=== PATIENT | male | born 1935 | race Caucasian/White ===

== ENCOUNTER → 2017-07-29 10:27 | Outpatient (CLI) | payer MEDICARE, SELFPAY ==
[2017-07-29 12:11] LABS: Anion Gap 8 (5-15); BUN 17 mg/dL (7-18); BUN/Creat Ratio 15.2 RATIO (10-20); Calcium,Total 9.6 mg/dL (8.5-10.1); Chloride 103 mmol/L (98-107); Creatinine, Serum 1.12 mg/dL (0.70-1.30); EST Glomerular Filtration Rate 67 mL/min (>60); Est Glom Filt Rate - Afr Amer 81 mL/min (>60); Glucose 111 mg/dL (70-110); Potassium 4.3 mmol/L (3.5-5.1); Sodium Level 139 mmol/L (136-145)
== END ==
PROVIDERS: Family Provider Family Medicine; PCP Family Medicine
DX: R26.9 Unspecified abnormalities of gait and mobility (principal)
CPT/HCPCS: 36415; 80048

== ENCOUNTER → 2017-08-31 13:57 | Outpatient (CLI) | payer MEDICARE, SELFPAY ==
[2017-08-31 15:06] LABS: Hematocrit 37.4 % (40-54); Hemoglobin 12.1 g/dl (13.0-16.5); Mean Corp Hgb Conc 32.4 g/gl (32-36); Mean Corpuscular Volume 89.7 fL (80-94); Mean Platelet Vol. 10.6 fl (6.2-12.0); Platelet Count 212 K/mm3 (150-450); RBC Distribution Width CV 12.6 % (11.6-14.6); RBC Distribution Width SD 40.9 fl (35.1-43.9); Red Blood Count 4.17 M/mm3 (4.6-6.2); White Blood Count 6.8 K/mm3 (4.4-11.0)
[2017-08-31 15:10] LABS: Scan Indicated on CBC? Y/N NO
[2017-08-31 15:49] LABS: Rubella IgG > 500.0 IU/mL; Vitamin B12 460 pg/mL (211-911)
[2017-08-31 16:22] LABS: ALB/GLOB Ratio 0.8 RATIO (0.9-2.4); AST(SGOT) 28 U/L (15-37); Alanine Aminotransfer ALT/SGPT 31 U/L (16-61); Albumin, Serum 3.4 g/dL (3.2-5.0); Alkaline Phosphatase 71 U/L (45-117); Anion Gap 9 (5-15); BUN 23 mg/dL (7-18); BUN/Creat Ratio 18.1 RATIO (10-20); Calcium,Total 9.4 mg/dL (8.5-10.1); Chloride 106 mmol/L (98-107); Creatinine, Serum 1.27 mg/dL (0.70-1.30); EST Glomerular Filtration Rate 58 mL/min (>60); Est Glom Filt Rate - Afr Amer 70 mL/min (>60); Free T3 2.1 pg/mL (2.18-3.98); Glucose 153 mg/dL (74-106); Magnesium 2.3 mg/dL (1.6-2.6); Potassium 4.1 mmol/L (3.5-5.1); Protein, Total 7.4 g/dL (6.4-8.2); Rheumatoid Factor < 10.0 IU/mL (<15); Sodium Level 142 mmol/L (136-145); Thyroid Stim Hormone (TSH) 1.61 uIU/mL (0.358-3.74)
[2017-09-04 01:08] LABS: Rapid Plasmin Reagin (RPR) NONREACTIVE (NONREACTIVE)
== END ==
PROVIDERS: Family Provider Family Medicine; PCP Family Medicine; Visit Provider Nurse Practitioner Acute Care
DX: E88.81 Metabolic syndrome and other insulin resistance (principal); R42 Dizziness and giddiness
CPT/HCPCS: 36415; 80053; 82607; 82746; 83735; 84100; 84403; 84439; 84443; 84481; 85027; 86431; 86592; 86762

== ENCOUNTER 2017-10-22 12:00 | Outpatient (RCR) | payer MEDICARE, SELFPAY ==
--- NOTE | 2017-08-25 10:40 | HP.PTEVAL_ITS ---
Patient's Visit Information PEDRITO REYES is a 82 year old M referred to Physical Therapy by Out of Town Doctor with a diagnosis of gait instability. Date of Evaluation: 08/25/17 Physical Therapist: Glenn Saravia PT, - Visit Plan Frequency: 2-3x /Week Duration: 4 Weeks Plan: B LE strengthening, balance and proprio, gait training, core strengthening , nustep, and HEP - Subjective Subjective: Pt reports he had spinal fusion in May in his LB. 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 No recent falls, or any in the past. Pt reports he has a tendency since his strokes to lean toward his L while ambulating. Pt reports this has caused him to almost lose his balance, but he hasn't yet. Pt reports he has been ambulating with a cane for the past 2 years. Pt reports he has good sensation in his feet. Pt reports occasional LBP, but no pain this date. No diff with sleep at this time. Pt has 2 steps into his house that he has to negotiate one at a time. No residual weakness from his strokes. - Objective Neuro: B LE sensation is WNL to light touch. B pat tendon reflex= 1/3. MMT: R LE is grossly 4-/5 throughout while L LE is 4/5 throughout. Gait: Pt ambulates with a very slow cadance and use of standard cane. Balance: Roberts Balance scale 50/56, indicating low fall risk - Goals Goal 1:: Increase B LE strength x 1 grade to aid with stair negotiation Goal Time Frame: 4-6 Weeks Goal 2:: Increase Roberts balance score x 2-5 pnts to aid with increasing SDB Goal Time Frame: 4-6 Weeks Goal 3:: I with HEP Goal Time Frame: 4-6 Weeks - Rehabilitation Potential Physical Therapy Diagnosis: LE weakness and gait instability secondary to debilitation Rehabilitation Potential: Good - Anticipated Interventions Patient/Client Instruction: Educate patient on: Condition, Plan of Care For the Purpose of:: To improve self management Therapeutic Exercise to Include: Strength training, Endurance training, Balance training, Gait and locomotor training, Dynamic Lumbar Stabilization For the Purpose of:: To increase ROM, To improve muscle performance and motor function Thank you for the opportunity to evaluate your patient. For Medicare and Medicare HMO plans, please review the plan of care and approve it. It will need to be FAXED BACK to us at [phone] for Medicare purposes. Please let me know if there are questions or concerns regarding this plan of care. Physician Signature: Date:
--- NOTE | 2017-09-22 11:05 | HP.PTREVAL_ITS ---
Out of Town Doctor, It has been my pleasure to treat PEDRITO REYES over the last 9 visits for gait instability. Please see the progress note below for an update on the physical therapy plan of care! Subjective: Pt feels like he is improving. He hasnt fallen for weeks now. Objective/Function: MMT: L LE grossly 4+/5 throughout; R LE 4-/5 throughout. Roberts balance scale: 47. getting ready to begin safe HEP. Pt is progressing with strength, would definitely benefit from further balance activity to prevent future falls Plan Plan: cont 2 times per week for 4 weeks Goals Goal 1:: Increase B LE strength x 1 grade to aid with stair negotiation Goal Time Frame: 4-6 Weeks Goal Progress: Progressing Goal 2:: Increase Roberts balance score x 2-5 pnts to aid with increasing SDB Goal Time Frame: 4-6 Weeks Goal 3:: I with HEP Goal Time Frame: 4-6 Weeks Goal Progress: Progressing Anticipated Interventions Patient/Client Instruction: Educate patient on: Condition, Plan of Care For the Purpose of:: To improve self management Therapeutic Exercise to Include: Strength training, Endurance training, Balance training, Gait and locomotor training, Dynamic Lumbar Stabilization For the Purpose of:: To increase ROM, To improve muscle performance and motor function Please do not hesitate to contact me at [phone] by phone or Fax: if you have questions or concerns regarding this new plan of care! Sincerely, Glenn Saravia, PT,
--- NOTE | 2017-10-22 13:07 | HP.PTDCSUM ---
HP - PT D/C Summary It has been my pleasure to treat PEDRITO REYES under orders from Out of Town Doctor, for the diagnosis of gait instability for a total of 17 visit(s). Discharge Date: Please see the following information for a summary of their discharge status. - Subjective Subjective: Pt reports he feels more stable after having PT - Objective Objective/Function: B LE MMT: 5/5 throughout. Roberts balance scale: 49/56. Pt is I with HEP. All Rx goals achieved except increased Roberts scale - Goals Goal 1:: Increase B LE strength x 1 grade to aid with stair negotiation Goal Progress: Goal Met Goal 2:: Increase Roberts balance score x 2-5 pnts to aid with increasing SDB Goal Progress: Goal Met Goal 3:: I with HEP Goal Progress: Goal Met - Plan Plan: Discharge - D/C Information If there are questions or concerns regarding this patient's physical therapy, please feel free to call me at [phone]. Thank you for the referral of this patient. Sincerely, Glenn Saravia, PT,
--- NOTE | 2017-10-22 13:11 | HP.PTDCSUM_ITS ---
HP - PT D/C Summary It has been my pleasure to treat PEDRITO REYES under orders from Out of Town Doctor, for the diagnosis of gait instability for a total of 17 visit(s). Discharge Date: Please see the following information for a summary of their discharge status. - Subjective Subjective: Pt reports he feels more stable after having PT - Objective Objective/Function: B LE MMT: 5/5 throughout. Roberts balance scale: 49/56. Pt is I with HEP. All Rx goals achieved except increased Roberts scale - Goals Goal 1:: Increase B LE strength x 1 grade to aid with stair negotiation Goal Progress: Goal Met Goal 2:: Increase Roberts balance score x 2-5 pnts to aid with increasing SDB Goal Progress: Goal Met Goal 3:: I with HEP Goal Progress: Goal Met - Plan Plan: Discharge - D/C Information If there are questions or concerns regarding this patient's physical therapy, please feel free to call me at [phone]. Thank you for the referral of this patient. Sincerely, Glenn Saravia, PT,
== END 2017-10-22 16:18 | disposition home or self-care (01) ==
LOC: PT 12:00
PROVIDERS: Family Provider Family Medicine; PCP Family Medicine
DX: M62.81 Muscle weakness (generalized) (principal); Z86.73 Personal history of transient ischemic attack (TIA), and cerebral infarction without residual deficits
CPT/HCPCS: 97110; 97162; 97164; 97530

== ENCOUNTER → 2017-11-12 08:53 | Outpatient (CLI) | payer MEDICARE, SELFPAY ==
--- NOTE | 2017-11-12 08:56 | ADU_ITS ---
Reason For Study: ATHEROSCLEROSIS Right Velocities Left Velocities Ext. Iliac Artery, dist = 130 cm./sec. Ext Iliac Artery, dist = 123 cm./sec. Common Femoral Artery, mid = 90 cm./sec. Common Femoral Artery, mid = 134 cm./sec. Supf Femoral Artery, prox = 89 cm./sec. Supf. Femoral Artery, prox = 288 cm./sec. RT SFA stent Proximal velocity =138 cm/sec. Supf. Femoral Artery, mid = 148 cm./sec. Mid stent = 135 cm/sec. Supf. Femoral Artery, dist = 48 cm./sec. Distal stent= 146 cm/sec. Profunda Femoral Artery = 123 cm./sec. Supf Femoral Artery, dist. = 179 cm./sec. Popliteal Artery, proximal, = 53 cm./sec. Profunda Femoral Artery = 138 cm./sec. Popliteal Artery, mid = 58 cm./sec. Popliteal Artery, prox. = 92 cm./sec. Popliteal Artery, distal = 137 cm./sec. Rt Popliteal stent prox= 103 cm/sec Ant.Tibial Artery, prox = 27 cm./sec. Mid stent = 70 cm/sec. Ant Tibial Artery, mid = 33 cm./sec. Distal stent =71 cm/sec. Ant. Tibial Artery, distal = 32 cm./sec. Popliteal Artery, dist = 109 cm./sec. Post. Tibial Artery, prox = 51 cm./sec. Ant. Tibial Artery, prox = 17 cm./sec. Post Tibial Artery, mid = 50 cm./sec. Ant. Tibial Artery, mid = 16 cm./sec. Post Tibial Artery, dist. = 42 cm./sec. Ant. Tibial Artery, dist = 40 cm./sec. Peroneal Artery, prox = 43 cm./sec. Post. Tibial Artery, prox = 57 cm./sec. Peroneal Artery, mid = 43 cm./sec. Post. Tibial Artery, mid = 46 cm./sec. Peroneal Artery,dist. = 32 cm./sec. Post. Tibial Artery, dist = 356 cm./sec. Peroneal Artery, prox = 50 cm./sec. Peroneal Artery, mid = 66 cm./sec. Peroneal Artery,dist = 52 cm./sec. Procedure Exam performed in department. Interpretation Summary 1. Right leg no stenosis and widely patent SFA stent. 2. Distal posterior tibial on right severe stenosis otherwise triphasic flow into ankle. 3. Moderate left SFA stenosis but triphasic flow into ankle through tibials. Ordering Physician: Kyle Fields Referring Physician: AMY SINGLETON MD Performed By: Alisa Palumbo, ERIN, RVT
--- NOTE | 2017-11-12 08:56 | CDU_ITS ---
Reason For Study: BRUIT Rt. Velocities/BP Lt. Velocities/BP Prox CCA 73/15 cm/sec. Prox CCA 68/20 cm/sec. Mid CCA 78/16 cm/sec. Mid CCA 60/19 cm/sec. Dist CCA 69/12 cm/sec. Dist CCA 53/20 cm/sec. Prox ICA 79/15 cm/sec. Prox ICA 107/30 cm/sec. Mid ICA 72/24 cm/sec. Mid ICA 91/22 cm/sec. Dist ICA 107/33 cm/sec. Dist ICA 86/20 cm/sec. Rt. ICA/CCA = 1.4. Lt. ICA/CCA = 1.8. Prox ECA 211/13 cm/sec. Prox ECA 460/49 cm/sec. Rt. Vert. 49/8 cm/sec. Lt. Vert. 70/17 cm/sec. Right Extracranial There is heterogeneous, irregular atherosclerotic plaque noted in the right common carotid artery. There is heterogeneous, irregular atherosclerotic plaque noted in the right internal carotid artery. There is heterogeneous, irregular atherosclerotic plaque noted in the right external carotid artery. Antegrade flow is noted in the right vertebral artery. There is heterogeneous, irregular atherosclerotic plaque noted in the right bulb. Left Extracranial There is heterogeneous, irregular atherosclerotic plaque noted in the left common carotid artery. There is heterogeneous, irregular atherosclerotic plaque noted in the left internal carotid artery. There is heterogeneous, irregular atherosclerotic plaque noted in the left external carotid artery. Antegrade flow is noted in the left vertebral artery. There is heterogeneous, irregular atherosclerotic plaque noted in the left bulb. Procedure Carotid Duplex 23220. Exam performed in department. Interpretation Summary Mild (<50%) stenosis right extracranial internal carotid. Mild (<50%) stenosis left extracranial internal carotid. Flow within the vertebral arteries is antegrade bilaterally. Ordering Physician: Kyle Fields Referring Physician: AMY SINGLETON MD Performed By: Alisa Palumbo, RDCS, RVT
--- NOTE | 2017-11-18 08:25 | LEAS ---
Arterial Study - Arterial Study Arterial Study: Date of scan 11/12/[address] Fields next Indication patient with claudication and history of hypertension hyperlipidemia and previous stenting Interpretation: Right lower extremity normal pulsatile flow from the thigh down to the calf ankle digits YAAKOV 0.9 through the posterior tibial 0.9 to the dorsalis pedis. Next Left lower extremity with fairly normal pulsatile flow from the thigh down to the calf ankle digits slightly peaked waveforms noted in the calf YAAKOV 0.9 in the posterior tibial 0.9 for the dorsalis pedis. Impression: 1. Bilateral lower extremities with no evidence of sniffing arterial occlusive disease with an YAAKOV 0.93 on the right 0.94 on the left
--- NOTE | 2017-11-18 08:28 | LEAS_ITS ---
Arterial Study - Arterial Study Arterial Study: Date of scan 11/12/[address] Fields next Indication patient with claudication and history of hypertension hyperlipidemia and previous stenting Interpretation: Right lower extremity normal pulsatile flow from the thigh down to the calf ankle digits YAAKOV 0.9 through the posterior tibial 0.9 to the dorsalis pedis. Next Left lower extremity with fairly normal pulsatile flow from the thigh down to the calf ankle digits slightly peaked waveforms noted in the calf YAAKOV 0.9 in the posterior tibial 0.9 for the dorsalis pedis. Impression: 1. Bilateral lower extremities with no evidence of sniffing arterial occlusive disease with an YAAKOV 0.93 on the right 0.94 on the left
== END ==
PROVIDERS: Family Provider Family Medicine; PCP Family Medicine; Visit Provider Surgery Vascular Surgery
DX: R09.89 Other specified symptoms and signs involving the circulatory and respiratory systems (principal); I70.213 Atherosclerosis of native arteries of extremities with intermittent claudication, bilateral legs; C61 Malignant neoplasm of prostate; I10 Essential (primary) hypertension; E78.00 Pure hypercholesterolemia, unspecified; F17.200 Nicotine dependence, unspecified, uncomplicated
CPT/HCPCS: 93880; 93922; 93925

== ENCOUNTER 2018-01-29 07:56 | Observation (INO) | payer MEDICARE, SELFPAY ==
[2018-01-29 08:00] VITALS: BP 178/89; PULSE 81; RESP 16; TEMP 36.8; O2SAT 95; BMI 24.5
--- NOTE | 2018-01-29 08:09 | NURSING ---
NO LW OR POA
--- NOTE | 2018-01-29 08:13 | CT_ITS ---
STUDY: CT BRAIN WITHOUT CONTRAST REASON FOR EXAM: Male, 82 years old. Weakness. RADIATION DOSAGE (If Supplied By Facility): CTDIvol = ( 44.99 ) mGy, DLP = ( 846.73 ) mGycm TECHNIQUE: Transaxial CT imaging of the brain was performed without administration of intravenous contrast material. Individualized dose optimization techniques were used for this CT. COMPARISON: Comparison is made with prior study dated June 26, 2015. FINDINGS: Normal soft tissue structures. Normal calvarium. There is mild cerebral atrophy with widening of the extra-axial spaces and ventricular dilatation. There are areas of decreased attenuation within the white matter tracts of the supratentorial brain, consistent with microvascular disease changes. Tiny lacunar infarct in the left basal ganglion. This is new as compared to prior study. Normal brainstem. Normal cerebellum. There is no intracranial hemorrhage. There are no findings of an acute ischemic infarction. Normal visualized paranasal sinuses. CT/Brain/Head without Contrast IMPRESSION: Chronic involutional changes of the brain. Tiny lacunar infarct in the left basal ganglion. This is new as compared to prior study. Electronically Signed: Rk Salmeron MD at 9:56 EDT Tel [phone], Service support ,
[2018-01-29 08:35] LABS: Absolute Neutrophil Count 5.8 X10^3/uL (2.0-7.7); Basophil# 0.01 X10^3/uL; Basophil% 0.1 % (0-1); Eosinophils% 2.3 % (0-5); Hematocrit 35.8 % (40-54); Hemoglobin 11.6 g/dl (13.0-16.5); Lymphocyte % 13.5 % (19-41); Mean Corp Hgb Conc 32.4 g/gl (32-36); Mean Corpuscular Hgb 28.2 pg (27.0-32.0); Mean Corpuscular Volume 86.9 fL (80-94); Mean Platelet Vol. 9.8 fl (6.2-12.0); Monocyte# 1.65 X10^3/uL; Monocyte% 18.6 % (0-10); Neutrophil # 5.81 X10^3/uL (2.7-7.7); Neutrophil % 65.4 % (47-70); Platelet Count 169 K/mm3 (150-450); RBC Distribution Width CV 13.6 % (11.6-14.6); RBC Distribution Width SD 43.5 fl (35.1-43.9); Red Blood Count 4.12 M/mm3 (4.6-6.2); White Blood Count 8.9 K/mm3 (4.4-11.0)
[2018-01-29 08:37] LABS: Differential Indicated SCAN CRITERIA MET; POSITIVE COUNT NO; POSITIVE DIFFERENTIAL YES; POSITIVE MORPHOLOGY NO
--- NOTE | 2018-01-29 08:41 | RAD_ITS ---
STUDY: X-RAY CHEST REASON FOR EXAM: Male, 82 years old. Weakness. TECHNIQUE: Single AP portable view of the chest. COMPARISON: None. FINDINGS: Mild elevation of the left hemidiaphragm. Mild degree of increased linear markings at the lung bases slightly more prominent on the left side suggestive of bibasilar atelectasis. There is no demonstrated pleural abnormality. Normal size heart. A left-sided dual-chamber pacemaker is seen. Normal mediastinum and yobani. Normal visualized pulmonary arteries. There is atherosclerotic calcification of the aortic arch with tortuosity. There are degenerative changes of the visualized thoracic spine. Normal visualized ribs, clavicles, and shoulders. There is no demonstrated abnormality of the visualized soft tissue structures of the upper abdomen. RAD/Chest 1 View (Portable) IMPRESSION: Mild increased markings at the lung bases slightly more prominent on the left side suggestive of mild bibasilar linear atelectasis. Electronically Signed: Rk Salmeron MD at 8:58 EDT Tel [phone], Service support ,
--- NOTE | 2018-01-29 08:44 | ED.VISSUMM ---
- ER Visit Summary Date of Service: 01/29/18 Chief Complaint: Weakness History of Present Illness: The patient is a 82 M brought by for weakness. This started mostly today but was slightly weak last night before going to bed. The chief complaints as bilateral lower extremity weakness, however after discussing with the patient and he is diffusely weak. He has no back pain. He does have dementia and his dementia has worsened over the past 2 weeks. No fever or chills but did notice a temperature of 99.2 earlier today. Patient denies chest pain abdominal pain back pain shortness of breath or cough. He denies any kind of pain. He does have dementia but he is oriented ?2. I am confident he can give me a decent review of systems and tell me his symptoms adequately. Physical Examination: Not appear in acute distress. He is laying comfortably in bed. Moist mucous membranes, no obvious facial deformity No C-spine tenderness supple neck. Regular rate and rhythm without any obvious murmurs Clear lungs bilaterally speaking in full sentences without any obvious respiratory distress Abdomen soft and nontender no guarding or rebound Moves all extremities without any difficulty or pain. Skin does not show any obvious rashes or lesions, no trauma. Alert oriented to person and place with no gross focal deficit. His NIH stroke scale is 0. As he is laying in bed I cannot appreciate any weakness. He has no cerebellar dysfunction. Emergency Department Course and Treatment: She has an unremarkable emergency department workup, however he does have a CAT scan that shows a new lacunar infarct I doubt this is causing his symptoms. I try to get him out of bed and he cannot ambulate. I palpated his back, he has no back pain. He has some upper neck pain but full range of motion and no meningismus. I am unsure about the etiology of his symptoms, however yesterday he was walking and went out to eat and today it is difficult to get out of bed and he is diffusely weak. I will admit him for further workup. Impression: Generalized weakness of unknown etiology This note was generated with [employer] dictation software. It may contain incorrect words, spelling, and punctuation that were not noted in review of the chart prior to signing ED Disposition - Plan for ED Patient: Chief Complaint: Weakness Referrals: Trev Shoemaker MD [Primary Care Provider] -
[2018-01-29 08:59] LABS: ALB/GLOB Ratio 0.9 RATIO (0.9-2.4); AST(SGOT) 26 U/L (15-37); Alanine Aminotransfer ALT/SGPT 40 U/L (16-61); Albumin, Serum 3.4 g/dL (3.2-5.0); Alkaline Phosphatase 73 U/L (45-117); Anion Gap 6 (5-15); BUN 23 mg/dL (7-18); BUN/Creat Ratio 19.3 RATIO (10-20); Calcium,Total 8.7 mg/dL (8.5-10.1); Chloride 107 mmol/L (98-107); Creatinine, Serum 1.19 mg/dL (0.70-1.30); EST Glomerular Filtration Rate 62 mL/min (>60); Est Glom Filt Rate - Afr Amer 75 mL/min (>60); Estimated Creatinine Clearance 53.44 ml/min; Globulin 3.8 g/dL (2.2-4.2); Glucose 145 mg/dL (74-106); Potassium 3.6 mmol/L (3.5-5.1); Protein, Total 7.2 g/dL (6.4-8.2); Sodium Level 139 mmol/L (136-145)
[2018-01-29 09:01] LABS: Bacteria 0 SEEN /hpf (None Seen); Mucous, Urine 0 SEEN /hpf (<or=2+); Red Blood Cells-Urine 0 SEEN /hpf (0-5); Squamous Epithelial Cells - UA 0 SEEN /hpf (0-5); White Blood Cells 0 SEEN /hpf (0-5)
[2018-01-29 09:07] LABS: Color, Urine Yellow (Yellow); Glucose, Dipstick Normal (Normal); Ketone-Dipstick Negative (Negative); Leukocyte Esterase-Dipstick Negative /ul (Negative); Nitrite-Dipstick Negative (Negative); Occult Blood-Urine Negative /ul (Negative); Protein-Dipstick 30 mg/dl (Negative); Urine Bilirubin Dipstick Negative (Negative); Urine Clarity Clear (Clear); Urine Urobilinogen Normal (Normal)
[2018-01-29 10:00] VITALS: BP 174/85; O2SAT 95
--- NOTE | 2018-01-29 10:27 | NURSING ---
MED SURG OBS GENERALIZED WEAKNESS LOUIE
[2018-01-29 11:22] VITALS: BMI 24.1
--- NOTE | 2018-01-29 13:58 | PCM.CONS.GEN ---
Problem List (1) Difficulty in walking Status: Acute Reason for Consult Date of Consultation: 01/29/18 Reason for Consultation: difficulty in ambulation History of Present Illness: The patient is a 82 year old CM with PMH HTN, HLD, Alzheimer's dementia, CAD, PVD s/p stents, H/O prostate cancer, H/O Lumbar surgery in March 2017, post operative course complicated by stroke, CAD, and ? seizure, s/p pacer admitted with difficulty in walking. History is obtained from , daughter and medical records. Patient does have dementia, follows up with Dr. Haas and COPPING MACHINE OPERATOR Zakiya Thornton. Per he ambulates with cane, falls about once a week due to balance issues, does not drive and does need assistance for his ADLs, is AoAx2 at baseline and is not oriented to time, per he had difficulty in ambulating since last night (01/28/18), they went out for dinner and he was fine but after coming home he would freeze and had difficulty moving/walking. He does complaint of neck stiffness and neck pain since last night and also has frontal COLEY, found to have low grade temperature on admission, denies any sick contact, diarrhea, denies any focal motor weakness, sensory loss, speech disturbances or visual disturbances. Denies any new onset urinary incontinence, has dementia, denies any vision loss, jaw claudication or temporal tenderness. CT head done on admission shows old left BG lacunar stroke. Labs: WBCs-8.9, UA-neg [] Past Medical History Allergies Influenza Virus Vaccines Allergy (Verified 01/29/18 11:40) Hives Home Medications: Ambulatory Orders Medication Instructions Recorded Amlodipine 5 mg PO DAILY 01/29/18 Aspirin 81 mg PO 01/29/18 Atorvastatin Calcium 80 mg PO DAILY 01/29/18 Carvedilol 25 mg PO BID 01/29/18 Clopidogrel Bisulfate [Clopidogrel] 75 mg PO DAILY 01/29/18 Finasteride [Proscar] 5 mg PO DAILY 01/29/18 Hydrochlorothiazide 12.5 mg PO DAILY 01/29/18 Isosorbide Dinitrate 10 mg PO TID 01/29/18 Tamsulosin HCl [Flomax] 0.4 mg PO DAILY 01/29/18 Lives: Spouse/ Significant Other Smoking Status: Former smoker Tobacco Use: Cigarettes - Ex smoker, Cigars Alcohol: None Drugs: None Review of Systems Constitutional: Reports: - - complete ROS negative excetp as documented in HPI Patient Problems: Active and Suspected Problems Difficulty in walking (Acute) - Physical Exam General: Alert HEENT: Normocephalic Neck: Supple Lungs: Normal air movement Cardiovascular: Normal S1, Normal S2 Abdomen: Bowel Sounds Present Extremities: No cyanosis Skin: No rashes Neurological: - - consious, alert, AoAx 2, CN 2-12 grossly intact, no sensory loss, power 5/5 both UE, B/L LE -5/5, plantars B/L flexor, no cerebellar signs, no tremors, tone normal both UE and LE, gait deferred, Reflexes Brisk B/L B/S/T/K/A, No NR. Psych/Mental Status: Normal Affect Vital Signs Temp Pulse Resp BP Pulse Ox 98.2 F 81 16 174/85 H 95 01/29/18 08:00 01/29/18 08:00 01/29/18 08:00 01/29/18 10:00 01/29/18 10:00 Weight: 78.471 kg Body Mass Index (BMI) 24.1 Assessment/Plan All Active Problems Difficulty in walking (Acute) The patient is a 82 year old CM with PMH HTN, HLD, Alzheimer's dementia, CAD, PVD s/p stents, H/O prostate cancer, H/O Lumbar surgery in March 2017, post operative course complicated by stroke, CAD, and ? seizure, s/p pacer admitted with difficulty in walking. History is obtained from , daughter and medical records. Patient does have dementia, follows up with Dr. Haas and COPPING MACHINE OPERATOR Zakiya Thornton. Per he ambulates with cane, falls about once a week due to balance issues, does not drive and does need assistance for his ADLs, is AoAx2 at baseline and is not oriented to time, per he had difficulty in ambulating since last night (01/28/18), they went out for dinner and he was fine but after coming home he would freeze and had difficulty moving/walking. He does complaint of neck stiffness and neck pain since last night and also has frontal COLEY, found to have low grade temperature on admission, denies any sick contact, diarrhea, denies any focal motor weakness, sensory loss, speech disturbances or visual disturbances. Denies any new onset urinary incontinence, has dementia, denies any vision loss, jaw claudication or temporal tenderness. CT head done on admission shows old left BG lacunar stroke. Labs: WBCs-8.9, UA-neg [] Impression Gait difficulty. RO Compressive Cervical Myelopathy vs Lumbar stenosis RO Stroke Plan -Per and daughter his pacer is MRI compatible. If pacer is MRI compatible will get MRI brain w/o contrast, MRI C spine and MRI L spine w/contrast -On ASA/Plavix at baseline and on statins -Check ESR -Labs reviewed -May need vessel imaging and stroke work up in case is found to have acute stroke -PT/OT -Fall precautions -GI/DVT prophylaxis -Please call with questions if any -Thank you for allowing us to participate in patients care and management I spent 60 minutest taking history, doing physical examination, reviewing medical records, coordinating care and counseling the patient. Code Visit Inpatient E&M: 87538 Init Hosp L3
[2018-01-29] MEDS: Acetaminophen 325 MG Tablet 650 MG PO (14:11)
[2018-01-29] MEDS: Carvedilol 25 MG Tablet PO ×2 (14:14→21:00)
[2018-01-29 14:16] VITALS: PULSE 80
[2018-01-29 14:42] LABS: Erythrocyte Sedimentation Rate 19 mm/hr (0-20)
--- NOTE | 2018-01-29 15:36 | NURSING ---
Dr Regan notified that radiology cannot do MRI until Thursday and possibly . since a rep., a needs to be at the procedure, a doctor needs to sign off, and nurse needs to be present. Dr. Fay spoke to this nurse and said, maybe Dr. Regan want so transfer him to [place]. Dr. Regan said he would transfer him.
[2018-01-29] MEDS: Isosorbide DN 10 MG Tablet PO ×2 (15:50→21:00)
--- NOTE | 2018-01-29 16:49 | CT_ITS ---
STUDY: CT CERVICAL SPINE WITHOUT CONTRAST REASON FOR EXAM: Male, 82 years old. Degenerative disc disease, difficulty moving legs RADIATION DOSAGE (If Supplied By Facility): CTDIvol = ( 23.93 ) mGy, DLP = ( 554.42 ) mGycm TECHNIQUE: High resolution transaxial imaging was performed without contrast material. Sagittal and coronal images were reconstructed. Individualized dose optimization techniques were used for this CT. COMPARISON: None FINDINGS: Normal craniovertebral junction. There are degenerative changes of the anterior atlantoaxial articulation. Normal odontoid process. There is straightening of the normal cervical lordosis. There are anterior osteophytes from C2 through C7. There is flattening and remodeling of the C3 and C4 vertebral bodies. C2-3: There is severe disc space narrowing. There are bilateral hypertrophic degenerative facet changes. There is moderately severe foraminal narrowing on the left and mild foraminal narrowing on the right. There is no central canal stenosis. C3-4: There is severe disc space narrowing. There is severe bilateral foraminal narrowing and mild central canal stenosis. Flattening and remodeling of the C3 and C4 vertebral bodies is noted. C4-5: There is severe disc space narrowing with sclerosis of the adjacent endplates. There is severe foraminal narrowing on the left and moderately severe foraminal narrowing on the right. There is moderately severe central canal stenosis. There are bilateral hypertrophic degenerative facet changes. C5-6: There is moderately severe disc space narrowing. There is moderately severe bilateral foraminal narrowing. There is no central canal stenosis. C6-7: There is severe disc space narrowing with sclerosis of the adjacent endplates. There is severe foraminal narrowing on the left and moderately severe foraminal narrowing on the right. There is no central canal stenosis. C7-T1: Normal endplates. Normal disc height and morphology. Normal central canal and intervertebral neuroforamina. There is a pleural-based medial right apical mass measuring 2.[address]/Spine Cervical without Contras IMPRESSION: Severe degenerative changes as detailed above. Pleural-based medial right apical mass measuring 2.7 x 1.6 cm. Electronically Signed: Dontrell Clark MD at 18:43 EDT , Service support ,
--- NOTE | 2018-01-29 16:49 | CT_ITS ---
STUDY: CT LUMBAR SPINE WITHOUT CONTRAST REASON FOR EXAM: Male, 82 years old. Degenerative disc disease, difficulty moving legs RADIATION DOSAGE (If Supplied By Facility): CTDIvol = ( 27.55 ) mGy, DLP = ( 871.31 ) mGycm TECHNIQUE: The patient was scanned in a multi detector CT scanner. High resolution transaxial imaging was performed. Images were obtained from T11 to upper sacrum. Sagittal and coronal images were reconstructed. Individualized dose optimization techniques were used for this CT. COMPARISON: None FINDINGS: Normal lumbar lordosis. There is no substantial scoliosis. There is a grade 3 anterolisthesis of L5 relative to S1 with bilateral L5 spondylolysis. There are posterior spinal fusion changes with interpeduncular screws noted at the L4 and S1 levels. There is compression deformity and sclerosis of the inferior L5 body. L1-2: There is severe disc space narrowing at the L1-2 level with vacuum phenomenon. There is mild bilateral foraminal narrowing and mild central canal stenosis caused by bulging annulus and ligamentum flavum hypertrophy. L2-3: Disc spacing is preserved. There is mild central canal stenosis caused by ligamentum flavum hypertrophy and circumferentially bulging annulus. The facets are within normal limits. L3-4: Disc spacing is normal. L4 intrapeduncular screws are seen. There is mild central canal stenosis and mild foraminal narrowing caused by ligamentum flavum hypertrophy and mild hypertrophic facet changes. L4-5: There are mild bilateral degenerative facet changes. There are status post L4 laminectomy changes. There is no central canal stenosis. There is mild bilateral foraminal narrowing. Disc spacing is within normal limits. L5-S1: There is again noted a grade 3 anterolisthesis of L5 relative to S1. There is sclerosis and deformity of the inferior aspect of L5 and sclerosis of the superior endplate of S1. There is complete loss of L5-S1 disc space. Interpeduncular screws are seen in the S1 segment. There is no central canal or foraminal narrowing. There are calcified plaques of the abdominal aorta. CT/Spine Lumbar without Contrast IMPRESSION: Degenerative/postoperative changes as detailed above. Grade 3 anterolisthesis of L5 relative to S1. Electronically Signed: Dontrell Clark MD at 18:50 EDT , Service support ,
[2018-01-29 17:38] VITALS: BP 139/60; PULSE 84; RESP 17
--- NOTE | 2018-01-29 19:58 | PCM.HP.STD ---
Problem List (1) Generalized weakness Status: Acute History of Present Illness Date of Admission: 01/29/18 Chief Complaint: Generalized weakness, leg weakness The patient is a 82 year old M was brought to the emergency room at [facility] for evaluation by his for generalized weakness and weakness specifically in his legs. Patient has dementia but is able to answer some questions appropriately, patient's states that the patient awoke at night and could not move his legs or his arms very well. Patient denies any pain in his legs, numbness in his legs, denies the patient having any fevers or chills. Patient denies any back pain. Patient did say that he had some lower neck pain. Workup in the emergency room included a CAT scan of the brain which showed a lacunar infarct that was not recent but was not on a previous CT of the brain, the ER physician try to ambulate the patient and he was unable to in the emergency room. Lab obtained in the emergency room was remarkable for BUN of 23, glucose was 145, patient's urinalysis was unremarkable. Patient was in observation status on [facility] 3 for generalized weakness and inability to walk, he will be seen by neurology, patient has a pacemaker and it is unknown whether his pacemaker is MRI compliant. Past Medical History Allergies Influenza Virus Vaccines Allergy (Verified 01/29/18 11:40) Hives Home Medications: Ambulatory Orders Medication Instructions Recorded Amlodipine 5 mg PO DAILY 01/29/18 Aspirin 81 mg PO 01/29/18 Atorvastatin Calcium 80 mg PO DAILY 01/29/18 Carvedilol 25 mg PO BID 01/29/18 Clopidogrel Bisulfate [Clopidogrel] 75 mg PO DAILY 01/29/18 Finasteride [Proscar] 5 mg PO DAILY 01/29/18 Hydrochlorothiazide 12.5 mg PO DAILY 01/29/18 Isosorbide Dinitrate 10 mg PO TID 01/29/18 Tamsulosin HCl [Flomax] 0.4 mg PO DAILY 01/29/18 Surgical History: herniorrhaphy, pacemaker implantation, - - Lumbar spine fusion, stent placement in the legs Psychiatric History: - - Dementia Lives: Spouse/ Significant Other Smoking Status: Former smoker Tobacco Use: Cigarettes - Ex smoker, Cigars Alcohol: None Drugs: None - *Family History Maternal History Items: Dementia, Hypertension Paternal History Items: Heart Disease Review of Systems Comment: Review of systems was unable be obtained due to patient's dementia VTE Information - Inpt Only VTE Present on Admission: No VTE Mechan Device Prophylaxis: None VTE Pharm Prophylaxis ordered?: Yes Patient Problems: Active and Suspected Problems Difficulty in walking (Acute) Generalized weakness (Acute) - Physical Exam General: Alert, Cooperative, No apparent distress, Well developed, Well nourished, Confused HEENT: Atraumatic, PERRLA, EOMI, Normocephalic Oral: Moist Mucosa Neck: Supple, No JVD, Negative Carotid Bruits, No Nuchal Rigidity, Trachea Midline, Thyroid Normal Size and Texture Lungs: Clear to auscultation, Normal air movement, No rhonchi, No wheeze, No rales Cardiovascular: Regular rate, Regular Rhythm, Normal S1, Normal S2, No murmurs, No Ectopic Activity, PMI Normal, No rub noted, No Gallop Abdomen: Bowel Sounds Present, Soft, Non Tender, Non-Distended, No hernias noted Extremities: No clubbing, No cyanosis, No edema, Capillary Refill Less than 3 Seconds Skin: No rashes, No breakdown Musculoskeletal: No Tenderness to Palpation of Joints or Extremities Neurological: Cranial nerves II-XII grossly intact, Neuro grossly intact, Motor Exam 5/5 strength throughout, Sensory exam intact to light touch and pain, Coordination normal Psych/Mental Status: Flat Affect, - - Patient is alert, he has moderate confusion Vital Signs Temp Pulse Resp BP Pulse Ox 98.2 F 84 17 139/60 H 95 01/29/18 08:00 01/29/18 17:38 01/29/18 17:38 01/29/18 17:38 01/29/18 10:00 Weight: 78.471 kg Body Mass Index (BMI) 24.1 Assessment/Plan All Active Problems Difficulty in walking (Acute) Generalized weakness (Acute) #1 leg weakness-etiology is unknown at this time, patient was able to move his legs during the time of my examination, I had nursing get the patient up and he was able to walk around his room and to his doorway. PT and OT will see the patient, neurology saw the patient today, initially it was felt that the patient should be sent out to another facility for an MRI as we did not have the capability of obtaining an MRI due to the patient's pacemaker, I had talked with neurology, since the patient was able to walk in his room after neurology initially evaluated the patient, neurology recommended a CT of his neck and lumbar spine, these were obtained, it did not show any severe stenosis of the cervical spine but did show a right apical lung lesion-etiology was unknown. There is generalized degenerative disc disease of the lumbar without significant spinal stenosis and disc disease of the cervical spine, and daughter do not want the patient to see a spinal surgeon (this was recommended by neurology after I talked with neurology on the phone). It is unknown why the patient was weak in his legs last night and unable to walk. 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
--- NOTE | 2018-01-29 20:01 | CT_ITS ---
STUDY: CT CHEST WITH T WITHOUT CONTRAST REASON FOR EXAM: Male, 82 years old. Right apical mass RADIATION DOSAGE (If Supplied By Facility): CTDIvol = ( 16.65 ) mGy, DLP = ( 639.44 ) mGycm TECHNIQUE: Transaxial imaging was performed pre-and post contrast administration of 75ml ml of Isovue 370 contrast material. Individualized dose optimization techniques were used for this CT. COMPARISON: None. FINDINGS: There is a pleural-based mass of the medial right lung apex measuring 2.8 x 1.7 x 2.5 cm. There is a pleural-based 9 mm nodule of the posterior right upper lobe. There are mild diffuse emphysematous changes of the lungs. There are mild gravity dependent atelectatic changes of the posterior right lung andrews. There is no pleural effusion. Cardiomegaly is present. There is a left-sided pacemaker. Intracardiac wires are present. There is no pericardial effusion. Normal mediastinum. Normal hilar regions. Normal enhanced and unenhanced pulmonary arteries. There are calcified plaques of the thoracic aorta. 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 There are degenerative changes of the visualized lower cervical spine. There is no demonstrated abnormality of the visualized upper abdomen. CT/Chest W/WO Contrast IMPRESSION: 1. Pleural-based mass in the medial right lung apex measuring 2.8 x 1.7 x 2.5 cm. 2. There is an additional pleural-based 9 mm nodule of the posterior right upper lobe. 3. There are mild diffuse emphysematous changes of the lungs. 4. Cardiomegaly. A left-sided pacemaker is present. Intracardiac wires are seen. 5. Calcified plaques of the thoracic aorta. 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 Electronically Signed: Dontrell Clark MD at 21:00 EDT , Service support ,
--- NOTE | 2018-01-29 20:03 | HP.PCM_ITS ---
Problem List (1) Generalized weakness Status: Acute History of Present Illness Date of Admission: 01/29/18 Chief Complaint: Generalized weakness, leg weakness The patient is a 82 year old M was brought to the emergency room at [facility] for evaluation by his for generalized weakness and weakness specifically in his legs. Patient has dementia but is able to answer some questions appropriately, patient's states that the patient awoke at night and could not move his legs or his arms very well. Patient denies any pain in his legs, numbness in his legs, denies the patient having any fevers or chills. Patient denies any back pain. Patient did say that he had some lower neck pain. Workup in the emergency room included a CAT scan of the brain which showed a lacunar infarct that was not recent but was not on a previous CT of the brain, the ER physician try to ambulate the patient and he was unable to in the emergency room. Lab obtained in the emergency room was remarkable for BUN of 23 , glucose was 145, patient's urinalysis was unremarkable. Patient was in observation status on [facility] 3 for generalized weakness and inability to walk, he will be seen by neurology, patient has a pacemaker and it is unknown whether his pacemaker is MRI compliant. Past Medical History Allergies Influenza Virus Vaccines Allergy (Verified 01/29/18 11:40) Hives Home Medications: Ambulatory Orders Medication Instructions Recorded Amlodipine 5 mg PO DAILY 01/29/18 Aspirin 81 mg PO 01/29/18 Atorvastatin Calcium 80 mg PO DAILY 01/29/18 Carvedilol 25 mg PO BID 01/29/18 Clopidogrel Bisulfate [Clopidogrel] 75 mg PO DAILY 01/29/18 Finasteride [Proscar] 5 mg PO DAILY 01/29/18 Hydrochlorothiazide 12.5 mg PO DAILY 01/29/18 Isosorbide Dinitrate 10 mg PO TID 01/29/18 Tamsulosin HCl [Flomax] 0.4 mg PO DAILY 01/29/18 Surgical History: herniorrhaphy, pacemaker implantation, - - Lumbar spine fusion , stent placement in the legs Psychiatric History: - - Dementia Lives: Spouse/ Significant Other Smoking Status: Former smoker Tobacco Use: Cigarettes - Ex smoker, Cigars Alcohol: None Drugs: None - *Family History Maternal History Items: Dementia, Hypertension Paternal History Items: Heart Disease Review of Systems Comment: Review of systems was unable be obtained due to patient's dementia VTE Information - Inpt Only VTE Present on Admission: No VTE Mechan Device Prophylaxis: None VTE Pharm Prophylaxis ordered?: Yes Patient Problems: Active and Suspected Problems Difficulty in walking (Acute) Generalized weakness (Acute) - Physical Exam General: Alert, Cooperative, No apparent distress, Well developed, Well nourished, Confused HEENT: Atraumatic, PERRLA, EOMI, Normocephalic Oral: Moist Mucosa Neck: Supple, No JVD, Negative Carotid Bruits, No Nuchal Rigidity, Trachea Midline, Thyroid Normal Size and Texture Lungs: Clear to auscultation, Normal air movement, No rhonchi, No wheeze, No rales Cardiovascular: Regular rate, Regular Rhythm, Normal S1, Normal S2, No murmurs, No Ectopic Activity, PMI Normal, No rub noted, No Gallop Abdomen: Bowel Sounds Present, Soft, Non Tender, Non-Distended, No hernias noted Extremities: No clubbing, No cyanosis, No edema, Capillary Refill Less than 3 Seconds Skin: No rashes, No breakdown Musculoskeletal: No Tenderness to Palpation of Joints or Extremities Neurological: Cranial nerves II-XII grossly intact, Neuro grossly intact, Motor Exam 5/5 strength throughout, Sensory exam intact to light touch and pain, Coordination normal Psych/Mental Status: Flat Affect, - - Patient is alert, he has moderate confusion Vital Signs Temp Pulse Resp BP Pulse Ox 98.2 F 84 17 139/60 H 95 01/29/18 08:00 01/29/18 17:38 01/29/18 17:38 01/29/18 17:38 01/29/18 10:00 Weight: 78.471 kg Body Mass Index (BMI) 24.1 Assessment/Plan All Active Problems Difficulty in walking (Acute) Generalized weakness (Acute) #1 leg weakness-etiology is unknown at this time, patient was able to move his legs during the time of my examination, I had nursing get the patient up and he was able to walk around his room and to his doorway. PT and OT will see the patient, neurology saw the patient today, initially it was felt that the patient should be sent out to another facility for an MRI as we did not have the capability of obtaining an MRI due to the patient's pacemaker, I had talked with neurology, since the patient was able to walk in his room after neurology initially evaluated the patient, neurology recommended a CT of his neck and lumbar spine, these were obtained, it did not show any severe stenosis of the cervical spine but did show a right apical lung lesion-etiology was unknown. There is generalized degenerative disc disease of the lumbar without significant spinal stenosis and disc disease of the cervical spine, and daughter do not want the patient to see a spinal surgeon (this was recommended by neurology after I talked with neurology on the phone). It is unknown why the patient was weak in his legs last night and unable to walk. 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
[2018-01-29 20:49] VITALS: BP 172/64; PULSE 62; RESP 18; TEMP 36.8; O2SAT 96
[2018-01-30 00:09] VITALS: BP 173/68; PULSE 85; RESP 16; TEMP 36.8; O2SAT 95
[2018-01-30 02:39] VITALS: BP 165/59; PULSE 64; RESP 20; TEMP 36.4; O2SAT 97
[2018-01-30] MEDS: hydrALAZINE 25 MG Tablet PO (02:39)
[2018-01-30] MEDS: Isosorbide DN 10 MG Tablet PO (06:06)
[2018-01-30 06:09] VITALS: BP 160/62
--- NOTE | 2018-01-30 06:58 | PCM.CONS.GEN ---
Reason for Consult Date of Consultation: 01/30/18 Reason for Consultation: Lung mass History of Present Illness: The patient is an 82-year-old male, with a history as outlined below, who presented to the emergency department on January 29 with complaints of diffuse musculoskeletal weakness of 1-2 days duration. The patient has baseline dementia along with a history of CVA, coronary artery disease and peripheral vascular disease. The patient is currently prescribed both aspirin and Plavix as an outpatient. The patient does have a smoking history of 1 pack per day for an unknown number of years (patient does not remember), but states that he quit smoking completely 20 years ago. His weight has been relatively stable recently. His appetite is good. Upon presentation to the emergency department, the patient was noted be afebrile and hypertensive with an initial blood pressure documented to be 178/89 mmHg. Laboratory evaluation revealed no evidence of a leukocytosis. Chemistry profile was largely unremarkable. LFTs were unremarkable. Urinalysis was negative. Head CT revealed an old left basilar ganglier stroke. The patient was subsequently admitted to the medical surgical floor for ongoing management. As part of his workup, a CT C spine and lumbar spine were obtained. While no significant cervical or lumbar spine pathology was identified, there was incidental note made of a right apical lung mass. Therefore, a dedicated chest CT was obtained which did reveal a right apical pleural-based lung mass measuring 2.8 x 2.5 cm. There was also an additional subcentimeter pulmonary nodule noted in the right upper lobe. Past Medical History Allergies Influenza Virus Vaccines Allergy (Verified 01/29/18 11:40) Hives Home Medications: Ambulatory Orders Medication Instructions Recorded Amlodipine 5 mg PO DAILY 01/29/18 Aspirin 81 mg PO 01/29/18 Atorvastatin Calcium 80 mg PO DAILY 01/29/18 Carvedilol 25 mg PO BID 01/29/18 Clopidogrel Bisulfate [Clopidogrel] 75 mg PO DAILY 01/29/18 Finasteride [Proscar] 5 mg PO DAILY 01/29/18 Hydrochlorothiazide 12.5 mg PO DAILY 01/29/18 Isosorbide Dinitrate 10 mg PO TID 01/29/18 Tamsulosin HCl [Flomax] 0.4 mg PO DAILY 01/29/18 Surgical History: herniorrhaphy, pacemaker implantation, - - Lumbar spine fusion, stent placement in the legs Psychiatric History: - - Dementia Lives: Spouse/ Significant Other Smoking Status: Former smoker Tobacco Use: Cigarettes - Ex smoker, Cigars Alcohol: None Drugs: None - *Family History Maternal History Items: Dementia, Hypertension Paternal History Items: Heart Disease Review of Systems Constitutional: Reports: Weakness. Denies: Chills, Fever Eyes: Denies: Blurred vision, Double vision HEENT: Denies: Head Aches, Sinus Congestion, Sinus Drainage Cardiovascular: Denies: Chest Pain, Palpitations Respiratory: Denies: Cough, Shortness of breath at rest, Sputum production Gastrointestinal: Denies: Abdominal Pain, Nausea, Vomiting Genitourinary: Denies: Dysuria Musculoskeletal: Denies: Joint Pain, Joint Tenderness Skin: Denies: Rash, Wounds Neurological: Reports: - - + Musculoskeletal weakness Psychiatric: Denies: Anxiety, Depression, Homicidal Ideations, Suicidal Ideations Hematologic/ Lymphatic: Reports: Anemia Patient Problems: Active and Suspected Problems Difficulty in walking (Acute) Generalized weakness (Acute) Objective: The patient's most recent lab work, culture data and imaging studies have all been personally reviewed. - Physical Exam General: Alert, Cooperative, No apparent distress HEENT: Atraumatic, PERRLA, Normocephalic Oral: No Gingival or Mucosal Lesions/ Ulcerations Neck: Supple, No Nodes, Trachea Midline Lungs: No rhonchi, No wheeze, No rales, Diminished Cardiovascular: Regular rate, Regular Rhythm, Normal S1, Normal S2, No murmurs Abdomen: Bowel Sounds Present, Soft, Non Tender, Non-Distended Extremities: No clubbing, No cyanosis, No edema Skin: No breakdown Musculoskeletal: No Tenderness to Palpation of Joints or Extremities Lymphatic: No Cervical, Supraclavicular, or Inguinal Adenopathy Neurological: Neuro grossly intact, Sensory exam intact to light touch and pain Psych/Mental Status: Flat Affect Vital Signs Temp Pulse Resp BP Pulse Ox 97.6 F L 64 20 H 160/62 H 97 01/30/18 02:39 01/30/18 02:39 01/30/18 02:39 01/30/18 06:09 01/30/18 02:39 Oxygen Delivery Method Room Air Weight: 173 lb Body Mass Index (BMI) 24.1 Intake and Output for Last 24 Hours 01/28/18 01/29/18 01/30/18 23:59 23:59 23:59 Intake Total 100 / 100 200 / 200 Output Total 300 / 300 825 / 825 Balance -200 / -200 -625 / -625 Labs (Last 48 Hours) 01/29/18 01/29/18 01/29/18 08:20 08:20 08:20 WBC 8.9 RBC 4.12 L Hgb 11.6 L Hct 35.8 L MCV 86.9 MCH 28.2 MCHC 32.4 RDW 13.6 RDW Differential 43.5 Plt Count 169 MPV 9.8 Immature Gran % (Auto) 0.100 Neut % (Auto) 65.4 Lymph % (Auto) 13.5 L [place] % (Auto) 18.6 H Eos % (Auto) 2.3 Baso % (Auto) 0.1 Absolute Neuts (auto) 5.8 Absolute Lymphs (auto) 1.20 Total Counted Not Reportable ESR 19 Sodium 139 Potassium 3.6 Chloride 107 Carbon Dioxide 26.0 Anion Gap 6 BUN 23 H Creatinine 1.19 Estim Creat Clear Calc 53.44 Est GFR (MDRD) Af Amer 75 Est GFR (MDRD) Non-Af 62 BUN/Creatinine Ratio 19.3 Glucose 145 H Calcium 8.7 Total Bilirubin 0.50 AST 26 ALT 40 Alkaline Phosphatase 73 Troponin I < 0.015 Total Protein 7.2 Albumin 3.4 Globulin 3.8 Albumin/Globulin Ratio 0.9 Urine Color Urine Clarity Urine pH Ur Specific [place] Urine Protein Urine Glucose (UA) Urine Ketones Urine Occult Blood Urine Nitrite Urine Bilirubin Urine Urobilinogen Ur Leukocyte Esterase Urine RBC Urine WBC Ur Squamous Epith Cells Urine Bacteria Urine Mucus 01/29/18 08:51 WBC RBC Hgb Hct MCV MCH MCHC RDW RDW Differential Plt Count MPV Immature Gran % (Auto) Neut % (Auto) Lymph % (Auto) [place] % (Auto) Eos % (Auto) Baso % (Auto) Absolute Neuts (auto) Absolute Lymphs (auto) Total Counted ESR Sodium Potassium Chloride Carbon Dioxide Anion Gap BUN Creatinine Estim Creat Clear Calc Est GFR (MDRD) Af Amer Est GFR (MDRD) Non-Af BUN/Creatinine Ratio Glucose Calcium Total Bilirubin AST ALT Alkaline Phosphatase Troponin I Total Protein Albumin Globulin Albumin/Globulin Ratio Urine Color Yellow Urine Clarity Clear Urine pH 7.0 Ur Specific [place] 1.010 Urine Protein 30 H Urine Glucose (UA) Normal Urine Ketones Negative Urine Occult Blood Negative Urine Nitrite Negative Urine Bilirubin Negative Urine Urobilinogen Normal Ur Leukocyte Esterase Negative Urine RBC 0 SEEN Urine WBC 0 SEEN Ur Squamous Epith Cells 0 SEEN Urine Bacteria 0 SEEN Urine Mucus 0 SEEN Clinical Impression(s) from Imaging Studies Brain CT 01/29/18 08:13 IMPRESSION: Chronic involutional changes of the brain. Tiny lacunar infarct in the left basal ganglion. This is new as compared to prior study. Electronically Signed: Rk Salmeron MD at 9:56 EDT Tel [phone], Service support , Chest X-Ray 01/29/18 08:41 IMPRESSION: Mild increased markings at the lung bases slightly more prominent on the left side suggestive of mild bibasilar linear atelectasis. Electronically Signed: Rk Salmeron MD at 8:58 EDT Tel [phone], Service support , Cervical Spine CT 01/29/18 16:49 IMPRESSION: Severe degenerative changes as detailed above. Pleural-based medial right apical mass measuring 2.7 x 1.6 cm. Electronically Signed: Dontrell Clark MD at 18:43 EDT , Service support , Lumbar Spine CT 01/29/18 16:49 IMPRESSION: Degenerative/postoperative changes as detailed above. Grade 3 anterolisthesis of L5 relative to S1. Electronically Signed: Dontrell Clark MD at 18:50 EDT , Service support , Chest CT 01/29/18 20:01 IMPRESSION: 1. Pleural-based mass in the medial right lung apex measuring 2.8 x 1.7 x 2.5 cm. 2. There is an additional pleural-based 9 mm nodule of the posterior right upper lobe. 3. There are mild diffuse emphysematous changes of the lungs. 4. Cardiomegaly. A left-sided pacemaker is present. Intracardiac wires are seen. 5. Calcified plaques of the thoracic aorta. 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 Electronically Signed: Dontrell Clark MD at 21:00 EDT , Service support , Assessment/Plan All Active Problems Difficulty in walking (Acute) Generalized weakness (Acute) RECOMMENDATIONS: 1. If the patient and his family are willing to accept the risks of aspirin/Plavix interruption ?7 days, percutaneous CT-guided lung biopsy can be set up for the patient on an outpatient basis. Recommend contacting radiology on Thursday to establish a time/date for potential procedure, after which time, the patient's medications can be placed on hold for the appropriate time duration. 2. Check CK and aldolase levels. 3. Physical therapy to evaluate patient today. IMPRESSIONS: 1. Right apical lung mass During workup for the patient's generalized weakness, there was incidental note made of a 2.8 x 2.5 cm pleural-based right apical lung lesion. Although the patient does have a remote smoking history, given the size of this lesion and its irregular borders, there is concern for potential underlying malignancy. However, the patient is currently on both aspirin and Plavix, which per radiology recommendations, would need to be held for 7 days prior to consideration for percutaneous CT-guided lung biopsy. I do not suspect that the patient will still be admitted to the hospital in 7 days. Therefore, I have recommended that a call be placed to radiology on Thursday to establish a time/date for a potential lung biopsy procedure, after which time, the patient's aspirin and Plavix can be placed on hold for the appropriate time duration. 2. Generalized musculoskeletal weakness Currently under investigation by neurology. Per their documentation, MRI is being considered. The patient does not have any focal deficits. We will also check CK and aldolase level. Given the apical lung lesion noted above, symptoms may also represent a paraneoplastic syndrome. PT/OT to evaluate the patient. 3. Mild baseline dementia/coronary artery disease/peripheral vascular disease/history of CVA Complicates care, management, recovery and prognosis. The patient does report having stents in his lower extremities due to peripheral vascular disease. Disruption of his aspirin and Plavix will put him at increased risk for potential thrombus formation. However, these medications will need to be interrupted in order to facilitate CT-guided lung biopsy. Risks and benefits of medication interruption will need to be discussed with the patient and his family further. If they are in agreement to proceed, a percutaneous lung biopsy can be scheduled on an outpatient basis. This note was generated with [email or web address] dictation software. It may contain incorrect words, spelling, and punctuation that were not noted in checking the note before signing. Code Visit Inpatient E&M: 31336 Init Hosp L3
--- NOTE | 2018-01-30 07:05 | CON.PCM_ITS ---
Reason for Consult Date of Consultation: 01/30/18 Reason for Consultation: Lung mass History of Present Illness: The patient is an 82-year-old male, with a history as outlined below, who presented to the emergency department on January 29 with complaints of diffuse musculoskeletal weakness of 1-2 days duration. The patient has baseline dementia along with a history of CVA, coronary artery disease and peripheral vascular disease. The patient is currently prescribed both aspirin and Plavix as an outpatient. The patient does have a smoking history of 1 pack per day for an unknown number of years (patient does not remember), but states that he quit smoking completely 20 years ago. His weight has been relatively stable recently. His appetite is good. Upon presentation to the emergency department, the patient was noted be afebrile and hypertensive with an initial blood pressure documented to be 178/ 89 mmHg. Laboratory evaluation revealed no evidence of a leukocytosis. Chemistry profile was largely unremarkable. LFTs were unremarkable. Urinalysis was negative. Head CT revealed an old left basilar ganglier stroke. The patient was subsequently admitted to the medical surgical floor for ongoing management. As part of his workup, a CT C spine and lumbar spine were obtained. While no significant cervical or lumbar spine pathology was identified, there was incidental note made of a right apical lung mass. Therefore, a dedicated chest CT was obtained which did reveal a right apical pleural-based lung mass measuring 2.8 x 2.5 cm. There was also an additional subcentimeter pulmonary nodule noted in the right upper lobe. Past Medical History Allergies Influenza Virus Vaccines Allergy (Verified 01/29/18 11:40) Hives Home Medications: Ambulatory Orders Medication Instructions Recorded Amlodipine 5 mg PO DAILY 01/29/18 Aspirin 81 mg PO 01/29/18 Atorvastatin Calcium 80 mg PO DAILY 01/29/18 Carvedilol 25 mg PO BID 01/29/18 Clopidogrel Bisulfate [Clopidogrel] 75 mg PO DAILY 01/29/18 Finasteride [Proscar] 5 mg PO DAILY 01/29/18 Hydrochlorothiazide 12.5 mg PO DAILY 01/29/18 Isosorbide Dinitrate 10 mg PO TID 01/29/18 Tamsulosin HCl [Flomax] 0.4 mg PO DAILY 01/29/18 Surgical History: herniorrhaphy, pacemaker implantation, - - Lumbar spine fusion , stent placement in the legs Psychiatric History: - - Dementia Lives: Spouse/ Significant Other Smoking Status: Former smoker Tobacco Use: Cigarettes - Ex smoker, Cigars Alcohol: None Drugs: None - *Family History Maternal History Items: Dementia, Hypertension Paternal History Items: Heart Disease Review of Systems Constitutional: Reports: Weakness. Denies: Chills, Fever Eyes: Denies: Blurred vision, Double vision HEENT: Denies: Head Aches, Sinus Congestion, Sinus Drainage Cardiovascular: Denies: Chest Pain, Palpitations Respiratory: Denies: Cough, Shortness of breath at rest, Sputum production Gastrointestinal: Denies: Abdominal Pain, Nausea, Vomiting Genitourinary: Denies: Dysuria Musculoskeletal: Denies: Joint Pain, Joint Tenderness Skin: Denies: Rash, Wounds Neurological: Reports: - - + Musculoskeletal weakness Psychiatric: Denies: Anxiety, Depression, Homicidal Ideations, Suicidal Ideations Hematologic/ Lymphatic: Reports: Anemia Patient Problems: Active and Suspected Problems Difficulty in walking (Acute) Generalized weakness (Acute) Objective: The patient's most recent lab work, culture data and imaging studies have all been personally reviewed. - Physical Exam General: Alert, Cooperative, No apparent distress HEENT: Atraumatic, PERRLA, Normocephalic Oral: No Gingival or Mucosal Lesions/ Ulcerations Neck: Supple, No Nodes, Trachea Midline Lungs: No rhonchi, No wheeze, No rales, Diminished Cardiovascular: Regular rate, Regular Rhythm, Normal S1, Normal S2, No murmurs Abdomen: Bowel Sounds Present, Soft, Non Tender, Non-Distended Extremities: No clubbing, No cyanosis, No edema Skin: No breakdown Musculoskeletal: No Tenderness to Palpation of Joints or Extremities Lymphatic: No Cervical, Supraclavicular, or Inguinal Adenopathy Neurological: Neuro grossly intact, Sensory exam intact to light touch and pain Psych/Mental Status: Flat Affect Vital Signs Temp Pulse Resp BP Pulse Ox 97.6 F L 64 20 H 160/62 H 97 01/30/18 02:39 01/30/18 02:39 01/30/18 02:39 01/30/18 06:09 01/30/18 02:39 Oxygen Delivery Method Room Air Weight: 173 lb Body Mass Index (BMI) 24.1 Intake and Output for Last 24 Hours 01/28/18 01/29/18 01/30/18 23:59 23:59 23:59 Intake Total 100 / 100 200 / 200 Output Total 300 / 300 825 / 825 Balance -200 / -200 -625 / -625 Labs (Last 48 Hours) 01/29/18 01/29/18 01/29/18 08:20 08:20 08:20 WBC 8.9 RBC 4.12 L Hgb 11.6 L Hct 35.8 L MCV 86.9 MCH 28.2 MCHC 32.4 RDW 13.6 RDW Differential 43.5 Plt Count 169 MPV 9.8 Immature Gran % (Auto) 0.100 Neut % (Auto) 65.4 Lymph % (Auto) 13.5 L [place] % (Auto) 18.6 H Eos % (Auto) 2.3 Baso % (Auto) 0.1 Absolute Neuts (auto) 5.8 Absolute Lymphs (auto) 1.20 Total Counted Not Reportable ESR 19 Sodium 139 Potassium 3.6 Chloride 107 Carbon Dioxide 26.0 Anion Gap 6 BUN 23 H Creatinine 1.19 Estim Creat Clear Calc 53.44 Est GFR (MDRD) Af Amer 75 Est GFR (MDRD) Non-Af 62 BUN/Creatinine Ratio 19.3 Glucose 145 H Calcium 8.7 Total Bilirubin 0.50 AST 26 ALT 40 Alkaline Phosphatase 73 Troponin I < 0.015 Total Protein 7.2 Albumin 3.4 Globulin 3.8 Albumin/Globulin Ratio 0.9 Urine Color Urine Clarity Urine pH Ur Specific [place] Urine Protein Urine Glucose (UA) Urine Ketones Urine Occult Blood Urine Nitrite Urine Bilirubin Urine Urobilinogen Ur Leukocyte Esterase Urine RBC Urine WBC Ur Squamous Epith Cells Urine Bacteria Urine Mucus 01/29/18 08:51 WBC RBC Hgb Hct MCV MCH MCHC RDW RDW Differential Plt Count MPV Immature Gran % (Auto) Neut % (Auto) Lymph % (Auto) [place] % (Auto) Eos % (Auto) Baso % (Auto) Absolute Neuts (auto) Absolute Lymphs (auto) Total Counted ESR Sodium Potassium Chloride Carbon Dioxide Anion Gap BUN Creatinine Estim Creat Clear Calc Est GFR (MDRD) Af Amer Est GFR (MDRD) Non-Af BUN/Creatinine Ratio Glucose Calcium Total Bilirubin AST ALT Alkaline Phosphatase Troponin I Total Protein Albumin Globulin Albumin/Globulin Ratio Urine Color Yellow Urine Clarity Clear Urine pH 7.0 Ur Specific [place] 1.010 Urine Protein 30 H Urine Glucose (UA) Normal Urine Ketones Negative Urine Occult Blood Negative Urine Nitrite Negative Urine Bilirubin Negative Urine Urobilinogen Normal Ur Leukocyte Esterase Negative Urine RBC 0 SEEN Urine WBC 0 SEEN Ur Squamous Epith Cells 0 SEEN Urine Bacteria 0 SEEN Urine Mucus 0 SEEN Clinical Impression(s) from Imaging Studies Brain CT 01/29/18 08:13 IMPRESSION: Chronic involutional changes of the brain. Tiny lacunar infarct in the left basal ganglion. This is new as compared to prior study. Electronically Signed: Rk Salmeron MD at 9:56 EDT Tel [phone], Service support , Chest X-Ray 01/29/18 08:41 IMPRESSION: Mild increased markings at the lung bases slightly more prominent on the left side suggestive of mild bibasilar linear atelectasis. Electronically Signed: Rk Salmeron MD at 8:58 EDT Tel [phone], Service support , Cervical Spine CT 01/29/18 16:49 IMPRESSION: Severe degenerative changes as detailed above. Pleural-based medial right apical mass measuring 2.7 x 1.6 cm. Electronically Signed: Dontrell Clark MD at 18:43 EDT , Service support , Lumbar Spine CT 01/29/18 16:49 IMPRESSION: Degenerative/postoperative changes as detailed above. Grade 3 anterolisthesis of L5 relative to S1. Electronically Signed: Dontrell Clark MD at 18:50 EDT , Service support , Chest CT 01/29/18 20:01 IMPRESSION: 1. Pleural-based mass in the medial right lung apex measuring 2.8 x 1.7 x 2.5 cm. 2. There is an additional pleural-based 9 mm nodule of the posterior right upper lobe. 3. There are mild diffuse emphysematous changes of the lungs. 4. Cardiomegaly. A left-sided pacemaker is present. Intracardiac wires are seen. 5. Calcified plaques of the thoracic aorta. 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 Electronically Signed: Dontrell Clark MD at 21:00 EDT , Service support , Assessment/Plan All Active Problems Difficulty in walking (Acute) Generalized weakness (Acute) RECOMMENDATIONS: 1. If the patient and his family are willing to accept the risks of aspirin/ Plavix interruption ?7 days, percutaneous CT-guided lung biopsy can be set up for the patient on an outpatient basis. Recommend contacting radiology on Thursday to establish a time/date for potential procedure, after which time, the patient's medications can be placed on hold for the appropriate time duration. 2. Check CK and aldolase levels. 3. Physical therapy to evaluate patient today. IMPRESSIONS: 1. Right apical lung mass During workup for the patient's generalized weakness, there was incidental note made of a 2.8 x 2.5 cm pleural-based right apical lung lesion. Although the patient does have a remote smoking history, given the size of this lesion and its irregular borders, there is concern for potential underlying malignancy. However, the patient is currently on both aspirin and Plavix, which per radiology recommendations, would need to be held for 7 days prior to consideration for percutaneous CT-guided lung biopsy. I do not suspect that the patient will still be admitted to the hospital in 7 days. Therefore, I have recommended that a call be placed to radiology on Thursday to establish a time/date for a potential lung biopsy procedure, after which time, the patient' s aspirin and Plavix can be placed on hold for the appropriate time duration. 2. Generalized musculoskeletal weakness Currently under investigation by neurology. Per their documentation, MRI is being considered. The patient does not have any focal deficits. We will also check CK and aldolase level. Given the apical lung lesion noted above, symptoms may also represent a paraneoplastic syndrome. PT/OT to evaluate the patient. 3. Mild baseline dementia/coronary artery disease/peripheral vascular disease/ history of CVA Complicates care, management, recovery and prognosis. The patient does report having stents in his lower extremities due to peripheral vascular disease. Disruption of his aspirin and Plavix will put him at increased risk for potential thrombus formation. However, these medications will need to be interrupted in order to facilitate CT-guided lung biopsy. Risks and benefits of medication interruption will need to be discussed with the patient and his family further. If they are in agreement to proceed, a percutaneous lung biopsy can be scheduled on an outpatient basis. This note was generated with [employer] dictation software. It may contain incorrect words, spelling, and punctuation that were not noted in checking the note before signing. Code Visit Inpatient E&M: 89700 Init Hosp L3
[2018-01-30 08:14] VITALS: BP 185/76; PULSE 67; RESP 18; TEMP 36.9; O2SAT 96
[2018-01-30] MEDS: Aspirin 81 MG TAB.CHEW PO (08:19)
[2018-01-30] MEDS: Clopidogrel Bisulfate 75 MG Tablet PO (08:20)
[2018-01-30] MEDS: HYDROCHLOROTHIAZIDE 12.5 MG CAPSULE PO (08:20)
[2018-01-30] MEDS: Tamsulosin HCl 0.4 MG Capsule PO (08:20)
[2018-01-30] MEDS: Atorvastatin Calcium 80 MG Tablet PO (08:20)
[2018-01-30] MEDS: Carvedilol 25 MG Tablet PO (08:20)
[2018-01-30] MEDS: Finasteride 5 MG Tablet PO (08:21)
[2018-01-30 08:33] LABS: CPK Total, Creatine Kinase 65 U/L (39-308)
--- NOTE | 2018-01-30 09:06 | CASEMGMT ---
Social Work Referral for placement. Reviewed patient clinical chart. Patient noted to have a diagnoses of Dementia. Met with patient in room. This social media marketing manager introduced self as well as role. Patient reporting to live at home with spouse in a 1-story home with 10 stairs to enter. Patient reports to no longer drive and to be able to do all ADL's and mobility independently prior to hospitalization. Patient did report to using a cane when ambulating within the home. Patient denies any history of depression or anxiety. This social media marketing manager inquiring on how patient spouse, Jodi is doing. Patient stating haven't seen her for a few days. Patient did not appear to be distressed or concerned about spouse or hospital stay. Patient appearing to pleasant and comfortable during interaction and assessment. Patient thanked this social media marketing manager and agreeable to this social media marketing manager contacting patient spouse in regards to establishing a discharge plan. Patient reporting to not be concerned about being able to return home. Nursing staff reporting that patient is currently x1 assist with a walker to ambulate within the room. Physical and Occupational therapy have pending evaluations and have not seen patient at this time. Telephone call to patient spouse, Jodi. This social media marketing manager going over above information to confirm as patient does have a diagnosis of Dementia. Jodi reporting that Jodi was in fact in to see patient last night and that Jodi does assist patient with bathing and dressing. Jodi stating that patient does ambulate with a cane within the home and that patient also has a walker and grab bars within the home. Jodi clarifying that patient does live in a 1-story home but there are only x2 steps to enter the home. Jodi reporting that patient has been doing well at home. Patient and Jodi to have x2 adult children a daughter that lives in [place], [place] and son that lives in [place], [place]. Jodi reporting that daughter is currently with Jodi and able to assist with patient on patient's return home. This social media marketing manager broaching topic of possible placement, pending therapy evaluations. Jodi stating to think that patient will not need placement and would like to see patient return home with Jodi with outpatient physical therapy through [facility]. This social media marketing manager voicing understanding but also stating that we should wait until therapy has evaluated patient to confirm any discharge planning. Jodi voicing understanding and at this time is not open to discussing placement options until after therapy evaluation. Jodi thanked this social media marketing manager. Support given. Note: Patient insurance is [employer] - if placement is needed a pre-cert will need to be obtained before patient is able to transition. Social work to continue to follow as needed. Rosenda LOERA, CLINICAL PROVIDER TRAINER
--- NOTE | 2018-01-30 10:04 | PCM.PN.HOSP ---
Patient Problems: Active and Suspected Problems Difficulty in walking (Acute) Generalized weakness (Acute) Subjective: No new complaints. No coronary stents, but had stents placed in his legs 3-4 years ago. Vitals/I&O's: Vital Signs Temp Pulse Resp BP Pulse Ox 36.9 C 67 18 185/76 H 96 01/30/18 08:14 01/30/18 08:14 01/30/18 08:14 01/30/18 08:14 01/30/18 08:14 Oxygen Delivery Method Room Air Weight: 78.471 kg Body Mass Index (BMI) 24.1 Intake and Output for Last 24 Hours 01/28/18 01/29/18 01/30/18 23:59 23:59 23:59 Intake Total 100 / 100 200 / 200 Output Total 300 / 300 825 / 825 Balance -200 / -200 -625 / -625 General: Alert, Cooperative, No apparent distress, - - did become tearful at one point. HEENT: Atraumatic, Normocephalic Oral: Moist Mucosa, No Gingival or Mucosal Lesions/ Ulcerations Neck: No Nodes, Thyroid Normal Size and Texture Lungs: Clear to auscultation, Normal air movement, No rhonchi, No wheeze Cardiovascular: Regular rate, Regular Rhythm, Normal S1, Normal S2, No murmurs Abdomen: Bowel Sounds Present, Soft, Non Tender, Non-Distended, No Hepato-splenomegaly Extremities: No edema, No Calf Tenderness Musculoskeletal: No Tenderness to Palpation of Joints or Extremities, No Muscle Wasting Psych/Mental Status: Appropriate, Depressed Laboratory Results 01/30/18 07:52: Total Creatine Kinase 65 01/30/18 07:52: Aldolase Pending Current Medications Acetaminophen (Tylenol) 650 mg PO Q6H PRN PRN PRN Reason: Mild Pain (1-3)/Temp > 100.7 F Last Admin: 01/29/18 14:11 Dose: 650 mg Aspirin (Aspirin, Baby) 81 mg PO DAILY@0800 [facility] Last Admin: 01/30/18 08:19 Dose: 81 mg Atorvastatin Calcium (Lipitor) 80 mg PO DAILY [facility] Last Admin: 01/30/18 08:20 Dose: 80 mg Carvedilol (Coreg) 25 mg PO BID [facility] Last Admin: 01/30/18 08:20 Dose: 25 mg Clopidogrel Bisulfate (Plavix) 75 mg PO DAILY [facility] Last Admin: 01/30/18 08:20 Dose: 75 mg Finasteride (Proscar) 5 mg PO DAILY [facility] Last Admin: 01/30/18 08:21 Dose: 5 mg Heparin Sodium (Porcine) (Heparin Na) 5,000 unit SC Q8 [facility] Last Admin: 01/30/18 06:00 Dose: Not Given Hydralazine HCl (Apresoline) 25 mg PO Q6H PRN PRN PRN Reason: SBP > 160 Last Admin: 01/30/18 02:39 Dose: 25 mg Hydrochlorothiazide (Hydrochlorothiazide) 12.5 mg PO DAILY [facility] Last Admin: 01/30/18 08:20 Dose: 12.5 mg Isosorbide Dinitrate (Isordil) 10 mg PO TID [facility] Last Admin: 01/30/18 06:06 Dose: 10 mg Magnesium Hydroxide (Milk Of Magnesia) 30 ml PO DAILY PRN PRN PRN Reason: Constipation Sodium Chloride () 5 - 30 ml IV UD PRN PRN Reason: SALINE FLUSH Tamsulosin HCl (Flomax) 0.4 mg PO DAILY [facility] Last Admin: 01/30/18 08:20 Dose: 0.4 mg Medical Necessity - Tobacco Use Smoking Status: Former smoker Tobacco Use: Cigarettes - Ex smoker, Cigars Assessment/Plan All Active Problems Difficulty in walking (Acute) Generalized weakness (Acute) 1. Generalized weakness No definitive etiology has been identified. Patient has undergone extensive scans, including head CT cervical and lumbar CTs which were unremarkable for any acute process. Plan is for the patient to go to half-way facility pending insurance approval 2. Lung mass Incidental finding on CT Chest CT confirms a right upper lobe lung mass measuring 2.8 x 1.7 x 2.[address] Bui, who is previously discussed with Dr. Salmeron. Interventional radiology once patient being off of aspirin and Plavix for a total of 7 days prior to undergoing percutaneous biopsy. The biopsy can be performed as outpatient. We will need to coordinate went to discontinuing his medications as to when the actual procedure could be done. After the biopsy is done patient will follow up with Dr. Bui to go over the results as outpatient. Explained the patient concern is for cancer but certainly could be another process as well. 3. Peripheral arterial disease Last had stents through 4 years ago Patient can safely take a 7 day holiday from the aspirin and Plavix to undergo the percutaneous biopsy 4. DVT prophylaxis with subcutaneous heparin Code Visit Inpatient E&M: 13292 Subs Hosp L2
--- NOTE | 2018-01-30 10:09 | PN_ITS ---
Patient Problems: Active and Suspected Problems Difficulty in walking (Acute) Generalized weakness (Acute) Subjective: No new complaints. No coronary stents, but had stents placed in his legs 3-4 years ago. Vitals/I&O's: Vital Signs Temp Pulse Resp BP Pulse Ox 36.9 C 67 18 185/76 H 96 01/30/18 08:14 01/30/18 08:14 01/30/18 08:14 01/30/18 08:14 01/30/18 08:14 Oxygen Delivery Method Room Air Weight: 78.471 kg Body Mass Index (BMI) 24.1 Intake and Output for Last 24 Hours 01/28/18 01/29/18 01/30/18 23:59 23:59 23:59 Intake Total 100 / 100 200 / 200 Output Total 300 / 300 825 / 825 Balance -200 / -200 -625 / -625 General: Alert, Cooperative, No apparent distress, - - did become tearful at one point. HEENT: Atraumatic, Normocephalic Oral: Moist Mucosa, No Gingival or Mucosal Lesions/ Ulcerations Neck: No Nodes, Thyroid Normal Size and Texture Lungs: Clear to auscultation, Normal air movement, No rhonchi, No wheeze Cardiovascular: Regular rate, Regular Rhythm, Normal S1, Normal S2, No murmurs Abdomen: Bowel Sounds Present, Soft, Non Tender, Non-Distended, No Hepato- splenomegaly Extremities: No edema, No Calf Tenderness Musculoskeletal: No Tenderness to Palpation of Joints or Extremities, No Muscle Wasting Psych/Mental Status: Appropriate, Depressed Laboratory Results 01/30/18 07:52: Total Creatine Kinase 65 01/30/18 07:52: Aldolase Pending Current Medications Acetaminophen (Tylenol) 650 mg PO Q6H PRN PRN PRN Reason: Mild Pain (1-3)/Temp > 100.7 F Last Admin: 01/29/18 14:11 Dose: 650 mg Aspirin (Aspirin, Baby) 81 mg PO DAILY@0800 [facility] Last Admin: 01/30/18 08:19 Dose: 81 mg Atorvastatin Calcium (Lipitor) 80 mg PO DAILY [facility] Last Admin: 01/30/18 08:20 Dose: 80 mg Carvedilol (Coreg) 25 mg PO BID [facility] Last Admin: 01/30/18 08:20 Dose: 25 mg Clopidogrel Bisulfate (Plavix) 75 mg PO DAILY [facility] Last Admin: 01/30/18 08:20 Dose: 75 mg Finasteride (Proscar) 5 mg PO DAILY [facility] Last Admin: 01/30/18 08:21 Dose: 5 mg Heparin Sodium (Porcine) (Heparin Na) 5,000 unit SC Q8 [facility] Last Admin: 01/30/18 06:00 Dose: Not Given Hydralazine HCl (Apresoline) 25 mg PO Q6H PRN PRN PRN Reason: SBP > 160 Last Admin: 01/30/18 02:39 Dose: 25 mg Hydrochlorothiazide (Hydrochlorothiazide) 12.5 mg PO DAILY [facility] Last Admin: 01/30/18 08:20 Dose: 12.5 mg Isosorbide Dinitrate (Isordil) 10 mg PO TID [facility] Last Admin: 01/30/18 06:06 Dose: 10 mg Magnesium Hydroxide (Milk Of Magnesia) 30 ml PO DAILY PRN PRN PRN Reason: Constipation Sodium Chloride () 5 - 30 ml IV UD PRN PRN Reason: SALINE FLUSH Tamsulosin HCl (Flomax) 0.4 mg PO DAILY [facility] Last Admin: 01/30/18 08:20 Dose: 0.4 mg Medical Necessity - Tobacco Use Smoking Status: Former smoker Tobacco Use: Cigarettes - Ex smoker, Cigars Assessment/Plan All Active Problems Difficulty in walking (Acute) Generalized weakness (Acute) 1. Generalized weakness * No definitive etiology has been identified. * Patient has undergone extensive scans, including head CT cervical and lumbar CTs which were unremarkable for any acute process. * Plan is for the patient to go to care home facility pending insurance approval 2. Lung mass * Incidental finding on CT * Chest CT confirms a right upper lobe lung mass measuring 2.8 x 1.7 x 2.5 cm * Discussed with Dr. Bui, who is previously discussed with Dr. Salmeron. Interventional radiology once patient being off of aspirin and Plavix for a total of 7 days prior to undergoing percutaneous biopsy. The biopsy can be performed as outpatient. We will need to coordinate went to discontinuing his medications as to when the actual procedure could be done. * After the biopsy is done patient will follow up with Dr. Bui to go over the results as outpatient. * Explained the patient concern is for cancer but certainly could be another process as well. 3. Peripheral arterial disease * Last had stents through 4 years ago * Patient can safely take a 7 day holiday from the aspirin and Plavix to undergo the percutaneous biopsy 4. DVT prophylaxis with subcutaneous heparin Code Visit Inpatient E&M: 19120 Subs Hosp L2
--- NOTE | 2018-01-30 10:35 | CASEMGMT ---
Social Work Spoke with Dr. Momin. Plan is for patient to discharge home today with outpatient physical therapy. Patient noted to have ambulated 200 with a walker at a CGA level. Order for outpatient physical therapy placed with patient chart. Social work to follow if any further needs arise. Rosenda LOERA, SENIOR APPLICATIONS ARCHITECT
--- NOTE | 2018-01-30 11:25 | DCINST_ITS ---
- Discharge Diagnoses Current Active Problems: Current Active and Chronic Problems Difficulty in walking (Acute) Generalized weakness (Acute) You will use the following diet at home:: Cardiac Your food should be the consistency of: Regular Call your doctor if you observe: Fever of 101 or Higher, Shortness of breath Additional Instructions: Stop aspirin and Plavix 1 week prior to biopsy. Call the radiology department to set up appointment for the biopsy. Allergies/Adverse Reactions: Allergies Influenza Virus Vaccines Allergy (Verified 01/29/18 11:40) Hives Medications to take at Discharge Amlodipine 5 mg PO DAILY 01/29/18 Aspirin 81 mg PO 01/29/18 Atorvastatin Calcium 80 mg PO DAILY 01/29/18 Carvedilol 25 mg PO BID 01/29/18 Clopidogrel Bisulfate [Clopidogrel] 75 mg PO DAILY 01/29/18 Finasteride [Proscar] 5 mg PO DAILY 01/29/18 Hydrochlorothiazide 12.5 mg PO DAILY 01/29/18 Isosorbide Dinitrate 10 mg PO TID 01/29/18 Tamsulosin HCl [Flomax] 0.4 mg PO DAILY 01/29/18 Acetaminophen [Pain Relief] 500 mg PO Q4H PRN #1 tablet 01/30/18 The following prescriptions were given: Acetaminophen [Pain Relief] 500 mg PO Q4H PRN #1 tablet PRN Reason: Pain Orders to be completed after discharge: Biopsy/Inj or Needle Placement [CT] Time Frame: 1 Week, Location: None Selected Primary Care Physician: Trev Shoemaker MD [Primary Care Provider] - Test Results: Test results from this visit will be discussed in further detail at your follow- up appointment, if applicable. Please Follow Up With: Keon Bui DO When: 2-4 weeks Proposed Discharge Date: 01/30/18
--- NOTE | 2018-01-30 11:25 | PCM.DC.SUM ---
Discharge Date and Diagnosis - Problem List Patient Problems: Active and Suspected Problems Mass of upper lobe of lung (Acute) Difficulty in walking (Acute) Generalized weakness (Acute) Date of Admission: 01/29/18 Date of Discharge: 01/30/18 - Primary Discharge Diagnosis Active and Suspected Problems Mass of upper lobe of lung (Acute) Difficulty in walking (Acute) Generalized weakness (Acute) Hospital Course and Treatment Imaging Results: Clinical Impression(s) from Imaging Studies Brain CT 01/29/18 08:13 IMPRESSION: Chronic involutional changes of the brain. Tiny lacunar infarct in the left basal ganglion. This is new as compared to prior study. Electronically Signed: kR Salmeron MD at 9:56 EDT Tel [phone], Service support , Chest X-Ray 01/29/18 08:41 IMPRESSION: Mild increased markings at the lung bases slightly more prominent on the left side suggestive of mild bibasilar linear atelectasis. Electronically Signed: Rk Salmeron MD at 8:58 EDT Tel [phone], Service support , Cervical Spine CT 01/29/18 16:49 IMPRESSION: Severe degenerative changes as detailed above. Pleural-based medial right apical mass measuring 2.7 x 1.6 cm. Electronically Signed: Dontrell Clark MD at 18:43 EDT , Service support , Lumbar Spine CT 01/29/18 16:49 IMPRESSION: Degenerative/postoperative changes as detailed above. Grade 3 anterolisthesis of L5 relative to S1. Electronically Signed: Dontrell Clark MD at 18:50 EDT , Service support , Chest CT 01/29/18 20:01 IMPRESSION: 1. Pleural-based mass in the medial right lung apex measuring 2.8 x 1.7 x 2.5 cm. 2. There is an additional pleural-based 9 mm nodule of the posterior right upper lobe. 3. There are mild diffuse emphysematous changes of the lungs. 4. Cardiomegaly. A left-sided pacemaker is present. Intracardiac wires are seen. 5. Calcified plaques of the thoracic aorta. 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 Electronically Signed: Dontrell Clark MD at 21:00 EDT , Service support , Dr. Keon Bui, Pulmonology. Operations: None Procedures: None Summary of Care Provided: The patient is a 82 year old M presents with generalized weakness. Patient was seen by neurology and found no focal deficits. Patient underwent a cervical and lumbar spine CT which were unremarkable for any radiculopathy. Cervical spine CT did note right upper lobe mass which patient underwent a chest CT. The chest CT showed a 2.8 x 1.7 x 2.[address] Bui was consulted for further recommendations. He felt that his be best approached with percutaneous biopsy. He spoke with Dr. Samleron, who advised the patient stay off of aspirin and Plavix 7 days prior to undergoing the biopsy. This may be facilitated on outpatient basis. Patient will be given a prescription for the biopsy to be performed. Patient will need to contact the radiology department to set this up and to have at least a week before he had the procedure to stop the aspirin and Plavix. If the prescription is not good enough for the procedure to be done and patient will need follow-up with primary care doctor to get this established. The results of the biopsy will go to his primary care doctor as well as Dr. Bui. Based on those results patient may need follow-up with oncology if cancer is identified. Patient was seen by physical therapy and patient walked over 200 feet. Patient plan is to go home with outpatient physical therapy. [] Discharge Diet: Low fat/ Low Cholesterol Discharge Activity: Return to Normal Activity Call your doctor if you observe: Fever of 101 or Higher, Shortness of breath Home Medications: Medications to take at Discharge Amlodipine 5 mg PO DAILY 01/29/18 Aspirin 81 mg PO 01/29/18 Atorvastatin Calcium 80 mg PO DAILY 01/29/18 Carvedilol 25 mg PO BID 01/29/18 Clopidogrel Bisulfate [Clopidogrel] 75 mg PO DAILY 01/29/18 Finasteride [Proscar] 5 mg PO DAILY 01/29/18 Hydrochlorothiazide 12.5 mg PO DAILY 01/29/18 Isosorbide Dinitrate 10 mg PO TID 01/29/18 Tamsulosin HCl [Flomax] 0.4 mg PO DAILY 01/29/18 Acetaminophen [Pain Relief] 500 mg PO Q4H PRN #1 tablet 01/30/18 Following Prescrptions Were Given to Patient: Acetaminophen [Pain Relief] 500 mg PO Q4H PRN #1 tablet PRN Reason: Pain Other Amb Orders: Biopsy/Inj or Needle Placement [CT] Time Frame: 1 Week, Location: None Selected Primary Care Physician: Trev Shoemaker MD [Primary Care Provider] - Please Follow Up With: Keon Bui DO When: 2-4 weeks Disposition: Home Minutes spent on discharge:: 32 Patient Condition:: Good Medical Necessity - Tobacco Use Smoking Status: Former smoker Tobacco Use: Cigarettes - Ex smoker, Cigars Meaningful Use Info Meaningful Use Diagnoses (Choose all that apply): None applicable Code Visit OBSV E&M: 65991 Observation care discharge
--- NOTE | 2018-01-30 11:29 | DS.PCM_ITS ---
Discharge Date and Diagnosis - Problem List Patient Problems: Active and Suspected Problems Mass of upper lobe of lung (Acute) Difficulty in walking (Acute) Generalized weakness (Acute) Date of Admission: 01/29/18 Date of Discharge: 01/30/18 - Primary Discharge Diagnosis Active and Suspected Problems Mass of upper lobe of lung (Acute) Difficulty in walking (Acute) Generalized weakness (Acute) Hospital Course and Treatment Imaging Results: Clinical Impression(s) from Imaging Studies Brain CT 01/29/18 08:13 IMPRESSION: Chronic involutional changes of the brain. Tiny lacunar infarct in the left basal ganglion. This is new as compared to prior study. Electronically Signed: Rk Salmeron MD at 9:56 EDT Tel [phone], Service support , Chest X-Ray 01/29/18 08:41 IMPRESSION: Mild increased markings at the lung bases slightly more prominent on the left side suggestive of mild bibasilar linear atelectasis. Electronically Signed: Rk Salmeron MD at 8:58 EDT Tel [phone], Service support , Cervical Spine CT 01/29/18 16:49 IMPRESSION: Severe degenerative changes as detailed above. Pleural-based medial right apical mass measuring 2.7 x 1.6 cm. Electronically Signed: Dontrell Clark MD at 18:43 EDT , Service support , Lumbar Spine CT 01/29/18 16:49 IMPRESSION: Degenerative/postoperative changes as detailed above. Grade 3 anterolisthesis of L5 relative to S1. Electronically Signed: Dontrell Clark MD at 18:50 EDT , Service support , Chest CT 01/29/18 20:01 IMPRESSION: 1. Pleural-based mass in the medial right lung apex measuring 2.8 x 1.7 x 2.5 cm. 2. There is an additional pleural-based 9 mm nodule of the posterior right upper lobe. 3. There are mild diffuse emphysematous changes of the lungs. 4. Cardiomegaly. A left-sided pacemaker is present. Intracardiac wires are seen. 5. Calcified plaques of the thoracic aorta. 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 Electronically Signed: Dontrell Clark MD at 21:00 EDT , Service support , Dr. Keon Bui, Pulmonology. Operations: None Procedures: None Summary of Care Provided: The patient is a 82 year old M presents with generalized weakness. Patient was seen by neurology and found no focal deficits. Patient underwent a cervical and lumbar spine CT which were unremarkable for any radiculopathy. Cervical spine CT did note right upper lobe mass which patient underwent a chest CT. The chest CT showed a 2.8 x 1.7 x 2.[address] Bui was consulted for further recommendations. He felt that his be best approached with percutaneous biopsy. He spoke with Dr. Salmeron, who advised the patient stay off of aspirin and Plavix 7 days prior to undergoing the biopsy. This may be facilitated on outpatient basis. Patient will be given a prescription for the biopsy to be performed. Patient will need to contact the radiology department to set this up and to have at least a week before he had the procedure to stop the aspirin and Plavix. If the prescription is not good enough for the procedure to be done and patient will need follow-up with primary care doctor to get this established. The results of the biopsy will go to his primary care doctor as well as Dr. Bui. Based on those results patient may need follow-up with oncology if cancer is identified. Patient was seen by physical therapy and patient walked over 200 feet. Patient plan is to go home with outpatient physical therapy. [] Discharge Diet: Low fat/ Low Cholesterol Discharge Activity: Return to Normal Activity Call your doctor if you observe: Fever of 101 or Higher, Shortness of breath Home Medications: Medications to take at Discharge Amlodipine 5 mg PO DAILY 01/29/18 Aspirin 81 mg PO 01/29/18 Atorvastatin Calcium 80 mg PO DAILY 01/29/18 Carvedilol 25 mg PO BID 01/29/18 Clopidogrel Bisulfate [Clopidogrel] 75 mg PO DAILY 01/29/18 Finasteride [Proscar] 5 mg PO DAILY 01/29/18 Hydrochlorothiazide 12.5 mg PO DAILY 01/29/18 Isosorbide Dinitrate 10 mg PO TID 01/29/18 Tamsulosin HCl [Flomax] 0.4 mg PO DAILY 01/29/18 Acetaminophen [Pain Relief] 500 mg PO Q4H PRN #1 tablet 01/30/18 Following Prescrptions Were Given to Patient: Acetaminophen [Pain Relief] 500 mg PO Q4H PRN #1 tablet PRN Reason: Pain Other Amb Orders: Biopsy/Inj or Needle Placement [CT] Time Frame: 1 Week, Location: None Selected Primary Care Physician: Trev Shoemaker MD [Primary Care Provider] - Please Follow Up With: Keon Bui DO When: 2-4 weeks Disposition: Home Minutes spent on discharge:: 32 Patient Condition:: Good Medical Necessity - Tobacco Use Smoking Status: Former smoker Tobacco Use: Cigarettes - Ex smoker, Cigars Meaningful Use Info Meaningful Use Diagnoses (Choose all that apply): None applicable Code Visit OBSV E&M: 54501 Observation care discharge
[2018-01-30 12:39] VITALS: BP 134/72; PULSE 64; RESP 18; TEMP 36.7; O2SAT 99
[2018-01-30 13:10] VITALS: BP 134/72; PULSE 64; RESP 18; TEMP 36.7; O2SAT 99
[2018-02-02 15:27] LABS: Aldolase 3.8 U/L (3.3-10.3)
== END 2018-01-30 13:05 | disposition home or self-care (01) ==
LOC: ED 08:32 → MS3 10:54
PROVIDERS: Internal Medicine Critical Care Medicine; Psychiatry & Neurology Neurology; Admitting Provider Internal Medicine; Emergency Provider Emergency Medicine; Family Provider Family Medicine; PCP Family Medicine
DX: R91.8 Other nonspecific abnormal finding of lung field (principal); R26.2 Difficulty in walking, not elsewhere classified; R53.1 Weakness; Z87.891 Personal history of nicotine dependence; F03.90 Unspecified dementia, unspecified severity, without behavioral disturbance, psychotic disturbance, mood disturbance, and anxiety; Z95.0 Presence of cardiac pacemaker; Z79.899 Other long term (current) drug therapy; Z79.82 Long term (current) use of aspirin; Z79.02 Long term (current) use of antithrombotics/antiplatelets; M51.36 Other intervertebral disc degeneration, lumbar region; M47.892 Other spondylosis, cervical region; I25.10 Atherosclerotic heart disease of native coronary artery without angina pectoris; Z86.73 Personal history of transient ischemic attack (TIA), and cerebral infarction without residual deficits; I73.9 Peripheral vascular disease, unspecified; R91.1 Solitary pulmonary nodule
CPT/HCPCS: 36415; 70450; 71045; 71270; 72125; 72131; 80053; 81001; 82085; 82550; 84484; 85025; 85652; 93005; 96360; 97162; 97166; 99218; 99284; J7030; J7040; Q9967; G0378

== ENCOUNTER → 2018-02-19 08:44 | Outpatient (CLI) | payer MEDICARE, SELFPAY ==
[2018-02-19] VITALS (10 sets, daily range): BP systolic 164–192; BP diastolic 64–96; PULSE 61–84; RESP 13–20; TEMP 36.6; O2SAT 95–99; BMI 23.7
--- NOTE | 2018-02-19 | IMM_PTH ---
PATIENT: PEDRITO REYES LOC: CT U#:[id number] AGE/SX: 89/M ROOM: RE02/19/[address]: Dr. Abel Momin DO : 1935 BED: DIS: SPEC #: [id number] RECD: 02/22/18 11:54 STATUS: ELADIO REQ #: [id number] TRUE: 02/19/18 00:[address]: Abel Momin DEPT: IMMUNOHISTOCHEMISTRY RECD BY: Nusrat Skaggs ENTERED: 02/22/18 11:57 SP TYPE: IMMUNO OTHR DR: Dr. Trev Shoemaker MD Tissues: Lung, NOS Procedures: NAPSIN A (add) CK14 (add) CK20 (add) CK5-6 (add) CK7 (add) CK8 (add) KI-67 (add) P53 (add) P40 (add) TTF1 (initial) PHYSICIAN & INSTITUTION [place] [id number] SPECIMEN INFORMATION: Tissue Source: Right upper lung Clinical Info: Right upper lung lesion Specimen Number: [id number] CPT code: 81195, 94856 x9 METHODOLOGY: Deparaffinized sections of prefer/formalin-fixed tissue or PAP/DQ stained slides are incubated with monoclonal/polyclonal antibodies/oligonucleotide probes. Localization is made via biotin free immunoperoxidase method. Appropriate controls are performed and reacted as expected. Results on target cell population are indicated in the following table: RESULTS: ANTIBODY / CLONE RESULT TTF-1 (8G7G3/1) negative CK7 (OV-TL12/30) negative CK20 (KS20.8) negative P53 (DO-7) positive, >75% Ki-67 (30-9) positive, moderate CK5-6 (D5 & 1684) positive CK14 (LL002) positive P40 (BC28) positive Napsin A (Rabbit Polyclonal) negative CK8 (04zfmxF94) positive, focal These tests were developed and their performance characteristics determined by [facility]. They may not have been cleared or approved by the [place]. Food and Drug Administration. The FDA has determined that such clearance or approval is not necessary. INTERPRETATION: Right upper lung mass, CT-guided core biopsy: Squamous cell carcinoma. AM:jac 02/23/18
--- NOTE | 2018-02-19 | ASPIGT_PTH ---
PATIENT: PEDRITO REYES LOC: [place] U#:[id number] AGE/SX: 89/M ROOM: RE02/19/[address]: Dr. Abel Momin DO : 1935 BED: DIS: SPEC #: [id number] RECD: 02/19/18 11:43 STATUS: ELADIO GREG #: [id number] TRUE: 02/19/18 00:[address]: Abel Momin DEPT: SURGICAL PATHOLOGY RECD BY: Bernabe Dyson ENTERED: 02/19/18 11:43 SP TYPE: ASP RAD OTHR DR: Dr. Trev Shoemaker MD Tissues: Lung, NOS Procedures: FNA Specimen Adequacy Special Stain Group II Surgery Specimen Level IV Imprint (control) HEADER OPERATION: CT-guided right lung biopsy PRE-OP DIAGNOSIS: RUL lung lesion TISSUE SUBMITTED: 20g core x4 right upper lung MICROSCOPIC DIAGNOSIS Right upper lobe of lung mass, CT-guided needle core biopsy: Non small cell carcinoma, squamous cell carcinoma. AM:baylee 02/22/18 COMMENT The specimen is evaluated at the time of crush prep by Dr. Crump. Immediate Evaluation = Positive for malignant cells, non-small cell carcinoma. Immunohistochemistry ([id number]) supports the above diagnosis. MICROSCOPIC DESCRIPTION Slides are reviewed. GROSS DESCRIPTION Received is one container labeled with the patient's name and not further designated. The specimen consists of 3 cores of light us soft tissue. Each core has an average length of 1 cm and a maximal diameter of less than 0.1 cm. The specimen is totally submitted in one cassette. AM:baylee 02/19/18 TC:0 CPT: 07981, 30460
[2018-02-19 09:49] LABS: Hematocrit 37.3 % (40-54); Hemoglobin 12.2 g/dl (13.0-16.5); Mean Corp Hgb Conc 32.7 g/gl (32-36); Mean Corpuscular Hgb 28.6 pg (27.0-32.0); Mean Corpuscular Volume 87.4 fL (80-94); Mean Platelet Vol. 10.1 fl (6.2-12.0); Platelet Count 212 K/mm3 (150-450); RBC Distribution Width CV 13.2 % (11.6-14.6); RBC Distribution Width SD 41.2 fl (35.1-43.9); Red Blood Count 4.27 M/mm3 (4.6-6.2); White Blood Count 6.7 K/mm3 (4.4-11.0)
[2018-02-19 09:51] LABS: Scan Indicated on CBC? Y/N NO
[2018-02-19 09:52] LABS: International Normalized Ratio 1.1
[2018-02-19 09:53] LABS: Partial Thromboplast Time 29.2 Seconds (24.1-36.2)
== END ==
PROVIDERS: Nurse Practitioner Acute Care; Family Provider Family Medicine; PCP Family Medicine
DX: R91.8 Other nonspecific abnormal finding of lung field (principal); R53.1 Weakness
CPT/HCPCS: 32405; 36415; 71046; 77012; 85027; 85610; 85730; 88172; 88305; 88313; 88341; 88342; 99155; 99157; J7040; A4216

== ENCOUNTER → 2018-03-08 07:28 | Outpatient (CLI) | payer MEDICARE, SELFPAY ==
--- NOTE | 2018-03-08 08:00 | PET_ITS ---
EXAMINATION: FDG PET CT INDICATIONS: An 82-year-old male with history of pulmonary nodularity. COMPARISON EXAMINATION: CT of the chest report dated 01/29/18. INDEX LESION SIZE SUV INTERPRETATION Right upper posterior hemithorax pulmonary parenchyma, right upper lobe 18.1 mm x 29.7 mm (frame 253) 7.7 Fulfills quantitative criteria for viable neoplasm Right upper medial hemithorax, right upper lobe 7.1 mm (frame 243) 1.7 Quantitative criteria for viable neoplasm are not fulfilled NON-INDEX LESION SIZE SUV INTERPRETATION Left upper abdomen-left adrenal gland 1.8 Quantitative criteria for viable neoplasm are not fulfilled Anterior midline nares 3.3 Most consistent with activated leukocytes associated with an inflammatory process, rhinitis TECHNIQUE: Following the intravenous administration of 15.62 mCi of F-18 deoxyglucose via the left antecubital fossa, multiplanar image acquisitions of the neck, chest, abdomen and pelvis to level of mid thigh, obtained at one hour post radiopharmaceutical administration contemporaneously interpreted with the current CT of the neck, chest, abdomen and pelvis to level of mid thigh, dated 03/08/[address] of the chest report dated 01/29/18 reveal: SERUM GLUCOSE LEVEL: 150 mg/dl. HEIGHT: 72 inches. WEIGHT: 175 lbs. FINDINGS: 1. Focal increased glucose metabolism is defined in the right upper posteromedial hemithorax, right upper lobe extending to the posteromedial pleural interface generating a calculated maximum standard uptake value of 7.7. The maximal axial diameter of the corresponding parenchymal density on review of CT of the thorax dated 03/08/18 is 18.1 mm (transverse) x 29.7 mm (AP). 2. Subtle increased glucose concentration is demonstrated in the right upper medial hemithorax pulmonary parenchyma, right upper lobe generating a calculated maximum standard uptake value of 1.7. The maximal axial diameter of the corresponding parenchymal density on review of CT of the thorax dated 03/08/18 is 7.1 mm (transverse). 3. Normal physiologic distribution of the radiopharmaceutical is apparent in the hepatic (2.9) and splenic parenchyma, both renal units, bladder and visualized intestinal tract. There is uniform distribution of the radiopharmaceutical concentration defined in the visualized cerebellar hemispheres and cerebral cortical structures.? Diffuse intestinal tract activity is noted throughout all four quadrants of the abdominal-pelvic retroperitoneum, mesentery consistent with normal physiologic distribution of the radiopharmaceutical. Prominent FDG uptake is defined in the anterior nares generating a calculated maximum standard uptake value of 3.3. Subtle increased glucose metabolism is demonstrated in the left upper abdomen contiguous to the left adrenal gland generating a calculated maximum standard uptake value of 1.8. Pertinent CT findings are as follows. CHEST: There are no additional parenchymal densities-nodules demonstrated in the right-left hemithorax demonstrating discernible, quantitatively significant increased glucose metabolism. Ventricular pacemaker placement is demonstrated. Atherosclerotic calcification is defined in the thoracic aorta without evidence of dilatation, aneurysm formation. Coronary arterial calcification is observed. ABDOMEN AND PELVIS: Atherosclerotic calcification is defined in the abdominal aorta without evidence of dilatation, aneurysm formation. Abdominal-pelvic arterial calcification is observed. The left kidney is hypotrophic relative to the right renal unit. Calcification appears evident in the bilateral renal units. Colonic diverticulosis is defined. Postsurgical changes are noted in the right anterior pelvic wall. A small fat-containing left inguinal hernia is noted. Right-left subcentimeter inguinal soft tissue densities are non-glucose avid. Calcifications are defined in the bilateral lower hemipelvis. SKELETAL: Degenerative changes defined in the cervical, thoracic and lumbar spine demonstrate no evidence for glucose hypermetabolism. Orthopedic hardware placement is defined in the lower lumbar spine commensurate with spinal fusion operative intervention. PET/PET/CT Tumor Base -Thigh Init IMPRESSION: 1. Increased glucose metabolism manifest in the right upper hemithorax, right upper lobe fulfills quantitative criteria for viable neoplasm. Histopathologic analysis is recommended. (Nicholas et al, Annals of Internal Medicine, 138:724, 2003). 2. The second focus of facilitated FDG uptake noted in the right upper medial lung field, right upper lobe does not fulfill quantitative criteria for viable neoplasm. 3. Enhanced radiotracer concentration noted in the anterior aspect of the nares likely represents activated leukocytes associated with an inflammatory process-rhinitis. 4. Mild increased glucose concentration observed in the left adrenal gland does not fulfill quantitative criteria for viable adrenal gland neoplasm. (Vignesh and Rosey, Journal of Nuclear Medicine 42:151 P 2002. Rickey, Journal of Nuclear Medicine 45:1340, 2004). Electronic Signature Bandar Adamson D.O. Electronically Signed: Bandar Adamson DO at 23:26 EDT Tel , Service support ,
== END ==
PROVIDERS: Family Provider Family Medicine; PCP Family Medicine; Visit Provider Nurse Practitioner Acute Care
DX: C34.11 Malignant neoplasm of upper lobe, right bronchus or lung (principal)
CPT/HCPCS: 78815; A9552; A4216

== ENCOUNTER → 2018-05-31 10:02 | Outpatient (CLI) | payer MEDICARE, SELFPAY ==
[2018-03-16 10:03] VITALS: BMI 25.2
[2018-05-13 11:14] VITALS: BMI 24.5
--- NOTE | 2018-05-31 10:17 | RAD_ITS ---
STUDY: X-RAY CHEST REASON FOR EXAM: Male, 83 years old. Follow-up radiation TECHNIQUE: PA and lateral views of the chest. COMPARISON: February 19, 2018 chest x-ray FINDINGS: There is a pacemaker overlying the left chest with leads overlying the heart. The lungs are clear and expanded. There is no demonstrated pleural abnormality. There is borderline cardiomegaly. Normal mediastinum and yobani. Normal visualized pulmonary arteries. There is atherosclerotic tortuosity of the aortic arch and descending thoracic aorta. Normal visualized thoracic spine. Normal visualized ribs, clavicles, and shoulders. There is no demonstrated abnormality of the visualized soft tissue structures of the upper abdomen. RAD/Chest PA and Lateral IMPRESSION: Left-sided pacemaker. Trace right midlung zone atelectasis. No visualized focal infiltrate or mass. Recommend follow-up CT scan of the chest if clinically appropriate. Electronically Signed: Bharati Floyd MD at 19:09 EST Tel , Service support ,
--- OUTSIDE RECORDS SUMMARY | 2018-07-24 14:53 | XMS RPT_ITS ---
:1935 Author Organization OHIP Support Name Relationship Address Phone MAHNAZZACK BHARATI Unavailable Unavailable + R Unavailable Unavailable Unavailable ERICJODI RODRÍGUEZ Unavailable [address] + [place] [address] HEZACK BHARATI Unavailable Unavailable + R Unavailable Unavailable Unavailable JODI PAL Unavailable [address] + [place] [address] HEASKISHAN BHARATI Unavailable Unavailable + [place] [address] R Unavailable Unavailable Unavailable JODI PAL Unavailable [address] + [place] [address] HEASKISHAN BHARATI Unavailable . + ., [place] . R Unavailable Unavailable Unavailable ERIC, JODI Unavailable [address] + [place] [address] HEASLEY, ASHLEIGH Unavailable Unavailable Unavailable ERIC, BEN Unavailable Unavailable Unavailable HEASLEY, ASHLEIGH Unavailable Unavailable Unavailable ERIC, BEN Unavailable Unavailable Unavailable HEASLEY, ASHLEIGH Unavailable Unavailable Unavailable ERIC, BEN Unavailable Unavailable Unavailable HEASLEY, ASHLEIGH Unavailable Unavailable Unavailable ERIC, BEN Unavailable Unavailable Unavailable HEASLEY, ASHLEIGH Unavailable Unavailable Unavailable ERIC, BEN Unavailable Unavailable Unavailable HEASLEY, ASHLEIGH Unavailable Unavailable Unavailable ERIC, BEN Unavailable Unavailable Unavailable HEASLEY, ASHLEIGH Unavailable Unavailable Unavailable ERIC, BEN Unavailable Unavailable Unavailable HEASLEY, ASHLEIGH Unavailable Unavailable Unavailable ERIC, BEN Unavailable Unavailable Unavailable HEASLEY, ASHLEIGH Unavailable Unavailable Unavailable ERIC, BEN Unavailable Unavailable Unavailable HEASLEY, ASHLEIGH Unavailable Unavailable Unavailable ERIC, BEN Unavailable Unavailable Unavailable ERIC, BEN Unavailable Unavailable Unavailable R Unavailable Unavailable Unavailable ERIC, JODI Unavailable [address] + [place] [address] R Unavailable Unavailable Unavailable ERIC, JODI Unavailable [address] + [place] [address] ERIC BEN Unavailable Unavailable Unavailable R Unavailable Unavailable Unavailable ERIC, JODI Unavailable [address] + [place] [address] R Unavailable Unavailable Unavailable ERIC, JODI Unavailable [address] + [place] [address] R Unavailable Unavailable Unavailable ERIC, JODI Unavailable [address] + [place] [address] ERIC BEN Unavailable Unavailable Unavailable R Unavailable Unavailable Unavailable ERIC, JODI Unavailable [address] + [place] [address] R Unavailable Unavailable Unavailable ERIC, JODI Unavailable [address] + [place] [address] R Unavailable Unavailable Unavailable ERIC, JODI Unavailable [address] + [place] [address] R Unavailable Unavailable Unavailable ERIC, JODI Unavailable [address] + [place] [address] R Unavailable Unavailable Unavailable ERIC, JODI Unavailable [address] + [place] [address] R Unavailable Unavailable Unavailable ERIC, JODI Unavailable [address] + [place] [address] R Unavailable Unavailable Unavailable ERIC, JODI Unavailable [address] + [place] [address] R Unavailable Unavailable Unavailable ERIC, JODI Unavailable [address] + [place] [address] Care Team Providers Name Role Phone GRISELDA VELASCO Attending Unavailable GRISELDA VELASCO Referring Unavailable GRISELDA VELASCO Attending Unavailable GRISELDA VELASCO Referring Unavailable VICKY MONTALVO Referring Unavailable AMY SHOEMAKER Primary Care Unavailable GRISELDA VELASCO Attending Unavailable VICKY MONTALVO Referring Unavailable AMY SHOEMAKER Primary Care Unavailable GRISELDA VELASCO Attending Unavailable GRISELDA VELASCO Referring Unavailable AMY SHOEMAKER Primary Care Unavailable GRISELDA VELASCO Attending Unavailable AMY SHOEMAKER Referring Unavailable AMY SHOEMAKER Primary Care Unavailable JULIO C FRAIRE Attending Unavailable SHOEMAKER, AMY K Referring Unavailable SHOEMAKER, AMY K Primary Care Unavailable ROD, GRISELDA E Attending Unavailable ROD, GRISELDA E Referring Unavailable SHOEMAKER, AMY K Primary Care Unavailable ROD, GRISELDA E Attending Unavailable ROD, GRISELDA E Referring Unavailable SHOEMAKER, AMY K Primary Care Unavailable ROD, GRISELDA E Attending Unavailable ROD, GRISELDA E Referring Unavailable SHOEMAKER, AMY K Primary Care Unavailable ROD, GRISELDA E Attending Unavailable ROD, GRISELDA E Referring Unavailable SHOEMAKER, AMY K Primary Care Unavailable ROD, GRISELDA E Attending Unavailable ROD, GRISELDA E Referring Unavailable SHOEMAKER, AMY K Primary Care Unavailable DIPAK REMY Attending Unavailable SHOEMAKER, AMY K Referring Unavailable SHOEMAKER, AMY K Primary Care Unavailable VETOVITZ, LAURA (PA) Referring Unavailable VETOVITZ, LAURA (PA) Attending Unavailable VETOVITZ, LAURA (PA) Attending Unavailable VETOVITZ, LAURA (PA) Referring Unavailable SUZANNE KAYE Referring Unavailable Shoemaker, Amy Primary Care Unavailable SUZANNE KAYE Attending Unavailable Shoemaker, Amy Primary Care Unavailable SUZANNE KAYE Referring Unavailable SUZANNE KAYE Attending Unavailable Norberto, Brundidge TURN LASTER-C Attending Unavailable Norberto, Brundidge TURN LASTER-C Referring Unavailable Shoemaker, Amy Primary Care Unavailable Kyle Fields Attending Unavailable Shoemaker, Amy Primary Care Unavailable Shoemaker, Amy Primary Care Unavailable Tereletsky, Aamir Admitting Unavailable Tereletsky, Aamir Referring Unavailable Garett, Pearl S. Consulting Unavailable Abel Momin Attending Unavailable Keon Bui D.O. Consulting Unavailable Tereletsky, Aamir Admitting Unavailable Tereletsky, Aamir Attending Unavailable Tereletsky, Aamir Referring Unavailable Shoemaker, Amy Primary Care Unavailable Garett, Pearl S. Consulting Unavailable Tereletsky, Aamir Consulting Unavailable Tereletsky, Aamir Admitting Unavailable Keon Bui D.O. Attending Unavailable Tereletsky, Aamir Referring Unavailable Shoemaker, Amy Primary Care Unavailable Garett, Pearl S. Consulting Unavailable Keon Bui D.O. Consulting Unavailable Abel Momin Consulting Unavailable Mariangeleletsky, Aamir Admitting Unavailable Lanceeri, Abel Attending Unavailable Tereletsky, Aamir Referring Unavailable Shoemaker, Amy Primary Care Unavailable Garett, Pearl S. Consulting Unavailable Keon Brown, D.O. Consulting Unavailable Jopperi, Abel Consulting Unavailable Jopperi, Abel Attending Unavailable Jopperi, Abel Referring Unavailable Shoemaker, Amy Primary Care Unavailable Mon, Estrella Attending Unavailable Shoemaker, Amy Referring Unavailable Shoemaker, Amy Primary Care Unavailable Mon, Estrella Attending Unavailable Shoemaker, Amy Primary Care Unavailable Isckarus, Mansour Attending Unavailable Holger Zamora.Nisha Referring Unavailable Shoemaker, Amy Primary Care Unavailable Isckarus, Mansour Attending Unavailable Holger Zamora.Nisha Referring Unavailable Shoemaker, Amy Primary Care Unavailable Isckarus, Mansour Consulting Unavailable Megha, Vicky Attending Unavailable Holger Zamora.O. Referring Unavailable Shoemaker, Amy Primary Care Unavailable Isckarus, Mansour Consulting Unavailable Megha, Vicky Attending Unavailable Megha, Vicky Referring Unavailable Shoemaker, Amy Primary Care Unavailable Holger Zamora.Sole. Attending Unavailable Shoemaker, Amy Referring Unavailable Megha, Vicky Attending Unavailable Holger Zamora.Sole. Referring Unavailable Shoemaker, Amy Primary Care Unavailable Isckarus, Mansour Consulting Unavailable PROBLEMS PROBLEMS DATE TYPE CONDITION / CODE ATTENDING STATUS SOURCE 06/02/2018 Unknown C34.90 - Malignant Isckarus, Active [place] neoplasm of [facility] unspecified part of Hospital unspecified Repository bronchus or lung / C34.90(ICD-10) 02/19/2018 Unknown R91.8 - Other Jopperi, Abel Active [place] nonspecific [facility] abnormal finding of Hospital lung field / Repository R91.8(ICD-10) 01/25/2018 Active Pain in right knee NA Active [facility] / M25.561(ICD-10) Main [place] Repository 02/25/2018 Unknown M62.81 - Muscle SUZANNE KAYE Active [place] weakness Community (generalized) / Hospital M62.81(ICD-10) Repository 02/24/2018 Unknown R26.9 - Unspecified SUZANNE KAYE Active [place] abnormalities of Community gait and mobility / Hospital R26.9(ICD-10) Repository PROCEDURES PROCEDURES No Procedure Records FoundRESULTS RESULTS ONCOLOGY FOLLOW-UP Observed: 06/03/2018 Status: F Source: [place] VISIT 12:42 PM [facility] HOSPITAL REPOSITORY [facility] Medical Records Department [address] [place] [address] Oncology Follow-Up Visit 06/03/18 1226 MR#: [id number] Acct: [id number] Name: BEN PAL #: [id number] : 1935 83 From: Vicky Montalvo DO PCP: Amy Shoemaker MD Status: REG RCR Y Location: 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 From 04/22/18 - 05/04/18 he received SBRT consisting of 5000 cGy in 5 fractions to the RUL tumor. History of Present Illness: 01/29/2018: CT head was completed due to weakness which demonstrated chronic involutional changes of the brain and a tiny lacunar infarct in the left basal ganglia which was new compared to the prior study. 01/29/2018: CT cervical spine was performed which demonstrated evidence for a pleural-based medial right apical mass measuring 2.7 x 1.6 cm. Also noted is severe degenerative changes but no other pathology within the spine. 01/29/2018: CT of the lumbar spine was completed and demonstrated degenerative/postoperative changes and also grade 3 anterolisthesis of L5 relative to S1. 01/29/2018: CT chest was performed which demonstrated a pleural- based mass in the medial right lung apex measuring 2.8 x 1.7 x 2.5 cm. There is an additional pleural-based 9 mm nodule within the posterior right upper lobe. There are mild diffuse emphysematous changes of the lungs and mild gravity dependent atelectatic changes of the posterior right lung andrews. There is no pleural effusion. Cardiomegaly is present and there is a left-sided pacemaker noted. There are calcified plaques of the aorta and also an aneurysmal aorta measuring up to 4.3 cm. 02/19/2018: CT-guided biopsy of the right upper lobe lung mass was performed which demonstrated evidence for non-small cell carcinoma consistent with squamous cell carcinoma. 03/08/2018: PET scan was performed which demonstrated a focal increased glucose metabolism defined in the right upper posterior medial hemithorax right upper lobe extending into the posterior medial pleural interface generating a calculated SUV of 7.7 and measuring 2.9 x 1.8 cm. Also noted is subtle increased glucose concentration demonstrated in the right upper medial hemithorax pulmonary parenchyma right upper lobe generating a calculated maximum SUV of 1.7 with the corresponding lesion measuring 7 mm, this does not for fill quantitative criteria for viable neoplasm. From 04/22/18 - 05/04/18: received SBRT consisting of 5000 cGy in 5 fractions to the RUL tumor. 05/13/2018: Follow up with pulmonary medicine. Will continue to follow and recommended continued CT based imaging to follow disease. 05/31/2018: chest x-ray showed trace right mid lung zone atelectasis, no visible infiltrate or mass. Radiation Treatment History: 1) 2002: Patient received radiation therapy for prostate cancer. 2) From 04/22/18 - 05/04/18: received SBRT consisting of 5000 cGy in 5 fractions to the RUL tumor. Interval History: Patient returns for follow-up about 1 month after completing lung SBRT. He reports doing very well overall. He denies having cough or hemoptysis. He has mild shortness of breath on exertion which is stable. He denies having chest wall pain, odynophagia, or dysphagia. He denies having any numbness/tingling or weakness in his extremities. He continues to have imbalance which has been going on for a couple of years. He has right knee pain which is been present for many years and he uses a cane to ambulate. He reports having some mild continued fatigue. He reports a normal appetite and denies having weight loss. He reports having occasional frontal headaches which have been intermittently occurring for years, he denies any changes in these headaches. He denies vision changes, nausea/vomiting, weakness/numbness. His family believes that he has some decrease in short-term memory which is not new but progressively worsening. He reports being able to take care of most of his activities of daily living but does require some assistance from his . He denies having any other problems or concerns at this time. I have reviewed the medical, surgical, and other pertinent history in details and have updated medication and allergy information in the electronic medical record. Review of Systems: A 12-point review of systems was completed and was negative except for what is noted in the HPI/Interval History and by the nurse. Height/Weight/BMI: Height: 5 ft 11 in Weight: 178.4 lbs Vital Signs Temperature 97.5 F L 06/03/18 11:11 Temperature Source Oral 06/03/18 11:11 Pulse Rate 74 06/03/18 11:11 Physical Exam: ECO KARNOFSKY SCORE: 60% CONSTITUTIONAL: Well-developed, well-nourished, and in no apparent distress. HEENT: Mucous membranes moist. No evidence of thrush or lesions within the visualized oropharynx or oral cavity. No trismus. Pupils are equal, round, and reactive to light and accommodation. Extraocular movements are intact. Sclerae are anicteric. NECK: Supple,with no thyromegaly, and non-tender. Trachea midline. No cervical or supraclavicular adenopathy noted. CARDIAC: Regular rate and rhythm. Normal S1, S2. No murmurs, rubs, or gallops. PULMONARY/CHEST: Lungs are clear to auscultation and percussion bilaterally. No wheezes, rhonchi, or crackles noted. No increased work of breathing. ABDOMINAL: Abdomen soft, non-tender, non-distended. No hepatomegaly. Normoactive bowel sounds in all four quadrants. No guarding, rebound. BACK: Straight and aligned. No CVA tenderness. Axial skeleton non-tender to percussion. EXTREMITIES: Full range of motion in all four extremities, with normal strength equally and symmetrically. No evidence of edema. No clubbing. SKIN: Skin is warm and dry. No rashes or lesions evident. NEUROLOGICAL EXAM: Alert and oriented x 3. Cranial nerves II through XII are grossly intact. No focal neurological deficit. Speech is fluent. There is no upper or lower extremity sensory deficit or motor deficit. Muscle strength is 5/5 in all muscle groups. Gait and posture are steady. No dysmetria. Romberg negative PSYCHIATRIC: Appropriate mood and affect for the clinical situation. 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 From 04/22/18 - 05/04/18 he received SBRT consisting of 5000 cGy in 5 fractions to the RUL tumor. Patient appears to have tolerated SBRT to the lung tumor well without toxicities. Chest x-ray demonstrates no clear evidence of disease. I reviewed the need to complete CT of the chest in 2 months to assess tumor response and ensure no other new disease has developed. I recommended that he continue to follow with his other physicians for his medical problems and continue to see pulmonary medicine in the future. I will have the patient return to clinic in [address] of the chest and he was instructed to call with any further questions or concerns in the interim. Vicky Montalvo DO, [employer]et [employer], Department of Radiation Oncology [facility] 06/03/18 1242 <Electronically signed by Vicky Montalvo DO> Date Vicky Montalvo DO CC: Cece Beaulieu MD Signed CHEST PA AND LATERAL Observed: 05/31/2018 Status: F Source: OTIS 10:11 AM [facility] REPOSITORY [facility] Imaging Services [address] [place] [id number] Chest PA and Lateral MR#: [id number] Acct: [id number] Name: BEN PAL Rep #: [id number] : 1935 M 83 From: Bharati Floyd MD PCP: Amy Shoemaker MD Status: REG CLI Study: Chest PA and Lateral Date of Exam: 05/31/18 Exam# [id number] Ordering Dr: Vicky Montalvo DO STUDY: X-RAY CHEST REASON FOR EXAM: Male, 83 years old. Follow-up radiation TECHNIQUE: PA and lateral views of the chest. COMPARISON: February 19, 2018 chest x-ray FINDINGS: There is a pacemaker overlying the left chest with leads overlying the heart. The lungs are clear and expanded. There is no demonstrated pleural abnormality. There is borderline cardiomegaly. Normal mediastinum and yobani. Normal visualized pulmonary arteries. There is atherosclerotic tortuosity of the aortic arch and descending thoracic aorta. Normal visualized thoracic spine. Normal visualized ribs, clavicles, and shoulders. There is no demonstrated abnormality of the visualized soft tissue structures of the upper abdomen. RAD/Chest PA and Lateral IMPRESSION: Left-sided pacemaker. Trace right midlung zone atelectasis. No visualized focal infiltrate or mass. Recommend follow-up CT scan of the chest if clinically appropriate. Electronically Signed: Bharati Floyd MD at 19:09 EST Tel , Service support , CC: Amy Shoemaker MD; Vicky Montalvo DO Dice Table Person: Signed PULMONARY VISIT REPORT Observed: 05/13/2018 Status: F Source: OTIS 11:41 AM [facility] REPOSITORY Pulmonary Medicine of [address] [place] [address] OFFICE VISIT Date of Service: 05/13/18 MR#: [id number] Acct: [id number] Name: BEN PAL Rep #: [id number] : 1935 Provider: Keon Bui D.O. Age/Sex: 83/M Location: [facility] Status: Signed Assessment AND Plan 1. Non-small cell lung cancer C34.90 Plan The patient has an established diagnosis of non-small cell lung cancer, for which he is now status post SBRT at [facility]. Patient has a scheduled follow-up appointment with radiation oncology at the beginning of May, during which time repeat imaging is supposed to be obtained. The patient will require additional CT imaging studies in the future given the non-PET avid pulmonary nodule identified previously. We will continue to follow along with the patient. Plan Detail Follow Up 6 Months (DMB) HPI HPI Comments Details: The patient is an 83-year-old male who presents to the clinic today for a routine scheduled follow-up office visit. If you recall, I initially saw the patient in consultation when he was admitted to the hospital in January 2018 due to the presence of a lung mass. The patient does have a smoking history of 1 pack/day for an unknown number of years and quit smoking completely 1.5 years ago. During the patient's hospitalization a CT chest was obtained which did reveal a right apical pleural-based lung mass measuring 2.8 x 2.5 cm. The patient was then referred to undergo an outpatient percutaneous CT-guided lung biopsy, which was completed at the end of January 2018. Pathology results were consistent with the presence of a squamous cell carcinoma. The patient was then referred to oncology, Dr. Beaulieu. The patient was not considered to be a candidate for aggressive cancer treatment due to his performance status. He was subsequently referred to radiation oncology for consideration of SBRT. Today, the patient reports that he recently completed SBRT at [facility] last week. He reports feeling well today. He denies any significant shortness of breath. He has an upcoming appointment with Dr. Montalvo scheduled at the beginning of May. He does report a mild degree of fatigue and reports an approximate 6 pound unintentional weight loss over the last 3 weeks. However, his appetite remains good. He denies any chest tightness or wheezing. Intake Vital Signs05/13/18 Height 5 ft 11 in 05/13/18 Weight: 176 lb Intake Visit Reasons: 2 M FU Eligibility Supervisor Required: No Accompanied by: Family / Other Is patient in pain?: No Allergies Influenza Virus Vaccines Allergy (Verified 05/13/18 11:14) Hives Medications Amlodipine 5 mg PO DAILY 01/29/18 [History Confirmed 05/13/18] Aspirin 81 mg PO DAILY 01/29/18 [History Confirmed 05/13/18] Atorvastatin Calcium 80 mg PO DAILY 01/29/18 [History Confirmed 05/13/18] Carvedilol 25 mg PO BID 01/29/18 [History Confirmed 05/13/18] Clopidogrel Bisulfate [Clopidogrel] 75 mg PO DAILY 01/29/18 [History Confirmed 05/13/18] Finasteride [Proscar] 5 mg PO DAILY 01/29/18 [History Confirmed 05/13/18] Hydrochlorothiazide 12.5 mg PO DAILY 01/29/18 [History Confirmed 05/13/18] Isosorbide Dinitrate 10 mg PO TID 01/29/18 [History Confirmed 05/13/18] Tamsulosin HCl [Flomax] 0.4 mg PO DAILY 01/29/18 [History Confirmed 05/13/18] Acetaminophen [Pain Relief] 500 mg PO Q4H PRN #1 tab 01/30/18 [Rx Confirmed 05/13/18] Escitalopram Oxalate [Lexapro] 5 mg PO DAILY 03/11/18 [History Confirmed 05/13/18] PFSH Medical History Difficulty in walking (Acute) Generalized weakness (Acute) Alzheimer disease (Acute) Prostate cancer (Acute) Seizure (Acute) HTN (hypertension) (Chronic) Hyperlipidemia (Chronic) Brain bleed (Resolved) Heart attack (Resolved) Stroke (Resolved) Surgical History H/O hernia repair (Resolved) History of back surgery (Resolved) S/P coronary artery stent placement (Resolved) Status post placement of cardiac pacemaker (Resolved) Family History Father Heart disease Sister Heart disease Social History Smoking Status: Former smoker quit date: 01/27/17 how long ago did patient quit smokin yr, cigars alcohol intake: never substance use type: does not use Review of Systems Const CONSTITUTIONAL: Positive fatigue; negative anorexia, body ache, chills, daytime sleepiness, fever(s), night sweats, oral thrush, stops breathing during sleep, weight loss, sleeping in chair, weight loss, weight gain, frequent colds, seasonal allergies, other, headache(s) or orthopnea EETM Ear Nose Throat Mouth: Positive hearing normal; negative hard of hearing, hoarseness, dry mouth in morning, change in vision, itchy eyes, eye pain, swallowing Difficulty, ear pain, nose bleed, headache(s), mouth pain, nasal congestion, nasal discharge, post nasal drip, sinus pain, sinus pressure, sore throat or other Cardio Cardiovascular: Positive edema Location: lower extremity; negative chest pain, chest pain at rest, chest pain with activity, irregular heart rhythm, shortness of breath when lying down, palpitations, murmur or other Resp Respiratory: Positive as per HPI; negative shortness of breath, pain with cough, wheezing, chest congestion, cough, chest tightness, pain on inspiration, inhalers, increase use of rescue inhalers, snoring, apnea or other Gastro Gastrointestional: Negative bloody stools, change in appetite, difficulty swallowing, reflux, hematemesis, melena stool, loose stool, constipation or other Genitourinary: Negative blood in urine, nocturia, pain with urination or other Musc Musculoskeletal: Negative body pain, back pain, neck pain or other Skin/Breast Skin/Breast: Negative dry skin, itching, rash, unusual bruising, breast lump or other Neuro Neurological: Positive weakness; negative restless legs, confusion or other Psych Psychocological: Negative abnormal sleep pattern, anxiety, thoughts of hurting self/others, hopelessness or other Lymph Lymphatic: Negative easy bleeding, easy bruising, swollen lymph nodes or other Exam Const Constitutional: Positive conversant, cooperative, in no acute respiratory distress, well developed, well nourished and good hygiene Head Head: Positive normocephalic and atraumatic; negative cyanosis of lips/distal nose Eyes Eye: Positive clear conjunctiva; negative nystagmus or scleral abnormality Ears Ear: Positive hearing normal and external ears normal; negative hard of hearing Nose Nose: Positive external nose normal; negative epistaxis Mouth Mouth: Positive oral mucosae normal and posterior oropharynx is adequate; negative no lesions or post nasal drip Mallampati Score: II: Mallampati Score Neck Neck: Positive normal visual inspection and trachea midline; negative lymphadenopathy Chest Wall Chest: Positive symmetric chest movement Normal AP diameter. Resp lung sounds: Positive clear to auscultation and good air exchange; negative wheezes, rhonchi or rales Cardio Cardiac: Positive regular rate, regular rhythm, S1 normal and S2 normal; negative rub, gallop or murmur GI GI: Positive normal bowel sounds Soft without distention Genitourinary: Positive deferred Musc Musculoskeletal: Positive using an assistive device for ambulation Skin Pulmonary Skin Exam: Positive intact; negative lesion, ulcers, dermal atrophy or rash Pulses Pulse: Yes Pedal pulses present: Extremities Extremities: No clubbing, No cyanosis, Yes edema Location: lower extremity Neuro Neurologic: Yes conversant, Yes no focal neuro deficits, Yes cooperative Lymph Lymphatic: No lymphadenopathy Psych Appearance: Positive grossly normal Mental Status: Positive mental status grossly normal Mood: Positive congruent mood Affect: Positive normal affect Coding Level of Care Code Off vis,est,level 3 Diagnoses Non-small cell lung cancer C34.90 05/13/18 1141 <Electronically signed by Keon Bui DO> Date Keon Bui DO Cosigner Signature: Date (if applicable) CC: Amy Shoemaker MD PROGRESS Observed: 05/03/2018 Status: COMPLETED Source: [place] 10:22 AM [facility] REPOSITORY HNO ID: [id number] Author: Laura Brito (Pa) Service: (none) Author Type: Physician Co Founder And Chairman Type: Progress Notes Filed: 05/03/2018 10:26 AM Note Text: HPI: Patient presents for repeat right knee corticosteroid injection. Previous injection lasted about 6 weeks. The patient tried topical diclofenac which was not beneficial. He is provided with a handout on Euflexxa injections. Procedure note: The risk, benefits and alternatives of injection and no injection therapy were discussed. The patient consented for an injection. Time out was conducted. The injection site was prepped with a Chlorhexadine swab. The right Superolateral joint was injected with a 25 gauge needle with 2 cc (12 mg) Celestone, 5 cc Marcaine 0.5% . The injection site was then dressed with a bandaid. The patient tolerated the injection well. The patient was instructed to call the office if any adverse local effects occurred or any if any questions or concerns arise. Laura Brito PA-C PROGRESS Observed: 05/03/2018 Status: COMPLETED Source: [place] 10:00 AM [facility] REPOSITORY HNO ID: [id number] Author: Cindy Sam RN Service: (none) Author Type: (none) Type: Progress Notes Filed: 05/03/2018 10:26 AM Note Text: AMB ROOMING INTAKE FLOWSHEET DATA Risk Screening Do you have concerns about personal safety or safety in the home?: No Pain Pain Score: 6/10 Pain Location: Knee-Right Description: Aching Duration Amount of Time: 1.5 Duration Units: Months Frequency: Continuous Intervention: Medication, Support surface (cane) Patient presents with: Recheck: 3 months post visit right knee injection for OA Pt. presents with . He is currently in the process of radiation for lung cancer, and is not a candidate for surgery. The Voltaren gel was ineffective for knee pain and he would like another injection. The last injection lasted 6 weeks. He uses a cane to walk. CNOV Observed: 05/03/2018 Status: COMPLETED Source: [place] 9:45 AM [facility] REPOSITORY Office Visit ([facility]) BEN PAL ([id number]) 1935 M Date Time Provider Department 05/03/18 9:45 AM LAURA BRITO (PA) During your visit today, we recorded the following information about you: Cindy Sam RN 05/03/2018 10:26 AM Signed AMB ROOMING INTAKE FLOWSHEET DATA Risk Screening Do you have concerns about personal safety or safety in the home?: No Pain Pain Score: 6/10 Pain Location: Knee-Right Description: Aching Duration Amount of Time: 1.5 Duration Units: Months Frequency: Continuous Intervention: Medication, Support surface (cane) Patient presents with: Recheck: 3 months post visit right knee injection for OA Pt. presents with . He is currently in the process of radiation for lung cancer, and is not a candidate for surgery. The Voltaren gel was ineffective for knee pain and he would like another injection. The last injection lasted 6 weeks. He uses a cane to walk. Laura Brito PA-C 05/03/2018 10:26 AM Signed HPI: Patient presents for repeat right knee corticosteroid injection. Previous injection lasted about 6 weeks. The patient tried topical diclofenac which was not beneficial. He is provided with a handout on Euflexxa injections. Procedure note: The risk, benefits and alternatives of injection and no injection therapy were discussed. The patient consented for an injection. Time out was conducted. The injection site was prepped with a Chlorhexadine swab. The right Superolateral joint was injected with a 25 gauge needle with 2 cc (12 mg) Celestone, 5 cc Marcaine 0.5% . The injection site was then dressed with a bandaid. The patient tolerated the injection well. The patient was instructed to call the office if any adverse local effects occurred or any if any questions or concerns arise. Laura Brito PA-C Referring Provider: LAURA BRITO) [[id number]] Allergies As of Date: 05/03/2018 (No Known Allergies) Date Reviewed: 05/03/2018 Reviewed by: Laura Mejia) Daryl - Fully Assessed Reason for Visit: Recheck [92] Cmt: 3 months post visit right knee injection for OA Primary Visit Diagnosis:Primary osteoarthritis of right knee [M17.11] Other Visit Diagnosis:Acute pain of right knee [M25.561] Order(s):betamethasone acetate-betamethasone sodium phosphate 12 mg, bupivacaine (PF) 25 mgDisp: Rfl: Prescriptions as of 05/03/2018 Sig: ESCITALOPRAM 5 MG TABLET Take 5 mg by mouth once daily. ATORVASTATIN 80 MG TABLET Take 80 mg by mouth once alexei* CLOPIDOGREL 75 MG TABLET Take 75 mg by mouth once alexei* FINASTERIDE 5 MG TABLET Take 5 mg by mouth once daily. ISOSORBIDE DINITRATE 10 MG TA* Take 10 mg by mouth three homa* CARVEDILOL 25 MG TABLET Take 25 mg by mouth twice george* AMLODIPINE ORAL Take 5 mg by mouth once daily* ASPIRIN 81 MG TABLET,DELAYED * Take 81 mg by mouth once alexei* HYDROCHLOROTHIAZIDE 12.5 MG T* Take 12.5 mg by mouth once da* TAMSULOSIN 0.4 MG CAPSULE Take 0.4 mg by mouth once george* SALICYLIC ACID 6 % SHAMPOO Use to wash hair daily * MULTIVITAMIN TABLET Take one(1) tablet daily. DICLOFENAC 1 % TOPICAL GEL Apply 4 g to affected area fo* Patient not taking: Reported on 05/03/2018 DONEPEZIL 10 MG TABLET Take 10 mg by mouth daily at * LISINOPRIL 10 MG TABLET Take 10 mg by mouth once alexei* SIMVASTATIN 40 MG TABLET Take 40 mg by mouth daily at * MEMANTINE 28 MG CAPSULE SPRIN* Take by mouth once daily. OMEGA-3 FATTY ACIDS-FISH OIL * Take 1 capsule by mouth once * IBUPROFEN 200 MG TABLET Take 200 mg by mouth once george* NAPROXEN SODIUM 220 MG CAPSULE Take by mouth daily at bedti* Medication notes this encounter SALICYLIC ACID 6 % SHAMPOO >> Cindy Sam RN 05/03/2018 9:59 AM >> CINDY SAM RN Mon May 03, 2018 9:59 AM as needed Problem List As Of Date 05/03/2018 Noted Resolved RECTAL AND ANAL HEMORRHAGE [K62.5] INVALID FOR* BENIGN NEOPLASM LG BOWEL [D12.6] INVALID FOR* Prescriptions ordered this encounter Disp Refills Start End CAM ALEJANDRO INJECTION BUILDER 05/03/2018 05/03/2018 Class: Suppress Questions Route: [facility] Encounter Status:Closed by LAURA BRITO PA-C on 05/03/18 CONSULTATION Observed: 03/16/2018 Status: F Source: [place] 1:18 PM [facility] REPOSITORY [facility] Medical Records Department [address] [place] [address] Consultation 03/16/18 1123 MR#: [id number] Acct: [id number] Name: BEN PAL Rep #: [id number] : 1935 82 From: Vicky Montalvo DO PCP: Amy Shoemaker MD Status: REG RCR Y Location: [facility] Date of Service: 03/16/18 Referring Provider: Dr. 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 History of Present Illness: 01/29/2018: CT head was completed due to weakness which demonstrated chronic involutional changes of the brain and a tiny lacunar infarct in the left basal ganglia which was new compared to the prior study. 01/29/2018: CT cervical spine was performed which demonstrated evidence for a pleural-based medial right apical mass measuring 2.7 x 1.6 cm. Also noted is severe degenerative changes but no other pathology within the spine. 01/29/2018: CT of the lumbar spine was completed and demonstrated degenerative/postoperative changes and also grade 3 anterolisthesis of L5 relative to S1. 01/29/2018: CT chest was performed which demonstrated a pleural- based mass in the medial right lung apex measuring 2.8 x 1.7 x 2.5 cm. There is an additional pleural-based 9 mm nodule within the posterior right upper lobe. There are mild diffuse emphysematous changes of the lungs and mild gravity dependent atelectatic changes of the posterior right lung andrews. There is no pleural effusion. Cardiomegaly is present and there is a left-sided pacemaker noted. There are calcified plaques of the aorta and also an aneurysmal aorta measuring up to 4.3 cm. 02/19/2018: CT-guided biopsy of the right upper lobe lung mass was performed which demonstrated evidence for non-small cell carcinoma consistent with squamous cell carcinoma. 03/08/2018: PET scan was performed which demonstrated a focal increased glucose metabolism defined in the right upper posterior medial hemithorax right upper lobe extending into the posterior medial pleural interface generating a calculated SUV of 7.7 and measuring 2.9 x 1.8 cm. Also noted is subtle increased glucose concentration demonstrated in the right upper medial hemithorax pulmonary parenchyma right upper lobe generating a calculated maximum SUV of 1.7 with the corresponding lesion measuring 7 mm, this does not for fill quantitative criteria for viable neoplasm. Radiation Treatment History: 2003: Patient received radiation therapy for prostate cancer. Interval History: Patient presents for initial consultation. Patient reports doing well overall. He denies having any shortness of breath on exertion when walking up to about 50 yards but does with steps. He denies a cough or hemoptysis. He is no longer smoking. In March 2017 he underwent surgery and had many complications including sustaining a stroke, he has completed rehabilitation over the last year but still has a lot of difficulty with gait as he veers to the left and is not as steady on his feet. He reports that he falls about once per week and uses a cane for ambulation. He denies having any recent injuries. He denies having headaches, vision changes, nausea/vomiting, focal weakness or numbness. He does have progressive forgetfulness and has been diagnosed with dementia but this appears to be relatively mild. He reports a fairly normal appetite and denies having any recent weight loss. He does have increasing fatigue over the last couple of months and will sleep about 9-10 hours at night and then take approximately a 2 hour nap every afternoon. He denies having any dysphasia or odynophagia. He reports previous radiation therapy to the prostate in 2002 and continues to have his PSA monitored which is still less than 1, he does report persistent urinary urge incontinence/leakage he believes this is related to his previous treatment. Family History (Last Reviewed 03/16/18 @ 10:02 by Lauren Crocker) Father Heart disease Sister Heart disease Medical History (Last Reviewed 03/16/18 @ 10:02 by Lauren Crocker) Difficulty in walking (Acute) Generalized weakness (Acute) Alzheimer disease (Acute) Seizure (Acute) Prostate cancer (Acute) 2002 HTN (hypertension) (Chronic) Hyperlipidemia (Chronic) Brain bleed (Resolved) 03/2017 Heart attack (Resolved) 03/2017 Stroke (Resolved) Surgical History (Last Reviewed 03/16/18 @ 10:02 by Lauren Crocker) H/O hernia repair (Resolved) History of back surgery (Resolved) S/P coronary artery stent placement (Resolved) x2 Status post placement of cardiac pacemaker (Resolved) Social History - Tobacco Smoking Status Former smoker Smokeless tobacco usage: Never Social History - Substance Drug use: No Alcohol use: No Social History - Living Arrangements Patients Living Arrangements With Significant Other Home Medications Medication Instructions Recorded Amlodipine 5 mg PO DAILY 01/29/18 Aspirin 81 mg PO DAILY 01/29/18 Atorvastatin Calcium 80 mg PO DAILY 01/29/18 Carvedilol 25 mg PO BID 01/29/18 Allergy/AdvReac Type Severity Reaction Status Date / Time Influenza Virus Vaccines Allergy Hives Verified 03/16/18 10:02 Health Maintenance Do you regularly see your Yes primary care physician? Have you ever had a Yes colonoscopy? Date of last colonoscopy: 06/29/06 Last Result - PSA Screening 0.91 I have reviewed the medical, surgical, and other pertinent history in details and have updated medication and allergy information in the electronic medical record. Review of Systems: A 12-point review of systems was completed and was negative except for what is noted in the HPI/Interval History and by the nurse. Height/Weight/BMI: Height: 5 ft 11 in Weight: 82.01 kg BMI: 25.2 Vital Signs Temperature 98.0 F 03/16/18 10:03 Temperature Source Oral 03/16/18 10:03 Physical Exam: ECO KARNOFSKY SCORE: 60% CONSTITUTIONAL: Well-developed, well-nourished, and in no apparent distress. HEENT: Mucous membranes moist. No evidence of thrush or lesions within the visualized oropharynx or oral cavity. No trismus. Pupils are equal, round, and reactive to light and accommodation. Extraocular movements are intact. Sclerae are anicteric. NECK: Supple,with no thyromegaly, and non-tender. Trachea midline. No cervical or supraclavicular adenopathy noted. CARDIAC: Regular rate and rhythm. Normal S1, S2. No murmurs, rubs, or gallops. PULMONARY/CHEST: Lungs are clear to auscultation and percussion bilaterally. No wheezes, rhonchi, or crackles noted. No increased work of breathing. ABDOMINAL: Abdomen soft, non-tender, non-distended. No hepatomegaly. Normoactive bowel sounds in all four quadrants. No guarding, rebound. BACK: Straight and aligned. No CVA tenderness. Axial skeleton non-tender to percussion. EXTREMITIES: Full range of motion in all four extremities, with normal strength equally and symmetrically. No evidence of edema. No clubbing. SKIN: Skin is warm and dry. No rashes or lesions evident. NEUROLOGICAL EXAM: Alert and oriented x 3. Cranial nerves II through XII are grossly intact. Speech is fluent. There is no upper or lower extremity sensory deficit or motor deficit. Muscle strength is 5/5 in all muscle groups. Gait mildly unsteady with some left-sided drift while walking. Mild dysmetria with left hand. PSYCHIATRIC: Appropriate mood and affect for the clinical situation. 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 Plan: Clinically he is asymptomatic from the lung tumor. I reviewed with him the imaging findings of the recent PET scan which demonstrated evidence of a 2.9 cm PET avid lesion in the superior right upper lobe adjacent to the chest wall with no other evidence for metastatic disease. I did review that there is a very small area adjacent to this primary disease with an SUV of 1.7 and that this does not fulfill criteria for neoplasm, this was discussed with radiologist and there is very little concern at this time that this is disease. I discussed that clinically his stage would be stage I and reviewed the various treatment recommendations for stage I non-small cell lung cancer. I explained that the standard of care would be to complete lobectomy resection but that given his age and comorbidities that he would be unlikely to be a good surgical candidate and he does not want to further pursue this option. I then discussed the alternative option of SBRT and that this would use precisely directed high-dose radiation therapy to ablate the lesion. I explained that there have been several studies evaluating SBRT for early stage lung cancer in medically inoperable patients that showed very high rates of local control and regional control. More recently there have been attempts to randomize patients to SBRT versus surgery which have not accrued well but there is a combined analysis of the STARS and GAIL trials that showed that SBRT achieved 95% 3 year overall survival, 86% recurrence free survival, and 10% grade 3 toxicity which all compared favorably to the surgery patients. However, until randomized data can establish equivalents between lobectomy and SBRT the standard of care remains surgical resection with SBRT being another good option. I discussed with the patient that I will have his imaging reviewed to determine if he is likely to be a good candidate for lung SBRT. If he is deemed to not be a good candidate for whatever reason I reviewed the option of completing hypofractionated radiation therapy to the lung in an effort to provide local disease control. I discussed that I do not recommend observation of this tumor. I discussed the logistics of stereotactic radiation therapy to early stage lung cancer including CT simulation with stereotactic body frame immobilization and 4D CT scan, treatment planning, followed by likely 5 fractions of radiation therapy. All risks, benefits, and alternatives were discussed and all questions and concerns were addressed. I discussed the potential short-term and late radiation toxicities associated with lung SBRT which would include but are not limited to fatigue, worsening dyspnea/lung function, cough, chest wall pain or fracture, esophagitis or esophageal stricture, spinal cord myelopathy, or airway necrosis. Following our discussion the patient was agreeable to pursuing thoracic surgery consultation as well as radiation oncology consultation at the [facility] as we do not perform SBRT at this time, and we will attempt to have him set up for consultation in the near future assuming that he is deemed to be a good candidate. Following our discussion I answered all questions and concerns and the patient was instructed to call if any new questions or concerns arise. Thank you for allowing me to participate in the management and care of your patient. If I may answer any questions in the interim, please do not hesitate to contact me at any time. Vicky Montalvo DO, MS Corset Maker, Department of Radiation Oncology [facility] 03/16/18 1313 <Electronically signed by Vicky Montalvo DO> Date Vicky Montalvo DO Cosigner Signature (if applicable): Date CC: Keon Bui D.O.; Amy Shoemaker MD; Cece Beaulieu MD Signed ONCOLOGY HISTORY AND Observed: 03/11/2018 Status: F Source: [place] PHYSICAL 2:46 PM [facility] REPOSITORY [facility] Medical Records Department [address] [place] [address] History and Physical 03/11/18 1434 MR#: [id number] Acct: [id number] Name: BEN PAL Rep #: [id number] : 1935 82 From: Cece Beaulieu MD PCP: Amy Shoemaker MD Status: REG RCR Y Location: [facility] - Problem List (1) Lung cancer Status: Acute Qualifiers: Subjective Date of Service:: 03/11/18 Chief Complaint: Lung cancer History of Present Illness: Patient is an 82-year-old male ex-smoker quit more than 15 years ago with a significant cardiovascular disease, has a pacemaker, dementia, history of cerebrovascular stroke and seizure (2017 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 He was hospitalized in January 2018 with failing mobility and frequent falls and a chest x-ray prompted a CT scan of the chest revealed a right upper lobe lung mass. CT chest January 29, 2018 : 1. Pleural-based mass in the medial right lung apex measuring 2.8 x 1.7 x 2.5 cm. 2. There is an additional pleural-based 9 mm nodule of the posterior right upper lobe. 3. There are mild diffuse emphysematous changes of the lungs. CT guided biopsy February 19, 2018: Right upper lobe of lung mass, CT-guided needle core biopsy: Non small cell carcinoma, squamous cell carcinoma. PET/CT March 08, 2018: 1. Increased glucose metabolism manifest in the right upper hemithorax, right upper lobe fulfills quantitative criteria for viable neoplasm. Histopathologic analysis is recommended. (Cristopher et al, Annals of Internal Medicine, 138:724, 2003). 2. The second focus of facilitated FDG uptake noted in the right upper medial lung field, right upper lobe does not fulfill quantitative criteria for viable neoplasm. Power of Tobacco Sorter: Yes Living Will: Yes Health History: Past Medical History Cancer: Lung cancer,Prostate cancer Past Medical History (Last Updated 03/11/18 @ 14:08 by Lauren Crocker) Difficulty in walking (Acute) Generalized weakness (Acute) Alzheimer disease (Acute) Seizure (Acute) Prostate cancer (Acute) HTN (hypertension) (Chronic) Hyperlipidemia (Chronic) Brain bleed (Resolved) Heart attack (Resolved) Stroke (Resolved) Past Surgical History (Last Reviewed 03/11/18 @ 14:08 by Lauren Crocker) H/O hernia repair (Resolved) History of back surgery (Resolved) S/P coronary artery stent placement (Resolved) Status post placement of cardiac pacemaker (Resolved) Family History (Last Reviewed 03/11/18 @ 14:08 by Lauren Crocker) Father Heart disease Sister Heart disease Allergies/Adverse Reactions: Allergy/AdvReac Type Severity Reaction Status Date / Time Influenza Virus Vaccines Allergy Hives Verified 03/11/18 14:07 Risk Factors Social History Social History: No changes Smoking Status Former smoker Tobacco Risk Data: Tobacco Risk Smoking Status Former smoker Type of tobacco: Smokeless tobacco usage: Never Items/Day: Year started: Years used: Counseled to quit/cut down: Reason for no counseling performed: Reason for no pharmacotherapy: Tobacco use comments: Passive smoke exposure: Substance Risk Drug use: No Caffeine use [drinks/day]: Alcohol use: No Type of alcohol: Drinks per day: Has patient felt the need to cut down: Has the patient been annoyed by complaints: Has the patient felt guilty about drinking: Has the patient needed an eye laboratory helper in the mornings: Comments: Date of last colonoscopy:: 06/29/05 Review of Systems Constitutional:: Reports: Weakness, Fatigue, Weight loss, Appetite change. Denies: Fever, Sweats, Chills Cardiovascular:: Denies: Chest pain, Palpitations, Dyspnea on exertion, Orthopnea, PND, Shortness of breath Respiratory: Denies: Cough, Hemoptysis, Shortness of Breath, Wheezing Gastrointestinal:: Denies: Abdominal pain, Nausea, Vomiting, Diarrhea, Constipation, Hematochezia Genitourinary: Reports: Incontinence. Denies: Dysuria, Hematuria, Flank pain Musculoskeletal:: Denies: Back pain, Myalgia, Arthralgia Skin: Denies: Rash, Skin Changes, Wounds Neurological:: Reports: Dizziness - Was changes of posture, Memory loss, Frequent falls. Denies: Headache, Visual changes, Tinnitus, Hearing loss Psychiatric: Denies: Anxiety, Depression, Homicidal Ideations, Suicidal Ideations Vital Signs Height 5 ft 11 in Weight: 82.1 kg Weight in Pounds 181.0 lbs Pulse Ox 96 - Physical Exam General: Cooperative, No apparent distress, - - Pleasant, oriented in person and place but not in time, impaired recent memory recall ECOG 2-3 HEENT: Atraumatic, PERRLA, EOMI, Normocephalic Oropharynx:: Dry mucosa Neck:: Supple, Trachea midline. Negative for: JVD, bilateral Cardiac:: Regular rate, Regular rhythm, Normal S1, Normal S2, - - Pacemaker. Negative for: Murmur Lungs: Diminished, Excusion symmetrical. Negative for: Rhonchi, Wheezes Abdomen:: Soft, Non-tender, Non-distended. Negative for: Hepatosplenomegaly Extremities:: Edema - Minimal bilateral ankles edema. Negative for: Cyanosis Neurological: - - Walks with a cane, no lateralization signs Skin:: Negative for: Lesions, Rash, Petechiae, Ecchymosis Psychiatric:: Appropriate affect, Euthymic Lymphatics:: Negative for: Cervical lymphadenopathy, Supraclavicular lymphadenopathy Diagnostic Data: I personally reviewed patient's PET/CT images and summarized in HPI Assessment and Plan 82-year-old male was right upper lobe pathologically confirmed non-small cell lung cancer and an indeterminate sub-centimeters nodule in the same lobe. Patient has significant atherosclerotic arterial disease, impaired performance status and some degree of dementia. He is not a candidate for aggressive anticancer treatment. I advice radiation therapy consultation to consider for SBRT. Patient was seen with his and daughter. All in agreement that due to his frailty and advanced age and aggressive approach is more likely to be detrimental but willing to consider SBRT. Medications: Prescriptions This Visit Medication Instructions Recorded Escitalopram Oxalate [Lexapro] 5 mg PO DAILY 03/11/18 Primary Care Provider: Amy Shoemaker Referring Provider: Keon Bui DO 03/11/18 1446 <Electronically signed by Cece Beaulieu MD> Date Cece Beaulieu MD Cosign Signature: Date (if applicable) CC: Amy Shoemaker MD; Keon Bui D.O.; Amy Shoemaker MD; Cece Beaulieu MD; Vicky Montalvo DO Signed PET/CT TUMOR BASE Observed: 03/08/2018 Status: F Source: HO -THIGH INIT 6:15 AM [facility] REPOSITORY [facility] Imaging Services [address] [place] [address] PET/CT Tumor Base -Thigh Init MR#: [id number] Acct: [id number] Name: BEN PAL Rep #: [id number] : 1935 M 82 From: Bandar Adamson DO PCP: Amy Shoemaker MD Status: REG CLI Study: PET/CT Tumor Base -Thigh Init Date of Exam: 03/08/18 Exam# [id number] Ordering Dr: Estrella Mon TURN LASTER-C EXAMINATION: FDG PET CT INDICATIONS: An 82-year-old male with history of pulmonary nodularity. COMPARISON EXAMINATION: CT of the chest report dated 01/29/18. INDEX LESION SIZE SUV INTERPRETATION Right upper posterior hemithorax pulmonary parenchyma, right upper lobe 18.1 mm x 29.7 mm (frame 253) 7.7 Fulfills quantitative criteria for viable neoplasm Right upper medial hemithorax, right upper lobe 7.1 mm (frame 243) 1.7 Quantitative criteria for viable neoplasm are not fulfilled NON-INDEX LESION SIZE SUV INTERPRETATION Left upper abdomen-left adrenal gland 1.8 Quantitative criteria for viable neoplasm are not fulfilled Anterior midline nares 3.3 Most consistent with activated leukocytes associated with an inflammatory process, rhinitis TECHNIQUE: Following the intravenous administration of 15.62 mCi of F-18 deoxyglucose via the left antecubital fossa, multiplanar image acquisitions of the neck, chest, abdomen and pelvis to level of mid thigh, obtained at one hour post radiopharmaceutical administration contemporaneously interpreted with the current CT of the neck, chest, abdomen and pelvis to level of mid thigh, dated 03/08/[address] of the chest report dated 01/29/18 reveal: SERUM GLUCOSE LEVEL: 150 mg/dl. HEIGHT: 72 inches. WEIGHT: 175 lbs. FINDINGS: 1. Focal increased glucose metabolism is defined in the right upper posteromedial hemithorax, right upper lobe extending to the posteromedial pleural interface generating a calculated maximum standard uptake value of 7.7. The maximal axial diameter of the corresponding parenchymal density on review of CT of the thorax dated 03/08/18 is 18.1 mm (transverse) x 29.7 mm (AP). 2. Subtle increased glucose concentration is demonstrated in the right upper medial hemithorax pulmonary parenchyma, right upper lobe generating a calculated maximum standard uptake value of 1.7. The maximal axial diameter of the corresponding parenchymal density on review of CT of the thorax dated 03/08/18 is 7.1 mm (transverse). 3. Normal physiologic distribution of the radiopharmaceutical is apparent in the hepatic (2.9) and splenic parenchyma, both renal units, bladder and visualized intestinal tract. There is uniform distribution of the radiopharmaceutical concentration defined in the visualized cerebellar hemispheres and cerebral cortical structures.? Diffuse intestinal tract activity is noted throughout all four quadrants of the abdominal-pelvic retroperitoneum, mesentery consistent with normal physiologic distribution of the radiopharmaceutical. Prominent FDG uptake is defined in the anterior nares generating a calculated maximum standard uptake value of 3.3. Subtle increased glucose metabolism is demonstrated in the left upper abdomen contiguous to the left adrenal gland generating a calculated maximum standard uptake value of 1.8. Pertinent CT findings are as follows. CHEST: There are no additional parenchymal densities-nodules demonstrated in the right-left hemithorax demonstrating discernible, quantitatively significant increased glucose metabolism. Ventricular pacemaker placement is demonstrated. Atherosclerotic calcification is defined in the thoracic aorta without evidence of dilatation, aneurysm formation. Coronary arterial calcification is observed. ABDOMEN AND PELVIS: Atherosclerotic calcification is defined in the abdominal aorta without evidence of dilatation, aneurysm formation. Abdominal-pelvic arterial calcification is observed. The left kidney is hypotrophic relative to the right renal unit. Calcification appears evident in the bilateral renal units. Colonic diverticulosis is defined. Postsurgical changes are noted in the right anterior pelvic wall. A small fat-containing left inguinal hernia is noted. Right-left subcentimeter inguinal soft tissue densities are non-glucose avid. Calcifications are defined in the bilateral lower hemipelvis. SKELETAL: Degenerative changes defined in the cervical, thoracic and lumbar spine demonstrate no evidence for glucose hypermetabolism. Orthopedic hardware placement is defined in the lower lumbar spine commensurate with spinal fusion operative intervention. PET/PET/CT Tumor Base -Thigh Init IMPRESSION: 1. Increased glucose metabolism manifest in the right upper hemithorax, right upper lobe fulfills quantitative criteria for viable neoplasm. Histopathologic analysis is recommended. (Nicholas et al, Annals of Internal Medicine, 138:724, 2003). 2. The second focus of facilitated FDG uptake noted in the right upper medial lung field, right upper lobe does not fulfill quantitative criteria for viable neoplasm. 3. Enhanced radiotracer concentration noted in the anterior aspect of the nares likely represents activated leukocytes associated with an inflammatory process-rhinitis. 4. Mild increased glucose concentration observed in the left adrenal gland does not fulfill quantitative criteria for viable adrenal gland neoplasm. (Danilo, Journal of Nuclear Medicine 42:151 P 2002. Rickey, Journal of Nuclear Medicine 45:1340, 2004). Electronic Signature Bandar Black, D.O. Electronically Signed: Bandar Adamson DO at 23:26 EDT Tel , Service support , CC: Estrella Mon; Amy Shoeamker MD Dice Table Person: Signed PULMONARY VISIT REPORT Observed: 03/02/2018 Status: F Source: OTIS 2:09 PM [facility] REPOSITORY [facility] [address] [place] [address] OFFICE VISIT Date of Service: 03/02/18 MR#: [id number] Acct: [id number] Name: BEN PAL Rep #: [id number] : 1935 Provider: Estrella Mon Age/Sex: 82/M Location: [facility] Status: Signed Assessment AND Plan 1. 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 Discussed results of the biopsy with the patient, his and daughter. Referral made to [facility], the patient will to the facility today. Ordered the PET/CT to assist in staging of the cancer. The patient does convey some hesitation and treatment, he has been encouraged to discuss his concerns with the oncologist during the consultation. Unable to obtain MRI of the brain, patient has an implanted AICD. Follow- up with Dr. Bui in 3 months. Call the office with any new or worsening symptoms in the meantime. Influenza vaccine offered, patient declined. 2. 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 3. 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 Follow-up with Dr. Bui in 3 months. Plan Detail Other Orders Orders: Referrals: Follow Up 2 Months (DMB) [facility] hospital f/u: Chief Complaint: Fatigue HPI Comments Details: This is a 82 year old M, currently under the care of Amy Shoemaker, here to follow up after a recent hospitalization at [facility], from January 29 - January 30, 2018 for fatigue, and incidental finding of a mass of the upper lobe of the lung. The hospital stay was complicated by incidental CT findings of a right lung pleural-based mass measuring 2.8 x 1.7 x 2.5 cm, and a pleural-based 9 mm nodule of the posterior right upper lobe. The hospital stay otherwise was non-complicated. 18 pages of hospital documentation was reviewed, and found to be significant for January [address] of the brain showing chronic involutional changes and a lacunar infarct in the left basal ganglion, chest x-ray completed on January 29 showed mild increased markings at the lung places slightly more prominent on the left side suggestive mild bibasilar linear atelectasis, CT of the spine completed on January 29 showed severe degenerative changes and a pleural-based medial right apical mass measuring 2.7 x 1.6 cm, lumbar spine CT also showed degenerative/postoperative changes, CT of the chest completed on January 29 showed pleural-based mass in the right medial lung apex measuring 2.8 x 1.7 x 2.5 cm, pleural-based 9 mm nodule in the posterior right upper lobe, mild diffuse emphysematous changes. Upon discharge, the patient returned home with no new medications. There was discussion that the patient would require a CT-guided lung biopsy and would need to hold his aspirin and Plavix accordingly to obtained test. He then was able to have the CT-guided lung biopsy completed on February 19, 2018, pathology has returned and suggest non-small cell carcinoma, squamous cell carcinoma suspect. Today, the patient presents the office ambulatory, with the use of a cane. He is accompanied today by his and daughter. He is currently on room air. He reports that he has not returned to his baseline health status. He continues to experience pretty significant fatigue. His reports that he is not a very active person anymore, and sleeps a lot. He reports shortness of breath on exertion only. He denies any cough or sputum production. He denies any hemoptysis, hematemesis, hematochezia or melena stools. He denies any chest pain or palpitations. He has not experienced any wheezing or chest tightness. He denies any fevers, chills or body aches. See complete review of systems. Intake Vital Signs03/02/18 Height 6 ft 03/02/18 Weight: 181 lb Intake Visit Reasons: hospital f/u Eligibility Supervisor Required: No Accompanied by: Family / Other Is patient in pain?: No Allergies Influenza Virus Vaccines Allergy (Verified 03/02/18 07:11) Hives Medications Amlodipine 5 mg PO DAILY 01/29/18 [History Confirmed 03/02/18] Aspirin 81 mg PO 01/29/18 [History Confirmed 03/02/18] Atorvastatin Calcium 80 mg PO DAILY 01/29/18 [History Confirmed 03/02/18] Carvedilol 25 mg PO BID 01/29/18 [History Confirmed 03/02/18] Clopidogrel Bisulfate [Clopidogrel] 75 mg PO DAILY 01/29/18 [History Confirmed 03/02/18] Finasteride [Proscar] 5 mg PO DAILY 01/29/18 [History Confirmed 03/02/18] Hydrochlorothiazide 12.5 mg PO DAILY 01/29/18 [History Confirmed 03/02/18] Isosorbide Dinitrate 10 mg PO TID 01/29/18 [History Confirmed 03/02/18] Tamsulosin HCl [Flomax] 0.4 mg PO DAILY 01/29/18 [History Confirmed 03/02/18] Acetaminophen [Pain Relief] 500 mg PO Q4H PRN #1 tab 01/30/18 [Rx Confirmed 03/02/18] PFSH Medical History Mass of upper lobe of lung (Chronic) Difficulty in walking (Acute) Generalized weakness (Acute) Prostate cancer (Acute) HTN (hypertension) (Chronic) Hyperlipidemia (Chronic) Brain bleed (Resolved) Heart attack (Resolved) Stroke (Resolved) Surgical History H/O hernia repair (Resolved) History of back surgery (Resolved) S/P coronary artery stent placement (Resolved) Status post placement of cardiac pacemaker (Resolved) Family History Father Heart disease Sister Heart disease Social History Smoking Status: Former smoker quit date: 01/27/17 how long ago did patient quit smokin yr, cigars alcohol intake: never substance use type: does not use Review of Systems Const CONSTITUTIONAL: Positive fatigue; negative anorexia, body ache, chills, daytime sleepiness, fever(s), night sweats, oral thrush, stops breathing during sleep, weight loss, sleeping in chair, weight loss, weight gain, frequent colds, seasonal allergies, other, headache(s) or orthopnea EETM Ear Nose Throat Mouth: Positive hearing normal; negative hard of hearing, hoarseness, dry mouth in morning, change in vision, itchy eyes, eye pain, swallowing Difficulty, ear pain, nose bleed, headache(s), mouth pain, nasal congestion, nasal discharge, post nasal drip, sinus pain, sinus pressure, sore throat or other Cardio Cardiovascular: Positive edema Location: lower extremity; negative chest pain, chest pain at rest, chest pain with activity, irregular heart rhythm, shortness of breath when lying down, palpitations, murmur or other Resp Respiratory: Positive as per HPI; negative shortness of breath, pain with cough, wheezing, chest congestion, cough, chest tightness, pain on inspiration, inhalers, increase use of rescue inhalers, snoring, apnea or other Gastro Gastrointestional: Negative bloody stools, change in appetite, difficulty swallowing, reflux, hematemesis, melena stool, loose stool, constipation or other Genitourinary: Negative blood in urine, nocturia, pain with urination or other Musc Musculoskeletal: Negative body pain, back pain, neck pain or other Skin/Breast Skin/Breast: Negative dry skin, itching, rash, unusual bruising, breast lump or other Neuro Neurological: Negative restless legs, confusion, weakness or other Psych Psychocological: Negative abnormal sleep pattern, anxiety, thoughts of hurting self/others, hopelessness or other Lymph Lymphatic: Negative easy bleeding, easy bruising, swollen lymph nodes or other Exam Const Constitutional: Positive conversant, cooperative, in no acute respiratory distress, well developed, well nourished, good hygiene and frail appearing Head Head: Positive normocephalic and atraumatic; negative cyanosis of lips/distal nose Eyes Eye: Positive clear conjunctiva; negative nystagmus or scleral abnormality Ears Ear: Positive hearing normal and external ears normal; negative hard of hearing Nose Nose: Positive external nose normal and no nasal discharge; negative epistaxis Mouth Mouth: Positive oral mucosae normal, no lesions and posterior oropharynx is adequate; negative post nasal drip, malodorous breath or oral thrush present Mallampati Score: I: Mallampati Score Neck Neck: Positive normal visual inspection, full ROM and trachea midline; negative lymphadenopathy, JVD or tender Chest Wall Chest: Positive normal inspection of the chest and symmetric chest movement; negative increased A/P diameter Resp lung sounds: Positive clear to auscultation, good air exchange, normal expiratory time and normal respiratory effort; negative diminished, wheezes, rhonchi, rales, dullness to percussion or wheeze present on forced exhalation Cardio Cardiac: Positive regular rate, regular rhythm, S1 normal and S2 normal; negative murmur GI GI: Positive normal to inspection; negative distended Genitourinary: Positive deferred Musc Musculoskeletal: Positive steady gait, ROM normal and using an assistive device for ambulation; negative kyphosis or scoliosis Skin Pulmonary Skin Exam: Positive intact; negative rash, lesion, ulcers or erythema Pulses Pulse: Yes pulses normal x4 extremities Extremities Extremities: Yes capillary refill normal, No clubbing, No cyanosis, Yes edema Location: lower extremity location: Bilateral pitting trace, No stasis dermatitis Neuro Neurologic: Yes conversant, Yes no focal neuro deficits, Yes normal concentration, Yes understands questions, Yes cooperative, Yes normal cognition, Yes normal coordination Lymph Lymphatic: No lymphadenopathy, No tenderness Psych Appearance: Positive grossly normal, eye contact and well kempt Mental Status: Positive mental status grossly normal Mood: Positive congruent mood Affect: Positive normal affect Coding Level of Care Code Off vis,est,level 4 Diagnoses 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.11 Laterality: right Lung location: upper lobe of lung Tobacco abuse, 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 Fatigue type: due to neoplasm 03/02/18 1409 <Electronically signed by Estrella ABAD> Date Estrella ABAD Cosigner Signature: Date (if applicable) CC: Amy Shoemaker MD CHEST INSP/EXP 2 VIEW Observed: 02/19/2018 Status: F Source: HO 10:59 AM [facility] REPOSITORY [facility] Imaging Services [address] [place] [id number] Chest Insp/Exp 2 View MR#: [id number] Acct: [id number] Name: BEN PAL Rep #: [id number] : 1935 M 82 From: Rk Salmeron MD PCP: Amy Shoemaker MD Status: REG CLI Study: Chest Insp/Exp 2 View Date of Exam: 02/19/18 Exam# [id number] Ordering Dr: Rk Salmeron MD STUDY: X-RAY CHEST REASON FOR EXAM: Male, 82 years old. The patient is status post right lung biopsy. TECHNIQUE: PA expiration and inspiration views were obtained. COMPARISON: Comparison is made with prior study dated January 29, 2018. FINDINGS: The patient is status post biopsy of the right apical nodule. There is no evidence of pneumothorax. RAD/Chest Insp/Exp 2 View IMPRESSION: Status post percutaneous biopsy of the right apical nodule. No pneumothorax is seen. Electronically Signed: Rk Salmeron MD at 11:22 EDT Tel [phone], Service support , CC: Rk Salmeron MD; Amy Shoemaker MD Dice Table Person: Signed CHEST INSP/EXP 2 VIEW Observed: 02/19/2018 Status: F Source: OTIS 10:59 AM [facility] REPOSITORY [facility] Imaging Services [address] [place] [id number] Chest Insp/Exp 2 View MR#: [id number] Acct: [id number] Name: BEN PAL Rep #: [id number] : 1935 M 82 From: Rk Salmeron MD PCP: Amy Shoemaker MD Status: REG CLI Study: Chest Insp/Exp 2 View Date of Exam: 02/19/18 Exam# [id number] Ordering Dr: Rk Salmeron MD STUDY: X-RAY CHEST REASON FOR EXAM: Male, 82 years old. Lower delayed postright lung biopsy radiograph. TECHNIQUE: PA inspiration expiration views. COMPARISON: Comparison is made with prior examination done earlier in the day. FINDINGS: The patient is status post right upper lobe lung biopsy. There is no evidence of pneumothorax on the delayed post biopsy radiograph. RAD/Chest Insp/Exp 2 View IMPRESSION: No evidence of pneumothorax. The patient tolerated the procedure well. Electronically Signed: Rk Salmeron MD at 12:56 EDT Tel [phone], Service support , CC: Rk Salmeron MD; Amy Shoemaker MD Dice Table Person: Signed CBC-COMPLETE BLOOD CNT Collected: 02/19/2018 Status: F Source: OTIS NO DIFF 8:52 AM [facility] REPOSITORY TYPE CODE TESTS RESULT OUT OF RANGE REFERENCE UNITS LAB L100.1000 4.4-11.0 K/mm3 Normal WBC 6.7 LAB L100.1200 4.6-6.2 M/mm3 Low RBC 4.27 LAB L100.1300 13.0-16.5 g/dl Low HGB 12.2 LAB L100.1400 40-54 % Low HCT 37.3 LAB L100.1500 80-94 fL Normal MCV 87.4 LAB L100.1600 27.0-32.0 pg Normal MCH 28.6 LAB L100.1700 32-36 g/gl Normal MCHC 32.7 LAB L100.1810 11.6-14.6 % Normal RDW CV 13.2 LAB L100.1820 35.1-43.9 fl Normal RDW SD 41.2 LAB L100.1900 150-450 K/mm3 Normal PLT 212 LAB L100.2000 6.2-12.0 fl Normal MPV 10.1 Performed By: #### L100.0500 #### [facility] [address] [place], [place], [id number] PROTHROMBIN TIME W/INR Collected: 02/19/2018 Status: F Source: HO 8:52 AM [facility] REPOSITORY TYPE CODE TESTS RESULT OUT OF RANGE REFERENCE UNITS LAB L300.4150 11.7-14.9 SECONDS Normal PROTIME 14.0 LAB L300.4200 Normal INR 1.1 Performed By: #### L300.3900, L300.4310 #### [facility] [address] [place], [address] PARTIAL THROMBOPLAST Collected: 02/19/2018 Status: F Source: HO TIME 8:52 AM [facility] REPOSITORY TYPE CODE TESTS RESULT OUT OF RANGE REFERENCE UNITS LAB L300.4310 24.1-36.2 Seconds Normal PTT 29.2 Performed By: #### L300.3900, L300.4310 #### [facility] [address] [place], [address] BIOPSY/INJ OR NEEDLE Observed: 02/19/2018 Status: F Source: HO PLACEMENT 8:46 AM [facility] REPOSITORY [facility] Imaging Services [address] [place] [address] Biopsy/Inj or Needle Placement MR#: [id number] Acct: [id number] Name: BEN PAL Rep #: [id number] : 1935 M 82 From: Rk Salmeron MD PCP: Amy Shoemaker MD Status: REG CLI Study: Biopsy/Inj or Needle Placement Date of Exam: 02/19/18 Exam# [id number] Ordering Dr: Estrella Mon TURN LASTER-C PROCEDURE: CT GUIDED CORE NEEDLE BIOPSY OF A right upper lobe LUNG LESION INDICATION: Male, 82 years old. Right upper lobe nodule. PHYSICIAN: Dr. Salmeron. CONSENT: Written informed consent was obtained having explained the risks, benefits and alternatives in detail with the patient who accepted the risks and agreed to proceed. Laboratory review and clinical assessment was performed. CONSCIOUS SEDATION PROTOCOL: The Drugs used were: 1 mg Versed, IV., and 25 mcg Fentanyl, IV. The sedation time was: 25 minutes. Conscious sedation was started at 10:26 AM and terminated at 10:51 AM. The conscious sedation protocol was independently monitored. RADIATION DOSAGE (If Supplied By Facility): CTDIvol = ( 17 ) mGy, DLP = ( 479.22 ) mGycm Individualized dose optimization techniques were used for this CT. TECHNIQUE: The patient was placed in the prone position. A noncontrast CT was performed to localize the lesion in the right upper lobe . The skin surface was prepped and draped in a sterile fashion. 1% lidocaine was used for local anesthesia. Using CT guidance, a 19-gauge coaxial biopsy device was advanced to the periphery of the lesion. A total of 4 core specimens were obtained. The specimens were placed in a formalin solution. A post procedure CT demonstrated no adverse sequelae or pneumothorax. The patient tolerated the procedure well without adverse event. A negative biopsy does not exclude malignancy. Further imaging or clinical followup based on patient condition and degree of clinical suspicion for malignancy. Suggest rebiopsy, if biopsy results do not match with clinical scenario. CT/Biopsy/Inj or Needle Placement IMPRESSION: 1. CT directed core needle biopsy of the right upper lobe pulmonary nodule using CT image guidance with image documentation as described. Pathology results are pending. 2. Conscious Sedation protocol utilized with independent monitoring. Electronically Signed: Rk Salmeron MD at 12:55 EDT Tel [phone], Service support , CC: Estrella Mon; Amy Shoemaker MD Dice Table Person: Signed ASP RADIOLOGY (TISSUE) Observed: 02/19/2018 Status: F Source: HO 12:00 AM [facility] REPOSITORY Patient: BEN PAL : 1935 (82/M) Acct Num: [id number] Phys: Abel Momin DO Unit Num: [id number] Loc: CT Specimen: [id number] Received: 02/19/18 - 1143 Spec Type: ASP RAD TISSUES TISSUES: Lung, NOS COMMENT The specimen is evaluated at the time of crush prep by Dr. Crump. Immediate Evaluation = Positive for malignant cells, non- small cell carcinoma. Immunohistochemistry ([id number]) supports the above diagnosis. GROSS DESCRIPTION Received is one container labeled with the patient's name and not further designated. The specimen consists of 3 cores of light us soft tissue. Each core has an average length of 1 cm and a maximal diameter of less than 0.1 cm. The specimen is totally submitted in one cassette. AM:baylee 02/19/18 TC:0 CPT: 69512, [id number] HEADER OPERATION: CT-guided right lung biopsy PRE-OP DIAGNOSIS: RUL lung lesion TISSUE SUBMITTED: 20g core x4 right upper lung MICROSCOPIC DESCRIPTION Slides are reviewed. MICROSCOPIC DIAGNOSIS Right upper lobe of lung mass, CT-guided needle core biopsy: Non small cell carcinoma, squamous cell carcinoma. AM:baylee 02/22/18 Signed Josemanuel Alisia 02/23/18 <signature on file> Performed By: #### PASPIGT #### [facility] [address] [place], [address] 12 LEAD ELECTROCARDIOGRAM Observed: 02/08/2018 Status: F Source: OTIS 3:22 PM [facility] REPOSITORY [facility] Cardiovascular Services [address] [place] [address] 12 Lead EKG 01/29/18 0824 MR#: [id number] Acct: [id number] Name: BEN PAL Rep #: [id number] : 1935 82 From: Dru Baugh MD Attending Dr: Abel Momin DO Status: DIS CHYNA Ordering Dr: Tushar Lock MD Date: 01/29/18 Location: MS3 Sex: M C Admitted: 01/29/18 Test Reason : WEAKNESS Blood Pressure : / mmHG Vent. Rate : 063 BPM Atrial Rate : 063 BPM P-R Int : 180 ms QRS Dur : 144 ms QT Int : 452 ms P-R-T Axes : 048 -01 014 degrees QTc Int : 462 ms Suspect unspecified pacemaker failure Sinus rhythm with occasional Premature ventricular complexes Right bundle branch block Abnormal ECG Confirmed by DRU BAUGH MD ([id number]), editor index SOLOMON SHOEMAKER ([id number]) on 02/08/2018 3:21:26 PM Referred By: Aamir Regan Confirmed By:DRU BAUGH MD 02/08/18 1521 Date Dru Baugh MD CC: Abel Momin DO; Amy Shoemaker MD; Aamir Regan DO; Tushar Lock MD Signed CONSULTATION Observed: 02/08/2018 Status: F Source: OTIS 10:28 AM [facility] REPOSITORY [facility] Medical Records Department [address] [facility] [place] [address] Consultation 01/29/18 1358 MR#: [id number] Acct: [id number] Name: BEN PAL Rep #: [id number] : 1935 82 From: Pearl Bajwa MD PCP: Amy Shoemaker MD Status: DIS CHYNA Y Location: VT3 [id number] Problem List (1) Difficulty in walking Status: Acute Reason for Consult Date of Consultation: 01/29/18 Reason for Consultation: difficulty in ambulation History of Present Illness: The patient is a 82 year old CM with PMH HTN, HLD, Alzheimer's dementia, CAD, PVD s/p stents, H/O prostate cancer, H/O Lumbar surgery in March 2017, post operative course complicated by stroke, CAD, and ? seizure, s/p pacer admitted with difficulty in walking. History is obtained from , daughter and medical records. Patient does have dementia, follows up with Dr. Haas and [facility] LASTER Zakiya Thornton. Per he ambulates with cane, falls about once a week due to balance issues, does not drive and does need assistance for his ADLs, is AoAx2 at baseline and is not oriented to time, per he had difficulty in ambulating since last night (01/28/18), they went out for dinner and he was fine but after coming home he would freeze and had difficulty moving/walking. He does complaint of neck stiffness and neck pain since last night and also has frontal COLEY, found to have low grade temperature on admission, denies any sick contact, diarrhea, denies any focal motor weakness, sensory loss, speech disturbances or visual disturbances. Denies any new onset urinary incontinence, has dementia, denies any vision loss, jaw claudication or temporal tenderness. CT head done on admission shows old left BG lacunar stroke. Labs: WBCs-8.9, UA-neg [] Past Medical History Allergies Influenza Virus Vaccines Allergy (Verified 01/29/18 11:40) Hives Home Medications: Ambulatory Orders Medication Instructions Recorded Lives: Spouse/ Significant Other Smoking Status: Former smoker Tobacco Use: Cigarettes - Ex smoker, Cigars Alcohol: None Drugs: None Review of Systems Constitutional: Reports: - - complete ROS negative excetp as documented in HPI Patient Problems: Active and Suspected Problems Difficulty in walking (Acute) - Physical Exam General: Alert HEENT: Normocephalic Neck: Supple Lungs: Normal air movement Cardiovascular: Normal S1, Normal S2 Abdomen: Bowel Sounds Present Extremities: No cyanosis Skin: No rashes Neurological: - - consious, alert, AoAx 2, CN 2-12 grossly intact, no sensory loss, power 5/5 both UE, B/L LE -5/5, plantars B/L flexor, no cerebellar signs, no tremors, tone normal both UE and LE, gait deferred, Reflexes Brisk B/L B/S/T/K/A, No NR. Psych/Mental Status: Normal Affect Vital Signs Temp Pulse Resp BP Pulse Ox 98.2 F 81 16 174/85 H 95 01/29/18 08:00 01/29/18 08:00 01/29/18 08:00 01/29/18 10:00 01/29/18 10:00 Weight: 78.471 kg Body Mass Index (BMI) 24.1 Assessment/Plan All Active Problems Difficulty in walking (Acute) The patient is a 82 year old CM with PMH HTN, HLD, Alzheimer's dementia, CAD, PVD s/p stents, H/O prostate cancer, H/O Lumbar surgery in March 2017, post operative course complicated by stroke, CAD, and ? seizure, s/p pacer admitted with difficulty in walking. History is obtained from , daughter and medical records. Patient does have dementia, follows up with Dr. Haas and [facility] Zakiya Thornton. Per he ambulates with cane, falls about once a week due to balance issues, does not drive and does need assistance for his ADLs, is AoAx2 at baseline and is not oriented to time, per he had difficulty in ambulating since last night (01/28/18), they went out for dinner and he was fine but after coming home he would freeze and had difficulty moving/walking. He does complaint of neck stiffness and neck pain since last night and also has frontal COLEY, found to have low grade temperature on admission, denies any sick contact, diarrhea, denies any focal motor weakness, sensory loss, speech disturbances or visual disturbances. Denies any new onset urinary incontinence, has dementia, denies any vision loss, jaw claudication or temporal tenderness. CT head done on admission shows old left BG lacunar stroke. Labs: WBCs-8.9, UA-neg [] Impression Gait difficulty. RO Compressive Cervical Myelopathy vs Lumbar stenosis RO Stroke Plan -Per and daughter his pacer is MRI compatible. If pacer is MRI compatible will get MRI brain w/o contrast, MRI C spine and MRI L spine w/contrast -On ASA/Plavix at baseline and on statins -Check ESR -Labs reviewed -May need vessel imaging and stroke work up in case is found to have acute stroke -PT/OT -Fall precautions -GI/DVT prophylaxis -Please call with questions if any -Thank you for allowing us to participate in patients care and management I spent 60 minutest taking history, doing physical examination, reviewing medical records, coordinating care and counseling the patient. Code Visit Inpatient E AND M: [id number] Init Hosp L3 02/08/18 1028 <Electronically signed by Pearl Bajwa MD> Date Pearl Bajwa MD Cosigner Signature (if applicable): Date CC: Brandi Bajwa MD; Keon Bui D.O.; Amy Shoemaker MD; Aamir Regan DO Signed DISCHARGE SUMMARY Observed: 01/30/2018 Status: F Source: HO 11:29 AM [facility] REPOSITORY [facility] Medical Records Department [address] [place] [address] Discharge Summary 01/30/18 1125 MR#: [id number] Acct: [id number] Name: BEN PAL Rep #: [id number] : 1935 82 From: Abel Momin DO PCP: Amy Shoemaker MD Status: ADM CHYNA Y Location: [place] [address] Discharge Date and Diagnosis - Problem List Patient Problems: Active and Suspected Problems Mass of upper lobe of lung (Acute) Difficulty in walking (Acute) Generalized weakness (Acute) Date of Admission: 01/29/18 Date of Discharge: 01/30/18 - Primary Discharge Diagnosis Active and Suspected Problems Mass of upper lobe of lung (Acute) Difficulty in walking (Acute) Generalized weakness (Acute) Hospital Course and Treatment Imaging Results: Clinical Impression(s) from Imaging Studies Brain CT 01/29/18 08:13 IMPRESSION: Chronic involutional changes of the brain. Tiny lacunar infarct in the left basal ganglion. This is new as compared to prior study. Electronically Signed: Rk Salmeron MD at 9:56 EDT Tel [phone], Service support , Chest X-Ray 01/29/18 08:41 IMPRESSION: Mild increased markings at the lung bases slightly more prominent on the left side suggestive of mild bibasilar linear atelectasis. Electronically Signed: Rk Salmeron MD at 8:58 EDT Tel [phone], Service support , Cervical Spine CT 01/29/18 16:49 IMPRESSION: Severe degenerative changes as detailed above. Pleural-based medial right apical mass measuring 2.7 x 1.6 cm. Electronically Signed: Dontrell Clark MD at 18:43 EDT , Service support , Lumbar Spine CT 01/29/18 16:49 IMPRESSION: Degenerative/postoperative changes as detailed above. Grade 3 anterolisthesis of L5 relative to S1. Electronically Signed: Dontrell Clark MD at 18:50 EDT , Service support , Chest CT 01/29/18 20:01 IMPRESSION: 1. Pleural-based mass in the medial right lung apex measuring 2.8 x 1.7 x 2.5 cm. 2. There is an additional pleural-based 9 mm nodule of the posterior right upper lobe. 3. There are mild diffuse emphysematous changes of the lungs. 4. Cardiomegaly. A left-sided pacemaker is present. Intracardiac wires are seen. 5. Calcified plaques of the thoracic aorta. 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 Electronically Signed: Dontrell Clark MD at 21:00 EDT , Service support , Dr. Keon Bui, Pulmonology. Operations: None Procedures: None Summary of Care Provided: The patient is a 82 year old M presents with generalized weakness. Patient was seen by neurology and found no focal deficits. Patient underwent a cervical and lumbar spine CT which were unremarkable for any radiculopathy. Cervical spine CT did note right upper lobe mass which patient underwent a chest CT. The chest CT showed a 2.8 x 1.7 x 2.[address] Bui was consulted for further recommendations. He felt that his be best approached with percutaneous biopsy. He spoke with Dr. Salmeron, who advised the patient stay off of aspirin and Plavix 7 days prior to undergoing the biopsy. This may be facilitated on outpatient basis. Patient will be given a prescription for the biopsy to be performed. Patient will need to contact the radiology department to set this up and to have at least a week before he had the procedure to stop the aspirin and Plavix. If the prescription is not good enough for the procedure to be done and patient will need follow-up with primary care doctor to get this established. The results of the biopsy will go to his primary care doctor as well as Dr. Bui. Based on those results patient may need follow-up with oncology if cancer is identified. Patient was seen by physical therapy and patient walked over 200 feet. Patient plan is to go home with outpatient physical therapy. [] Discharge Diet: Low fat/ Low Cholesterol Discharge Activity: Return to Normal Activity Call your doctor if you observe: Fever of 101 or Higher, Shortness of breath Home Medications: Medications to take at Discharge Amlodipine 5 mg PO DAILY 01/29/18 Aspirin 81 mg PO 01/29/18 Atorvastatin Calcium 80 mg PO DAILY 01/29/18 Carvedilol 25 mg PO BID 01/29/18 Clopidogrel Bisulfate [Clopidogrel] 75 mg PO DAILY 01/29/18 Finasteride [Proscar] 5 mg PO DAILY 01/29/18 Hydrochlorothiazide 12.5 mg PO DAILY 01/29/18 Isosorbide Dinitrate 10 mg PO TID 01/29/18 Tamsulosin HCl [Flomax] 0.4 mg PO DAILY 01/29/18 Acetaminophen [Pain Relief] 500 mg PO Q4H PRN #1 tablet 01/30/18 Following Prescrptions Were Given to Patient: Acetaminophen [Pain Relief] 500 mg PO Q4H PRN #1 tablet PRN Reason: Pain Other Amb Orders: Biopsy/Inj or Needle Placement [CT] Time Frame: 1 Week, Location: None Selected Primary Care Physician: Amy Shoemaker MD [Primary Care Provider] - Please Follow Up With: Keon Bui DO When: 2-4 weeks Disposition: Home Minutes spent on discharge:: 32 Patient Condition:: Good Medical Necessity - Tobacco Use Smoking Status: Former smoker Tobacco Use: Cigarettes - Ex smoker, Cigars Meaningful Use Info Meaningful Use Diagnoses (Choose all that apply): None applicable Code Visit OBSV E AND M: [id number] Observation care discharge 01/30/18 1129 <Electronically signed by Abel Momin DO> Date Abel Momin DO Cosigner Signature (if applicable): Date CC: Keon Bui D.O.; Abel Momin DO; Amy Shoemaker MD Signed DISCHARGE INSTRUCTION Observed: 01/30/2018 Status: F Source: HO 11:25 AM [facility] REPOSITORY [facility] Medical Records Department [address] [place] [address] Instructions for Home/Discharge Instructions 01/30/18 1123 MR#: [id number] Acct: [id number] Name: BEN PAL Rep #: [id number] : 1935 82 From: Abel Momin DO PCP: Amy Shoemaker MD Status: ADM CHYNA - Discharge Diagnoses Current Active Problems: Current Active and Chronic Problems Difficulty in walking (Acute) Generalized weakness (Acute) You will use the following diet at home:: Cardiac Your food should be the consistency of: Regular Call your doctor if you observe: Fever of 101 or Higher, Shortness of breath Additional Instructions: Stop aspirin and Plavix 1 week prior to biopsy. Call the radiology department to set up appointment for the biopsy. Allergies/Adverse Reactions: Allergies Influenza Virus Vaccines Allergy (Verified 01/29/18 11:40) Hives Medications to take at Discharge Amlodipine 5 mg PO DAILY 01/29/18 Aspirin 81 mg PO 01/29/18 Atorvastatin Calcium 80 mg PO DAILY 01/29/18 Carvedilol 25 mg PO BID 01/29/18 Clopidogrel Bisulfate [Clopidogrel] 75 mg PO DAILY 01/29/18 Finasteride [Proscar] 5 mg PO DAILY 01/29/18 Hydrochlorothiazide 12.5 mg PO DAILY 01/29/18 Isosorbide Dinitrate 10 mg PO TID 01/29/18 Tamsulosin HCl [Flomax] 0.4 mg PO DAILY 01/29/18 Acetaminophen [Pain Relief] 500 mg PO Q4H PRN #1 tablet 01/30/18 The following prescriptions were given: Acetaminophen [Pain Relief] 500 mg PO Q4H PRN #1 tablet PRN Reason: Pain Orders to be completed after discharge: Biopsy/Inj or Needle Placement [CT] Time Frame: 1 Week, Location: None Selected Primary Care Physician: Amy Shoemaker MD [Primary Care Provider] - Test Results: Test results from this visit will be discussed in further detail at your follow-up appointment, if applicable. Please Follow Up With: Keon Bui DO When: 2-4 weeks Proposed Discharge Date: 01/30/18 01/30/18 1125 <Electronically signed by Abel Momin DO> Date Abel Momin DO CC: Brandi Bajwa MD; Keon Bui D.O.; Amy Shoemaker MD CONSULTATION Observed: 01/30/2018 Status: F Source: OTIS 8:20 AM [facility] REPOSITORY [facility] Medical Records Department [address] [place] [address] Consultation 01/30/18 0658 MR#: [id number] Acct: [id number] Name: BEN PAL Rep #: [id number] : 1935 82 From: Keon Bui DO PCP: Amy Shoemaker MD Status: ADM CHYNA Y Location: [facility] TH861-0 Reason for Consult Date of Consultation: 01/30/18 Reason for Consultation: Lung mass History of Present Illness: The patient is an 82-year-old male, with a history as outlined below, who presented to the emergency department on January 29 with complaints of diffuse musculoskeletal weakness of 1-2 days duration. The patient has baseline dementia along with a history of CVA, coronary artery disease and peripheral vascular disease. The patient is currently prescribed both aspirin and Plavix as an outpatient. The patient does have a smoking history of 1 pack per day for an unknown number of years (patient does not remember), but states that he quit smoking completely 20 years ago. His weight has been relatively stable recently. His appetite is good. Upon presentation to the emergency department, the patient was noted be afebrile and hypertensive with an initial blood pressure documented to be 178/89 mmHg. Laboratory evaluation revealed no evidence of a leukocytosis. Chemistry profile was largely unremarkable. LFTs were unremarkable. Urinalysis was negative. Head CT revealed an old left basilar ganglier stroke. The patient was subsequently admitted to the medical surgical floor for ongoing management. As part of his workup, a CT C spine and lumbar spine were obtained. While no significant cervical or lumbar spine pathology was identified, there was incidental note made of a right apical lung mass. Therefore, a dedicated chest CT was obtained which did reveal a right apical pleural-based lung mass measuring 2.8 x 2.5 cm. There was also an additional subcentimeter pulmonary nodule noted in the right upper lobe. Past Medical History Allergies Influenza Virus Vaccines Allergy (Verified 01/29/18 11:40) Hives Home Medications: Ambulatory Orders Medication Instructions Recorded Surgical History: herniorrhaphy, pacemaker implantation, - - Lumbar spine fusion, stent placement in the legs Psychiatric History: - - Dementia Lives: Spouse/ Significant Other Smoking Status: Former smoker Tobacco Use: Cigarettes - Ex smoker, Cigars Alcohol: None Drugs: None - *Family History Maternal History Items: Dementia, Hypertension Paternal History Items: Heart Disease Review of Systems Constitutional: Reports: Weakness. Denies: Chills, Fever Eyes: Denies: Blurred vision, Double vision HEENT: Denies: Head Aches, Sinus Congestion, Sinus Drainage Cardiovascular: Denies: Chest Pain, Palpitations Respiratory: Denies: Cough, Shortness of breath at rest, Sputum production Gastrointestinal: Denies: Abdominal Pain, Nausea, Vomiting Genitourinary: Denies: Dysuria Musculoskeletal: Denies: Joint Pain, Joint Tenderness Skin: Denies: Rash, Wounds Neurological: Reports: - - + Musculoskeletal weakness Psychiatric: Denies: Anxiety, Depression, Homicidal Ideations, Suicidal Ideations Hematologic/ Lymphatic: Reports: Anemia Patient Problems: Active and Suspected Problems Difficulty in walking (Acute) Generalized weakness (Acute) Objective: The patient's most recent lab work, culture data and imaging studies have all been personally reviewed. - Physical Exam General: Alert, Cooperative, No apparent distress HEENT: Atraumatic, PERRLA, Normocephalic Oral: No Gingival or Mucosal Lesions/ Ulcerations Neck: Supple, No Nodes, Trachea Midline Lungs: No rhonchi, No wheeze, No rales, Diminished Cardiovascular: Regular rate, Regular Rhythm, Normal S1, Normal S2, No murmurs Abdomen: Bowel Sounds Present, Soft, Non Tender, Non-Distended Extremities: No clubbing, No cyanosis, No edema Skin: No breakdown Musculoskeletal: No Tenderness to Palpation of Joints or Extremities Lymphatic: No Cervical, Supraclavicular, or Inguinal Adenopathy Neurological: Neuro grossly intact, Sensory exam intact to light touch and pain Psych/Mental Status: Flat Affect Vital Signs Temp Pulse Resp BP Pulse Ox 97.6 F L 64 20 H 160/62 H 97 01/30/18 02:39 01/30/18 02:39 01/30/18 02:39 01/30/18 06:09 01/30/18 02:39 Oxygen Delivery Method Room Air Weight: 173 lb Body Mass Index (BMI) 24.1 Intake and Output for Last 24 Hours Intake Total 100 / 100 200 / 200 Output Total 300 / 300 825 / 825 Balance -200 / -200 -625 / -625 Labs (Last 48 Hours) WBC 8.9 RBC 4.12 L Hgb 11.6 L Hct 35.8 L MCV 86.9 MCH 28.2 WBC RBC Hgb Hct MCV MCH MCHC RDW RDW Differential Clinical Impression(s) from Imaging Studies Brain CT 01/29/18 08:13 IMPRESSION: Chronic involutional changes of the brain. Tiny lacunar infarct in the left basal ganglion. This is new as compared to prior study. Electronically Signed: Rk Salmeron MD at 9:56 EDT Tel [phone], Service support , Chest X-Ray 01/29/18 08:41 IMPRESSION: Mild increased markings at the lung bases slightly more prominent on the left side suggestive of mild bibasilar linear atelectasis. Electronically Signed: Rk Salmeron MD at 8:58 EDT Tel [phone], Service support , Cervical Spine CT 01/29/18 16:49 IMPRESSION: Severe degenerative changes as detailed above. Pleural-based medial right apical mass measuring 2.7 x 1.6 cm. Electronically Signed: Dontrell Clark MD at 18:43 EDT , Service support , Lumbar Spine CT 01/29/18 16:49 IMPRESSION: Degenerative/postoperative changes as detailed above. Grade 3 anterolisthesis of L5 relative to S1. Electronically Signed: Dontrell Clark MD at 18:50 EDT , Service support , Chest CT 01/29/18 20:01 IMPRESSION: 1. Pleural-based mass in the medial right lung apex measuring 2.8 x 1.7 x 2.5 cm. 2. There is an additional pleural-based 9 mm nodule of the posterior right upper lobe. 3. There are mild diffuse emphysematous changes of the lungs. 4. Cardiomegaly. A left-sided pacemaker is present. Intracardiac wires are seen. 5. Calcified plaques of the thoracic aorta. 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 Electronically Signed: Dontrell Clark MD at 21:00 EDT , Service support , Assessment/Plan All Active Problems Difficulty in walking (Acute) Generalized weakness (Acute) RECOMMENDATIONS: 1. If the patient and his family are willing to accept the risks of aspirin/Plavix interruption 7 days, percutaneous CT-guided lung biopsy can be set up for the patient on an outpatient basis. Recommend contacting radiology on Thursday to establish a time/date for potential procedure, after which time, the patient's medications can be placed on hold for the appropriate time duration. 2. Check CK and aldolase levels. 3. Physical therapy to evaluate patient today. IMPRESSIONS: 1. Right apical lung mass During workup for the patient's generalized weakness, there was incidental note made of a 2.8 x 2.5 cm pleural-based right apical lung lesion. Although the patient does have a remote smoking history, given the size of this lesion and its irregular borders, there is concern for potential underlying malignancy. However, the patient is currently on both aspirin and Plavix, which per radiology recommendations, would need to be held for 7 days prior to consideration for percutaneous CT-guided lung biopsy. I do not suspect that the patient will still be admitted to the hospital in 7 days. Therefore, I have recommended that a call be placed to radiology on Thursday to establish a time/date for a potential lung biopsy procedure, after which time, the patient's aspirin and Plavix can be placed on hold for the appropriate time duration. 2. Generalized musculoskeletal weakness Currently under investigation by neurology. Per their documentation, MRI is being considered. The patient does not have any focal deficits. We will also check CK and aldolase level. Given the apical lung lesion noted above, symptoms may also represent a paraneoplastic syndrome. PT/OT to evaluate the patient. 3. Mild baseline dementia/coronary artery disease/peripheral vascular disease/history of CVA Complicates care, management, recovery and prognosis. The patient does report having stents in his lower extremities due to peripheral vascular disease. Disruption of his aspirin and Plavix will put him at increased risk for potential thrombus formation. However, these medications will need to be interrupted in order to facilitate CT-guided lung biopsy. Risks and benefits of medication interruption will need to be discussed with the patient and his family further. If they are in agreement to proceed, a percutaneous lung biopsy can be scheduled on an outpatient basis. This note was generated with [employer] software. It may contain incorrect words, spelling, and punctuation that were not noted in checking the note before signing. Code Visit Inpatient E AND M: [id number] Init Hosp L3 01/30/18 0820 <Electronically signed by Keon Bui DO> Date Keon Bui DO Cosigner Signature (if applicable): Date CC: Brandi Bajwa MD; Keon Bui D.O.; Amy Shoemaker MD; Aamir Regan DO Signed CPK TOTAL, CREATINE Collected: 01/30/2018 Status: F Source: OTIS KINASE 7:52 AM [facility] REPOSITORY TYPE CODE TESTS RESULT OUT OF RANGE REFERENCE UNITS LAB L501.3620 39-308 U/L Normal CPK TOTAL 65 Performed By: #### L501.3620 #### [facility] [address] [place], [address] ALDOLASE Collected: 01/30/2018 Status: F Source: HO 7:52 AM [facility] REPOSITORY TYPE CODE TESTS RESULT OUT OF RANGE REFERENCE UNITS LAB L3100.7000 3.3-10.3 U/L Normal ALDOLASE 2030 3.8 Result Comment: Performed at: - [facility] [id number] Trap Operator: Orestes Singer PhD, Phone: [phone] Performed By: #### L3100.7000 #### [facility] (refer to report for specific site) refer to report for address and phone number HISTORY AND PHYSICAL Observed: 01/29/2018 Status: F Source: HO EXAM 8:13 PM [facility] REPOSITORY [facility] Medical Records Department [address] [place] [address] History and Physical 01/29/181957 MR#: [id number] Acct: [id number] Name: BEN PAL Rep #: [id number] : 1935 82 From: Aamir Regan DO PCP: Amy Shoemaker MD Status: ADM CHYNA Y Location: [facility] [place] [id number] Problem List (1) Generalized weakness Status: Acute History of Present Illness Date of Admission: 01/29/18 Chief Complaint: Generalized weakness, leg weakness The patient is a 82 year old M was brought to the emergency room at [facility] for evaluation by his for generalized weakness and weakness specifically in his legs. Patient has dementia but is able to answer some questions appropriately, patient's states that the patient awoke at night and could not move his legs or his arms very well. Patient denies any pain in his legs, numbness in his legs, denies the patient having any fevers or chills. Patient denies any back pain. Patient did say that he had some lower neck pain. Workup in the emergency room included a CAT scan of the brain which showed a lacunar infarct that was not recent but was not on a previous CT of the brain, the ER physician try to ambulate the patient and he was unable to in the emergency room. Lab obtained in the emergency room was remarkable for BUN of 23, glucose was 145, patient's urinalysis was unremarkable. Patient was in observation status on [facility] 3 for generalized weakness and inability to walk, he will be seen by neurology, patient has a pacemaker and it is unknown whether his pacemaker is MRI compliant. Past Medical History Allergies Influenza Virus Vaccines Allergy (Verified 01/29/18 11:40) Hives Home Medications: Ambulatory Orders Medication Instructions Recorded Surgical History: herniorrhaphy, pacemaker implantation, - - Lumbar spine fusion, stent placement in the legs Psychiatric History: - - Dementia Lives: Spouse/ Significant Other Smoking Status: Former smoker Tobacco Use: Cigarettes - Ex smoker, Cigars Alcohol: None Drugs: None - *Family History Maternal History Items: Dementia, Hypertension Paternal History Items: Heart Disease Review of Systems Comment: Review of systems was unable be obtained due to patient's dementia VTE Information - Inpt Only VTE Present on Admission: No VTE Mechan Device Prophylaxis: None VTE Pharm Prophylaxis ordered?: Yes Patient Problems: Active and Suspected Problems Difficulty in walking (Acute) Generalized weakness (Acute) - Physical Exam General: Alert, Cooperative, No apparent distress, Well developed, Well nourished, Confused HEENT: Atraumatic, PERRLA, EOMI, Normocephalic Oral: Moist Mucosa Neck: Supple, No JVD, Negative Carotid Bruits, No Nuchal Rigidity, Trachea Midline, Thyroid Normal Size and Texture Lungs: Clear to auscultation, Normal air movement, No rhonchi, No wheeze, No rales Cardiovascular: Regular rate, Regular Rhythm, Normal S1, Normal S2, No murmurs, No Ectopic Activity, PMI Normal, No rub noted, No Gallop Abdomen: Bowel Sounds Present, Soft, Non Tender, Non-Distended, No hernias noted Extremities: No clubbing, No cyanosis, No edema, Capillary Refill Less than 3 Seconds Skin: No rashes, No breakdown Musculoskeletal: No Tenderness to Palpation of Joints or Extremities Neurological: Cranial nerves II-XII grossly intact, Neuro grossly intact, Motor Exam 5/5 strength throughout, Sensory exam intact to light touch and pain, Coordination normal Psych/Mental Status: Flat Affect, - - Patient is alert, he has moderate confusion Vital Signs Temp Pulse Resp BP Pulse Ox 98.2 F 84 17 139/60 H 95 01/29/18 08:00 01/29/18 17:38 01/29/18 17:38 01/29/18 17:38 01/29/18 10:00 Weight: 78.471 kg Body Mass Index (BMI) 24.1 Assessment/Plan All Active Problems Difficulty in walking (Acute) Generalized weakness (Acute) #1 leg weakness-etiology is unknown at this time, patient was able to move his legs during the time of my examination, I had nursing get the patient up and he was able to walk around his room and to his doorway. PT and OT will see the patient, neurology saw the patient today, initially it was felt that the patient should be sent out to another facility for an MRI as we did not have the capability of obtaining an MRI due to the patient's pacemaker, I had talked with neurology, since the patient was able to walk in his room after neurology initially evaluated the patient, neurology recommended a CT of his neck and lumbar spine, these were obtained, it did not show any severe stenosis of the cervical spine but did show a right apical lung lesion-etiology was unknown. There is generalized degenerative disc disease of the lumbar without significant spinal stenosis and disc disease of the cervical spine, and daughter do not want the patient to see a spinal surgeon (this was recommended by neurology after I talked with neurology on the phone). It is unknown why the patient was weak in his legs last night and unable to walk. 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 #4 right apical lesion of the lung-etiology unclear, patient's family wants this worked up if possible, I will order CT of the chest with contrast and I will order pulmonary medicine to see the patient #5 moderate dementia #6 coronary artery disease #7 cerebrovascular disease-it appears that he has not had a recent stroke however Code Visit OBSV E AND M: 12058 Initial observation care L3 01/29/182012 <Electronically signed by Aamir Regan DO> Date Aamir Regan DO Cosign Signature: Date (if applicable) CC: Amy Shoemaker MD; Aamir Regan DO Signed CHEST W/WO CONTRAST Observed: 01/29/2018 Status: F Source: HO 8:04 PM [facility] REPOSITORY [facility] Imaging Services [address] [place] [address] Chest W/WO Contrast MR#: [id number] Acct: [id number] Name: BEN PAL Rep #: [id number] : 1935 M 82 From: Dontrell Clark MD PCP: Amy Shoemaker MD Status: ADM CHYNA Study: Chest W/WO Contrast Date of Exam: 01/29/18 Exam# [id number] Ordering Dr: Aamir Regan DO STUDY: CT CHEST WITH T WITHOUT CONTRAST REASON FOR EXAM: Male, 82 years old. Right apical mass RADIATION DOSAGE (If Supplied By Facility): CTDIvol = ( 16.65 ) mGy, DLP = ( 639.44 ) mGycm TECHNIQUE: Transaxial imaging was performed pre-and post contrast administration of 75ml ml of Isovue 370 contrast material. Individualized dose optimization techniques were used for this CT. COMPARISON: None. FINDINGS: There is a pleural-based mass of the medial right lung apex measuring 2.8 x 1.7 x 2.5 cm. There is a pleural-based 9 mm nodule of the posterior right upper lobe. There are mild diffuse emphysematous changes of the lungs. There are mild gravity dependent atelectatic changes of the posterior right lung andrews. There is no pleural effusion. Cardiomegaly is present. There is a left-sided pacemaker. Intracardiac wires are present. There is no pericardial effusion. Normal mediastinum. Normal hilar regions. Normal enhanced and unenhanced pulmonary arteries. There are calcified plaques of the thoracic aorta. 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 There are degenerative changes of the visualized lower cervical spine. There is no demonstrated abnormality of the visualized upper abdomen. CT/Chest W/WO Contrast IMPRESSION: 1. Pleural-based mass in the medial right lung apex measuring 2.8 x 1.7 x 2.5 cm. 2. There is an additional pleural-based 9 mm nodule of the posterior right upper lobe. 3. There are mild diffuse emphysematous changes of the lungs. 4. Cardiomegaly. A left-sided pacemaker is present. Intracardiac wires are seen. 5. Calcified plaques of the thoracic aorta. 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 Electronically Signed: Dontrell Clark MD at 21:00 EDT , Service support , CC: Amy Shoemaker MD; Aamir Regan DO Dice Table Person: Signed SPINE CERVICAL Observed: 01/29/2018 Status: F Source: OTIS WITHOUT CONTRAS 4:51 PM [facility] REPOSITORY [facility] Imaging Services [address] [place] [address] Spine Cervical without Contras MR#: [id number] Acct: [id number] Name: BEN PAL Rep #: [id number] : 1935 82 From: Dontrell Clark MD PCP: Amy Shoemaker MD Status: ADM CHYNA Study: Spine Cervical without Contras Date of Exam: 01/29/18 Exam# [id number] Ordering Dr: Aamir Regan DO STUDY: CT CERVICAL SPINE WITHOUT CONTRAST REASON FOR EXAM: Male, 82 years old. Degenerative disc disease, difficulty moving legs RADIATION DOSAGE (If Supplied By Facility): CTDIvol = ( 23.93 ) mGy, DLP = ( 554.42 ) mGycm TECHNIQUE: High resolution transaxial imaging was performed without contrast material. Sagittal and coronal images were reconstructed. Individualized dose optimization techniques were used for this CT. COMPARISON: None FINDINGS: Normal craniovertebral junction. There are degenerative changes of the anterior atlantoaxial articulation. Normal odontoid process. There is straightening of the normal cervical lordosis. There are anterior osteophytes from C2 through C7. There is flattening and remodeling of the C3 and C4 vertebral bodies. C2-3: There is severe disc space narrowing. There are bilateral hypertrophic degenerative facet changes. There is moderately severe foraminal narrowing on the left and mild foraminal narrowing on the right. There is no central canal stenosis. C3-4: There is severe disc space narrowing. There is severe bilateral foraminal narrowing and mild central canal stenosis. Flattening and remodeling of the C3 and C4 vertebral bodies is noted. C4-5: There is severe disc space narrowing with sclerosis of the adjacent endplates. There is severe foraminal narrowing on the left and moderately severe foraminal narrowing on the right. There is moderately severe central canal stenosis. There are bilateral hypertrophic degenerative facet changes. C5-6: There is moderately severe disc space narrowing. There is moderately severe bilateral foraminal narrowing. There is no central canal stenosis. C6-7: There is severe disc space narrowing with sclerosis of the adjacent endplates. There is severe foraminal narrowing on the left and moderately severe foraminal narrowing on the right. There is no central canal stenosis. C7-T1: Normal endplates. Normal disc height and morphology. Normal central canal and intervertebral neuroforamina. There is a pleural-based medial right apical mass measuring 2.[address]/Spine Cervical without Contras IMPRESSION: Severe degenerative changes as detailed above. Pleural-based medial right apical mass measuring 2.7 x 1.6 cm. Electronically Signed: Dontrell Clark MD at 18:43 EDT , Service support , CC: Amy Shoemaker MD; Aamir Regan DO Dice Table Person: Signed SPINE LUMBAR WITHOUT Observed: 01/29/2018 Status: F Source: OTIS CONTRAST 4:51 PM [facility] REPOSITORY [facility] Imaging Services [address] [place] [id number] Spine Lumbar without Contrast MR#: [id number] Acct: [id number] Name: BEN PAL Rep #: [id number] : 1935 M 82 From: Dontrell Clark MD PCP: Amy Shoemaker MD Status: ADM CHYNA Study: Spine Lumbar without Contrast Date of Exam: 01/29/18 Exam# [id number] Ordering Dr: Aamir Regan DO STUDY: CT LUMBAR SPINE WITHOUT CONTRAST REASON FOR EXAM: Male, 82 years old. Degenerative disc disease, difficulty moving legs RADIATION DOSAGE (If Supplied By Facility): CTDIvol = ( 27.55 ) mGy, DLP = ( 871.31 ) mGycm TECHNIQUE: The patient was scanned in a multi detector CT scanner. High resolution transaxial imaging was performed. Images were obtained from T11 to upper sacrum. Sagittal and coronal images were reconstructed. Individualized dose optimization techniques were used for this CT. COMPARISON: None FINDINGS: Normal lumbar lordosis. There is no substantial scoliosis. There is a grade 3 anterolisthesis of L5 relative to S1 with bilateral L5 spondylolysis. There are posterior spinal fusion changes with interpeduncular screws noted at the L4 and S1 levels. There is compression deformity and sclerosis of the inferior L5 body. L1-2: There is severe disc space narrowing at the L1-2 level with vacuum phenomenon. There is mild bilateral foraminal narrowing and mild central canal stenosis caused by bulging annulus and ligamentum flavum hypertrophy. L2-3: Disc spacing is preserved. There is mild central canal stenosis caused by ligamentum flavum hypertrophy and circumferentially bulging annulus. The facets are within normal limits. L3-4: Disc spacing is normal. L4 intrapeduncular screws are seen. There is mild central canal stenosis and mild foraminal narrowing caused by ligamentum flavum hypertrophy and mild hypertrophic facet changes. L4-5: There are mild bilateral degenerative facet changes. There are status post L4 laminectomy changes. There is no central canal stenosis. There is mild bilateral foraminal narrowing. Disc spacing is within normal limits. L5-S1: There is again noted a grade 3 anterolisthesis of L5 relative to S1. There is sclerosis and deformity of the inferior aspect of L5 and sclerosis of the superior endplate of S1. There is complete loss of L5-S1 disc space. Interpeduncular screws are seen in the S1 segment. There is no central canal or foraminal narrowing. There are calcified plaques of the abdominal aorta. CT/Spine Lumbar without Contrast IMPRESSION: Degenerative/postoperative changes as detailed above. Grade 3 anterolisthesis of L5 relative to S1. Electronically Signed: Dontrell Clark MD at 18:50 EDT , Service support , CC: Amy Shoemaker MD; Aamir Regan DO Dice Table Person: Signed EMERGENCY DEPARTMENT Observed: 01/29/2018 Status: F Source: OTIS SUMMARY 10:47 AM [facility] REPOSITORY [facility] Medical Records Department [address] [place] [address] Emergency Department Summary 01/29/18 0844 MR#: [id number] Acct: [id number] Name: BEN PAL Rep #: [id number] : 1935 82 From: Tushar Lock MD PCP: Amy Shoemaker MD Status: REG ER - ER Visit Summary Date of Service: 01/29/18 Chief Complaint: Weakness History of Present Illness: The patient is a 82 M brought by for weakness. This started mostly today but was slightly weak last night before going to bed. The chief complaints as bilateral lower extremity weakness, however after discussing with the patient and he is diffusely weak. He has no back pain. He does have dementia and his dementia has worsened over the past 2 weeks. No fever or chills but did notice a temperature of 99.2 earlier today. Patient denies chest pain abdominal pain back pain shortness of breath or cough. He denies any kind of pain. He does have dementia but he is oriented 2. I am confident he can give me a decent review of systems and tell me his symptoms adequately. Physical Examination: Not appear in acute distress. He is laying comfortably in bed. Moist mucous membranes, no obvious facial deformity No C-spine tenderness supple neck. Regular rate and rhythm without any obvious murmurs Clear lungs bilaterally speaking in full sentences without any obvious respiratory distress Abdomen soft and nontender no guarding or rebound Moves all extremities without any difficulty or pain. Skin does not show any obvious rashes or lesions, no trauma. Alert oriented to person and place with no gross focal deficit. His NIH stroke scale is 0. As he is laying in bed I cannot appreciate any weakness. He has no cerebellar dysfunction. Emergency Department Course and Treatment: She has an unremarkable emergency department workup, however he does have a CAT scan that shows a new lacunar infarct I doubt this is causing his symptoms. I try to get him out of bed and he cannot ambulate. I palpated his back, he has no back pain. He has some upper neck pain but full range of motion and no meningismus. I am unsure about the etiology of his symptoms, however yesterday he was walking and went out to eat and today it is difficult to get out of bed and he is diffusely weak. I will admit him for further workup. Impression: Generalized weakness of unknown etiology This note was generated with [employer] dictation software. It may contain incorrect words, spelling, and punctuation that were not noted in review of the chart prior to signing ED Disposition - Plan for ED Patient: Chief Complaint: Weakness Referrals: Amy Shoemaker MD [Primary Care Provider] - What to do if you have Problems For any increased pain, shortness of breath, bleeding, nausea or vomiting, chest pain, or any unexpected problems, contact your Primary Care Provider. Call [facility] ([phone]) or report to the closest Emergency Room. Call 911 if necessary. 01/29/18 1047 <Electronically signed by Tushar Lock MD> Date Tushar Lock MD Cosigner Signature (If Indicated): Date CC: Amy Shoemaker MD URINALYSIS, COMPLETE Collected: 01/29/2018 Status: F Source: HO 8:51 AM [facility] REPOSITORY Order Comment: How was Urine Obtained? CLEAN CATCH TYPE CODE TESTS RESULT OUT OF RANGE REFERENCE UNITS LAB L400.3000 Yellow COLOR Normal Yellow LAB L400.3050 Clear Normal CLARITY Clear LAB L400.3200 Normal mg/dl Normal GLUCOSE, UR Normal LAB L400.3300 Negative mg/dL Normal BILIRUBIN URINE Negative LAB L400.3400 Negative mg/dl Normal KETONE UR Negative LAB L400.3465 1.002-1.030 Normal SP.GR. DIPSTX 1.010 LAB L400.3550 5.0 - 8.0 pH UR Normal 7.0 LAB L400.3600 Negative mg/dl High PROT 30 DIPSTX LAB L400.3700 Normal mg/dl Normal UROBILI Normal LAB L400.3750 Negative Normal NITRITE UR Negative LAB L400.3780 Negative /ul Normal OCCULT BLOOD-UR Negative LAB L400.3800 Negative /ul LEUK Normal ESTERASE Negative LAB L400.4050 0-5 /hpf WBC 0 Normal SEEN LAB L400.4100 0-5 /hpf 0 Normal RBC-UA SEEN LAB L400.4150 0-5 /hpf SQUAM 0 Normal EPI SEEN LAB L400.4300 None Seen /hpf 0 Normal BACTERIA SEEN LAB L400.4350 <or=2+ /hpf 0 Normal MUCUS, URINE SEEN Performed By: #### L400.0001 #### [facility] [address] [place], [place], [id number] CBC W/DIFF, AUTOMATED Collected: 01/29/2018 Status: F Source: OTIS 8:20 AM [facility] REPOSITORY TYPE CODE TESTS RESULT OUT OF RANGE REFERENCE UNITS LAB L100.1000 4.4-11.0 K/mm3 Normal WBC 8.9 LAB L100.1200 4.6-6.2 M/mm3 Low RBC 4.12 LAB L100.1300 13.0-16.5 g/dl Low HGB 11.6 LAB L100.1400 40-54 % Low HCT 35.8 LAB L100.1500 80-94 fL Normal MCV 86.9 LAB L100.1600 27.0-32.0 pg Normal MCH 28.2 LAB L100.1700 32-36 g/gl Normal MCHC 32.4 LAB L100.1810 11.6-14.6 % Normal RDW CV 13.6 LAB L100.1820 35.1-43.9 fl Normal RDW SD 43.5 LAB L100.1900 150-450 K/mm3 Normal PLT 169 LAB L100.2000 6.2-12.0 fl Normal MPV 9.8 LAB L100.2100 47-70 % Normal NEUT% 65.4 LAB L100.2200 19-41 % Low LY% 13.5 LAB L100.2300 0-10 % High MONO% 18.6 LAB L100.2400 0-5 % Normal EO% 2.3 LAB L100.2500 0-1 % Normal BASO% 0.1 LAB L100.2550 0.0-0.9 % Normal IM GRAN % 0.100 Result Comment: IG% - Immature Granulocytes (promyelocytes, myelocytes and metamyelocytes) > 1% indicates that a LEFT SHIFT is Present. LAB L100.2620 2.0-7.7 X10 3/uL Normal Absolute Neut 5.8 LAB L100.2720 0.83-4.51 X10 3/ul Normal Absolute Lymph 1.20 Performed By: #### L100.0100 #### [facility] [address] [place], [place], [address] COMPREHENSIVE METABOLIC Collected: 01/29/2018 Status: F Source: [facility] 8:20 AM [facility] REPOSITORY TYPE CODE TESTS RESULT OUT OF RANGE REFERENCE UNITS LAB L501.0100 74-106 mg/dL High GLU 145 Result Comment: Fasting Glucose result greater than or equal to 126 mg/dL suggests DIABETES MELLITUS per A.D.A. criteria. Please note revised GLUCOSE reference range effective 2017. LAB L501.1000 7-18 mg/dL High BUN 23 LAB L501.1100 0.70-1.30 mg/dL Normal CREAT,SERUM 1.19 Result Comment: The validity of the calculated GFR AND GFRAA in patients over 70 years has not been determined. Clinical correlation is essential. LAB L501.1110 >60 mL/min Normal EST GFR 62 Result Comment: Non- GFR Calc LAB L501.1115 >60 mL/min Normal EST GFR - AA 75 Result Comment: GFR Calc LAB L501.1255 ml/min Normal Estimated CRCL 53.44 LAB L501.1300 10-20 RATIO Normal BUN/CRE 19.3 LAB L501.1500 6.4-8. g/dL Normal 2 T PROT 7.2 LAB L501.1800 3.2-5. g/dL Normal 0 ALB 3.4 LAB L501.1950 2.2-4. g/dL Normal 2 GLOB 3.8 LAB L501.2000 0.9-2. RATIO Normal 4 A/G 0.9 LAB L501.2200 8.5-10 mg/dL Normal .1 CA 8.7 LAB L501.4100 15-37 U/L Normal AST 26 LAB L501.4305 45-117 U/L Normal ALK P 73 LAB L501.4405 16-61 U/L Normal ALT 40 LAB L501.4600 0.20-1 mg/dL Normal .00 T BILI 0.50 LAB L501.5300 136-14 mmol/L Normal 5 NA 139 LAB L501.5600 3.5-5. mmol/L Normal 1 K 3.6 LAB L501.5900 98-107 mmol/L Normal CL 107 LAB L501.6100 21.0-3 mmol/L Normal 2.0 CO2 26.0 LAB L501.6200 5-15 Normal GAP 6 Performed By: #### L500.4050, L501.4010 #### [facility] [address] [place], [place], [address] TROPONIN-I Collected: 01/29/2018 Status: F Source: OTIS 8:20 AM [facility] REPOSITORY TYPE CODE TESTS RESULT OUT OF RANGE REFERENCE UNITS LAB L501.4010 <0.045 ng/mL Normal < 0.015 TROPONIN-I Result Comment: TROPONIN-I EXPECTED VALUES <0.045 Negative 0.045 - 0.590 Consistent with Cardiac Damage > OR = 0.600 Critical Value Not every elevated troponin is indicative of MD. These values should be used with clinical judgement in examining the patient's clinical picture for diagnosis. To establish a diagnosis of MD versus myocardial injury, there must be a demonstrated rise and/or fall in the troponin values, in addition to ischemic symptoms, EKG changes, new regional wall motion abnormality, and/or angiographical evidence. PLEASE NOTE: REFERENCE RANGES EDITED 17 Performed By: #### L500.4050, L501.4010 #### [facility] [address] [place], [place], [address] ERYTHROCYTE SED RATE Collected: 01/29/2018 Status: F Source: OTIS 8:20 AM [facility] REPOSITORY TYPE CODE TESTS RESULT OUT OF RANGE REFERENCE UNITS LAB L102.0000 0-20 mm/hr Normal SED RATE 19 Performed By: #### L101.9900 #### [facility] [address] [place], [address] CHEST 1 VIEW Observed: 01/29/2018 Status: F Source: OTIS (PORTABLE) 8:17 AM [facility] REPOSITORY [facility] Imaging Services [address] [place] [address] Chest 1 View (Portable) MR#: [id number] Acct: [id number] Name: BEN PAL Rep #: [id number] : 1935 M 82 From: Rk Salmeron MD PCP: Amy Shoemaker MD Status: REG ER Study: Chest 1 View (Portable) Date of Exam: 01/29/18 Exam# [id number] Ordering Dr: Tushar Lock MD STUDY: X-RAY CHEST REASON FOR EXAM: Male, 82 years old. Weakness. TECHNIQUE: Single AP portable view of the chest. COMPARISON: None. FINDINGS: Mild elevation of the left hemidiaphragm. Mild degree of increased linear markings at the lung bases slightly more prominent on the left side suggestive of bibasilar atelectasis. There is no demonstrated pleural abnormality. Normal size heart. A left-sided dual-chamber pacemaker is seen. Normal mediastinum and yobani. Normal visualized pulmonary arteries. There is atherosclerotic calcification of the aortic arch with tortuosity. There are degenerative changes of the visualized thoracic spine. Normal visualized ribs, clavicles, and shoulders. There is no demonstrated abnormality of the visualized soft tissue structures of the upper abdomen. RAD/Chest 1 View (Portable) IMPRESSION: Mild increased markings at the lung bases slightly more prominent on the left side suggestive of mild bibasilar linear atelectasis. Electronically Signed: Rk Salmeron MD at 8:58 EDT Tel [phone], Service support , CC: Amy Shoemaker MD; Tushar Lock MD Dice Table Person: Signed BRAIN/HEAD WITHOUT Observed: 01/29/2018 Status: F Source: OTIS CONTRAST 8:17 AM [facility] REPOSITORY [facility] Imaging Services [address] [place] [address] Brain/Head without Contrast MR#: [id number] Acct: [id number] Name: BEN PAL Rep #: [id number] : 1935 M 82 From: Rk Salmeron MD PCP: Amy Shoemaker MD Status: REG ER Study: Brain/Head without Contrast Date of Exam: 01/29/18 Exam# [id number] Ordering Dr: Tushar Lock MD STUDY: CT BRAIN WITHOUT CONTRAST REASON FOR EXAM: Male, 82 years old. Weakness. RADIATION DOSAGE (If Supplied By Facility): CTDIvol = ( 44.99 ) mGy, DLP = ( 846.73 ) mGycm TECHNIQUE: Transaxial CT imaging of the brain was performed without administration of intravenous contrast material. Individualized dose optimization techniques were used for this CT. COMPARISON: Comparison is made with prior study dated June 26, 2015. FINDINGS: Normal soft tissue structures. Normal calvarium. There is mild cerebral atrophy with widening of the extra- axial spaces and ventricular dilatation. There are areas of decreased attenuation within the white matter tracts of the supratentorial brain, consistent with microvascular disease changes. Tiny lacunar infarct in the left basal ganglion. This is new as compared to prior study. Normal brainstem. Normal cerebellum. There is no intracranial hemorrhage. There are no findings of an acute ischemic infarction. Normal visualized paranasal sinuses. CT/Brain/Head without Contrast IMPRESSION: Chronic involutional changes of the brain. Tiny lacunar infarct in the left basal ganglion. This is new as compared to prior study. Electronically Signed: Rk Salmeron MD at 9:56 EDT Tel [phone], Service support , CC: Amy Shoemaker MD; Tushar Lock MD Dice Table Person: Signed PROGRESS Observed: 01/25/2018 Status: COMPLETED Source: [place] 3:18 PM [facility] RE[facility] HNO ID: [id number] Author: Laura Brito (Pa) Service: (none) Author Type: Physician Co Founder And Chairman Type: Progress Notes Filed: 01/27/2018 7:19 AM Note Text: Laura Brito PA-C Department of Orthopaedics Orthopaed[facility] [address] [facility] [address] Dept: [phone] Dept January 25, 2018 CHIEF COMPLAINT: New Patient (right knee pain, xray) HPI: Mr. Ben Pal is a 82 year old male. He presents with lateral right knee pain that is an 8 out of 10 sharp aching. Pain is been occurring for about the past 3 months. Pain is a constant ache that is worse with activity. The patient tells me that he suffered a MD and CVA following lumbar surgery in March 2017. During rehabilitation he had a pacemaker placed for sick sinus syndrome. He tells me that since his lumbar spine surgery he has had little to no activity, he says he still feels very weak. He notes being hospitalized for several months. He takes Tylenol for pain which is not helpful. ASSESSMENT: M17.11 Primary osteoarthritis of right knee (primary encounter diagnosis) M25.561 Acute pain of right knee PLAN: Patient is unable to tolerate oral anti-inflammatories. We discussed trying a topical anti-inflammatory for right knee pain as well as corticosteroid injection. The patient would like to proceed with an injection today. We will consider topical if needed. We also discussed viscosupplementation. He was advised to continue working on quadriceps strengthening exercises. FOLLOW UP INSTRUCTIONS: As needed. Mr. Ben Pal was advised as to contrast therapies and/or to take analgesics/anti-inflammatories as needed and all contraindications were reviewed. OBJECTIVE: Mr. Ben Pal is a pleasant 82 year old in no apparent distress. Gen:BP 160/78[auto[ Pulse 67 Ht 5' 10 (1.78m) Wt 181 lb 6.4 oz (82.3kg) BMI 26.03 kg/(m2). nl development, non obese, no deformities ENT: Normocephalic, normal hearing, moist mucosa CV: Pulses:DP/PT= 2+ and symmetric, capillary refill < 2 secs, no peripheral edema/varicosities Skin: no rash, bruising or lesions. Good turgor. Psych: cooperative and appropriate, alert and oriented x 3, good mood and affect. Musculoskeletal: KNEE EXAM: Right: Alignment: Neutral Range of motion is 0 degrees in extension and 120 degrees of flexion. Extension La degrees Pain with ROM: yes Effusion: None Tender to the palpation of lateral femoral condyle and lateral joint line. Pain with patellar compression: yes Stability: Anterior/Posterior stable and Varus/Valgus stable Hip Exam: flexion to 100+ degrees, full extension, internal/external rotation adequate and no pain with log roll Neurovascular Status: Sensation Intact and Moves foot and ankle up AND down Procedure note: The risk, benefits and alternatives of injection and no injection therapy were discussed. The patient consented for an injection. Time out was conducted. The injection site was prepped with a Chlorhexadine swab. The right Superolateral joint was injected with a 25 gauge needle with 1 cc (6 mg) Celestone, 5 cc Lidocaine 1% Plain. The injection site was then dressed with a bandaid. The patient tolerated the injection well. The patient was instructed to call the office if any adverse local effects occurred or any if any questions or concerns arise. Laura Brito PA-C IMAGING: IMPRESSION: Mildly increased sclerosis along the right tibial metadiaphysis associated with a periosteal reaction. Findings are indeterminate and may represent sequela of remote trauma. Suggest further evaluation with CT to exclude a neoplastic process. Moderate to severe right lateral compartment osteoarthritis. Dice Table Person: BREANNA ? Transcribe Date/Time: Jan 26 2018 ?6:04P Dictated by : LLUVIA ARROYO MD This examination was interpreted and the report reviewed and electronically signed by: LLUVIA ARROYO MD on Jan 26 2018 ?6:09PM ?EST Results-Findings * * *Final Report* * * DATE OF EXAM: Jan 25 2018 ?2:10PM ? WRX ? 5203 ?- ?XR KNEE 4V AP/PA BOTH+LAT/MYLA RT ?/ PROCEDURE REASON: Pain in right knee ?? ? * * * * Physician Interpretation * * * * ?EXAMINATION: ?XR KNEE 4V AP/PA BOTH+LAT/MYLA RT CLINICAL HISTORY: ? pt states has surgery 47 days ago and 2 days after that started having pain lateral side of right knee has also fall a couple of times. Swelling also in knee Pain in right knee Technique: ? XR KNEE 4V AP/PA BOTH+LAT/MYLA RT -- RIGHT knees with 4 views on 4 images Comparison: None RESULT: Mildly increased sclerosis along the right tibial metadiaphysis with a periosteal reaction. Moderate to severe lateral compartment joint space narrowing with subchondral sclerosis and cysts. Tricompartment marginal osteophytes. No knee effusion. No fracture or dislocation. Vascular calcification with endovascular stent in the posterior knee. Supporting Subjective Information Below: Past Medical History: PAST MEDICAL HISTORY Diagnosis Date - Alzheimer's dementia - Benign neoplasm of colon - CVA (cerebral vascular accident) (HCC) brain bleed - Hemorrhage of rectum and anus - HTN (hypertension) - Malignant neoplasm of prostate (HCC) - MD (myocardial infarction) (HCC) Past Surgical History: PAST SURGICAL HISTORY Procedure Laterality Date - COLONOSCOP W/ OR W/O [facility] SPEC 11/18/2005 Colonoscopy - COLONOSCOP W/ OR W/O [facility] SPEC 10/23/2009 Colonoscopy - PAST SURGICAL HISTORY OF 2005 hernia surgery - PAST SURGICAL HISTORY OF 04/06/2017 Lumbar surgery - PAST SURGICAL HISTORY OF pacemaker - PAST SURGICAL HISTORY OF Right stenting of right leg for circulation Family History: FAMILY HISTORY Problem Relation Age of Onset - Hypertension Mother - Heart Father - Breast Cancer Sister - ovarian cancer [OTHER] Daughter Social History:Social History Marital status: Spouse name: Jodi Villa Years of education: Number of children: 3 Occupational History Occupation Employer Comment [employer] Social History Main Topics Smoking status: Former Smoker Packs/day: 0.00 Years: 0.00 Smokeless tobacco: Never Used Comment: cigar off and on Alcohol use: No Drug use: No Sexual activity: Yes Partners with: Female Medications: Current Outpatient Prescriptions: atorvastatin (LIPITOR) 80 mg tablet Take 80 mg by mouth once daily. clopidogrel (PLAVIX) 75 mg tablet Take 75 mg by mouth once daily. finasteride (PROSCAR) 5 mg tablet Take 5 mg by mouth once daily. isosorbide dinitrate (ISORDIL) 10 mg tablet Take 10 mg by mouth three times daily. carvedilol (COREG) 25 mg tablet Take 25 mg by mouth twice daily with meals. amlodipine besylate (AMLODIPINE ORAL) Take 5 mg by mouth once daily. uncertain of doseage aspirin, enteric coated (ASPIRIN, ENTERIC COATED) 81 mg EC tablet Take 81 mg by mouth once daily. hydroCHLOROthiazide (HYDRODIURIL, ESIDRIX) 12.5 mg tablet Take 12.5 mg by mouth once daily. tamsulosin ER (FLOMAX) 0.4 mg cp24 Take 0.4 mg by mouth once daily. Salicylic Acid (SALEX) 6 % TOPICAL Sham Use to wash hair daily MULTIVITAMIN TAB Take one(1) tablet daily. donepezil (ARICEPT) 10 mg tablet Take 10 mg by mouth daily at bedtime. lisinopril (ZESTRIL, PRINIVIL) 10 mg tablet Take 10 mg by mouth once daily. simvastatin (ZOCOR) 40 mg tablet Take 40 mg by mouth daily at bedtime. memantine XR (NAMENDA XR) 28 mg CSpX Take by mouth once daily. Fish Oil-Navarre-3 Fatty Acids (FISH OIL) 340-1,000 mg cap Take 1 capsule by mouth once daily. ibuprofen (ADVIL) 200 mg tablet Take 200 mg by mouth once daily. naproxen sodium (ALEVE) 220 mg cap Take by mouth daily at bedtime. No current facility-administered medications for this visit. Allergies: Patient has no known allergies. ROS: General (negative for fatigue, malaise, weight loss/gain) HEENT (negative for headache, earache, recent vision changes, sinus pain, sore throat) Respiratory (no recent shortness of breath, hemoptysis) CV (negative for chest tightness, palpitations) Musculoskeletal (see HPI) Psych (no depression, anxiety) This note was partially generated using [employer] voice recognition system, and there may be some incorrect words, spellings, and punctuation that were not noted in checking the note before saving. Laura Brito PA-C PROGRESS Observed: 01/25/2018 Status: COMPLETED Source: [place] [address]:47 PM [facility] HNO ID: [id number] Author: Cindy Sam RN Service: (none) Author Type: (none) Type: Progress Notes Filed: 01/27/2018 7:19 AM Note Text: AMB ROOMING INTAKE FLOWSHEET DATA Risk Screening Do you have concerns about personal safety or safety in the home?: No Pain Pain Score: 8/10 Pain Location: Knee-Right Description: Sharp Duration Amount of Time: 3 Frequency: Intermittent Intervention: Medication, Support surface (cane) Patient presents with: New Patient: right knee pain, xray Pt. presents with his . He has Alzheimer's and past CVA and is poor historian. states he has been c/o right knee pain with swelling down to foot x 3 weeks without injury. He takes Tylenol as needed which takes most of the pain away. He uses cane. n XR KNEE 4V AP/PA Observed: 01/25/2018 Status: F Source: [place] BOTH+LAT/MYLA RT 2:10 PM [facility] * * *Final Report* * * DATE OF EXAM: Jan 25 2018 2:10PM WRX 5203 - XR KNEE 4V AP/PA BOTH+LAT/MYLA RT / PROCEDURE REASON: Pain in right knee * * * * Physician Interpretation * * * * EXAMINATION: XR KNEE 4V AP/PA BOTH+LAT/YMLA RT CLINICAL HISTORY: pt states has surgery 47 days ago and 2 days after that started having pain lateral side of right knee has also fall a couple of times. Swelling also in knee Pain in right knee Technique: XR KNEE 4V AP/PA BOTH+LAT/MYLA RT -- RIGHT knees with 4 views on 4 images Comparison: None RESULT: Mildly increased sclerosis along the right tibial metadiaphysis with a periosteal reaction. Moderate to severe lateral compartment joint space narrowing with subchondral sclerosis and cysts. Tricompartment marginal osteophytes. No knee effusion. No fracture or dislocation. Vascular calcification with endovascular stent in the posterior knee. IMPRESSION: Mildly increased sclerosis along the right tibial metadiaphysis associated with a periosteal reaction. Findings are indeterminate and may represent sequela of remote trauma. Suggest further evaluation with CT to exclude a neoplastic process. Moderate to severe right lateral compartment osteoarthritis. Dice Table Person: BREANNA Transcribe Date/Time: Jan 26 2018 6:04P Dictated by : LLUVIA ARROYO MD This examination was interpreted and the report reviewed and electronically signed by: LLUVIA ARROYO MD on Jan 26 2018 6:09PM EST [id number] CNOV Observed: 01/25/2018 Status: COMPLETED Source: [place] 2:10 PM [facility] REPOSITORY Office Visit ([facility]) BEN PAL ([id number]) 1935 M Date Time Provider Department 01/25/18 2:10 PM LAURA BRITO) ORTHJAMARI During your visit today, we recorded the following information about you: Pulse Blood pressure Weight Height 67/minute 160/78 82.3 kg 1.778 m Cindy Sam RN 01/27/2018 7:19 AM Signed AMB ROOMING INTAKE FLOWSHEET DATA Risk Screening Do you have concerns about personal safety or safety in the home?: No Pain Pain Score: 8/10 Pain Location: Knee-Right Description: Sharp Duration Amount of Time: 3 Frequency: Intermittent Intervention: Medication, Support surface (cane) Patient presents with: New Patient: right knee pain, xray Pt. presents with his . He has Alzheimer's and past CVA and is poor historian. states he has been c/o right knee pain with swelling down to foot x 3 weeks without injury. He takes Tylenol as needed which takes most of the pain away. He uses cane. n Laura Brito PA-C 01/27/2018 7:19 AM Signed Laura Brito PA-C Department of Orthopaedics Orthopaedics [address] [place] [id number] Dept: [phone] Dept January 25, 2018 CHIEF COMPLAINT: New Patient (right knee pain, xray) HPI: Mr. Ben Pal is a 82 year old male. He presents with lateral right knee pain that is an 8 out of 10 sharp aching. Pain is been occurring for about the past 3 months. Pain is a constant ache that is worse with activity. The patient tells me that he suffered a MD and CVA following lumbar surgery in March 2017. During rehabilitation he had a pacemaker placed for sick sinus syndrome. He tells me that since his lumbar spine surgery he has had little to no activity, he says he still feels very weak. He notes being hospitalized for several months. He takes Tylenol for pain which is not helpful. ASSESSMENT: M17.11 Primary osteoarthritis of right knee (primary encounter diagnosis) M25.561 Acute pain of right knee PLAN: Patient is unable to tolerate oral anti-inflammatories. We discussed trying a topical anti-inflammatory for right knee pain as well as corticosteroid injection. The patient would like to proceed with an injection today. We will consider topical if needed. We also discussed viscosupplementation. He was advised to continue working on quadriceps strengthening exercises. FOLLOW UP INSTRUCTIONS: As needed. Mr. Ben Pal was advised as to contrast therapies and/or to take analgesics/anti-inflammatories as needed and all contraindications were reviewed. OBJECTIVE: Mr. Ben Pal is a pleasant 82 year old in no apparent distress. Gen:BP 160/78[auto[ Pulse 67 Ht 5' 10 (1.78m) Wt 181 lb 6.4 oz (82.3kg) BMI 26.03 kg/(m2). nl development, non obese, no deformities ENT: Normocephalic, normal hearing, moist mucosa CV: Pulses:DP/PT= 2+ and symmetric, capillary refill < 2 secs, no peripheral edema/varicosities Skin: no rash, bruising or lesions. Good turgor. Psych: cooperative and appropriate, alert and oriented x 3, good mood and affect. Musculoskeletal: KNEE EXAM: Right: Alignment: Neutral Range of motion is 0 degrees in extension and 120 degrees of flexion. Extension La degrees Pain with ROM: yes Effusion: None Tender to the palpation of lateral femoral condyle and lateral joint line. Pain with patellar compression: yes Stability: Anterior/Posterior stable and Varus/Valgus stable Hip Exam: flexion to 100+ degrees, full extension, internal/external rotation adequate and no pain with log roll Neurovascular Status: Sensation Intact and Moves foot and ankle up AND down Procedure note: The risk, benefits and alternatives of injection and no injection therapy were discussed. The patient consented for an injection. Time out was conducted. The injection site was prepped with a Chlorhexadine swab. The right Superolateral joint was injected with a 25 gauge needle with 1 cc (6 mg) Celestone, 5 cc Lidocaine 1% Plain. The injection site was then dressed with a bandaid. The patient tolerated the injection well. The patient was instructed to call the office if any adverse local effects occurred or any if any questions or concerns arise. Laura Brito PA-C IMAGING: IMPRESSION: Mildly increased sclerosis along the right tibial metadiaphysis associated with a periosteal reaction. Findings are indeterminate and may represent sequela of remote trauma. Suggest further evaluation with CT to exclude a neoplastic process. Moderate to severe right lateral compartment osteoarthritis. Dice Table Person: BREANNA ? Transcribe Date/Time: Jan 26 2018 ?6:04P Dictated by : LLUVIA ARROYO MD This examination was interpreted and the report reviewed and electronically signed by: LLUVIA ARROYO MD on Jan 26 2018 ?6:09PM ?EST Results-Findings * * *Final Report* * * DATE OF EXAM: Jan 25 2018 ?2:10PM ? WRX ? 5203 ?- ?XR KNEE 4V AP/PA BOTH+LAT/MYLA RT ?/ PROCEDURE REASON: Pain in right knee ?? ? * * * * Physician Interpretation * * * * ?EXAMINATION: ?XR KNEE 4V AP/PA BOTH+LAT/MYLA RT CLINICAL HISTORY: ? pt states has surgery 47 days ago and 2 days after that started having pain lateral side of right knee has also fall a couple of times. Swelling also in knee Pain in right knee Technique: ? XR KNEE 4V AP/PA BOTH+LAT/MYLA RT -- RIGHT knees with 4 views on 4 images Comparison: None RESULT: Mildly increased sclerosis along the right tibial metadiaphysis with a periosteal reaction. Moderate to severe lateral compartment joint space narrowing with subchondral sclerosis and cysts. Tricompartment marginal osteophytes. No knee effusion. No fracture or dislocation. Vascular calcification with endovascular stent in the posterior knee. Supporting Subjective Information Below: Past Medical History: PAST MEDICAL HISTORY Diagnosis Date - Alzheimer's dementia - Benign neoplasm of colon - CVA (cerebral vascular accident) (HCC) brain bleed - Hemorrhage of rectum and anus - HTN (hypertension) - Malignant neoplasm of prostate (HCC) - MD (myocardial infarction) (HCC) Past Surgical History: PAST SURGICAL HISTORY Procedure Laterality Date - COLONOSCOP W/ OR W/O [facility] SPEC 11/18/2005 Colonoscopy - COLONOSCOP W/ OR W/O [facility] SPEC 10/23/2009 Colonoscopy - PAST SURGICAL HISTORY OF 2005 hernia surgery - PAST SURGICAL HISTORY OF 04/06/2017 Lumbar surgery - PAST SURGICAL HISTORY OF pacemaker - PAST SURGICAL HISTORY OF Right stenting of right leg for circulation Family History: FAMILY HISTORY Problem Relation Age of Onset - Hypertension Mother - Heart Father - Breast Cancer Sister - ovarian cancer [OTHER] Daughter Social History:Social History Marital status: Spouse name: Jodi Villa Years of education: Number of children: 3 Occupational History Occupation Employer Comment [employer] Social History Main Topics Smoking status: Former Smoker Packs/day: 0.00 Years: 0.00 Smokeless tobacco: Never Used Comment: cigar off and on Alcohol use: No Drug use: No Sexual activity: Yes Partners with: Female Medications: Current Outpatient Prescriptions: atorvastatin (LIPITOR) 80 mg tablet Take 80 mg by mouth once daily. clopidogrel (PLAVIX) 75 mg tablet Take 75 mg by mouth once daily. finasteride (PROSCAR) 5 mg tablet Take 5 mg by mouth once daily. isosorbide dinitrate (ISORDIL) 10 mg tablet Take 10 mg by mouth three times daily. carvedilol (COREG) 25 mg tablet Take 25 mg by mouth twice daily with meals. amlodipine besylate (AMLODIPINE ORAL) Take 5 mg by mouth once daily. uncertain of doseage aspirin, enteric coated (ASPIRIN, ENTERIC COATED) 81 mg EC tablet Take 81 mg by mouth once daily. hydroCHLOROthiazide (HYDRODIURIL, ESIDRIX) 12.5 mg tablet Take 12.5 mg by mouth once daily. tamsulosin ER (FLOMAX) 0.4 mg cp24 Take 0.4 mg by mouth once daily. Salicylic Acid (SALEX) 6 % TOPICAL Sham Use to wash hair daily MULTIVITAMIN TAB Take one(1) tablet daily. donepezil (ARICEPT) 10 mg tablet Take 10 mg by mouth daily at bedtime. lisinopril (ZESTRIL, PRINIVIL) 10 mg tablet Take 10 mg by mouth once daily. simvastatin (ZOCOR) 40 mg tablet Take 40 mg by mouth daily at bedtime. memantine XR (NAMENDA XR) 28 mg CSpX Take by mouth once daily. Fish Oil-Navarre-3 Fatty Acids (FISH OIL) 340-1,000 mg cap Take 1 capsule by mouth once daily. ibuprofen (ADVIL) 200 mg tablet Take 200 mg by mouth once daily. naproxen sodium (ALEVE) 220 mg cap Take by mouth daily at bedtime. No current facility-administered medications for this visit. Allergies: Patient has no known allergies. ROS: General (negative for fatigue, malaise, weight loss/gain) HEENT (negative for headache, earache, recent vision changes, sinus pain, sore throat) Respiratory (no recent shortness of breath, hemoptysis) CV (negative for chest tightness, palpitations) Musculoskeletal (see HPI) Psych (no depression, anxiety) This note was partially generated using [employer] voice recognition system, and there may be some incorrect words, spellings, and punctuation that were not noted in checking the note before saving. Laura Brito PA-C Referring Provider: SELF [200] Allergies As of Date: 01/25/2018 (No Known Allergies) Date Reviewed: 01/25/2018 Reviewed by: Laura Brito (Pa) - Fully Assessed Reason for Visit: New Patient [172] Cmt: right knee pain, xray Primary Visit Diagnosis:Primary osteoarthritis of right knee [M17.11] Other Visit Diagnosis:Acute pain of right knee [M25.561] Order(s):[] betamethasone acetate-betamethasone sodium phosphate 6 mg, lidocaine (PF) 10 mg/mL (1 %) 50 mgDisp: Rfl: Prescriptions as of 01/25/2018 Sig: ATORVASTATIN 80 MG TABLET Take 80 mg by mouth once alexei* CLOPIDOGREL 75 MG TABLET Take 75 mg by mouth once alexei* FINASTERIDE 5 MG TABLET Take 5 mg by mouth once daily. ISOSORBIDE DINITRATE 10 MG TA* Take 10 mg by mouth three homa* CARVEDILOL 25 MG TABLET Take 25 mg by mouth twice george* AMLODIPINE ORAL Take 5 mg by mouth once daily* ASPIRIN 81 MG TABLET,DELAYED * Take 81 mg by mouth once alexei* HYDROCHLOROTHIAZIDE 12.5 MG T* Take 12.5 mg by mouth once da* TAMSULOSIN 0.4 MG CAPSULE Take 0.4 mg by mouth once george* SALICYLIC ACID 6 % SHAMPOO Use to wash hair daily * MULTIVITAMIN TABLET Take one(1) tablet daily. DONEPEZIL 10 MG TABLET Take 10 mg by mouth daily at * LISINOPRIL 10 MG TABLET Take 10 mg by mouth once alexei* SIMVASTATIN 40 MG TABLET Take 40 mg by mouth daily at * MEMANTINE 28 MG CAPSULE SPRIN* Take by mouth once daily. OMEGA-3 FATTY ACIDS-FISH OIL * Take 1 capsule by mouth once * IBUPROFEN 200 MG TABLET Take 200 mg by mouth once george* NAPROXEN SODIUM 220 MG CAPSULE Take by mouth daily at bedti* Problem List As Of Date 01/25/2018 Noted Resolved RECTAL AND ANAL HEMORRHAGE [K62.5] INVALID FOR* BENIGN NEOPLASM LG BOWEL [D12.6] INVALID FOR* Prescriptions ordered this encounter Disp Refills Start End CAM ALE[facility]AN[facility]O INJECTION BUILDER 01/25/2018 01/25/2018 Class: Suppress Questions Route: [facility] Encounter Status:Closed by LAURA BRITO PA-C on 01/27/18 PROGRESS Observed: 01/25/2018 Status: COMPLETED Source: [place] 1:53 PM [facility] RE[facility] O ID: [id number] Author: Sadia Villa (Rt) Frank Bailey Service: (none) Author Type: Framing Mechanic Type: Progress Notes Filed: 01/25/2018 2:10 PM Note Text: Radiology Service Progress Note PATIENT NAME: Ben Pal DATE OF SERVICE: January 25, 2018 TIME: 1:53 PM PATIENT IDENTITY VERIFICATION COMPLETED USING TWO (2) METHODS: Patient confirmed name verbally and Date of . PATIENT GENDER DATA: Male PATIENT RELEVANT IMPLANT DATA REVIEWED: Not Applicable RADIOLOGY DEPARTMENT: General X-ray: Exam(s) Completed: Lower Extremity X-Ray(s): Knee, AP / Lat / Tunne / Merchant Right: PERIPHERAL IV DATA: Not applicable SIGNED BY: RT Suzanna January 25, 2018 1:53 PM LOWER EXT ARTERIAL Observed: 11/18/2017 Status: F Source: [facility] 8:28 AM [facility] REPOSITORY [facility] Cardiovascular Services [address] [place] [id number] 11/18/17 0825 MR#: [id number] Acct: [id number] Name: BEN PAL Rep #: [id number] : 1935 82 From: Kyle Fields MD Attending Dr: Kyle Fields MD Status: REG CLI Ordering Dr: Date: 11/18/17 Location: [facility] Sex: M C Admitted: Arterial Study - Arterial Study Arterial Study: Date of scan 11/12/[address] Fields next Indication patient with claudication and history of hypertension hyperlipidemia and previous stenting Interpretation: Right lower extremity normal pulsatile flow from the thigh down to the calf ankle digits YAAKOV 0.9 through the posterior tibial 0.9 to the dorsalis pedis. Next Left lower extremity with fairly normal pulsatile flow from the thigh down to the calf ankle digits slightly peaked waveforms noted in the calf YAAKOV 0.9 in the posterior tibial 0.9 for the dorsalis pedis. Impression: 1. Bilateral lower extremities with no evidence of sniffing arterial occlusive disease with an YAAKOV 0.93 on the right 0.94 on the left 11/18/1728 <Electronically signed by Kyle Fields MD> Date Kyle Fields MD CC: Kyle Fields MD; Amy Shoemaker MD Date Dictated: 11/18/17824 Date Transcribed: 11/18/17824 Dice Table Person: ALLYSSA Signed CAROTID DUPLEX Observed: 11/12/2017 Status: F Source: OTIS ULTRASOUND 5:42 PM [facility] REPOSITORY [facility] Cardiovascular Services [address] [place] [id number] Carotid Duplex Ultrasound 11/12/17 0907 MR#: [id number] Acct: [id number] Name: BEN PAL Rep #: [id number] : 1935 82 From: Kyle Fields MD Attending Dr: Kyle Fields MD Status: REG CLI Ordering Dr: Kyle Fields MD Date: 11/12/17 Location: [facility] Sex: M C Admitted: Reason For Study: BRUIT Rt. Velocities/BP Lt. Velocities/BP Prox CCA 73/15 cm/sec. Prox CCA 68/20 cm/sec. Mid CCA 78/16 cm/sec. Mid CCA 60/19 cm/sec. Dist CCA 69/12 cm/sec. Dist CCA 53/20 cm/sec. Prox ICA 79/15 cm/sec. Prox ICA 107/30 cm/sec. Mid ICA 72/24 cm/sec. Mid ICA 91/22 cm/sec. Dist ICA 107/33 cm/sec. Dist ICA 86/20 cm/sec. Rt. ICA/CCA = 1.4. Lt. ICA/CCA = 1.8. Prox ECA 211/13 cm/sec. Prox ECA 460/49 cm/sec. Rt. Vert. 49/8 cm/sec. Lt. Vert. 70/17 cm/sec. Right Extracranial There is heterogeneous, irregular atherosclerotic plaque noted in the right common carotid artery. There is heterogeneous, irregular atherosclerotic plaque noted in the right internal carotid artery. There is heterogeneous, irregular atherosclerotic plaque noted in the right external carotid artery. Antegrade flow is noted in the right vertebral artery. There is heterogeneous, irregular atherosclerotic plaque noted in the right bulb. Left Extracranial There is heterogeneous, irregular atherosclerotic plaque noted in the left common carotid artery. There is heterogeneous, irregular atherosclerotic plaque noted in the left internal carotid artery. There is heterogeneous, irregular atherosclerotic plaque noted in the left external carotid artery. Antegrade flow is noted in the left vertebral artery. There is heterogeneous, irregular atherosclerotic plaque noted in the left bulb. Procedure Carotid Duplex 50738. Exam performed in department. Interpretation Summary Mild (<50%) stenosis right extracranial internal carotid. Mild (<50%) stenosis left extracranial internal carotid. Flow within the vertebral arteries is antegrade bilaterally. Ordering Physician: Kyle Fields Referring Physician: AMY SHOEMAKER MD Performed By: Alisa Palumbo, RDCS, RVT 11/12/171740 Date Kyle Fileds MD CC: Kyle Fields MD; Amy Shoemaker MD Date Dictated: 11/12/17906 Date Transcribed: 11/12/171740 Dice Table Person: Signed ARTERIAL DUPLEX US Observed: 11/12/2017 Status: F Source: HO -PAUL EXTREM 5:40 PM [facility] REPOSITORY [facility] Cardiovascular Services [address] [place] [address] Art Duplex US Bilat Lower Ext 11/12/17929 MR#: [id number] Acct: [id number] Name: BEN PAL Rep #: [id number] : 1935 82 From: Kyle Fields MD Attending Dr: Kyle Fields MD Status: REG CLI Ordering Dr: Kyle Fields MD Date: 11/12/17 Location: [facility] Sex: M C Admitted: Reason For Study: ATHEROSCLEROSIS Right Velocities Left Velocities Ext. Iliac Artery, dist = 130 cm./sec. Ext Iliac Artery, dist = 123 cm./sec. Common Femoral Artery, mid = 90 cm./sec. Common Femoral Artery, mid = 134 cm./sec. Supf Femoral Artery, prox = 89 cm./sec. Supf. Femoral Artery, prox = 288 cm./sec. RT SFA stent Proximal velocity =138 cm/sec. Supf. Femoral Artery, mid = 148 cm./sec. Mid stent = 135 cm/sec. Supf. Femoral Artery, dist = 48 cm./sec. Distal stent= 146 cm/sec. Profunda Femoral Artery = 123 cm./sec. Supf Femoral Artery, dist. = 179 cm./sec. Popliteal Artery, proximal, = 53 cm./sec. Profunda Femoral Artery = 138 cm./sec. Popliteal Artery, mid = 58 cm./sec. Popliteal Artery, prox. = 92 cm./sec. Popliteal Artery, distal = 137 cm./sec. Rt Popliteal stent prox= 103 cm/sec Ant.Tibial Artery, prox = 27 cm./sec. Mid stent = 70 cm/sec. Ant Tibial Artery, mid = 33 cm./sec. Distal stent =71 cm/sec. Ant. Tibial Artery, distal = 32 cm./sec. Popliteal Artery, dist = 109 cm./sec. Post. Tibial Artery, prox = 51 cm./sec. Ant. Tibial Artery, prox = 17 cm./sec. Post Tibial Artery, mid = 50 cm./sec. Ant. Tibial Artery, mid = 16 cm./sec. Post Tibial Artery, dist. = 42 cm./sec. Ant. Tibial Artery, dist = 40 cm./sec. Peroneal Artery, prox = 43 cm./sec. Post. Tibial Artery, prox = 57 cm./sec. Peroneal Artery, mid = 43 cm./sec. Post. Tibial Artery, mid = 46 cm./sec. Peroneal Artery,dist. = 32 cm./sec. Post. Tibial Artery, dist = 356 cm./sec. Peroneal Artery, prox = 50 cm./sec. Peroneal Artery, mid = 66 cm./sec. Peroneal Artery,dist = 52 cm./sec. Procedure Exam performed in department. Interpretation Summary 1. Right leg no stenosis and widely patent SFA stent. 2. Distal posterior tibial on right severe stenosis otherwise triphasic flow into ankle. 3. Moderate left SFA stenosis but triphasic flow into ankle through tibials. Ordering Physician: Kyle Fields Referring Physician: AMY SHOEMAKER MD Performed By: Alisa Palumbo, ERIN, RVT 11/12/17 1740 Date Kyle Fields MD CC: Kyle Fields MD; Amy Shoemaker MD Date Dictated: 11/12/17929 Date Transcribed: 11/12/171739 Dice Table Person: Signed PT D/C SUMMARY (1) Observed: 10/22/2017 Status: F Source: HO 1:11 PM [facility] REPOSITORY [facility] [address] [place] [address] Fax REHABILITATION SERVICES DISCHARGE SUMMARY MR#: [id number] Acct: [id number] Name: BEN PAL Rep #: [id number] : 1935 82 From: Glenn Saravia PT, ATC Referring Dr.: OUT [facility] DOCTOR Status: REG RCR Insurance: [employer] SELF PAY INSURANCE HP - PT D/C Summary It has been my pleasure to treat BEN PAL under orders from [facility] Doctor, for the diagnosis of gait instability for a total of 17 visit(s). Discharge Date: Please see the following information for a summary of their discharge status. - Subjective Subjective: Pt reports he feels more stable after having PT - Objective Objective/Function: B LE MMT: 5/5 throughout. Roberts balance scale: 49/56. Pt is I with HEP. All Rx goals achieved except increased Roberts scale - Goals Goal 1:: Increase B LE strength x 1 grade to aid with stair negotiation Goal Progress: Goal Met Goal 2:: Increase Roberts balance score x 2-5 pnts to aid with increasing SDB Goal Progress: Goal Met Goal 3:: I with HEP Goal Progress: Goal Met - Plan Plan: Discharge - D/C Information If there are questions or concerns regarding this patient's physical therapy, please feel free to call me at [phone]. Thank you for the referral of this patient. Sincerely, Glenn Saravia, PT, <Electronically signed by Glenn Saravia PT, ATC> 10/22/17 1311 CC: Amy Shoemaker MD; [facility] [place] DOCTOR [facility] Signed RE-EVALUATION - PT (1) Observed: 09/22/2017 Status: F Source: HO 11:05 AM [facility] REPOSITORY [facility] [address] [place] [address] Fax REEVALUATION / MEDICARE RECERTIFICATION PHYSICAL THERAPY MR#: [id number] Acct: [id number] Name: BEN PAL Rep #: [id number] : 1935 82 From: Glenn Saravia PT, ATC Referring Dr.: OUT OF [facility] DOCTOR Status: REG RCR Insurance: [employer] SELF PAY INSURANCE Out of [facility] Doctor, It has been my pleasure to treat BEN PAL over the last 9 visits for gait instability. Please see the progress note below for an update on the physical therapy plan of care! Subjective: Pt feels like he is improving. He hasnt fallen for weeks now. Objective/Function: MMT: L LE grossly 4+/5 throughout; R LE 4-/5 throughout. Roberts balance scale: 47. getting ready to begin safe HEP. Pt is progressing with strength, would definitely benefit from further balance activity to prevent future falls Plan Plan: cont 2 times per week for 4 weeks Goals Goal 1:: Increase B LE strength x 1 grade to aid with stair negotiation Goal Time Frame: 4-6 Weeks Goal Progress: Progressing Goal 2:: Increase Roberts balance score x 2-5 pnts to aid with increasing SDB Goal Time Frame: 4-6 Weeks Goal 3:: I with HEP Goal Time Frame: 4-6 Weeks Goal Progress: Progressing Anticipated Interventions Patient/Client Instruction: Educate patient on: Condition, Plan of Care For the Purpose of:: To improve self management Therapeutic Exercise to Include: Strength training, Endurance training, Balance training, Gait and locomotor training, Dynamic Lumbar Stabilization For the Purpose of:: To increase ROM, To improve muscle performance and motor function Please do not hesitate to contact me at [phone] by phone or if you have questions or concerns regarding this new plan of care! Sincerely, Glenn Saravia PT, <Electronically signed by Glenn Saravia PT, ATC> 09/22/17 1105 CC: Amy Shoemaker MD; OUT OF [facility] DOCTOR [facility] Signed For Medicare only, by signing this I certify the plan of care. Physicians Signature Date CBC-COMPLETE BLOOD CNT Collected: 08/31/2017 Status: F Source: HO NO DIFF 2:09 PM [facility] REPOSITORY TYPE CODE TESTS RESULT OUT OF RANGE REFERENCE UNITS LAB L100.1000 4.4-11.0 K/mm3 Normal WBC 6.8 LAB L100.1200 4.6-6.2 M/mm3 Low RBC 4.17 LAB L100.1300 13.0-16.5 g/dl Low HGB 12.1 LAB L100.1400 40-54 % Low HCT 37.4 LAB L100.1500 80-94 fL Normal MCV 89.7 LAB L100.1600 27.0-32.0 pg Normal MCH 29.0 LAB L100.1700 32-36 g/gl Normal MCHC 32.4 LAB L100.1810 11.6-14.6 % Normal RDW CV 12.6 LAB L100.1820 35.1-43.9 fl Normal RDW SD 40.9 LAB L100.1900 150-450 K/mm3 Normal PLT 212 LAB L100.2000 6.2-12.0 fl Normal MPV 10.6 Performed By: #### L100.0500 #### [facility] [address] [place], [place], [address] VITAMIN B12 Collected: 08/31/2017 Status: F Source: HO 2:09 PM [facility] REPOSITORY TYPE CODE TESTS RESULT OUT OF RANGE REFERENCE UNITS LAB L503.0105 211-911 pg/mL Normal Vitamin B12 460 Performed By: #### L503.0105, L509.3000, L509.4000 #### [facility] [address] [place], [address] TESTOSTERONE, SERUM TOTAL Collected: 08/31/2017 Status: F Source: HO 2:09 PM [facility] REPOSITORY TYPE CODE TESTS RESULT OUT OF REFERENCE UNITS RANGE LAB L509.3000 ng/dL Testosterone Normal 295.71 Result Comment: NORMAL REFERENCE RANGES MALE AGE <50 123.06 - 813.86 ng/dL MALE AGE >50 89.98 - 780.10 ng/dL FEMALE PREMENOPAUSE AGE 21 - 60 9.01 - 47.94 ng/dL FEMALE POSTMENOPAUSE AGE 45 - 89 <7.00 - 45.62 ng/dL REFERENCE RANGE AND METHODOLOGY CHANGED 06/17/2017 Performed By: #### L503.0105, L509.3000, L509.4000 #### [facility] [address] [place], [address] RUBELLA IGG Collected: 08/31/2017 Status: F Source: OTIS 2:09 PM [facility] REPOSITORY TYPE CODE TESTS RESULT OUT OF RANGE REFERENCE UNITS LAB L509.4000 IU/mL Normal Rubella IgG > 500.0 Result Comment: Antibody results Interpretation of Immune Status < 5 IU/ml Presumed Non-immune 5 - < 10 IU/ml Equivocal > or = 10 IU/ml Presumed Immune Performed By: #### L503.0105, L509.3000, L509.4000 #### [facility] [address] [place], [place], [address] COMPREHENSIVE METABOLIC Collected: 08/31/2017 Status: F Source: [facility] 2:09 PM [facility] REPOSITORY Order Comment: Is Patient Taking Vitamins or Folic Acid Supplements? N TYPE CODE TESTS RESULT OUT OF RANGE REFERENCE UNITS LAB L501.0100 74-106 mg/dL High GLU 153 Result Comment: Fasting Glucose result greater than or equal to 126 mg/dL suggests DIABETES MELLITUS per A.D.A. criteria. Please note revised GLUCOSE reference range effective 2017. LAB L501.1000 7-18 mg/dL High BUN 23 LAB L501.1100 0.70-1.30 mg/dL Normal CREAT,SERUM 1.27 Result Comment: The validity of the calculated GFR AND GFRAA in patients over 70 years has not been determined. Clinical correlation is essential. LAB L501.1110 >60 mL/min Low EST GFR 58 Result Comment: Non- GFR Calc LAB L501.1115 >60 mL/min Normal EST GFR - AA 70 Result Comment: GFR Calc LAB L501.1300 10-20 RATIO Normal BUN/CRE 18.1 LAB L501.1500 6.4-8.2 g/dL T Normal PROT 7.4 LAB L501.1800 3.2-5.0 g/dL Normal ALB 3.4 LAB L501.1950 2.2-4.2 g/dL Normal GLOB 4.0 LAB L501.2000 0.9-2.4 RATIO Low A/G 0.8 LAB L501.2200 8.5-10.1 mg/dL CA Normal 9.4 LAB L501.4100 15-37 U/L Normal AST 28 LAB L501.4305 45-117 U/L Normal ALK P 71 LAB L501.4405 16-61 U/L Normal ALT 31 Result Comment: Please note revised ALT reference range effective 2017. LAB L501.4600 0.20-1.00 mg/dL Normal T BILI 0.60 LAB L501.5300 136-145 mmol/L Normal NA 142 LAB L501.5600 3.5-5.1 mmol/L Normal K 4.1 LAB L501.5900 98-107 mmol/L Normal CL 106 LAB L501.6100 21.0-32.0 mmol/L Normal CO2 27.0 LAB L501.6200 5-15 Normal GAP 9 Performed By: #### L500.4050, L501.2300, L501.5200, L501.76736, L501.9520, L505.7010, L506.0250, L506.0400 #### [facility] [address] [place], [address] PHOSPHORUS Collected: 08/31/2017 Status: F Source: HO 2:09 PM [facility] REPOSITORY Order Comment: Is Patient Taking Vitamins or Folic Acid Supplements? N TYPE CODE TESTS RESULT OUT OF RANGE REFERENCE UNITS LAB L501.2300 2.5-4.9 mg/dL Normal PHOS 4.0 Performed By: #### L500.4050, L501.2300, L501.5200, L501.19767, L501.9520, L505.7010, L506.0250, L506.0400 #### [facility] [address] [place], [address] MAGNESIUM Collected: 08/31/2017 Status: F Source: HO 2:09 PM [facility] REPOSITORY Order Comment: Is Patient Taking Vitamins or Folic Acid Supplements? N TYPE CODE TESTS RESULT OUT OF RANGE REFERENCE UNITS LAB L501.5200 1.6-2.6 mg/dL Normal MG 2.3 Result Comment: Please note revised Magnesium reference range effective 2017. Performed By: #### L500.4050, L501.2300, L501.5200, L501.07467, L501.9520, L505.7010, L506.0250, L506.0400 #### [facility] [address] [place], [address] FREE T3 Collected: 08/31/2017 Status: F Source: HO 2:09 PM [facility] REPOSITORY Order Comment: Is Patient Taking Vitamins or Folic Acid Supplements? N TYPE CODE TESTS RESULT OUT OF RANGE REFERENCE UNITS LAB L501.13258 2.18-3.98 pg/mL Low FREE T3 2.1 Performed By: #### L500.4050, L501.2300, L501.5200, L501.43613, L501.9520, L505.7010, L506.0250, L506.0400 #### [facility] [address] [place], [address] THYROID STIM HORMONE Collected: 08/31/2017 Status: F Source: HO (TSH) 2:09 PM [facility] REPOSITORY Order Comment: Is Patient Taking Vitamins or Folic Acid Supplements? N TYPE CODE TESTS RESULT OUT OF RANGE REFERENCE UNITS LAB L501.9520 0.358-3.74 uIU/mL Normal TSH 1.61 Performed By: #### L500.4050, L501.2300, L501.5200, L501.15444, L501.9520, L505.7010, L506.0250, L506.0400 #### [facility] [address] [place], [place], [address] RHEUMATOID FACTOR Collected: 08/31/2017 Status: F Source: HO 2:09 PM [facility] REPOSITORY Order Comment: Is Patient Taking Vitamins or Folic Acid Supplements? N TYPE CODE TESTS RESULT OUT OF RANGE REFERENCE UNITS LAB L505.7010 <15 IU/mL Normal RHEUMATOID FAC < 10.0 Performed By: #### L500.4050, L501.2300, L501.5200, L501.57331, L501.9520, L505.7010, L506.0250, L506.0400 #### [facility] [address] [place], [place], [address] FOLATES, (FOLIC ACID) Collected: 08/31/2017 Status: F Source: HO 2:09 PM [facility] REPOSITORY Order Comment: Is Patient Taking Vitamins or Folic Acid Supplements? N TYPE CODE TESTS RESULT OUT OF RANGE REFERENCE UNITS LAB L506.0250 3.1-55.4 ng/mL Normal FOLATES 33.10 Performed By: #### L500.4050, L501.2300, L501.5200, L501.56045, L501.9520, L505.7010, L506.0250, L506.0400 #### [facility] [address] [place], [address] T4 FREE DIRECT Collected: 08/31/2017 Status: F Source: HO 2:09 PM [facility] REPOSITORY Order Comment: Is Patient Taking Vitamins or Folic Acid Supplements? N TYPE CODE TESTS RESULT OUT OF RANGE REFERENCE UNITS LAB L506.0400 0.76-1.46 ng/dL Normal T4 FREE 0.90 DIRECT Performed By: #### L500.4050, L501.2300, L501.5200, L501.79133, L501.9520, L505.7010, L506.0250, L506.0400 #### [facility] [address] [place], [place], [address] RAPID PLASMIN REAGIN Collected: 08/31/2017 Status: F Source: HO (RPR) 2:09 PM [facility] REPOSITORY TYPE CODE TESTS RESULT OUT OF REFERENCE UNITS RANGE LAB L700.5000 NONREACTIVE NONREACTIVE Normal RPR Performed By: #### L700.5000 #### [facility] [address] [place], [address] INITAL EVALUATION (1) Observed: 08/25/2017 Status: F Source: HO - PT 10:40 AM [facility] REPOSITORY [facility] [address] [place], [place] [address] Fax REHABILITATION SERVICES INITIAL EVALUATION MR#: [id number] Acct: [id number] Name: BEN PAL Rep #: [id number] : 1935 82 From: Glenn Saravia PT, ATC Referring Dr.: OUT OF TOWN DOCTOR Status: REG RCR Insurance: [facility] MED[facility] SELF PAY INSURANCE Patient's Visit Information BEN PAL is a 82 year old M referred to Physical Therapy by Out of Town Doctor with a diagnosis of gait instability. Date of Evaluation: 08/25/17 Physical Therapist: Glenn Saravia PT, - Visit Plan Frequency: 2-3x /Week Duration: 4 Weeks Plan: B LE strengthening, balance and proprio, gait training, core strengthening, nustep, and HEP - Subjective Subjective: Pt reports he had spinal fusion in May in his LB. 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 No recent falls, or any in the past. Pt reports he has a tendency since his strokes to lean toward his L while ambulating. Pt reports this has caused him to almost lose his balance, but he hasn't yet. Pt reports he has been ambulating with a cane for the past 2 years. Pt reports he has good sensation in his feet. Pt reports occasional LBP, but no pain this date. No diff with sleep at this time. Pt has 2 steps into his house that he has to negotiate one at a time. No residual weakness from his strokes. - Objective Neuro: B LE sensation is WNL to light touch. B pat tendon reflex= 1/3. MMT: R LE is grossly 4-/5 throughout while L LE is 4/5 throughout. Gait: Pt ambulates with a very slow cadance and use of standard cane. Balance: Roberts Balance scale 50/56, indicating low fall risk - Goals Goal 1:: Increase B LE strength x 1 grade to aid with stair negotiation Goal Time Frame: 4-6 Weeks Goal 2:: Increase Roberts balance score x 2-5 pnts to aid with increasing SDB Goal Time Frame: 4-6 Weeks Goal 3:: I with HEP Goal Time Frame: 4-6 Weeks - Rehabilitation Potential Physical Therapy Diagnosis: LE weakness and gait instability secondary to debilitation Rehabilitation Potential: Good - Anticipated Interventions Patient/Client Instruction: Educate patient on: Condition, Plan of Care For the Purpose of:: To improve self management Therapeutic Exercise to Include: Strength training, Endurance training, Balance training, Gait and locomotor training, Dynamic Lumbar Stabilization For the Purpose of:: To increase ROM, To improve muscle performance and motor function Thank you for the opportunity to evaluate your patient. For Medicare and Medicare HMO plans, please review the plan of care and approve it. It will need to be FAXED BACK to us at [phone] for Medicare purposes. Please let me know if there are questions or concerns regarding this plan of care. Physician Signature: Date: <Electronically signed by Glenn Saravia PT, ATC> 08/25/17 1040 CC: Amy Shoemaker MD; OUT OF [facility] DOCTOR [facility] Signed For Medicare only, by signing this I certify the plan of care. Physicians Signature Date BASIC METABOLIC Collected: 07/29/2017 Status: F Source: HO PROFILE (BMP) 10:35 AM [facility] REPOSITORY TYPE CODE TESTS RESULT OUT OF RANGE REFERENCE UNITS LAB L501.0100 70-110 mg/dL High GLU 111 Result Comment: Fasting Glucose result from 110 to <126 mg/dL suggests IMPAIRED HOMEOSTASIS per A.D.A. criteria. LAB L501.1000 7-18 mg/dL Normal BUN 17 LAB L501.1100 0.70-1.30 mg/dL Normal CREAT,SERUM 1.12 Result Comment: The validity of the calculated GFR AND GFRAA in patients over 70 years has not been determined. Clinical correlation is essential. LAB L501.1110 >60 mL/min Normal EST GFR 67 Result Comment: Non- GFR Calc LAB L501.1115 >60 mL/min Normal EST GFR - AA 81 Result Comment: GFR Calc LAB L501.1300 10-20 RATIO Normal BUN/CRE 15.2 LAB L501.2200 8.5-10.1 mg/dL CA Normal 9.6 LAB L501.5300 136-145 mmol/L NA Normal 139 LAB L501.5600 3.5-5.1 mmol/L K Normal 4.3 LAB L501.5900 98-107 mmol/L CL Normal 103 LAB L501.6100 21.0-32.0 mmol/L Normal CO2 28.0 LAB L501.6200 5-15 Normal GAP 8 Performed By: #### L500.2500 #### [facility] [address] [place], [address] ALLERGIES ALLERGIES DATE TYPE / CODE NAME / CODE REACTION SEVERITY SOURCE 06/03/2018 Drug Influenza Virus Hives Unknown [facility] Allergy/416 Vaccines/U475984 Hospital 290927(SNOM 512(RXNORM) Repository ED CT) Drug NO KNOWN [facility] Class/70889 ALLERGIES Main [place] 1003(SNOMED Repository CT) ENCOUNTERS ENCOUNTERS ADMIT/DISCHARGE ACCOUNT NUMBER ADMITTING ENCOUNTER LOCATION SOURCE CLASS 06/03/2018 [id number] Ambulatory B[place]Building: [place] BMS.[facility] Repository 06/03/2018 [id number] Ambulatory General acute hospital ding:OMD Repository 05/31/2018 [id number] Ambulatory General acute hospital ding:RAD.FUT Repository URE 05/13/2018/05/13/20 [id number] Ambulatory BMSBuilding: [place] [address] BMS.[facility] [place] [place] Repository 05/04/2018 [id number] Ambulatory Building:[facility] Repository 05/03/2018/11/06 [id number] Ambulatory [address] Repository 04/30/2018 [id number] Ambulatory Building:CT2 [facility] Repository 04/29/2018 [id number] Ambulatory Building:CT2 [facility] Repository 04/27/2018 [id number] Ambulatory Building:CT2 [facility] Repository 04/22/2018 [id number] Ambulatory Building:CT2 [facility] Repository 04/22/2018 [id number] Ambulatory Building:CT2 [facility] Repository 04/20/2018 [id number] Ambulatory Building:[facility] Repository 04/07/2018 [id number] Ambulatory Building:CT2 [facility] Repository 04/07/2018 [id number] Ambulatory Building:CT2 [facility] Repository 04/06/2018 [id number] Ambulatory Building:CT2 [facility] Repository 03/22/2018 [id number] Ambulatory Building:CCT [facility] Repository 03/16/2018 [id number] Ambulatory BMSBuilding: [place] BMS.[facility] Repository 03/11/2018 [id number] [facility] [place] [facility] [facility] Repository 03/08/2018 [id number] Ambulatory Building:[facility] Repository 03/08/2018 [id number] Ambulatory General acute hospital ding:ONC Repository 03/02/2018/03/02/20 [id number] Ambulatory BMSBuilding: [place] 18 BMS.[facility] Hospital Repository 02/19/2018 [id number] Ambulatory General acute hospital ding:CT Repository 01/29/2018 [id number] Ambulatory Building:[facility] Repository 01/29/2018/01/31/20 [id number] [place]re[place], Ambulatory [place] [facility] ding:GC8Pedf Repository : MS118Pfj: 1 01/29/2018 [id number] Tereletsky, Ambulatory BMSBuilding: [place] [facility]MS.[facility] Repository 01/29/2018 [id number] Tereletsky, Ambulatory BMSBuilding: [place] BMS.CF.[facility] [place] [place] Repository 01/29/2018 [id number] Mariangeleletsky, Ambulatory BMSBuilding: [place] BMS.[facility] Repository 01/25/2018/01/28/20 [id number] Ambulatory [address] Repository 01/25/2018/01/26/20 [id number] Ambulatory [address] Repository 11/12/2017 [id number] Ambulatory General acute hospital ding:CVS Repository 10/22/2017/10/23/19 [id number] Ambulatory [address] ding:PT Repository 08/31/2017 [id number] [facility] ding:LAB Repository 07/29/2017 [id number] [facility] ding:MTLAB Repository PAYERS PAYERS ENCOUNTER GUARANTOR PAYER SUBSCRIBER SOURCE 06/03/2018 BEN Dixon Primary BEN Dixon Ho [id number] [place] [facility] [place] [id number] Hospital 94674Ixn: (330) Number: Repository [phone] () [id number] Date:6438-25-23AY [address] [place] [address]TN: 06/03/2018 Secondary NOT GIVENUNK [place] Insurance:SELF PAY [facility] Number: Effective Repository Date:2018-06-03 06/03/2018 BEN Dixon Primary BEN Dixon [place] [id number] [place] Insurance[facility] [place] [id number] Hospital 55084Hsq: (330) Number: Repository [phone] (HP) [id number] Date:5259-62-84EL[address] [address]JX: 06/03/2018 Secondary NOT GIVENUNK Ho Insurance:SELF PAY [facility] Number: Effective Repository Date:2018-03-02 05/31/2018 BEN Dixon Primary BEN Dixon [place] [id number] [place] [facility]: [place] [id number] Hospital 14458Bmm: (330) Number: Repository [phone] () [id number] Date:3929-34-67RN[address] [address]CC: 05/31/2018 Secondary NOT GIVENUNK [place] Insurance:SELF PAY [facility] Number: Effective Repository Date:2018-04-22 05/13/2018 BEN Dixon Primary BEN Dixon [place] [id number] [place] Insurance:[facility] RABERDOB: [place] [id number] Hospital 13185Swn: (330) Number: Repository [phone] () [id number] Date:8153-25-49OP[address] [address]OE: 05/13/2018 Secondary NOT GIVENUNK Ho Insurance:SELF PAY [facility] Number: Effective Repository Date:2018-05-07 05/04/2018 BEN CLAYERDOB: Primary BEN RABERDOB: [facility] Insurance:[facility] [id number] [employer] [place] licy Number: [place], [place] [id number]. Mary's Medical Center [address]Rmx: (330) Date:7342-42-48Vgud 78926Ndr: (330) Repository [phone] () Name:[facility] [phone] () [address] [place] [address] 46[address]VB: 04/30/2018 BEN RABERDOB: Primary BEN RABERDOB: [facility] Insurance:[facility] [id number] [employer] [place] licy Number: [place] [id number] [place], [place] Center [address]Qzq: (330) Date:8073-24-83Bugm 81196Sji: (330) Repository [phone] (HP) Name:[address]ARE[phone] (HP) [place], [place] [address]WB: 04/29/2018 BEN RABERDOB: Primary BEN RABERDOB: [facility] Insurance:[facility] [id number] [place] licy Number: [place], [place] [id number]. Mary's Medical Center [address]Rds: (330) Date:8306-29-03Mwdr 38126Wov: (330) Repository [phone] () Name:[facility] [phone] (HP) [address] [place] [address] 288[address]SR: 04/27/2018 BEN RABERDOB: Primary BEN RABERDOB: [facility] Insurance:[facility] [id number] [address] [place] licy Number: [place], [place] [id number]. Mary's Medical Center [address]Mwc: (330) Date:5747-69-75Yivr 87870Csj: (330) Repository [phone] () Name:[phone] (HP) [facility] [address]GQ: 04/22/2018 BEN RABERDOB: Primary BEN RABERDOB: [facility] Insurance:[facility] [id number] [address] [place] licy Number: [place], [place] [id number]. Mary's Medical Center [address]Fpi: (330) Date:3163-21-17Ffah 43704Vgw: (330) Repository [phone] (HP) Name:[phone] (HP) [address] [place] [address] 16414UJ: 04/22/2018 BEN RABERDOB: Primary BEN RABERDOB: [facility] Insurance:[facility] [id number] [address] [place] licy Number: [place], [place] [id number] [facility] 235[address]Ajj: (330) Date:3847-93-17Fiuj 76334Vbk: (330) Repository [phone] (HP) Name:[phone] (HP) [place], [place] [address]WQ: 04/20/2018 BEN RABERDOB: Primary BEN RABERDOB: [facility] Insurance:[facility] [id number] [address] [place] licy Number: [place], [place] [id number] [facility] [address]Fju: (330) Date:4112-75-41Ndwb 23685Ini: (330) Repository [phone] (HP) Name:[phone] (HP) [place], [place] [address]LH: 04/07/2018 BEN RABERDOB: Primary BEN RABERDOB: [facility] Insurance:[facility] [id number] [place] licy Number: [place], [place] [id number] [facility] 625[address]Lxy: (330) Date:3053-66-93Wing 14735Jna: (330) Repository [phone] (HP) Name:[phone] (HP) [facility] [place] [address]YL: 04/07/2018 BEN RABERDOB: Primary BEN RABERDOB: [facility] Insurance:[facility] [id number] [employer] [place] licy Number: [place], [place] [id number] [facility] [address]Den: (330) Date:5281-78-92Tptf 71526Ull: (330) Repository [phone] (HP) Name:[phone] (HP) [place], [place] [address]VR: 04/06/2018 BEN RABERDOB: Primary BEN RABERDOB: [facility] Insurance:[facility] [id number] [address] [place] lic Number: [place], [place] [id number]. Mary's Medical Center [address]Ynr: (330) Date:8127-87-47Echt 55170Ofw: (330) Repository [phone] () Name:[facility] [phone] () [address] [place] [address] 99[address]DP: 03/22/2018 BEN RABERDOB: Primary BEN RABERDOB: [facility] Insurance:[facility] [id number] [address] [place] lic Number: [place], [place] [id number]. Mary's Medical Center 18686Yfy: (330) Date:7603-36-09Wvdl 74303Bum: (330) Repository [phone] () Name:CARE [phone] () [facility], [place] [address]CB: 03/16/2018 BEN Dixon Primary BEN L Ho [id number] [place] Insurance:[facility] CARE RABERDOB: [place] [id number] Hospital 926[address]Yhu: (330) Number: Repository [phone] () [id number] Date:5619-70-65XL BOX [facility] HospitalBinuW[place], [place] [address]AI: 03/16/2018 Secondary NOT GIVENUNK Ho Insurance:SELF PAY [facility] Number: Effective Repository Date:2018-03-16 03/11/2018 BEN Dixon Primary BEN Dixon [place] [id number] [place] Insurance[facility] [place] [id number] Hospital 38614Yju: (330) Number: Repository [phone] () [id number] Date:9291-05-71FR [address] [address]XW: 03/11/2018 Secondary NOT GIVENUNK [place] Insurance:SELF PAY [facility] Number: Effective Repository Date:2018-03-11 03/08/2018 BEN RABERDOB: Primary BEN RABERDOB: [facility] Insurance:MEDICARE [id number] [facility] [place] Number: [facility] [address]Yrr: (330 [id number] 415[address]Yef: (330) Repository [phone] () Date:5817-48-09Uomj [phone] () Name:CARE 03/08/2018 BEN Dixon Primary BEN Dixon [place] [id number] [place] Insurance:[facility] CARE RABERDOB[place] [id number] Hospital 38148Mcr: (330) Number: Repository [phone] () [id number] Date:2528-20-52XN[address] [address]DK: 03/08/2018 Secondary NOT GIVENUNK [place] Insurance:SELF PAY [facility] Number: Effective Repository Date:2018-03-04 03/02/2018 BEN Dixon Primary BEN Dixon [place] [id number] [place] Insurance[facility] [place]OB[place] [id number] Hospital 83810Kvk: (330) Number: Repository [phone] () [id number] Date:3904-36-78VF [address] [address]GQ: 03/02/2018 Secondary NOT GIVENUNK [place] Insurance:SELF PAY [facility] Number: Effective Repository Date:2018-02-23 02/19/2018 BEN Dixon Primary BEN Dixon [place] [id number] [place] Insurance:[facility] CARE RABERDOB[place] [id number] Hospital 67323Wce: (330) Number: Repository [phone] () [id number] Date:1881-84-69WI [address] [address]NC: 02/19/2018 Secondary NOT GIVENUNK Ho Insurance:SELF PAY [facility] Number: Effective Repository Date:2018-02-01 01/29/2018 BEN Dixon Primary BEN Dixon [place] [id number] [place] Insurance:[facility] CARE RABERDOB[place] [id number] [place] [id number]: (330) Number: Repository [phone] () [id number] Date:9308-21-75QL [address] [address]ZS: 01/29/2018 Secondary NOT GIVENUNK Ho Insurance:SELF PAY [facility] Number: Effective Repository Date:2018-01-29 01/29/2018 BEN Dixon Primary BEN Dominguezoster [id number] [place] Insurance:[facility] C[facility] RABERDOB: [place] [id number] Hospital 31856Kgv: (330) Number: Repository [phone] () [id number] Date:1441-76-40IC [address] [address]EF: 01/29/2018 Secondary NOT GIVENUNK [place] Insurance:SELF PAY [facility] Number: Effective Repository Date:2018-01-29 01/29/2018 BEN Dixon Primary BEN Dominguezoster [id number] [place] Insurance:[facility] RABERDOB: [place] [id number] [place] [id number]: (330) Number: Repository [phone] () [id number] Date:9626-34-06PP [address] [place], [place] [address]JT: 01/29/2018 Secondary NOT GIVENUNK Ho Insurance:SELF PAY [facility] Number: Effective Repository Date:2018-01-29 01/29/2018 BEN Dixon Primary BEN Dixon Ho [id number] [place] Insurance:[facility] C[facility] RABERDOB[place] [id number] Ville [address]Tel: (330) Number: Repository [phone] () [id number] Date:4440-86-62TF [address] [place] [address]HA: 01/29/2018 Secondary NOT GIVENUNK Ho Insurance:SELF PAY [facility] Number: Effective Repository Date:2018-01-29 11/12/2017 BEN Dixon Primary BEN Dominguezoster [id number] [place] Insurance:[facility] C[facility] RABERDOB[place] [id number] [place]ille [id number]: Number: Repository [phone] [id number] () Date:7277-58-93KY [address] [address]FG: 11/12/2017 Secondary NOT GIVENUNK Ho Insurance:SELF PAY [facility] Number: Effective Repository Date:2017-10-26 10/22/2017 BEN Dixon Primary BEN Dominguezoster [id number] [place] Insurance:[facility] RABERDOB[place] [id number] [place]ille [id number]: (330) Number: Repository [phone] () [id number] Date:9279-08-42UH [address] [place] [address] 10[address]NT: 10/22/2017 Secondary NOT GIVENUNK [place] Insurance:SELF PAY [facility] Number: Effective Repository Date:2017-08-18 08/31/2017 Ben Dixon Primary Ben Dixon [place] [id number] [place] Insurance:[facility] C[facility] RaberDOB: [place] [id number] Hospital 36[address]Fpz: Number: Repository [phone] [id number] (HP) Date:5070-74-03OJ[address] [address]GG: 08/31/2017 Secondary NOT GIVENUNK [place] Insurance:SELF PAY [facility] Number: Effective Repository Date:2017-08-31 07/29/2017 BEN L Primary BEN L [place] [id number] [place] [facility] [place] [id number] Hospital 24650Xsr: (330) Number: Repository [phone] () [id number] Date:3990-80-60WE [address] [address]QO: 07/29/2017 Secondary NOT GIVENUNK [place] Insurance:SELF PAY [facility] Number: Effective Repository Date:2017-07-29
== END ==
PROVIDERS: Family Provider Family Medicine; PCP Family Medicine; Referring Provider Student in an Organized Health Care Education/Training Program; Visit Provider Student in an Organized Health Care Education/Training Program
DX: C34.90 Malignant neoplasm of unspecified part of unspecified bronchus or lung (principal)
CPT/HCPCS: 71046

== ENCOUNTER → 2018-08-03 15:04 | Outpatient (CLI) | payer MEDICARE, SELFPAY ==
[2018-03-16 10:03] VITALS: BMI 25.2
[2018-05-13 11:14] VITALS: BMI 24.5
--- NOTE | 2018-08-03 15:07 | CT_ITS ---
STUDY: CT CHEST/THORAX WITHOUT CONTRAST REASON FOR EXAM: Male, 83 years old. Lung cancer follow-up. History of radiation therapy. RADIATION DOSAGE (If Supplied By Facility): CTDIvol = ( 13.95 ) mGy, DLP = ( 477.11 ) mGycm TECHNIQUE: Transaxial imaging was performed without the administration of intravenous contrast material. Multiplanar coronal and sagittal images were reformatted. Individualized dose optimization techniques were used for this CT. COMPARISON: PET/CT March 08, 2018. FINDINGS: The generator of a dual-lead left subclavian pacemaker is in the anterior chest wall at the level of the clavicle. The leads again extend to the right atrium and ventricle. Previously described pleural-based neoplastic lesion in the posterior apical right upper lobe is borderline decrease in size. However, a rounded 2.2 x 1.8 x 2.5 cm spiculated lesion is now seen in the medial right lung apex (series 2 image 57, series 602 image 51) abutting the medial pleural surface. Create minor increased size of subsegmental mixed interstitial and minor alveolar airspace disease in the posterior periphery of the right lung at the mid chest, which may reflect chronic postinflammatory or post radiation change. This is also seen to a mildly greater degree now in the posterolateral periphery of the right lung base. No new infiltrate or mass in the left lung. A few emphysematous changes are again noted in the left upper lobe, and there is minor chronic interstitial change in the inferolateral left base. There is no demonstrated pleural effusion. Normal heart size. There is stable focal thickening of the anterior pericardium. There are stable calcifications of the coronary arteries. No new upper mediastinal adenopathy There is nonspecific 1.7 x 0.55 x 0.5 cm low right subcarinal lymph node. Normal hilar regions. Normal unenhanced pulmonary arteries. There are calcifications of the mitral valve leaflets. There is stable atherosclerotic calcification of the ascending aorta, aortic arch, proximal brachiocephalic arteries, and descending thoracic aorta. There is stable 4 cm ectasia of the mid ascending aorta, while the mid descending segment is 3.1 x 3.2 cm. There are stable multi-level mild degenerative changes of the thoracic spine. There are stable calcifications/calcified lymph nodes at the liver hilum. CT/Chest without Contrast IMPRESSION: 1. Borderline decreased size of previously noted pleural-based neoplastic lesion in the posterior apical right upper lobe. However, a new 2.5 cm spiculated mass is now seen in the medial right lung apex abutting the medial pleural surface, highly worrisome for new malignancy. 2. No new adenopathy or pleural effusion. 3. Mixed interstitial and minimal alveolar airspace disease in the posterior periphery of the right lung at the mid chest as well as in the posterolateral right lung base is mildly more conspicuous today. This may be inflammatory or post radiation change. 4. Atherosclerotic vascular calcifications again noted. There is stable 4 cm ectasia of the mid ascending aorta. 5. Dual lead left subclavian cardiac pacemaker again noted. Electronically Signed: Apolinar Buckley MD at 20:04 EST , Service support ,
== END ==
PROVIDERS: Family Provider Family Medicine; PCP Family Medicine; Referring Provider Student in an Organized Health Care Education/Training Program; Visit Provider Student in an Organized Health Care Education/Training Program
DX: C34.90 Malignant neoplasm of unspecified part of unspecified bronchus or lung (principal)
CPT/HCPCS: 71250

== ENCOUNTER → 2018-08-09 08:24 | Outpatient (CLI) | payer MEDICARE, SELFPAY ==
[2018-03-16 10:03] VITALS: BMI 25.2
[2018-05-13 11:14] VITALS: BMI 24.5
--- NOTE | 2018-08-09 07:12 | PET_ITS ---
EXAMINATION: FDG PET/CT INDICATIONS: An 83-year-old male with history of carcinoma of the lung and prostate presenting for restaging examination. COMPARISON EXAMINATION: Previous FDG PET study dated 03/08/18, CT of the chest report dated 08/03/18 INDEX LESION SIZE SUV INTERPRETATION PERSISTENT: right upper medial lung field, right upper lobe 21.8-mm (frame 250) comp. to 7.1-mm (03/08/18) 4.7 comp. to 1.7 (03/08/18) Fulfills quantitative criteria for viable neoplasm PERSISTENT: right upper posterior hemithorax pulmonary parenchyma, right upper lobe 1.8 comp. to 7.7 (03/08/18) Quantitative criteria for viable neoplasm are not fulfilled NEW: right carinal level mediastinum 15.6-mm (frame 233) 3.3 Fulfills borderline quantitative criteria for viable neoplasm TECHNIQUE: Following the intravenous administration of 16.13 mCi of F-18 deoxyglucose via the left antecubital fossa, multiplanar image acquisitions of the neck, chest, abdomen and pelvis to level of mid thigh, obtained at one hour post radiopharmaceutical administration contemporaneously interpreted with the current CT of the neck, chest, abdomen and pelvis to level of mid thigh, dated 08/09/18 via coregistration and previous FDG PET study dated 03/08/18, CT of the chest report dated 08/03/18 reveal: SERUM GLUCOSE LEVEL: 132 mg/dl. HEIGHT: 70 inches. WEIGHT: 178 lbs. FINDINGS: 1. Redefined increased glucose metabolism is manifest in the right upper medial hemithorax pulmonary parenchyma, right upper lobe, generating a calculated maximal standard uptake value of 4.7, compared to 1.7 defined on the FDG PET study dated 03/08/18. The maximal axial diameter of the corresponding parenchymal density on review of CT of the chest dated 08/09/18 is 21.8-mm (AP). 2. Facilitated FDG concentration is newly visualized in the carinal level mediastinum to the right of the midline involving lymph node station 4R. The calculated maximal standard uptake value is 3.3. The maximal axial diameter of the corresponding soft tissue density on review of CT of the chest dated 08/09/18 is 15.6-mm (transverse). 3. Barely perceptible increased FDG concentration remains apparent in the right upper posterior lung field, right upper lobe, generating a calculated maximal standard uptake value of 1.8, compared to 7.7 defined on the FDG PET study dated 03/08/18. 4. Normal physiologic distribution of the radiopharmaceutical is apparent in the hepatic (3.1/2.9) and splenic parenchyma, both renal units, bladder and visualized intestinal tract. Enhanced tracer concentration is redefined in the exterior nares generating a calculated maximal standard uptake value of 2.9, likely representing activated leukocytes associated with an inflammatory process-rhinitis. The visualized portion of the cerebral cortex demonstrate symmetric and preserved glucose metabolism. Diffuse radiopharmaceutical concentration is noted in all four quadrants of the abdomen and pelvis. Prominent glucose metabolism is defined in the ascending-descending thoracic and abdominal aorta commensurate with activated leukocytes associated with atherosclerotic plaque formation. Subtle increased tracer concentration is demonstrated in the left upper abdomen contiguous to the left adrenal gland with a calculated maximal standard uptake value of 1.8. Quantitative criteria for viable neoplasm are not fulfilled. Previously defined morphologic-anatomic changes noted on review of CT of the neck, chest, abdomen and pelvis on the FDG PET-CT report dated 03/08/18, are essentially unchanged on the current examination. PET/PET/CT Tumor Base -Thigh Subs IMPRESSION: 1. ABNORMAL EXAMINATION INDICATIVE OF MALIGNANT VIABLE NEOPLASM. 2. Increased glucose concentration observed in the right upper medial hemithorax pulmonary parenchyma, right upper lobe, fulfills quantitative criteria for viable neoplasm. (Nicholas et al, Annals of Internal Medicine, 138:724, 2003). 3. Enhanced tracer concentration currently defined in the carinal level mediastinum to the right of the midline fulfills borderline quantitative criteria for viable neoplasm. (Arnel et al, Journal of Clinical Oncology 16:2142, 1998). 4. Subtle enhanced FDG uptake persisting in the right upper posterior lung, right upper lobe, does not fulfill quantitative criteria for viable neoplasm. (La et al, Journal of Nuclear Medicine 43:302 P, 2002). 5. Overall, compared to the prior FDG PET study dated 03/08/18, there is current expression of apparent viable neoplasm involving the right upper medial lung zone, right upper lobe and potentially carinal level mediastinum. There is an interval quantitative complete metabolic response relating to the persistently defined right upper posterior lung field hypermetabolic focus. Electronic Signature Bandar Black, D.O. Electronically Signed: Bandar Adamson DO at 14:30 EST Tel , Service support ,
== END ==
PROVIDERS: Family Provider Family Medicine; PCP Family Medicine; Referring Provider Student in an Organized Health Care Education/Training Program; Visit Provider Student in an Organized Health Care Education/Training Program
DX: C34.11 Malignant neoplasm of upper lobe, right bronchus or lung (principal)
CPT/HCPCS: 78815; A9552

== ENCOUNTER → 2018-08-13 09:57 | Outpatient (CLI) | payer MEDICARE, SELFPAY ==
[2018-03-16 10:03] VITALS: BMI 25.2
[2018-08-09 10:06] VITALS: BMI 25.2
--- NOTE | 2018-08-13 09:58 | VDLE_ITS ---
Reason For Study: swelling RIGHT LEFT GSV is normal. CFV is compressible, spontaneous, phasic, CFV is compressible, spontaneous, phasic, competent, and demonstrates normal competent and demonstrates normal augmentation. augmentation. FV is compressible, spontaneous, phasic, competent and demonstrates normal augmentation. POP V is compressible, spontaneous, phasic, competent and demonstrates normal augmentation. T/P Trunk is compressible. PTV is compressible. RT PerV is compressible. Procedure Exam performed in department. The exam was diagnostic. A preliminary report was called and/or faxed to Estrella Mon PIANO TUNER. Interpretation Summary Deep veins of the right lower extremity are patent and compressible segmentally. There is no evidence of right lower extremity deep vein thrombosis. Valvular competence appears intact within the proximal deep venous system on the right . The right greater saphenous vein appears patent and compressible segmentally. Ordering Physician: Estrella Mon Performed By: Douglas Ortiz RVT
== END ==
PROVIDERS: Family Provider Family Medicine; PCP Family Medicine; Referring Provider Nurse Practitioner Acute Care; Visit Provider Nurse Practitioner Acute Care
DX: M79.89 Other specified soft tissue disorders (principal)
CPT/HCPCS: 93971

== ENCOUNTER → 2018-08-17 08:04 | Outpatient (CLI) | payer MEDICARE, SELFPAY ==
[2018-03-16 10:03] VITALS: BMI 25.2
[2018-08-09 10:06] VITALS: BMI 25.2
[2018-08-17 10:26] LABS: International Normalized Ratio 1.1; Partial Thromboplast Time 31.7 Seconds (24.1-36.2); Prothrombin Time (Protime)PT. 14.2 SECONDS (11.7-14.9)
== END ==
PROVIDERS: Family Provider Family Medicine; PCP Family Medicine; Referring Provider Nurse Practitioner Acute Care; Visit Provider Nurse Practitioner Acute Care
DX: C34.90 Malignant neoplasm of unspecified part of unspecified bronchus or lung (principal); M79.89 Other specified soft tissue disorders
CPT/HCPCS: 36415; 85610; 85730

== ENCOUNTER 2018-08-20 11:22 | Day surgery (SDC) | payer MEDICARE, SELFPAY ==
[2018-03-16 10:03] VITALS: BMI 25.2
[2018-08-09 10:06] VITALS: BMI 25.2
[2018-08-20] VITALS (8 sets, daily range): BP systolic 110–156; BP diastolic 60–77; PULSE 61–75; RESP 16–61; TEMP 36.3–37; O2SAT 20–99; BMI 24.4
--- NOTE | 2018-08-20 | IMM_PTH ---
PATIENT: PEDRITO REYES LOC: EN U#:[id number] AGE/SX: 83/M ROOM: RE08/20/[address]: Dr. Keon Bui DO : 1935 BED: DIS: 08/20/2018 SPEC #: [id number] RECD: 08/23/18 11:29 STATUS: ELADIO REQ #: [id number] TRUE: 08/20/18 00:[address]: Keon Bui DEPT: IMMUNOHISTOCHEMISTRY RECD BY: Ofelia Monzon ENTERED: 08/23/18 11:31 SP TYPE: IMMUNO OTHR DR: Dr. Trev Shoemaker MD Tissues: H - Bronchus, NOS I - Bronchus, NOS Procedures: CK20 (add) CK5-6 (add) CK7 (add) CK8 (add) P16 (add) Pankeratin (initial) P40 (add) PHYSICIAN & INSTITUTION [place] [id number] SPECIMEN INFORMATION: Tissue Source: H - TBNA site 2R, I - TBNA site 4R Clinical Info: Mediastinal lymphadenopathy; history of SCC Specimen Number: [id number] H & I CPT code: 49741 x2, 04422 x12 METHODOLOGY: Deparaffinized sections of prefer/formalin-fixed tissue or PAP/DQ stained slides are incubated with monoclonal/polyclonal antibodies/oligonucleotide probes. Localization is made via biotin free immunoperoxidase method. Appropriate controls are performed and reacted as expected. Results on target cell population are indicated in the following table: RESULTS: ANTIBODY / CLONE RESULT Block H AE1-3 (AE1/AE3/PCK26) positive CK7 (OV-TL12/30) negative CK8 (49hvquI04) positive CK20 (KS20.8) negative CK5-6 (D5 & 1684) positive P16 (E6H4) negative P40 (BC28) positive Block I AE1-3 (AE1/AE3/PCK26) positive CK7 (OV-TL12/30) negative CK8 (62rhgxY52) positive CK20 (KS20.8) negative CK5-6 (D5 & 1684) positive P16 (E6H4) negative P40 (BC28) positive These tests were developed and their performance characteristics determined by [facility]. They may not have been cleared or approved by the U.S. Food and Drug Administration. The FDA has determined that such clearance or approval is not necessary. INTERPRETATION: H. TBNA site 2R, cell block: A few malignant cells present consistent with non-small cell carcinoma, favor squamous cell carcinoma. I. TBNA site 4R, cell block: Malignant cells present derived from squamous cell carcinoma. SJ:jac 08/24/18
--- NOTE | 2018-08-20 12:45 | FLU_PTH ---
PATIENT: PEDRITO REYES LOC: EN U#:[id number] AGE/SX: 83/M ROOM: RE08/20/[address]: Dr. Keon Bui DO : 1935 BED: DIS: 08/20/2018 SPEC #: [id number] RECD: 08/20/18 14:51 STATUS: ELADIO RE #: [id number] TRUE: 08/20/18 12:[address]: Keon Bui DEPT: CYTOLOGY RECD BY: Nusrat Skaggs ENTERED: 08/20/18 14:57 SP TYPE: Fluid OTHR DR: Dr. Trev Shoemaker MD Tissues: A - Lung, NOS B - Lung, NOS C - Lung, NOS D - Lung, NOS E - Lung, NOS F - Lung, NOS G - Lung, NOS H - Lung, NOS I - Lung, NOS Procedures: Special Stain Group II Surgery Specimen Level IV Cytospin Fluid Cytology Other HEADER OPERATION: Bronchoscopy PRE-OP DIAGNOSIS: Mediastinal lymphadenopathy; history of squamous cell carcinoma TISSUE SUBMITTED: A-C - EBUS FNA site 4R, D-G - EBUS FNA site 2R, H - TBNA site 2R cell block, I - TBNA site 4R cell block DIAGNOSIS CYTOLOGY A. EBUS, aspiration #1, site 4R (smears): Adequate for evaluation. Negative for malignant cells. Lymphocytes are present and a few respiratory epithelial cells are also noted. B. EBUS, aspiration #2, site 4R (smears): Predominantly respiratory epithelial cells. Negative for malignant cells. Nondiagnostic. C. EBUS, aspiration #3, site 4R (smears): Predominantly blood. Rare atypical cells are noted. Rare lymphocytes and respiratory epithelial cells. Paucicellular specimen. D. EBUS, aspiration #4, site 2R (smears): Blood only. Nondiagnostic specimen. E. EBUS, aspiration #5, site 2R (smears): One cluster of atypical cells suspicious for malignancy is noted. F. EBUS, aspiration #6, site 2R (smears): Bloody specimen. Respiratory epithelial cells. Negative for malignant cells. G. EBUS, aspiration #7, site 2R (smears): Bloody specimen. Respiratory epithelial cells. Negative for malignant cells. H. TBNA, site 2R (cell block): A few malignant cells are noted consistent with non-small cell carcinoma, favor squamous cell carcinoma. See comment. I. TBNA, site 4R (cell block): Malignant cells present derived from non-small cell carcinoma, favor squamous cell carcinoma. See comment. SJ:jac 08/23/18 COMMENT The specimen is evaluated at the time of procedure by Dr. Zafar. Immediate Evaluation: A. EBUS, aspiration #1, site 4R: Adequate for evaluation. Negative for malignant cells. Lymphocytes present. Reported to Dr. Bui at 12:54 p.m. B. EBUS, aspiration #2, site 4R: Predominantly respiratory epithelial cells. Negative for malignant cells. Nondiagnostic. Reported to Dr. Bui at 1:00 p.m. C. EBUS, aspiration #3, site 4R: Predominantly blood. Rare atypical cells. Rare lymphocytes and respiratory epithelial cells. Paucicellular specimen. Reported to Dr. Bui at 1:07 p.m. D. EBUS, aspiration #4, site 2R: Blood only. Nondiagnostic specimen. Reported to Dr. Bui at 1:14 p.m. E. EBUS, aspiration #5, site 2R: One cluster of atypical cells suspicious for malignancy. Reported to Dr. Bui at 1:18 p.m. F. EBUS, aspiration #6, site 2R: Bloody specimen. Respiratory epithelial cells. Negative for malignant cells. Reported to Dr. Bui at 1:22 p.m. G. EBUS, aspiration #7, site 2R: Bloody specimen. Respiratory epithelial cells. Negative for malignant cells. Reported to Dr. Bui at 1:25 p.m. H & I. Immunohistochemistry ([id number]) supports the above diagnosis. Please make reference to previous specimen ([id number]) right upper lobe of lung mass, CT-guided needle core biopsy with diagnosis of non-small cell carcinoma, squamous cell carcinoma. This case is discussed with Dr. [place] on 08/24/18. CYTOLOGY STUDY Slides are reviewed. CYTOLOGY GROSS A - Received labeled with the patient's name and and designated EBUS FNA, aspirate #1, site 4R. The specimen consists of two smears submitted for immediate cytologic evaluation (wet read). B - Received labeled with the patient's name and and designated EBUS FNA, aspirate #2, site 4R. The specimen consists of two smears submitted for immediate cytologic evaluation (wet read). C - Received labeled with the patient's name and and designated EBUS FNA, aspirate #3, site 4R. The specimen consists of two smears submitted for immediate cytologic evaluation (wet read). D - Received labeled with the patient's name and and designated EBUS FNA, aspirate #4, site 2R. The specimen consists of two smears submitted for immediate cytologic evaluation (wet read). E - Received labeled with the patient's name and and designated EBUS FNA, aspirate #5, site 2R. The specimen consists of two smears submitted for immediate cytologic evaluation (wet read). F - Received labeled with the patient's name and and designated EBUS FNA, aspirate #6, site 2R. The specimen consists of two smears submitted for immediate cytologic evaluation (wet read). G - Received labeled with the patient's name and and designated EBUS FNA, aspirate #7, site 2R. The specimen consists of two smears submitted for immediate cytologic evaluation (wet read). H - Received in RPMI labeled with the patient's name and and designated TBNA, site 2R. The specimen is submitted for cell block preparation. I - Received in RPMI labeled with the patient's name and and designated TBNA, site 4R. The specimen is submitted for cell block preparation. / SJ:rg 08/20/18 TC:0 CPT: 18298 x2, 50971 x2, 57059 x2, 95658 x5
--- NOTE | 2018-08-20 13:45 | OP.ENDO_ITS ---
Patient Name: Ben Pal Procedure Date: 08/20/2018 9:11 AM Date of : 1935 Age: 83 Procedure: Bronchoscopy Indications: Paratracheal adenopathy Providers: Keon Bui MD Referring MD: Keon Bui MD Medicines: General Anesthesia Complications: No immediate complications Procedure: Pre-Anesthesia Assessment: - [place] Protocol: - Pre-procedure Verification: Prior to the procedure, the patient's identity was verified by full name and date of . The patient's identity was verified on all pertinent medical records, including History and Physical. Also prior to the procedure, a History and Physical was performed, and patient medications, allergies and sensitivities were reviewed. The patient's tolerance of previous anesthesia was reviewed. The risks and benefits of the procedure and the sedation options and risks were discussed with the patient. All questions were answered and informed consent was obtained. - Time-Out: Prior to the start of the procedure, the patient's identification, proposed procedure, accurate signed consent, correctly labeled images and records, and need for prophylactic antibiotics were verified by the physician and the nurse in the procedure room. After I obtained informed consent, the scope was passed under direct vision. Throughout the procedure, the patient's blood pressure, pulse, and oxygen saturations were monitored continuously.The procedure was accomplished without difficulty. The patient tolerated the procedure well. The ultrasound bronchoscope was introduced through the mouth, via laryngeal mask airway and advanced to the tracheobronchial tree. Findings: The laryngeal mask airway is in good position. The vocal cords appear normal. The subglottic space is normal. The trachea is of normal caliber. The tra is sharp. The tracheobronchial tree was examined to at least the first subsegmental level. Bronchial mucosa and anatomy are normal; there are no endobronchial lesions, and no secretions. The scope was withdrawn and replaced with the EBUS bronchoscope to accomplish the ultrasound examination. Lymph Nodes: An endobronchial ultrasound endoscope was utilized to systematically examine the right upper paratracheal region (level 2R), right lower paratracheal region (level 4R) and right hilar region (level 10R) in order to assist with fine needle aspiration. Lymph node sizing was performed via endobronchial ultrasound for known non-small cell lung cancer. Sampling by transbronchial needle aspiration was also performed using an Olympus EBUS-TBNA 19 gauge needle in the right upper paratracheal region (level 2R) and right lower paratracheal region (level 4R) and sent for routine cytology. - The 4R (lower paratracheal) node was evaluated. Three samples with the needle were obtained. - The 2R (upper paratracheal) lesion was evaluated. Four samples were obtained. The lesion itself was large (approximately 2.5 cm by ultrasound with some eccentric calcification) Lymph Nodes: A PET scan was found to be hypermetabolic in the right upper and lower paratracheal regions. Impression: - Paratracheal adenopathy - The airway examination was normal. - Endobronchial ultrasound was performed. - Lymph node sizing and sampling was performed. Recommendation: - Await biopsy results. - Follow up with bronchoscopist as previously scheduled. Procedure Code(s): --- Professional --- 98207, Bronchoscopy, rigid or flexible, including fluoroscopic guidance, when performed; with endobronchial ultrasound (EBUS) guided transtracheal and/or transbronchial sampling (eg, aspiration[s]/biopsy[ies]), 3 or more mediastinal and/or hilar lymph node stations or structures Diagnosis Code(s): --- Professional --- R59.0, Localized enlarged lymph nodes R09.89, Other specified symptoms and signs involving the circulatory and respiratory systems CPT copyright 2017 [employer]. All rights reserved. The codes documented in this report are preliminary and upon travel accommodations rater review may be revised to meet current compliance requirements. DO Keon Zamora MD 08/20/2018 1:44:53 PM This report has been signed electronically. Number of Addenda: 0 Note Initiated On: 08/20/2018 9:11 AM
== END 2018-08-20 15:52 | disposition home or self-care (01) ==
LOC: EN 11:22 → AC 11:28
PROVIDERS: Family Provider Family Medicine; PCP Family Medicine; Referring Provider Internal Medicine Critical Care Medicine; Visit Provider Internal Medicine Critical Care Medicine
PROC: BB4BZZZ Ultrasonography of Pleura (ICD-10-PCS; principal; 2018-08-20 12:00)
DX: R91.8 Other nonspecific abnormal finding of lung field (principal); M79.89 Other specified soft tissue disorders; J44.9 Chronic obstructive pulmonary disease, unspecified; I10 Essential (primary) hypertension; E78.5 Hyperlipidemia, unspecified; G30.9 Alzheimer's disease, unspecified; F02.80 Dementia in other diseases classified elsewhere, unspecified severity, without behavioral disturbance, psychotic disturbance, mood disturbance, and anxiety; F32.9 Major depressive disorder, single episode, unspecified; Z79.02 Long term (current) use of antithrombotics/antiplatelets; Z79.82 Long term (current) use of aspirin; Z79.899 Other long term (current) drug therapy; I25.2 Old myocardial infarction; Z85.46 Personal history of malignant neoplasm of prostate; Z86.73 Personal history of transient ischemic attack (TIA), and cerebral infarction without residual deficits; Z95.5 Presence of coronary angioplasty implant and graft; Z95.0 Presence of cardiac pacemaker
CPT/HCPCS: 31653; 88108; 88161; 88305; 88313; 88341; 88342; J7120; J2405

== ENCOUNTER → 2018-08-26 13:36 | Outpatient (CLI) | payer MEDICARE, SELFPAY ==
[2018-03-16 10:03] VITALS: BMI 25.2
[2018-08-20 11:57] VITALS: BMI 24.4
[2018-08-26 10:32] VITALS: BMI 25.0
--- NOTE | 2018-08-29 09:56 | PFT ---
INTRODUCTION: The patient is an 83-year-old male that presents for pulmonary function studies secondary to a diagnosis of lung cancer. Respiratory therapy reports good patient effort. Bronchodilators were used during testing. 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 There was a significant response to aerosolized bronchodilators noted, based upon change in FEV1. Spirograms are of good quality and do not plateau indicating slow emptying of the lungs. Body plethysmography was performed and reveals lung volumes to be within normal limits. Diffusing capacity by single breath CO is moderately reduced at 56% of predicted. IMPRESSION: These pulmonary function studies demonstrate the presence of a partially reversible moderately severe large airways obstructive ventilatory defect with an associated symmetric reduction in diffusing capacity. There are no previous pulmonary function studies available for comparison.
== END ==
PROVIDERS: Family Provider Family Medicine; PCP Family Medicine; Referring Provider Student in an Organized Health Care Education/Training Program; Visit Provider Student in an Organized Health Care Education/Training Program
DX: C34.90 Malignant neoplasm of unspecified part of unspecified bronchus or lung (principal)
CPT/HCPCS: 36415; 80053; 85025; 94060; 94726; 94729

== ENCOUNTER → 2018-08-31 13:54 | Outpatient (CLI) | payer MEDICARE, SELFPAY ==
[2018-03-16 10:03] VITALS: BMI 25.2
[2018-08-26 10:32] VITALS: BMI 25.0
[2018-08-30 14:54] VITALS: BMI 25.0
--- NOTE | 2018-08-31 13:56 | CT_ITS ---
STUDY: CT BRAIN WITH AND WITHOUT CONTRAST REASON FOR EXAM: Male, 83 years old. Dementia confusion history of lung cancer, seizure RADIATION DOSAGE (If Supplied By Facility): CTDIvol = ( 44.99 ) mGy, DLP = ( 1685.02 ) mGycm TECHNIQUE: Transaxial CT imaging of the brain was performed pre and post contrast administration. The examination was performed with intravenous administration of Isovue 370 50mL IV. Individualized dose optimization techniques were used for this CT. COMPARISON: June 26, 2015 CT head FINDINGS: Normal soft tissue structures. Normal calvarium. There is moderate cerebral atrophy with widening of the extra-axial spaces and ventricular dilatation. There are areas of decreased attenuation within the white matter tracts of the supratentorial brain, consistent with microvascular disease changes. There are punctate areas of low attenuation within the left crit of the right basal ganglia nonacute but new since the prior study June 26, 2015. Normal brainstem. There is mild cerebellar atrophy. There is no intracranial hemorrhage. There are no findings of an acute ischemic infarction. There is bilateral maxillary mucosal thickening. There is calcification of the cavernous carotid arteries. CT/Brain/Head W/WO Contrast IMPRESSION: Atrophy. No evidence of acute hemorrhage infarct or edema. Electronically Signed: Bharati Floyd MD at 16:48 EST Tel , Service support ,
== END ==
PROVIDERS: Family Provider Family Medicine; PCP Family Medicine; Referring Provider Internal Medicine Hematology & Oncology; Visit Provider Internal Medicine Hematology & Oncology
DX: C34.90 Malignant neoplasm of unspecified part of unspecified bronchus or lung (principal)
CPT/HCPCS: 70470; Q9967

== ENCOUNTER 2018-09-02 07:40 | Day surgery (SDC) | payer MEDICARE, SELFPAY ==
[2018-03-16 10:03] VITALS: BMI 25.2
[2018-08-30 14:54] VITALS: BMI 25.0
[2018-09-02] VITALS (8 sets, daily range): BP systolic 118–157; BP diastolic 60–71; PULSE 60–63; RESP 16; TEMP 36.1–36.9; O2SAT 91–96; BMI 24.2
--- NOTE | 2018-09-02 09:30 | RAD_ITS ---
STUDY: X-RAY CHEST REASON FOR EXAM: Male, 83 years old. Vascular port insertion. TECHNIQUE: Single AP portable view of the chest. COMPARISON: None. FINDINGS: A right-sided portacatheter has been placed. The tip is in the midportion of the superior vena cava. RAD/Chest 1 View (Portable) IMPRESSION: The tip of the right-sided portacatheter is in the midportion of the superior vena cava. Electronically Signed: Rk Salmeron, at 14:24 EST , Service support ,
[2018-09-02] MEDS: Cefazolin 2 GM in 0.9% Normal Saline 100 ML IV (09:33)
[2018-09-02] MEDS: Bupiv/Epi 0.5% Mpf 30 ML Vial (09:55)
--- NOTE | 2018-09-02 10:10 | OP.PCM_ITS ---
Problem List (1) Encounter for adjustment or management of vascular access device Status: Acute (2) Lung cancer Status: Acute Qualifiers: Laterality: right Lung location: unspecified part of lung Qualified Code(s): C34.91 - Malignant neoplasm of unspecified part of right bronchus or lung Report of Operation Date of Procedure: 09/02/18 Pre-Operative Diagnosis: Right lung cancer and need for vascular access port Post-Operative Diagnosis: Same Surgery/Procedure Performed:: Ultrasound-guided and fluoroscopy-guided right arm port placement utilizing right brachial vein Description of Procedure: After discussing the procedure in detail with the patient including the risks, benefits and alternatives, the patient was brought back to the operating room. The patient's right arm was selected as the site of port insertion. Ultrasound was used to evaluate several veins in the arm for port placement and the brachial vein was selected. Next, 1% lidocaine with epinephrine was injected into the skin, and a small carol was made with 11 blade scalpel. The micro puncture needle was used to cannulate the brachial vein. The 0.018 guidewire was advanced into the vein and observed under fluoroscopy. Next, the needle was removed and the micropuncture sheath was advanced over the guidewire. The inner sheath and guidewire were removed and a Bentson wire was introduced into the micro-sheath. This was guided to the superior vena cava under fluoroscopy. Next, local anesthesia was injected in the area distal to the puncture site where the pocket was to be formed. An 11 blade scalpel was used to make a transverse incision at the puncture site. Metzenbaum scissors were used to form a pocket large enough to fit the pad of the index finger. Next, the hub of the port was placed into the pocket to ensure that it fit and then it was removed. Next, the micro-sheath was removed and the introducer is placed over the Bentson wire. The catheter was flushed and then placed over the Bentson wire and positioned in the superior vena cava under fluoroscopy. The introducer was removed, and the port hub was attached to the catheter and locked in place with the locking piece. The catheter was then flushed with saline. Using 2-0 Vicryl suture, port was secured in place and placed into the pocket. Next, the skin was closed with interrupted subdermal 3-0 Vicryl sutures. The port was then flushed with heparin and dressing was applied. The patient was taken to PACU in stable condition. X-rays were taken of the final placement of the chest and of the port in the arm. Grafts/Implants Used: 6.6 Upper Sorbian Xcela power injectable port - Admit VTE Documentation VTE Mechan Device Prophylaxis: SCD's
--- NOTE | 2018-09-02 10:12 | DCINST_ITS ---
Discharge Diet: No Restrictions - Pain medication may cause nausea. You should typically eat light foods as you take your pain medication. Discharge Activity: Return to Normal Activity, May Shower - with your bandage in place in 1-2 days after surgery. DO NOT SHOWER WHEN YOUR PORT IS ACCESSED. Call your doctor if your incision/area has: Continuous Slow Oozing, Sudden Increased Bleeding, Increased Pain/ Swelling, Increased Redness Call your doctor if you observe: Fever of 101 or Higher Remove Dressing in (days):: 3 - When you remove the bandage, leave the steri- strips intact until they fall off. Additional Instructions: OK to use port. Resume aspirin Thursday Allergies/Adverse Reactions: Allergies Influenza Virus Vaccines Adverse Reaction (Severe, Verified 09/02/18 08:05) Hives Medications to take at Discharge Amlodipine 5 mg PO DAILY 01/29/18 Aspirin 81 mg PO DAILY 01/29/18 Atorvastatin Calcium 80 mg PO DAILY 01/29/18 Carvedilol 25 mg PO BID 01/29/18 Clopidogrel Bisulfate [Clopidogrel] 75 mg PO DAILY 01/29/18 Finasteride [Proscar] 5 mg PO DAILY 01/29/18 Hydrochlorothiazide 12.5 mg PO DAILY 01/29/18 Isosorbide Dinitrate 10 mg PO TID 01/29/18 Tamsulosin HCl [Flomax] 0.4 mg PO DAILY 01/29/18 Acetaminophen [Pain Relief] 500 mg PO Q4H PRN #1 tab 01/30/18 Escitalopram Oxalate [Lexapro] 5 mg PO DAILY 03/11/18 Multivitamin [Multiple Vitamins] 1 ea PO DAILY 08/26/18 Lidocaine/Prilocaine [Lidocaine-Prilocaine Cream] 1 applicatio TP DAILY PRN PRN 30 Days #1 tube 09/01/18 Ondansetron HCl 4 mg PO Q8H PRN PRN 10 Days #30 tablet 09/01/18 Primary Care Physician: Trev Shoemaker MD [Primary Care Provider] - Test Results: Test results from this visit will be discussed in further detail at your follow- up appointment, if applicable. Please Follow Up With: Lamin Harris MD When: Please call to schedule 2 week follow up appointment. [phone]
== END 2018-09-02 11:41 | disposition home or self-care (01) ==
LOC: SDC 07:42 → AC 07:42
PROVIDERS: Family Provider Family Medicine; PCP Family Medicine; Referring Provider Surgery; Visit Provider Surgery
PROC: (CPT 36571; principal; 2018-09-02 09:00)
DX: Z45.2 Encounter for adjustment and management of vascular access device (principal); C34.11 Malignant neoplasm of upper lobe, right bronchus or lung; C77.9 Secondary and unspecified malignant neoplasm of lymph node, unspecified; R56.9 Unspecified convulsions; I10 Essential (primary) hypertension; E78.5 Hyperlipidemia, unspecified; G30.9 Alzheimer's disease, unspecified; F02.80 Dementia in other diseases classified elsewhere, unspecified severity, without behavioral disturbance, psychotic disturbance, mood disturbance, and anxiety; F32.9 Major depressive disorder, single episode, unspecified; Z79.02 Long term (current) use of antithrombotics/antiplatelets; Z79.82 Long term (current) use of aspirin; Z79.899 Other long term (current) drug therapy; I25.2 Old myocardial infarction; Z86.73 Personal history of transient ischemic attack (TIA), and cerebral infarction without residual deficits; Z87.891 Personal history of nicotine dependence; Z85.46 Personal history of malignant neoplasm of prostate; Z95.5 Presence of coronary angioplasty implant and graft
CPT/HCPCS: 36571; 76937; 71045; 77001; J7120

== ENCOUNTER 2018-09-18 16:26 | Emergency (ER) | payer MEDICARE, SELFPAY ==
[2018-03-16 10:03] VITALS: BMI 25.2
[2018-09-17 09:48] VITALS: BMI 24.0
[2018-09-18 16:27] VITALS: BP 159/67; PULSE 64; RESP 16; TEMP 36.8; BMI 27.6
--- NOTE | 2018-09-18 16:41 | ED.DCSUM_ITS ---
History of Present Illness Chief Complaint: Nausea/Vomiting/Diarrhea Detail of Chief Complaint: Onset yesterday status post chemo and radiation Informant: Patient, Significant Other Onset: Yesterday Context: Sudden Onset Timing: Intermittent Quality: Nausea, vomiting diarrhea Location: GI Current Severity: Moderate Maximum Severity: Moderate Worsened by: Attempt to eat or drink anything Relieved by: Nothing Associated Symptoms: Thirst, lightheadedness and dry mouth Narrative: Patient elderly male with stage IIIa non-small cell carcinoma who completed a 2- week course of chemotherapy and radiation yesterday. He required hydration after chemotherapy yesterday. He was sent to the emergency room because of profuse diarrhea which is watery and brown and multiple episodes of emesis described as brown without coffee grounds or blood. states he had a bloody nose past . He denies fever, chills night sweats. He denies increased shortness of breath. states he is chronically short of breath. He denies any cardiac symptoms. He denies abdominal distention or discomfort. He does report decreased urine output. He denies dysuria, frequency, urgency or hematuria. - Past Medical History (1) Peripheral arterial occlusive disease Status: Chronic (2) Encounter for adjustment or management of vascular access device Status: Acute (3) Lung cancer Status: Acute (4) Regional lymph node metastasis present Status: Acute Past Medical History - Allergies and Home Meds Allergies/Adverse Reactions: Allergies Influenza Virus Vaccines Adverse Reaction (Severe, Verified 09/18/18 17:04) Hives Primary Care Physician: Trev Shoemaker MD [Primary Care Provider] - Prior records reviewed: Yes Surgical History: herniorrhaphy, pacemaker implantation, - - Lumbar spine fusion, stent placement in the legs Lives: Spouse/ Significant Other Smoking Status: Former smoker Alcohol: None Drugs: None - Enjoyed the - Family History Maternal Family History: Family History (Last Reviewed 09/13/18 @ 08:31 by Tiera Martínez) Father Heart disease Sister Heart disease Family History: Reports: Dementia, Hypertension Paternal Family History: Family History (Last Reviewed 09/13/18 @ 08:31 by Tiera Martínez) Father Heart disease Sister Heart disease Family History: Reports: Heart Disease Review of Systems General: Reports: Malaise. Denies: Chills, Fever, Subjective, Sweats Eyes: Denies: Visual changes - bilaterally, Blurred Vision - bilaterally, Diplopia ENT: Denies: Bilateral ear pain, Rhinorrhea, Sore throat Cardiovascular: Denies: Chest pain, Palpitations Respiratory: Denies: Dyspnea, Cough, Dyspnea on exertion Gastrointestinal: Reports: Nausea, Vomiting, Diarrhea, Hematochezia - Last week according to . He has no history of hemorrhoids. Denies: Abdominal pain, Melena Genitourinary: Denies: Dysuria, Hematuria, Frequency Musculoskeletal: Denies: Myalgias, Arthralgias, Back pain, Extremity Pain Skin: Denies: Rash, Wounds Neurological: Reports: Weakness. Denies: Headache, Parasthesia, Numbness Hematologic: Denies: Easy bruising, Easy bleeding Physical Exam Vital Signs/Narrative: Vital Signs Temp Pulse Resp BP 09/18/18 16:27 98.2 F 64 16 159/67 H Inital Vital Signs reviewed: Yes General: Well nourished, Well developed, No Acute Distress Head: Normocephalic, Atraumatic Eyes: Perrl, EOMI, Pale conjunctiva. Negative for: Scleral icterus ENT: No rhinorrhea, TM's clear, Dry mucous membranes. Negative for: Nasal congestion Neck: Supple, Nontender Cardiovascular: Regular rate, Regular rhythm, No murmurs, Normal S1, Normal S2 Respiratory: No distress, CTA bilaterally, Chest nontender, Decreased Air Movement - Diminished breath sounds right side posteriorly. Abdomen: Soft, Nontender, Nondistended, Hypoactive bowel sounds - Abdomen tympanitic.. Negative for: Ventral hernia, Umbilical hernia Back: Nontender, Normal Inspection. Negative for: CVA tenderness Extremities: Nontender, No edema Skin: No rash, Pallor Neurological: Alert, Oriented x3, Cranial nerves II-XII grossly intact, Normal Strength, Normal Sensation Psychological: Normal affect, Normal Mood Diagnostic/Tx/Re-eval Laboratory Results 09/18/18 09/18/18 16:45 16:45 WBC 0.7 L* RBC 3.35 L Hgb 10.0 L Hct 28.5 L MCV 85.1 MCH 29.9 MCHC 35.1 RDW 13.0 RDW Differential 40.0 Plt Count 127 L MPV 10.0 Immature Gran % (Auto) 1.400 H Neut % (Auto) 74.2 H Lymph % (Auto) 17.6 L [place] % (Auto) 5.4 Eos % (Auto) 1.4 Baso % (Auto) 0.0 Absolute Neuts (auto) 0.6 L Absolute Lymphs (auto) 0.13 L Total Counted Not Reportable Differential Comment SCANNED Diff Path Review May foll Sodium 133 L Potassium 3.2 L Chloride 100 Carbon Dioxide 26.0 Anion Gap 7 BUN 21 H Creatinine 1.24 Estim Creat Clear Calc 42.94 Est GFR (MDRD) Af Amer 72 Est GFR (MDRD) Non-Af 59 L BUN/Creatinine Ratio 16.9 Glucose 161 H Calcium 7.9 L - Rhythm Strip Rhythm Strip: Sinus Rhythm Rate: 86 Ectopy: None - Medical Decision Making Clinically patient is dehydrated. Will establish IV and administer 1 L of normal saline. In light of the amount of nausea, vomiting diarrhea will obtain blood work. He was treated with 8 mg of Zofran for his nausea and vomiting. He has taken Imodium at home. We will need to determine how much she has taken. Suspect symptoms are secondary to chemo/radiation therapy for his non-small cell carcinoma of the lung. Patient's blood work reveals slight elevation creatinine 1.24. CO2 is normal and anion gap is normal. White count is 700 with absolute neutrophil count of 516. Spoke with nurse practitioner on-call for the oncology group. Since he is afebrile plan is no antibiotics. If he develops a fever he will need to return to the emergency department. ED Disposition - Plan for ED Patient: Disposition: Home or Assisted Living Diagnosis: Chemotherapy induced neutropenia, Abdominal pain, vomiting, and diarrhea, Mild dehydration, Renal insufficiency Instructions: ED Vomiting Diarrhea Nonspecific Ad Referrals: Trev Shoemaker MD [Primary Care Provider] - Additional Instructions: If you develop a temperature greater than 100.5 return to the emergency department. Follow-up with your oncologist as scheduled.
[2018-09-18 16:52] VITALS: BP 147/71; PULSE 68; RESP 24; O2SAT 93
[2018-09-18] MEDS: 0.9% Normal Saline 1,000 ML 1000 ML IV (16:52)
[2018-09-18] MEDS: Ondansetron 4 MG/2 ML Vial 8 MG IV (16:53)
[2018-09-18 17:03] LABS: Absolute Lymphocyte Count 0.13 X10^3/ul (0.83-4.51); Absolute Neutrophil Count 0.6 X10^3/uL (2.0-7.7); Eosinophil# 0.01 X10^3/uL; Eosinophils% 1.4 % (0-5); Hematocrit 28.5 % (40-54); Lymphocyte # 0.13 X10^3/ul (4.0); Lymphocyte % 17.6 % (19-41); Mean Corp Hgb Conc 35.1 g/gl (32-36); Mean Corpuscular Hgb 29.9 pg (27.0-32.0); Mean Corpuscular Volume 85.1 fL (80-94); Monocyte# 0.04 X10^3/uL; Monocyte% 5.4 % (0-10); Neutrophil # 0.55 X10^3/uL (2.7-7.7); Neutrophil % 74.2 % (47-70); Platelet Count 127 K/mm3 (150-450); Red Blood Count 3.35 M/mm3 (4.6-6.2)
[2018-09-18 17:04] LABS: Differential Indicated SCAN CRITERIA MET; POSITIVE COUNT YES; POSITIVE DIFFERENTIAL YES; POSITIVE MORPHOLOGY YES
[2018-09-18 17:05] LABS: White Blood Count 0.7 K/mm3 (4.4-11.0)
[2018-09-18 17:08] LABS: Anion Gap 7 (5-15); BUN 21 mg/dL (7-18); BUN/Creat Ratio 16.9 RATIO (10-20); Calcium,Total 7.9 mg/dL (8.5-10.1); Chloride 100 mmol/L (98-107); Creatinine, Serum 1.24 mg/dL (0.70-1.30); EST Glomerular Filtration Rate 59 mL/min (>60); Est Glom Filt Rate - Afr Amer 72 mL/min (>60); Estimated Creatinine Clearance 42.94 ml/min; Glucose 161 mg/dL (74-106); Potassium 3.2 mmol/L (3.5-5.1); Sodium Level 133 mmol/L (136-145)
[2018-09-18 17:36] LABS: Differential Comment SCANNED
[2018-09-18 18:16] VITALS: BP 147/60; PULSE 79; RESP 16; TEMP 37.5; O2SAT 94
--- NOTE | 2018-09-18 19:09 | ED.RN ---
DR RED SANTIAGO FOR DR RAE
[2018-09-18 19:52] VITALS: BP 185/68; PULSE 73; RESP 18; O2SAT 94
[2018-09-20 14:47] LABS: Pathologist Review Reviewed
== END 2018-09-18 19:55 | disposition home or self-care (01) ==
PROVIDERS: Emergency Provider Emergency Medicine; Family Provider Family Medicine; PCP Family Medicine
DX: D70.1 Agranulocytosis secondary to cancer chemotherapy (principal); C34.90 Malignant neoplasm of unspecified part of unspecified bronchus or lung; C77.9 Secondary and unspecified malignant neoplasm of lymph node, unspecified; T45.1X5A Adverse effect of antineoplastic and immunosuppressive drugs, initial encounter; Y92.9 Unspecified place or not applicable; E86.0 Dehydration; R19.7 Diarrhea, unspecified; R11.2 Nausea with vomiting, unspecified; N28.9 Disorder of kidney and ureter, unspecified; I77.9 Disorder of arteries and arterioles, unspecified; Z79.02 Long term (current) use of antithrombotics/antiplatelets; Z79.82 Long term (current) use of aspirin; Z79.899 Other long term (current) drug therapy; Z87.891 Personal history of nicotine dependence
CPT/HCPCS: 36591; 80048; 85025; 96361; 96374; 99282; J7030; A4216; J2405

== ENCOUNTER → 2018-09-22 10:00 | Outpatient (CLI) | payer MEDICARE, SELFPAY ==
[2018-03-16 10:03] VITALS: BMI 25.2
[2018-09-21 09:27] VITALS: BMI 23.5
--- NOTE | 2018-09-22 10:04 | RAD_ITS ---
STUDY: X-RAY CHEST REASON FOR EXAM: Male, 83 years old. Pulmonary congestion. Malignant neoplasm of the lung. History of prostate cancer. TECHNIQUE: PA and lateral views of the chest. COMPARISON: PET/CT scan, August 09, 2018. Chest, May 31, 2018. CT of the chest, August 03, 2018 FINDINGS: The lungs are clear and expanded. There is no demonstrated pleural abnormality. The the right paramediastinal mass seen on the PET scan is not appreciated on PA film, but is thought present on the lateral view.. Normal size heart. There is a left-sided cardiac pacemaker. Normal visualized pulmonary arteries. There is atherosclerotic calcification of the aortic arch with tortuosity. Normal visualized thoracic spine. Normal visualized ribs, clavicles, and shoulders. There is no demonstrated abnormality of the visualized soft tissue structures of the upper abdomen. RAD/Chest PA and Lateral IMPRESSION: Right paramediastinal upper lobe mass. There is no acute cardiopulmonary disease. Electronically Signed: Hesham So DO at 14:37 EDT Tel [phone], Service support ,
[2018-09-22 11:17] LABS: Absolute Neutrophil Count 1.1 X10^3/uL (2.0-7.7); Basophil# 0.03 X10^3/uL; Basophil% 1.3 % (0-1); Eosinophil# 0.01 X10^3/uL; Eosinophils% 0.4 % (0-5); Lymphocyte % 22.4 % (19-41); Mean Corp Hgb Conc 33.3 g/gl (32-36); Mean Corpuscular Hgb 28.7 pg (27.0-32.0); Mean Platelet Vol. 10.4 fl (6.2-12.0); Monocyte# 0.58 X10^3/uL; Neutrophil # 1.08 X10^3/uL (2.7-7.7); Neutrophil % 48.6 % (47-70); Platelet Count 204 K/mm3 (150-450); RBC Distribution Width CV 13.4 % (11.6-14.6); RBC Distribution Width SD 41.4 fl (35.1-43.9); Red Blood Count 3.14 M/mm3 (4.6-6.2); White Blood Count 2.2 K/mm3 (4.4-11.0)
[2018-09-22 11:18] LABS: Differential Indicated SCAN CRITERIA MET; POSITIVE COUNT NO; POSITIVE DIFFERENTIAL YES; POSITIVE MORPHOLOGY NO
[2018-09-22 11:36] LABS: Anisocytosis 1+; Platelet Morphology GIANT; Polychromasia RARE
[2018-09-22 11:37] LABS: Absolute Nucleated RBC Count 0.03 10^3/uL (0-5); NRBC Flagged by Analyzer 1.1 % (0-5)
[2018-09-23 14:00] LABS: Pathologist Review Reviewed
== END ==
PROVIDERS: Nurse Practitioner Family; Family Provider Family Medicine; PCP Family Medicine; Referring Provider Student in an Organized Health Care Education/Training Program; Visit Provider Student in an Organized Health Care Education/Training Program
DX: C34.90 Malignant neoplasm of unspecified part of unspecified bronchus or lung (principal); D70.9 Neutropenia, unspecified; R50.9 Fever, unspecified; R09.89 Other specified symptoms and signs involving the circulatory and respiratory systems; R19.7 Diarrhea, unspecified; Z79.899 Other long term (current) drug therapy
CPT/HCPCS: 36415; 36591; 71046; 85025; 87040; 96365; 96366; A4216

== ENCOUNTER → 2018-11-16 10:53 | Outpatient (CLI) | payer MEDICARE, SELFPAY ==
[2018-03-16 10:03] VITALS: BMI 25.2
[2018-10-27 11:55] VITALS: BMI 24.1
[2018-11-16 11:13] VITALS: PULSE 87; PULSE 88; PULSE 89; PULSE 90; PULSE 91; PULSE 92; PULSE 93; O2SAT 92; O2SAT 94; O2SAT 95
--- NOTE | 2018-11-17 08:49 | PCM.PSN.6M ---
PSN 6 Minute Walk Test - 6 Minute Walk Test 6 Minute Walk Test: 6 Minute Walk Test PSN:6-Minute Walk Test Start: 11/16/18 11:13 Freq: Status: Active Protocol: [id number].6MINW Document 11/16/18 11:13 MEAGAN (Rec: 11/16/18 11:16 B [id number]) 6 Minute Walk Test Date Performed 11/16/18 Time Performed 11:01 Height 6 ft Weight: 170 lb Weight in Pounds 170.[address]: Keon Bui Assistive device used: Cane Pre-test Oxygen Delivery Method Room Air Pulse Ox (%) 94 Pulse Rate (60-100 beats/min) 87 Dyspnea Judy Scale (0-10) 0 Exertion Judy Scale (6-20) 11 1st minute Oxygen Delivery Method Room Air Pulse Ox (%) 95 Pulse Rate (60-100 beats/min) 91 Number of Rests Taken 1 2nd minute Oxygen Delivery Method Room Air Pulse Ox (%) 92 Pulse Rate (60-100 beats/min) 88 3rd minute Oxygen Delivery Method Room Air Pulse Ox (%) 92 Pulse Rate (60-100 beats/min) 91 4th minute Oxygen Delivery Method Room Air Pulse Ox (%) 95 Pulse Rate (60-100 beats/min) 90 5th minute Oxygen Delivery Method Room Air Pulse Ox (%) 94 Pulse Rate (60-100 beats/min) 92 6th minute Oxygen Delivery Method Room Air Pulse Ox (%) 94 Pulse Rate (60-100 beats/min) 93 Post-test Oxygen Delivery Method Room Air Pulse Ox (%) 94 Pulse Rate (60-100 beats/min) 89 Dyspnea Judy Scale (0-10) 0 Exertion Judy Scale (6-20) 12 Full Laps Walked 8 Partial Lap, Number of Tiles Walked 6 Total Distance Walked (ft) 478 - Interpretation Interpretation: The patient ambulated 478 feet over the course of 6 minutes beginning on room air with the use of a cane. Pretesting oxygen saturation was noted to be 94% on room air. With ambulation, the [place] oxygen saturation was 92%. Although there was evidence of impaired walk distance, there was no significant exertional oxygen desaturation. - Recommendations Recommendations: There is no indication for the use of supplemental oxygen at this time.
== END ==
PROVIDERS: Family Provider Family Medicine; PCP Family Medicine; Referring Provider Internal Medicine Critical Care Medicine; Visit Provider Internal Medicine Critical Care Medicine
DX: J44.9 Chronic obstructive pulmonary disease, unspecified (principal); C34.90 Malignant neoplasm of unspecified part of unspecified bronchus or lung
CPT/HCPCS: 94618

== ENCOUNTER 2018-11-25 14:50 | Outpatient (RCR) | payer MEDICARE, SELFPAY ==
[2018-03-16 10:03] VITALS: BMI 25.2
[2018-10-27 11:55] VITALS: BMI 24.1
--- NOTE | 2018-11-25 15:00 | SOAP_ITS ---
REASON FOR REFERRAL: The Patient is an 83 year old male referred for a clinical assessment of the swallow function at [facility] / [facility] on 11/25/2018 due to concerns for dysphagia and possible aspiration following his most recent chemoradiation cycle. The Patient was accompanied by his , with both reporting intermittent coughing during ingestion towards the latter portions of the chemotherapy cycle (approximately 6 weeks prior to the assessment), though both report this has resolved since. Both report initial unintentional weight loss (approximately 10lbs), though this has been stable over the past 2-3 months; denies any changes in appetite. The Patient does report fluctuating hypogeusia / ageusia without hyposmia. He denies odynophagia; denies significant xerostomia; denies the presence of diurnal sialorrhea; denies globus sensation, reflux, or post prandial substernal discomfort. Both deny any current or previous issues with aspiration related pulmonary complications, to include pneumonia, bronchitis, or unexplained asthma symptoms; both deny suboptimal intake behaviors (tachyphagia, bolus bolting, or aerophagia). His reports baseline cognitive functioning impairment associated with dementia, though she is able to assist as needed at home; affect appears appropriate. The Patient is fully ambulatory with use of a front wheeled walker, though ambulation is quite slow, with the Patient becoming somewhat short of breath; no difficulties with posture maintenance; appears sufficiently nourished MEDICAL HISTORY: Cerebrovascular accident / intracranial hemorrhage, stage III (T1b N2 M0) right non-small cell lung cancer status post chemoradiation, seizures, chronic obstructive pulmonary disease, Alzheimer disease, prostate cancer status post irradiation, heart attack status post pacemaker placement, hypertension, hyperlipidemia, status post hernia repair; status post back surgery, difficulty in walking, generalized weakness PREVIOUS MODIFIED BARIUM SWALLOW STUDY: Prior study completed in 2017 at [facility] with no aspiration (per spouse report) ADDITIONAL OBJECTIVE ASSESSMENT RESULTS: 10/10/2018 MRI revealed no MRI evidence of acute ischemic infarct, intracranial mass or acute intracranial abnormality; no enhancing lesions intraaxially or extra-axially; chronic white matter ischemic changes in both cerebral hemispheres. 09/08/2018 pulmonary functions test revealed the presence of a partially reversible moderately severe large airways obstructive ventilatory defect with an associated symmetric reduction in diffusing capacity. ORAL MOTOR / MODIFIED CRANIAL NERVE ASSESSMENT: CNV, VII, IX, X, and XII appear grossly intact. Upper and lower dentures in place; ill-fitting lower dentures. Moist pinkish appearance to the oral mucosa without xerostomia. Mildly reduced cough intensity, may indicate dystussia. No signs or symptoms of trismus, SUPPLEMENTARY DYSPHAGIA ASSESSMENT RESULTS: Malnutrition Screening Tool (MST): 0 (not at risk) Reflux Symptom Index (RSI): 0 (>13 may be indicative of significant reflux) Sialorrhea Scoring Scale (SSS): 1/9 (dry, never drools) RTOG Radiation Morbidity Scoring Criteria for Xerostomia: Grade 0 (no slip box changer baseline) [facility] Xerostomia Questionnaire: 0/80 Scale of Subjective Total Taste Acuity (STTA): Grade 0 (same taste acuity as before treatment) Rodriguez Index of [place] in Activities of Daily Livin/6 (dependent) Fran ? [place] Instrumental Activities of Daily Living Scale (IADL): 1/8 (dependent) Eating Assessment Tool ? 10 (EAT-10): 0 (3 + may represent swallowing problems) CLINICAL ASSESSMENT OF SWALLOW FUNCTION (QUANTITATIVE): Repetitive Saliva Swallowing Test (RSST): Failed; < 2 dry swallows within 30 seconds. Modified Water Swallowing Test (MWST): 5 (of 5); normal 1oz (30mL) Water Swallowing Test (1oz WST): Normal ? 1 (of 5) 3oz (90mL) Water Swallow Test (3oz WST): Normal Food Test: 5 (of 5); normal [place] Assessment of Swallowing Ability (MASA): 186 (no abnormality detected) MASA Aspiration Severity Score: 186 (no abnormality detected) MASA Dysphagia Risk Rating: Possible; lowered probability of disorder Swallowing Performance Scale (PSP): 2 (WFL) CLINICAL ASSESSMENT OF SWALLOW FUNCTION (QUALITATIVE): ORAL PREPARATORY PHASE: sufficient mastication rate and quality with sufficient anterior oral containment; preserved management of breathing / bolus formation without disrupted E ? S ? E pattern. ORAL TRANSITIONAL PHASE: no signs of transitional incompetence; no signs of bolus consolidation impairments; no signs or symptoms of premature posterior bolus loss. PHARYNGEAL PHASE: mild reduction in hyolaryngeal excursion upon digital palpation possibly suggestive of suboptimal laryngeal vestibule closure / pressure, though in isolation this may lack clinically significance; no obvious findings suggestive of pharyngeal phase delay / dyssynchrony; no subjective signs of pharyngeal dysmotility; no subjective signs of velopharyngeal impairments; no signs or symptoms of penetration / aspiration throughout trials. ESOPHAGEAL PHASE: esophageal phase appears unremarkable RESULTS AND RECOMMENDATIONS: The Patient presents with mastication and deglutition abilities found to be grossly within functional limits in comparison to age matched peers. Cannot definitively rule out silent aspiration at bedside; would consider objective assessment of the oropharyngeal swallow function if silent aspiration is suspected (no current clinical suspicions). The Patient is at higher risk of silent aspiration secondary to the diagnosis of chronic obstructive pulmonary disease (COPD); discussed options to advance with objective imaging to definitively assess the oropharyngeal swallow function, though both the Patient and Patients politely declined. Discussed results and recommendations with the Patient and Patietns following completion of the assessment, with all expressing agreement and understanding. Provided brief overview of signs and symptoms of aspiration, with recommendations for the Patient to further discuss symptoms with primary care physician. No further skilled speech-language services warranted at this time targeting dysphagia. DIET TEXTURE RECOMMENDATIONS: Will recommend a regular textured (IDDSI: 7), thin liquid diet (IDDSI: 0) diet RECOMMENDED COMPENSATORY STRATEGIES: Reduced bolus volume / rate of ingestion, seated upright at 90 degrees during PO intake. Werner Price M.A., CCC-CITY ADMINISTRATOR MBSImP Certified, LSVT Certified [facility] Speech-Language Pathology Department [email or web address]
== END 2018-11-25 19:00 | disposition home or self-care (01) ==
LOC: SP 14:50
PROVIDERS: Family Provider Family Medicine; PCP Family Medicine; Referring Provider Internal Medicine Critical Care Medicine; Visit Provider Internal Medicine Critical Care Medicine
DX: R13.10 Dysphagia, unspecified (principal)
CPT/HCPCS: 92610

== ENCOUNTER → 2018-12-06 13:22 | Outpatient (CLI) | payer MEDICARE, SELFPAY ==
[2018-03-16 10:03] VITALS: BMI 25.2
[2018-10-27 11:55] VITALS: BMI 24.1
--- NOTE | 2018-12-06 13:05 | SP.MBSS_ITS ---
PRIMARY / SECONDARY DIAGNOSIS: dysphagia (R13.10) REFERRING PHYSICIAN: Dr. Mike Cleveland, DO, MS CURRENT DIET: regular textures, thin liquids DENTITION: upper / lower dentures MENTAL STATUS: baseline dementia; sufficient for participation. RESPIRATORY STATUS: O2 via room air REASON FOR REFERRAL: The Patient is an 83 year old male referred for a modified barium swallow (MBS) study to objectively assess the Patients oropharyngeal swallow function under fluoroscopy secondary to concerns for dysphagia and possible aspiration following his most recent chemoradiation cycle. MEDICAL HISTORY: Cerebrovascular accident / intracranial hemorrhage, stage III (T1b N2 M0) right non-small cell lung cancer status post chemoradiation, seizures, chronic obstructive pulmonary disease, Alzheimer disease, prostate cancer status post irradiation, heart attack status post pacemaker placement, hypertension, hyperlipidemia, status post hernia repair; status post back surgery, difficulty in walking, generalized weakness. PREVIOUS MODIFIED BARIUM SWALLOW STUDY: Prior study completed in 2017 at [facility] with no aspiration (per spouse report). ADDITIONAL OBJECTIVE ASSESSMENT RESULTS: 10/10/2018 MRI revealed no MRI evidence of acute ischemic infarct, intracranial mass or acute intracranial abnormality; no enhancing lesions intraaxially or extra-axially; chronic white matter ischemic changes in both cerebral hemispheres. 09/08/2018 pulmonary functions test revealed the presence of a partially reversible moderately severe large airways obstructive ventilatory defect with an associated symmetric reduction in diffusing capacity. ASSESSMENT PARAMETERS: The Patient participated in a Modified Barium Swallow (MBS) study on 12/06/2018. Dr. Salmeron was the radiologist present for this evaluation. This study was recorded in the lateral view and images were sent to PACs for storage. Scoring was completed through each trial using the 8-point Penetration-Aspiration Scale (PAS) and summarized via the Modified Barium Swallow Impairment Profile (MBSImP) and the Bolus Residue Scale (BRS), with severity scoring through the Dysphagia Severity Rating Scale (DSRS) and Swallowing Performance Scale (SPS), and recommended diet textures through the International Dysphagia Diet Standardisation Initiative (IDDSI) RESULTS OF THE EVALUATION: The Patient presents with mild oropharyngeal dysphagia (DSRS: 2; SPS: 3) without penetration or aspiration secondary to the diagnosis of dementia and secondary presbyphagia. SUPPLEMENTARY DYSPHAGIA ASSESSMENT RESULTS: Malnutrition Screening Tool (MST): 0 (not at risk) Reflux Symptom Index (RSI): 0 (>13 may be indicative of significant reflux) Sialorrhea Scoring Scale (SSS): 1/9 (dry, never drools) [employer] Xerostomia Questionnaire: 0/80 Scale of Subjective Total Taste Acuity (STTA): Grade 0 (same taste acuity as before treatment) Eating Assessment Tool ? 10 (EAT-10): 0 (3 + may represent swallowing problems) OBJECTIVE ASSESSMENT OF SWALLOW FUNCTION (QUANTITATIVE ? PER TRIAL): PENETRATION / ASPIRATION SCALE (NGUYEN): 1 = does not enter airway 2 = enters airway/above vocal folds/ejected 3 = enters airway/above vocal folds/not ejected 4 = enters airway/contacts vocal folds/ejected 5 = enters airway/contacts vocal folds/not ejected 6 = enters airway/below vocal folds/ejected 7 = enters airway/below vocal folds/not ejected despite effort 8 = enters airway/below vocal folds/no effort PENETRATION / ASPIRATION SCALE (SCORE): Thin liquid - 5 mL tsp.: 1 Thin liquids via cup (single sip): 1 Thin liquids via cup (single sip): 1 Thin liquids via cup (single sip): 1 Thin liquids via straw (sequential swallows): 1 Pudding via spoon: 1 Regular textured cookie: 1 Thin liquids via straw (single sip): 1 OBJECTIVE ASSESSMENT OF SWALLOW FUNCTION (QUANTITATIVE ? AGGREGATE): MODIFIED BARIUM SWALLOW IMPAIRMENT PROFILE (MBSImP) LABIAL SEAL: 1 (of 4) interlabial escape, no progression TONGUE CONTROL: 1 (of 3) lateral buccal cavity / floor of mouth BOLUS PREPARATION / MASTICATION: 1 (of 3) slow prolonged; complete recollection BOLUS TRANSPORT / LINGUAL MOTION: 3 (of 4) repetitive / disorganized motion ORAL RESIDUE: 1 (of 4) trace residue lining oral structures INITIATION OF PHARYNGEAL SWALLOW: 1 (of 4) valleculae SOFT PALATE ELEVATION: 0 (of 4) no bolus between soft palate & pharyngeal wall LARYNGEAL ELEVATION: 0 (of 3) complete superior movement / approximation ANTERIOR HYOID EXCURSION: 1 (of 2) partial movement EPIGLOTTIC MOVEMENT: 1 (of 2) partial inversion LARYNGEAL VESTIBULE CLOSURE: 0 (of 2) complete closure PHARYNGEAL STRIPPING WAVE: 1 (of 2) present / diminished PE SEGMENT OPENIN (of 3) partial distension / duration / obstruction TONGUE BASE RETRACTION: 1 (of 4) trace column of contrast PHARYNGEAL RESIDUE: 2 (of 4) collection of residue ESOPHAGEAL BOLUS CLEARANCE: could not view BOLUS RESIDUE SCALE (BRS): 4 (of 6) residue in valleculae and pyriform sinus DYSPHAGIA SEVERITY RATING SCALE (DSRS): 2 (mild) SWALLOWING PERFORMANCE SCALE (SPS): 3 (mild) OBJECTIVE ASSESSMENT OF SWALLOW FUNCTION (QUALITATIVE): ORAL PREPARATORY PHASE: mild (albeit effective) mastication inefficiency with prolonged mastication; sufficient anterior oral containment; preserved management of breathing / bolus formation without disrupted E ? S ? E pattern. ORAL TRANSITIONAL PHASE: compromised bolus manipulation / transportation with mild discoordinated lingual movements (undulations) paired with mild oral phase swallow onset delay (2-3 seconds in length max); sufficient oral clearance; no presence of premature posterior bolus loss. PHARYNGEAL PHASE: no signs of pharyngeal dyssynchrony; mild reduction in laryngeal excursion paired with inconsistent epiglottic deflection resulting in hyperpharyngeal retention; reduced tongue based retraction resulting in hypopharyngeal retention; no signs of velopharyngeal impairments; no penetration / aspiration throughout trials. ESOPHAGEAL PHASE: no obvious esophageal phase abnormalities observed. CONTRIBUTING / COMPLICATING FACTORS AND NOTABLE FINDINGS: prominent diffuse idiopathic skeletal hyperostosis (DISH) extending along the C-4 to C-6 levels , minimal to no impact on pharyngeal motility; noted calcification along the anterior laryngeal vestibule wall at 2 separate locations as well as at the anterior vocal fold that initially complicated assessment of laryngeal penetration (clarified upon review). RESPONSE TO STRATEGIES: all deficits managed successfully through reduction in bolus size selection, and execution of a liquid wash following solid ingestion. RECOMMENDATIONS AND CONSIDERATIONS: The Patient and Patients caregiver was able to comprehend information presented upon review and express recommended intake precautions (reduced bolus volume) to suggest higher likelihood of compliance. Provided a brief overview of signs and symptoms of aspiration, with recommendations for the Patient to further discuss any further symptoms with the Patients primary care physician. No further skilled speech-language services warranted at this time targeting dysphagia. DIET TEXTURE RECOMMENDATIONS: Will recommend a regular ? soft textured (IDDSI: 6), thin liquid diet (IDDSI: 0) diet RECOMMENDED COMPENSATORY STRATEGIES: Reduced bolus volume / rate of ingestion, consider cutting tougher textures into bite sized pieces, reduced bolus volume / rate of ingestion, liquid chaser at reasonable intervals, seated upright at 90 degrees during PO intake. IMAGE COUNT: [id number] Werner Price M.A., CCC-CHURN DRILLER MBSImP Certified, LSVT Certified [facility] Speech-Language Pathology Department [email or web address]
--- NOTE | 2018-12-06 13:31 | RAD_ITS ---
STUDY: SWALLOWING STUDY REASON FOR EXAM: Male, 83 years old. Dysphagia. TECHNIQUE: The examination was performed with Speech Pathology in attendance. Under fluoroscopic observation, the patient ingested thin barium, thick barium, barium pudding, and barium coated cracker. FLUOROSCOPY TIME: 1:39 minutes/seconds. 1420 images. RADIOLOGIST INVOLVEMENT: Radiologist was present and providing direct supervision. COMPARISON: None. FINDINGS: The following was observed during swallowing of the various mixtures of barium: Thin Barium: There was no evidence of aspiration or laryngeal penetration. Barium Pudding: There was no evidence of aspiration or laryngeal penetration. Barium Coated Cracker: There was no evidence of aspiration or laryngeal penetration. RAD/Swallowing Function w/Video IMPRESSION: Normal tailored barium swallow study. No evidence of increased risk for aspiration. The swallow study findings were discussed with the patient by the speech pathologist at the conclusion of the examination. Please see speech pathology report for more information and recommendations. Electronically Signed: Rk Salmeron, at 15:04 EDT , Service support ,
== END ==
PROVIDERS: Family Provider Family Medicine; PCP Family Medicine; Referring Provider Student in an Organized Health Care Education/Training Program; Visit Provider Student in an Organized Health Care Education/Training Program
DX: R13.12 Dysphagia, oropharyngeal phase (principal)
CPT/HCPCS: 74230; 92611

== ENCOUNTER → 2018-12-16 16:49 | Outpatient (CLI) | payer MEDICARE, SELFPAY ==
[2018-03-16 10:03] VITALS: BMI 25.2
[2018-10-25 11:03] VITALS: BMI 24.1
[2018-10-27 11:55] VITALS: BMI 24.1
--- NOTE | 2018-12-16 16:51 | CT_ITS ---
STUDY: CT ABDOMEN WITH CONTRAST REASON FOR EXAM: Male, 83 years old. Restaging lung cancer. History of prostate cancer and lung cancer with radiation and chemotherapy. RADIATION DOSAGE (If Supplied By Facility): CTDIvol = ( 15.37 ) mGy, DLP = ( 1007.89 ) mGycm TECHNIQUE: Transaxial images were obtained post I.V. administration of 100ml ml of Isovue 370 contrast, and oral contrast. Sagittal and coronal images were reconstructed. Individualized dose optimization techniques were used for this CT. COMPARISON: CT chest same date, PET/CT to 2018, CT chest 08/03/2018, 84 2018 FINDINGS: Body wall soft tissues: No acute process. Osseous structures: No acute process. Inferior chest: Chronic interstitial changes at the lung bases, mild fibrosis without honeycombing or bronchiectasis. Likely reflecting sequela of smoking history. Normal distal esophagus. No cardiomegaly or pericardial effusion. Prominent calcification of the aortic valve leaflets. Pacer wires present. Hepatobiliary: Normal gallbladder, slight intrahepatic biliary ductal ectasia, no suspicious lesions, nondilated common bile duct. Pancreas: Slight ductal ectasia in the body and tail. The pancreatic head, ductal ectasia up to 5.5 mm. The ductal ectasia in the head was not apparent on prior imaging. There is a new cyst in the pancreatic head measuring 8.2 mm, low-density circumscribed features, adjacent to the intersection of the pancreatic duct and common bile duct, centered on series 3 image 48. This was not apparent on prior imaging. Suspicious for pancreatic malignancy. Spleen: Normal. Adrenal glands: Normal. Urinary tract: Moderately severe left renal atrophy. Normal right kidney. Normal collecting systems and proximal to mid ureters. Retroperitoneum: No mass or lymphadenopathy. Vasculature: Circumferential calcification of wall the abdominal aorta, mild aneurysmal ectasia of the infrarenal abdominal aorta 3.3 cm, fusiform morphology. Moderate calcification of the proximal iliac arteries. Stomach: Normal. Small bowel: Evaluated portions are normal. Large bowel: Evaluated portions exhibit no acute process. Scattered diverticulosis without diverticulitis. Ascites or free air: None. CT/Abdomen WITH IV Contrast IMPRESSION: 1. Apparently new small pancreatic head cyst suspicious for malignancy contributing to ectasia of the pancreatic duct within the pancreatic head. Cystic focus measures 8.2 mm. 2. No other acute abdominopelvic process is evident. Electronically Signed: Bandar Fatima MD at 16:01 EDT Tel , Service support ,
--- NOTE | 2018-12-16 16:51 | CT_ITS ---
STUDY: CT CHEST WITH CONTRAST REASON FOR EXAM: Male, 83 years old. Restaging lung cancer, history of prostate cancer and lung cancer with radiation and chemotherapy. RADIATION DOSAGE (If Supplied By Facility): CTDIvol = ( 15.37 ) mGy, DLP = ( 1007.89 ) mGycm TECHNIQUE: Transaxial imaging was performed following intravenous administration of 100ml IV Isovue 370. Coronal and sagittal 2-D MPR Individualized dose optimization techniques were used for this CT. COMPARISON: CT abdomen and pelvis same date, 08/25/2017. PET CT 08/09/2017. CT chest 08/03/2018 and 01/29/2018 FINDINGS: Supraglottic or: No acute process. Body wall soft tissues: No acute process. Osseous structures: No lytic or blastic lesions. Mediastinum: Normal esophagus. No mediastinal or hilar mass or acute lymphadenopathy. A few small lymph nodes are present, not pathologically enlarged. The enlarged lymph nodes seen on prior imaging of 08/03/2018 have considerably diminished in size. Cardiovascular: Borderline cardiomegaly, prominent coronary calcifications, prominent aortic valve calcifications, borderline aneurysmal ectasia of the ascending aorta and proximal arch 3.9 cm, moderate arch atherosclerosis, unremarkable pulmonary arteries. Lungs: Intraparenchymal reticulation and subpleural reticulation associated with features of mild centrilobular emphysema at the apices and consistent with smoking history. Medial pleural margin, right lung apex, solid pulmonary nodule measuring 13.5 x 15 mm, diminished in size compared to prior imaging. There are extensive patchy stranding and partially confluent infiltrates of the right upper lobe apical and posterior segment, and in the right lower lobe apical segment likely reflecting radiation therapy pneumonitis. CT/Chest WITH Contrast IMPRESSION: Infiltrates in the apical right lower lobe, posterior apical right upper lobe are most likely to reflect radiation therapy pneumonitis. The primary lung lesion of the right lung apex has diminished in size. Mediastinal/right hilar lymph nodes have substantially diminished in size. Electronically Signed: Bandar Fatima MD at 16:12 EDT Tel , Service support ,
[2018-12-16 17:00] LABS: EGFR FINGERSTICK > 60.0000 mL/min (>60)
== END ==
PROVIDERS: Family Provider Family Medicine; PCP Family Medicine; Referring Provider Internal Medicine Hematology & Oncology; Visit Provider Internal Medicine Hematology & Oncology
DX: C34.90 Malignant neoplasm of unspecified part of unspecified bronchus or lung (principal); C77.9 Secondary and unspecified malignant neoplasm of lymph node, unspecified
CPT/HCPCS: 71260; 74160; Q9967; A4216

== ENCOUNTER → 2019-03-01 12:51 | Outpatient (CLI) | payer MEDICARE, SELFPAY ==
[2018-03-16 10:03] VITALS: BMI 25.2
[2018-12-27 12:52] VITALS: BMI 23.7
[2019-01-18 09:58] VITALS: BMI 23.5
[2019-02-15 09:32] VITALS: BMI 23.7
--- NOTE | 2019-03-01 12:53 | CT_ITS ---
STUDY: CT CHEST WITH CONTRAST REASON FOR EXAM: Male, 83 years old. Lung cancer. History of radiation and chemotherapy. RADIATION DOSAGE (If Supplied By Facility): CTDIvol = ( 17.85 ) mGy, DLP = ( 1723.50 ) mGycm TECHNIQUE: Transaxial imaging was performed following intravenous administration of 100 ml of Isovue 300 contrast material. Coronal and sagittal reformatted images were created. Individualized dose optimization techniques were used for this CT. COMPARISON: 12/16/2018 FINDINGS: There are stable emphysematous changes noted in the lungs. Again noted is a right apical mass. This is not well evaluated due to the adjacent consolidation, but it measures approximately 1.3 x 1.1 cm and is slightly decreased in size when compared with the prior exam. Again noted is patchy airspace opacity throughout the right lung, most pronounced in the right upper lobe. This is likely due to radiation pneumonitis and is decreased when compared with the prior exam. There is a stable small right pleural effusion. There is no left-sided effusion or infiltrate. There is no pneumothorax. The heart and pericardium are within normal limits. There are coronary artery calcifications noted. There is a pacemaker in place. There are stable subcentimeter mediastinal and right hilar lymph nodes. There is no evidence of thoracic aortic aneurysm. Images through the upper abdomen demonstrate a stable hiatal hernia. There are no destructive osseous lesions. CT/Chest WITH Contrast IMPRESSION: Redemonstration of a right apical mass which is not well evaluated due to the adjacent consolidation. However, it appears to have slightly decreased in size when compared with 12/16/2018. Patchy airspace opacity throughout the right lung which is most pronounced in the right upper lobe. This is likely due to postradiation pneumonitis and is decreased when compared with the prior exam. Stable subcentimeter mediastinal and right hilar lymph nodes. Stable small right pleural effusion. Coronary artery disease. Small hiatal hernia. Electronically Signed: Craig Vincent, at 16:53 EDT Tel , Service support ,
--- NOTE | 2019-03-01 12:53 | CT_ITS ---
STUDY: CT ABDOMEN AND PELVIS WITH CONTRAST REASON FOR EXAM: Male, 83 years old. Lung cancer. Prostate cancer. Pancreatic lesion. Follow-up. RADIATION DOSAGE (If Supplied By Facility): CTDIvol = ( 17.85 ) mGy, DLP = ( 1723.50 ) mGycm TECHNIQUE: Transaxial images were obtained from the dome of the diaphragm to the symphysis pubis without oral contrast. 100 ml of Isovue 300 contrast was administered. Sagittal and coronal images were reconstructed. Individualized dose optimization techniques were used for this CT. COMPARISON: 12/16/2018 FINDINGS: Please see the chest CT report which was dictated separately. There are no calcified gallstones present. The liver is within normal limits. There are no suspicious hepatic lesions. The spleen is normal in size. There is a stable 8 mm cyst in the pancreatic head with stable adjacent minimal pancreatic ductal dilatation. The adrenal glands are within normal limits. There are stable atrophy of the left kidney. There are no renal or ureteral stones. There is no hydronephrosis. There are no focal renal lesions. There is a stable small hiatal hernia. There is no bowel obstruction or inflammation. The appendix is visualized and appears normal. There is a stable 3.3 cm infrarenal abdominal aortic aneurysm. Again noted are atherosclerotic calcifications in the aorta and its branches. There is no abdominal or pelvic free air, free fluid, fluid collection or lymphadenopathy. There are no destructive osseous lesions. There are stable postsurgical changes noted in the spine. CT/Abdomen/Pelvis WITH Contrast IMPRESSION: Stable subcentimeter cyst in the pancreatic head with stable adjacent minimal pancreatic duct dilatation. This is of uncertain etiology. Overall, no significant change when compared with the prior exam. Electronically Signed: Craig Vincent, at 17:09 EDT Tel , Service support ,
== END ==
PROVIDERS: Family Provider Family Medicine; PCP Family Medicine; Referring Provider Internal Medicine Hematology & Oncology; Visit Provider Internal Medicine Hematology & Oncology
DX: Z01.812 Encounter for preprocedural laboratory examination (principal); C34.90 Malignant neoplasm of unspecified part of unspecified bronchus or lung; C77.9 Secondary and unspecified malignant neoplasm of lymph node, unspecified; K86.9 Disease of pancreas, unspecified
CPT/HCPCS: 71260; 74177; Q9967; A4216

== ENCOUNTER → 2019-04-20 16:02 | Outpatient (CLI) | payer MEDICARE, SELFPAY ==
[2019-01-18 09:58] VITALS: BMI 23.5
[2019-03-03 11:22] VITALS: BMI 24.1
[2019-04-20 17:41] LABS: Absolute Neutrophil Count 4.3 X10^3/uL (2.0-7.7); Basophil# 0.04 X10^3/uL; Basophil% 0.6 % (0-1); Eosinophil# 0.21 X10^3/uL; Eosinophils% 3.3 % (0-5); Hemoglobin 11.9 g/dL (13.0-16.5); Lymphocyte % 12.6 % (19-41); Mean Corp Hgb Conc 31.3 g/dL (32-36); Mean Corpuscular Hgb 27.5 pg (27.0-32.0); Mean Platelet Vol. 10.2 fl (6.2-12.0); Monocyte# 0.97 X10^3/uL; Monocyte% 15.3 % (0-10); NRBC Flagged by Analyzer 0 % (0-5); Neutrophil # 4.31 X10^3/uL (2.7-7.7); Neutrophil % 67.9 % (47-70); Platelet Count 174 K/mm3 (150-450); RBC Distribution Width CV 15.2 % (11.6-14.6); RBC Distribution Width SD 48.7 fl (35.1-43.9); Red Blood Count 4.32 M/mm3 (4.6-6.2); White Blood Count 6.4 K/mm3 (4.4-11.0)
[2019-04-20 18:12] LABS: ALB/GLOB Ratio 1.1 RATIO (0.9-2.4); AST(SGOT) 25 U/L (15-37); Alanine Aminotransfer ALT/SGPT 32 U/L (16-61); Alkaline Phosphatase 87 U/L (45-117); Anion Gap 7 (5-15); BUN 17 mg/dL (7-18); BUN/Creat Ratio 14.5 RATIO (10-20); Calcium,Total 10.3 mg/dL (8.5-10.1); Chloride 105 mmol/L (98-107); Creatinine, Serum 1.17 mg/dL (0.70-1.30); EST Glomerular Filtration Rate 63 mL/min (>60); Est Glom Filt Rate - Afr Amer 77 mL/min (>60); Globulin 3.8 g/dL (2.2-4.2); Glucose 99 mg/dL (74-106); Potassium 4.3 mmol/L (3.5-5.1); Protein, Total 7.8 g/dL (6.4-8.2); Sodium Level 139 mmol/L (136-145); Thyroid Stim Hormone (TSH) 3.36 uIU/mL (0.358-3.74); Vitamin D,25 Hydroxy 28.5 ng/mL (29.95-100.01)
== END ==
PROVIDERS: Visit Provider Family Medicine Geriatric Medicine
DX: I10 Essential (primary) hypertension (principal); E55.9 Vitamin D deficiency, unspecified
CPT/HCPCS: 36415; 80053; 82306; 84443; 85025

== ENCOUNTER 2019-06-24 09:30 | Outpatient (RCR) | payer MEDICARE, SELFPAY ==
[2019-01-18 09:58] VITALS: BMI 23.5
[2019-03-03 11:22] VITALS: BMI 24.1
[2019-06-01 10:53] VITALS: BMI 24.5
--- NOTE | 2019-06-03 10:09 | HP.PTEVAL ---
Patient's Visit Information PEDRITO REYES is a 84 year old M referred to Physical Therapy by Ricardo Martínez MD with a diagnosis of RIGHT LE WEAKNESS, PARKINSONS DZ. Date of Evaluation: 06/03/19 Physical Therapist: Ana Carranza PT, Cert MDT - Visit Plan Frequency: 2-3x /Week Duration: 4-6 Weeks Plan: RIGHT KNEE HEAT OR COLD NEEDED. NO ULTRASOUND. RIGHT KNEE GENTLE AROM, SELF STRETCHING AND STRENGTHENING TOLERATED. NO THERAPIST OVER PRESSURE/PROM. GAIT TRAINING. BALANCE TRAINING. - Subjective Findings: Work/Leisure: RETIRED. Disability: NO. Present symptoms: PATIENT C/O RIGHT KNEE GIVING HIM FITS. Present since: ABOUT A YEAR AGO. Pain Scale: WORST 7/10, LEAST 0/10. Currently: 12/06. Commenced as a result of: BACK SURGERY AT [facility] ABOUT A YEAR AGO AND BACK SURGERY WENT WELL BUT DURING REHAB HE FELL DOWN THE STEPS. 47 DAYS IN [place]. STATES HE HAD A STROKE. THIS IS WHEN THE RIGHT KNEE STARTED HURTING. Symptoms at onset: ABOUT A YEAR AGO. Worse: STANDING AND WALKING. Better: BIOFLEX. Disturbed sleep: NO. Previous history/Previous treatment: REHAB POST INJURY ABOUT A YEAR AGO. RIGHT KNEE INJURY ABOUT 50 YEARS AGO ALSO - 2 SURGERIES. Gait: USES CANE ALMOST ALL THE TIME NOW. HAS WALKER AND W/C AT HOME TOO BUT HASN'T USED THEM LATELY. Unexplained weight loss: NO. Imaging: PATIENT DOES NOT THINK HE HAS HAD ANY RECENT IMAGING ON RIGHT KNEE BUT HIS UNDERSTANDING IS THAT IT IS BONE ON BONE. PMH: DX'D WITH LUNG CANCER AFTER BACK SURGERY. ON A RESTING PERIOD FROM CHEMO NOW. ALSO HAD RADIATION TREATMENTS ENDING ABOUT 3 MONTHS AGO. MAY HAVE SPREAD TO PANCREAS NOW. MORE TESTING PENDING. PARKINSON'S DZ DIAGNOSED SINCE BACK SURGERY ALSO. PATIENT HAS AN ALZHEIMER DIAGNOSIS WELL BUT DID A NICE JOB ANSWERING MOST OF THIS PT'S QUESTIONS TODAY WITHOUT HIS PRESENT. *PACEMAKER*, HTN, HYPERLIPIDEMIA, CAD, BPH, PAOD - 2 STENTS. Recent major surgery: BACK SURGERY ABOUT A YEAR AGO. ABOUT 3 YEARS AGO PATIENT DESCRIBES HAVING STENTS PUT IN HIS RIGHT LEG. OTHER: *PATIENT REPORTS HE IS STILL PERIODICALLY FALLING AND OR PASSING OUT - RANDOM. LAST TIME WAS ABOUT 2 WEEKS AGO. NO LONGER ALLOWED TO DRIVE. - Objective THIS PATIENT AMBULATES INDEP'LY INTO PT WITH A STRAIGHT CANE. LOSS OF BALANCE SEVERAL TIMES BUT REGAINED INDEP'LY. HE IS LIMPING ON HIS RIGHT LE AND USES THE CANE IN HIS RIGHT UE (PATIENT PREFERENCE). HE WALKS WITH A RIGID GAIT PATTERN, NARROW BASE OF SUPPORT AND VERY SHORT PAUL STRIDE LENGTH. HE IS UE DEPENDENT TO TRANSFER FROM SIT TO STAND BUT INDEP. STANDING BALANCE IS FAIR. DYNAMIC BALANCE IS FAIR MINUS. PAUL LE STRENGTH IS GROSSLY 4/5 WITH MMT'ING EXCEPT RIGHT KNEE. RIGHT KNEE IS SWOLLEN AND PAINFUL. IT IS NOT RED OR WARM TO THE TOUCH. RIGHT KNEE ROM IS -12 DEG EXT TO 111 DEG FLEXION IN LYING WITH A HEEL SLIDE INITIALLY BUT THEN -5 DEG EXT AFTER GIVEN TIME TO STRETCH. PATIENT DEMO'S INDEP TRANSFERS SIT TO SUPINE AND REVERSE. PAUL LE LIGHT TOUCH SENSATION APPEARS INTACT AND SYMMETRICAL. - Goals Goal 1:: INDEP AND SAFE GAIT ON ALL SURFACES WITH APPROPRIATE ASSISTIVE DEVICE. Goal Time Frame: 4-6 Weeks Goal 2:: DECREASE C/O RIGHT KNEE PAIN. Goal Time Frame: 4-6 Weeks Goal 3:: INDEP HEP Goal Time Frame: 4-6 Weeks - Rehabilitation Potential Rehabilitation Potential: Fair - Anticipated Interventions Patient/Client Instruction: Educate patient on: Condition, Plan of Care, Risk Factors, Benefits of Fitness Program For the Purpose of:: To improve self management Therapeutic Exercise to Include: Strength training, Balance training, Coordination, Flexibilty training, Gait and locomotor training, Active ROM Comment: NO PROM. *HIGH FALL RISK* USE GAIT BELT AT ALL TIMES. For the Purpose of:: To decrease pain, To improve muscle performance and motor function, To improve ability to perform ADL's, To increase tolerance to activity/condition/position, To improve ability of physical actions for home/community/work/leisure, To improve gait and locomotor functions Cryotherapy (ice pack, ice massage): Yes Thermo therapy (hot pack): Yes Comment: NO ULTRASOUND For the Purpose of:: To decrease pain, To decrease swelling/inflammation, To increase ROM, To improve nutrient delivery to tissue Thank you for the opportunity to evaluate your patient. For Medicare and Medicare HMO plans, please review the plan of care and approve it. It will need to be FAXED BACK to us at [phone] for Medicare purposes. For Medicare only, by signing this I certify the plan of care. Please let me know if there are questions or concerns regarding this plan of care. Physician Signature: Date:
--- NOTE | 2019-06-24 12:49 | HP.PTDCSUM ---
HP - PT D/C Summary It has been my pleasure to treat PEDRITO REYES under orders from Ricardo Martínez MD, for the diagnosis of RIGHT LE WEAKNESS, PARKINSONS DZ for a total of 10 visit(s). Discharge Date: Please see the following information for a summary of their discharge status. - Subjective Subjective: PATIENTS CAME BACK TO PT SESSION TODAY AND WAS HELPFUL WITH MEDICAL INFORMATION. PATIENT IS STILL HAVING A LOT OF PAIN IN RIGHT KNEE BUT IS APPARENTLY NOT A GOOD SURGERY CANDIDATE. RECEIVED A CORTISONE SHOT IN RIGHT KNEE IN JANUARY OF 2019 AND THEY PLAN TO FOLLOW UP WITH DR. MARTÍNEZ ABOUT GETTING ANOTHER ONE. PATIENT AND HIS REPORT THEY HAVE NOT SEEN REALLY ANY IMPROVEMENT IN HIS WALKING SINCE STARTING PT. PATIENT REPORTS THE RIGHT KNEE HURTS TOO MUCH TO DO THE EX'S. - Pain R Knee Pain Intensity (Out of 10): 7 - Objective Objective/Function: PATIENT IS NOT PROGRESS ING. HE FATIGUES EASILY AND IS LIMITED BY HIS RIGHT KNEE PAIN. THERE ARE NO SIGNIFICANT CHANGES EXAM TODAY COMPARED TO INITIAL EVAL WITH RIGHT KNEE ROM MEASURING -5 DEG EXT TO 113 DEG FLEXION TODAY. - Goals Goal 1:: INDEP AND SAFE GAIT ON ALL SURFACES WITH APPROPRIATE ASSISTIVE DEVICE. Goal Progress: Not Progressing Goal 2:: DECREASE C/O RIGHT KNEE PAIN. Goal Progress: Not Progressing Goal 3:: INDEP HEP Goal Progress: Goal Met - Plan Plan: D/C. RECOMMENDED PHYSICIAN RE-CHECK. PATIENT AND AGREEABLE. - D/C Information If there are questions or concerns regarding this patient's physical therapy, please feel free to call me at [phone]. Thank you for the referral of this patient. Sincerely, Ana Carranza, PT, Cert MDT
== END 2019-06-24 19:00 | disposition home or self-care (01) ==
LOC: PT 09:30
PROVIDERS: Family Provider Family Medicine Geriatric Medicine; PCP Family Medicine Geriatric Medicine; Referring Provider Family Medicine Geriatric Medicine; Visit Provider Family Medicine Geriatric Medicine
DX: R29.898 Other symptoms and signs involving the musculoskeletal system (principal)
CPT/HCPCS: 97110; 97162; 97530

== ENCOUNTER → 2019-07-21 11:15 | Outpatient (CLI) | payer MEDICARE, SELFPAY ==
[2019-01-18 09:58] VITALS: BMI 23.5
[2019-07-20 11:57] VITALS: BMI 24.4
[2019-07-21 12:41] LABS: Absolute Lymphocyte Count 0.57 X10^3/uL (0.83-4.51); Absolute Neutrophil Count 3.5 X10^3/uL (2.0-7.7); Basophil# 0.04 X10^3/uL; Basophil% 0.8 % (0-1); Eosinophil# 0.14 X10^3/uL; Eosinophils% 2.9 % (0-5); Hemoglobin 12.2 g/dL (13.0-16.5); Lymphocyte # 0.57 X10^3/ul (4.0); Lymphocyte % 11.6 % (19-41); Mean Corp Hgb Conc 31.3 g/dL (32-36); Mean Corpuscular Hgb 27.9 pg (27.0-32.0); Monocyte# 0.64 X10^3/uL; NRBC Flagged by Analyzer 0 % (0-5); Neutrophil % 71.3 % (47-70); POSITIVE DIFFERENTIAL YES; Platelet Count 205 K/mm3 (150-450); RBC Distribution Width CV 13.2 % (11.6-14.6); RBC Distribution Width SD 43.2 fl (35.1-43.9); Red Blood Count 4.38 M/mm3 (4.6-6.2); White Blood Count 4.9 K/mm3 (4.4-11.0)
[2019-07-21 12:54] LABS: Differential Indicated SCAN CRITERIA MET
[2019-07-21 13:02] LABS: Vitamin D,25 Hydroxy 19.3 ng/mL (29.95-100.01)
[2019-07-21 13:06] LABS: ALB/GLOB Ratio 0.9 RATIO (0.9-2.4); AST(SGOT) 15 U/L (15-37); Alanine Aminotransfer ALT/SGPT 14 U/L (16-61); Albumin, Serum 3.4 g/dL (3.2-5.0); Alkaline Phosphatase 68 U/L (45-117); Anion Gap 3 (5-15); BUN 16 mg/dL (7-18); BUN/Creat Ratio 12.9 RATIO (10-20); Calcium,Total 9.2 mg/dL (8.5-10.1); Chloride 109 mmol/L (98-107); Creatinine, Serum 1.24 mg/dL (0.70-1.30); EST Glomerular Filtration Rate 59 mL/min (>60); Est Glom Filt Rate - Afr Amer 72 mL/min (>60); Globulin 3.9 g/dL (2.2-4.2); Glucose 112 mg/dL (74-106); Potassium 4.3 mmol/L (3.5-5.1); Protein, Total 7.3 g/dL (6.4-8.2); Sodium Level 140 mmol/L (136-145); Thyroid Stim Hormone (TSH) 2.04 uIU/mL (0.358-3.74)
[2019-07-21 13:50] LABS: Platelet Estimate ADEQUATE (ADEQ); Red Cell Morphology NORM C+C NORMAL (NORM C&C)
== END ==
PROVIDERS: PCP Family Medicine; Visit Provider Family Medicine Geriatric Medicine
DX: I10 Essential (primary) hypertension (principal); E55.9 Vitamin D deficiency, unspecified
CPT/HCPCS: 36415; 80053; 82306; 84443; 85025

== ENCOUNTER → 2019-09-06 14:18 | Outpatient (CLI) | payer MEDICARE, SELFPAY ==
[2019-01-18 09:58] VITALS: BMI 23.5
[2019-07-20 11:57] VITALS: BMI 24.4
--- NOTE | 2019-09-06 14:21 | CT_ITS ---
STUDY: CT CHEST WITH CONTRAST REASON FOR EXAM: Male, 84 years old. LUNG CA FOLLOW UP, DEMENTIA RADIATION DOSAGE (If Supplied By Facility): CTDIvol = ( 19.36 ) mGy, DLP = ( 1428.27 ) mGycm TECHNIQUE: Transaxial imaging was performed following intravenous administration of . Individualized dose optimization techniques were used for this CT. COMPARISON: March 01, 2019 FINDINGS: There is loss of volume in right hemithorax. There is prominence of the interstitial markings in the right lung more severe in the right upper lobe with cicatricial atelectasis possibly due to postradiation changes. There is also minor interstitial thickening at the left base. There is pleural parenchymal scarring in the right upper lobe. Cannot exclude coexisting mass. There is no pleural effusion or pneumothorax. The heart is enlarged and there is coronary artery calcification Subcentimeter mediastinal and hilar nodes of uncertain significance. Normal enhanced pulmonary arteries. Atherosclerotic changes of the aorta without evidence for aneurysm Dorsal spine demonstrates moderate spondylosis. Small hiatal hernia is noted There is no demonstrated abnormality of the visualized upper abdomen. Previously noted tiny right pleural effusion has resolved No other significant interval change CT/Chest WITH Contrast IMPRESSION: Probable postradiation changes in the right lung most pronounced the right upper lobe. Pleural parenchymal scarring in the right apex with possible associated small mass density. PET scan would be helpful for further evaluation if clinically warranted Other findings as above Electronically Signed: Alonso Sebastian MD at 16:38 EDT , Service support ,
--- NOTE | 2019-09-06 14:21 | CT_ITS ---
STUDY: CT ABDOMEN WITH CONTRAST REASON FOR EXAM: Male, 84 years old. LUNG CA FOLLOW UP, DEMENTIA RADIATION DOSAGE (If Supplied By Facility): CTDIvol = ( 19.36 ) mGy, DLP = ( 1428.27 ) mGycm TECHNIQUE: Transaxial images were obtained post I.V. administration of , and oral contrast. Sagittal and coronal images were reconstructed. Individualized dose optimization techniques were used for this CT. COMPARISON: 03/01/2019 FINDINGS: The visualized lung bases are unremarkable. The visualized portions of the heart are within normal limits. Normal liver. Normal gallbladder and extrahepatic biliary system. Normal spleen. There is no change in 8mm round cyst within the head of the pancreas just anterior to the distal common bile duct which may represent a cyst or duct diverticulum. Prominent pancreatic duct suggestive of pancreas divisum. Normal bilateral adrenal glands. Normal right kidney. There is severe cortical atrophy of the left kidney, consistent with chronic medical renal disease. There is a large hiatal hernia composed mostly of the fundus of the stomach. Normal small intestine. There is diverticulosis, with thickening of the colon wall, and pericolonic inflammation changes consistent with acute diverticulitis. There is non-visualization of the appendix. No change in 3.3 cm infrarenal abdominal aortic aneurysm. Normal inferior vena cava. Normal retroperitoneum. Normal abdominal wall. Status post transpedicular fixation lower lumbar spine. CT/Abdomen WITH IV Contrast IMPRESSION: No change in subcentimeter pancreatic cyst or diverticulum of the distal common bile duct. Electronically Signed: Bandar Andre MD at 13:17 EDT Tel , Service support ,
--- NOTE | 2019-09-06 14:33 | CT_ITS ---
STUDY: CT BRAIN WITH AND WITHOUT CONTRAST REASON FOR EXAM: Male, 84 years old. LUNG CA FOLLOW UP, DEMENTIA RADIATION DOSAGE (If Supplied By Facility): CTDIvol = ( 44.99 ) mGy, DLP = ( 1665.34 ) mGycm TECHNIQUE: Transaxial CT imaging of the brain was performed pre and post contrast administration. The examination was performed with intravenous administration of Isovue-370. Individualized dose optimization techniques were used for this CT. COMPARISON: 08/31/2018. FINDINGS: Normal soft tissue structures. Normal calvarium. Normal size ventricles and extra-axial spaces for the patient''s age. Hypodensities in the white matter of both cerebral hemispheres are chronic white matter ischemic changes. Old lacunar cystic infarct versus prominent perivascular space in the left upper lentiform nucleus. Otherwise normal basal ganglia. Normal thalami. Normal brainstem. Normal cerebellum. There is no intracranial hemorrhage. There are no findings of an acute ischemic infarction. Normal visualized paranasal sinuses. CT/Brain/Head W/WO Contrast IMPRESSION: 1. No CT evidence of intracranial metastatic disease or acute intracranial abnormality. 2. Chronic white matter ischemic changes in both cerebral hemispheres. 3. 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 This is unchanged. 4. No significant interval changes when compared to 08/31/2018. Electronically Signed: Tino Waldrop MD at 16:03 EDT , Service support ,
[2019-09-06 14:40] LABS: CREATININE FINGERSTICK 1.2 mg/dL (0.70-1.30)
== END ==
PROVIDERS: PCP Family Medicine Geriatric Medicine; Referring Provider Internal Medicine Hematology & Oncology; Visit Provider Internal Medicine Hematology & Oncology
DX: C34.90 Malignant neoplasm of unspecified part of unspecified bronchus or lung (principal); R27.0 Ataxia, unspecified; F03.90 Unspecified dementia, unspecified severity, without behavioral disturbance, psychotic disturbance, mood disturbance, and anxiety
CPT/HCPCS: 70470; 71260; 74160; Q9967

== ENCOUNTER → 2019-11-01 14:37 | Outpatient (CLI) | payer MEDICARE, SELFPAY ==
[2019-01-18 09:58] VITALS: BMI 23.5
[2019-09-08 14:22] VITALS: BMI 24.5
--- NOTE | 2019-11-01 14:41 | CT_ITS ---
STUDY: CT BRAIN WITHOUT CONTRAST REASON FOR EXAM: Male, 84 years old. CLOSED HEAD INJURY, FREQUENT FALLS-WORSENING, HX OF BRAIN BLEED FROM FALL, DEMENTIA RADIATION DOSAGE (If Supplied By Facility): CTDIvol = ( 60.81 ) mGy, DLP = ( 1158.3 ) mGycm TECHNIQUE: Transaxial CT imaging of the brain was performed without administration of intravenous contrast material. Individualized dose optimization techniques were used for this CT. COMPARISON: Comparison is made with prior study of September 06, 2019. FINDINGS: Normal soft tissue structures. Normal calvarium. There is mild cerebral atrophy with widening of the extra-axial spaces and ventricular dilatation. There are areas of decreased attenuation within the white matter tracts of the supratentorial brain, consistent with microvascular disease changes. Small lacunar infarct in the left basal ganglion. This is unchanged. Normal brainstem. Normal cerebellum. There is no intracranial hemorrhage. There are no findings of an acute ischemic infarction. Atherosclerotic calcification of the cavernous portions of the internal carotid arteries bilaterally. Normal visualized paranasal sinuses. CT/Brain/Head without Contrast IMPRESSION: Chronic involutional changes of the brain. Stable old lacunar infarct in the left basal ganglia. Electronically Signed: Rk Salmeron, at 15:40 EDT , Service support ,
[2019-11-01 15:27] LABS: Absolute Lymphocyte Count 0.88 X10^3/uL (0.83-4.51); Absolute Neutrophil Count 4.1 X10^3/uL (2.0-7.7); Basophil# 0.04 X10^3/uL; Basophil% 0.7 % (0-1); Eosinophils% 3.3 % (0-5); Hematocrit 38.7 % (40-54); Hemoglobin 12.7 g/dL (13.0-16.5); Lymphocyte # 0.88 X10^3/ul (4.0); Lymphocyte % 14.6 % (19-41); Mean Corp Hgb Conc 32.8 g/dL (32-36); Mean Corpuscular Hgb 29.2 pg (27.0-32.0); Mean Platelet Vol. 9.8 fl (6.2-12.0); Monocyte# 0.78 X10^3/uL; Monocyte% 12.9 % (0-10); NRBC Flagged by Analyzer 0 % (0-5); Neutrophil # 4.12 X10^3/uL (2.7-7.7); Neutrophil % 68.3 % (47-70); Platelet Count 181 K/mm3 (150-450); RBC Distribution Width CV 13.7 % (11.6-14.6); RBC Distribution Width SD 44.7 fl (35.1-43.9); Red Blood Count 4.35 M/mm3 (4.6-6.2)
[2019-11-01 15:57] LABS: Anion Gap 3 (5-15); BUN 19 mg/dL (7-18); BUN/Creat Ratio 16.5 RATIO (10-20); Calcium,Total 9.5 mg/dL (8.5-10.1); Chloride 109 mmol/L (98-107); Creatinine, Serum 1.15 mg/dL (0.70-1.30); EST Glomerular Filtration Rate 65 mL/min (>60); Est Glom Filt Rate - Afr Amer 78 mL/min (>60); Glucose 120 mg/dL (74-106); Potassium 4.3 mmol/L (3.5-5.1); Sodium Level 140 mmol/L (136-145); Thyroid Stim Hormone (TSH) 2.77 uIU/mL (0.358-3.74)
== END ==
PROVIDERS: PCP Family Medicine Geriatric Medicine; Visit Provider Family Medicine Geriatric Medicine
DX: S09.90XA Unspecified injury of head, initial encounter (principal); X58.XXXA Exposure to other specified factors, initial encounter; Y93.9 Activity, unspecified; Y92.9 Unspecified place or not applicable; Y99.9 Unspecified external cause status; R53.83 Other fatigue; Z78.9 Other specified health status
CPT/HCPCS: 36415; 70450; 80048; 84443; 85025

== ENCOUNTER → 2019-11-29 12:24 | Outpatient (CLI) | payer MEDICARE, SELFPAY ==
[2019-01-18 09:58] VITALS: BMI 23.5
[2019-09-08 14:22] VITALS: BMI 24.5
[2019-11-29 15:18] LABS: Absolute Lymphocyte Count 0.95 X10^3/uL (0.83-4.51); Absolute Neutrophil Count 5.6 X10^3/uL (2.0-7.7); Basophil# 0.05 X10^3/uL; Basophil% 0.7 % (0-1); Eosinophil# 0.16 X10^3/uL; Eosinophils% 2.1 % (0-5); Hematocrit 41.5 % (40-54); Hemoglobin 13.3 g/dL (13.0-16.5); Lymphocyte # 0.95 X10^3/ul (4.0); Lymphocyte % 12.5 % (19-41); Mean Corpuscular Hgb 29.3 pg (27.0-32.0); Mean Corpuscular Volume 91.4 fL (80-94); Mean Platelet Vol. 10.2 fl (6.2-12.0); Monocyte# 0.84 X10^3/uL; Monocyte% 11.1 % (0-10); NRBC Flagged by Analyzer 0 % (0-5); Neutrophil # 5.57 X10^3/uL (2.7-7.7); Neutrophil % 73.3 % (47-70); Platelet Count 192 K/mm3 (150-450); RBC Distribution Width CV 13.3 % (11.6-14.6); RBC Distribution Width SD 44.5 fl (35.1-43.9); Red Blood Count 4.54 M/mm3 (4.6-6.2); White Blood Count 7.6 K/mm3 (4.4-11.0)
[2019-11-29 15:46] LABS: Anion Gap 8 (5-15); BUN 16 mg/dL (7-18); BUN/Creat Ratio 12.4 RATIO (10-20); Calcium,Total 9.6 mg/dL (8.5-10.1); Chloride 103 mmol/L (98-107); Creatinine, Serum 1.29 mg/dL (0.70-1.30); EST Glomerular Filtration Rate 56 mL/min (>60); Est Glom Filt Rate - Afr Amer 68 mL/min (>60); Glucose 102 mg/dL (74-106); Potassium 4.7 mmol/L (3.5-5.1); Sodium Level 139 mmol/L (136-145)
== END ==
PROVIDERS: PCP Family Medicine Geriatric Medicine; Visit Provider Family Medicine Geriatric Medicine
DX: R40.0 Somnolence (principal)
CPT/HCPCS: 36415; 80048; 85025

== ENCOUNTER → 2020-01-30 14:22 | Outpatient (CLI) | payer MEDICARE, SELFPAY ==
[2019-01-18 09:58] VITALS: BMI 23.5
[2019-12-08 13:58] VITALS: BMI 24.7
[2020-01-30 16:11] LABS: Absolute Lymphocyte Count 0.68 X10^3/uL (0.83-4.51); Absolute Neutrophil Count 4.1 X10^3/uL (2.0-7.7); Basophil# 0.04 X10^3/uL; Basophil% 0.7 % (0-1); Eosinophil# 0.12 X10^3/uL; Eosinophils% 2.1 % (0-5); Hematocrit 39.7 % (40-54); Hemoglobin 13.3 g/dL (13.0-16.5); Lymphocyte # 0.68 X10^3/ul (4.0); Lymphocyte % 11.9 % (19-41); Mean Corp Hgb Conc 33.5 g/dL (32-36); Mean Corpuscular Hgb 30.6 pg (27.0-32.0); Mean Corpuscular Volume 91.3 fL (80-94); Mean Platelet Vol. 10.6 fl (6.2-12.0); Monocyte% 12.3 % (0-10); NRBC Flagged by Analyzer 0 % (0-5); Neutrophil # 4.14 X10^3/uL (2.7-7.7); Neutrophil % 72.6 % (47-70); Platelet Count 165 K/mm3 (150-450); RBC Distribution Width CV 13.2 % (11.6-14.6); RBC Distribution Width SD 43.6 fl (35.1-43.9); Red Blood Count 4.35 M/mm3 (4.6-6.2); White Blood Count 5.7 K/mm3 (4.4-11.0)
[2020-01-30 16:20] LABS: Vitamin D,25 Hydroxy 32.4 ng/mL
[2020-01-30 16:28] LABS: AST(SGOT) 33 U/L (15-37); Alanine Aminotransfer ALT/SGPT 31 U/L (16-61); Albumin, Serum 3.6 g/dL (3.2-5.0); Alkaline Phosphatase 69 U/L (45-117); Anion Gap 6 (5-15); BUN 16 mg/dL (7-18); Calcium,Total 8.9 mg/dL (8.5-10.1); Chloride 108 mmol/L (98-107); Creatinine, Serum 1.14 mg/dL (0.70-1.30); EST Glomerular Filtration Rate 65 mL/min (>60); Est Glom Filt Rate - Afr Amer 79 mL/min (>60); Globulin 3.7 g/dL (2.2-4.2); Glucose 114 mg/dL (74-106); Protein, Total 7.3 g/dL (6.4-8.2); Sodium Level 140 mmol/L (136-145)
== END ==
PROVIDERS: PCP Family Medicine Geriatric Medicine; Visit Provider Family Medicine Geriatric Medicine
DX: I10 Essential (primary) hypertension (principal); E55.9 Vitamin D deficiency, unspecified
CPT/HCPCS: 36415; 80053; 82306; 84443; 85025

== ENCOUNTER → 2020-03-07 13:07 | Outpatient (CLI) | payer MEDICARE, SELFPAY ==
[2019-01-18 09:58] VITALS: BMI 23.5
[2019-12-08 13:58] VITALS: BMI 24.7
[2020-02-23 11:29] VITALS: BMI 24.7
--- NOTE | 2020-03-07 13:08 | CT_ITS ---
STUDY: CT ABDOMEN WITH CONTRAST REASON FOR EXAM: Male, 84 years old. LUNG CA RADIATION DOSAGE (If Supplied By Facility): CTDIvol = ( 15.83 ) mGy, DLP = ( 1008.48 ) mGycm TECHNIQUE: Transaxial images were obtained post I.V. administration of IV 100mL Isovue-300, and without oral contrast. Sagittal and coronal images were reconstructed. Individualized dose optimization techniques were used for this CT. COMPARISON: 09/06/2019 FINDINGS: The visualized lung bases are unremarkable. The visualized portions of the heart are within normal limits. Normal liver. Normal gallbladder and extrahepatic biliary system. Normal spleen. Normal pancreas. Normal bilateral adrenal glands. Normal right kidney. There is moderate cortical atrophy of the left kidney, consistent with chronic medical renal disease. Normal visualized stomach. Normal small intestine. Normal colon. There is non-visualization of the appendix. There is diffuse atherosclerotic calcification of the abdominal aorta, without a demonstrated aneurysm. Normal inferior vena cava. Normal retroperitoneum. Normal abdominal wall. Normal osseous structures. CT/Abdomen WITH IV Contrast IMPRESSION: 1. No CT evidence of metastatic bronchogenic carcinoma. 2. Moderate left renal atrophy likely from chronic renal artery stenosis. Electronically Signed: Bandar Andre MD at 13:57 EDT Tel , Service support ,
--- NOTE | 2020-03-07 13:08 | CT_ITS ---
STUDY: CT CHEST WITH CONTRAST REASON FOR EXAM: Male, 84 years old. LUNG CA RADIATION DOSAGE (If Supplied By Facility): CTDIvol = ( 15.83 ) mGy, DLP = ( 1008.48 ) mGycm TECHNIQUE: Transaxial imaging was performed following intravenous administration of IV 100mL Isovue-300. Multiplanar coronal and sagittal images were reformatted. Individualized dose optimization techniques were used for this CT. COMPARISON: Comparison is made with prior study dated 09/06/2019. FINDINGS: A left-sided layla catheter is seen with the tip in the superior vena cava. Stable volume loss in the right hemithorax. 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 This is unchanged. Mild increased markings at the right lung base suggestive of scarring. The left lung is unchanged as well. There is no demonstrated pleural abnormality. There are calcifications of the coronary arteries. The dual-chamber pacemaker is seen. Mild cardiomegaly. Normal mediastinum. Normal hilar regions. Normal enhanced pulmonary arteries. There is atherosclerotic calcification of the aortic arch with tortuosity and elongation of the aortic arch and descending thoracic aorta. There is demineralization of the thoracic spine. There is no demonstrated abnormality of the visualized upper abdomen. CT/Chest WITH Contrast IMPRESSION: Stable examination with evidence of scarring and bronchiectasis in the right upper lobe with volume loss. Electronically Signed: Rk Salmeron, at 14:35 EDT , Service support ,
--- NOTE | 2020-03-07 13:08 | ECHOD_ITS ---
Reason For Study: Murmur Procedure This was a 2D Doppler, Color Flow transthoracic echocardiogram. Myocardial strain analysis was performed in this exam to aid in the assessment of cardiac function. Exam performed in department. Left Ventricle Normal LV size. Left ventricular systolic function is normal. The estimated ejection fraction is 60 %. Stage 1 diastolic dysfunction. No regional wall motion abnormalities noted. Right Ventricle Normal RV size. Normal systolic function. Atria Normal left atrium. Normal right atrium. Mitral Valve Normal mitral valve. Mild (1+) eccentric mitral valve insufficiency. Tricuspid Valve Normal tricuspid valve. Mild (1+) tricuspid valve insufficiency. Pulmonary artery systolic pressure is 26 mmHg. Aortic Valve Trisinus/trileaflet aortic valve. Moderate focal aortic valve calcification. Peak aortic valve gradient 44 mmHg. Mean aortic valve gradient 25 mmHg. Moderate aortic stenosis. Mild (1+) aortic valve insufficiency. Great Vessels Calcified aortic root. The pulmonary artery is normal size. Normal inferior vena cava. Pericardium/Pleural No pericardial effusion. MMode/2D Measurements & Calculations LVIDd: 4.1 cm IVSd: 1.1 cm LVOT diam: 2.0 cm LVIDs: 2.8 cm LVPWd: 1.7 cm LVOT area: 3.3 cm2 RVDd: 3.2 cm FS: 30.8 % Ao root diam: 3.3 cm LAV(MOD-bp): 64.0 ml LA A4 area: 20.4 cm2 LA dimension: 4.2 cm LAV(MOD-bp) Indexed: 32.2 ml/m2 LAV(MOD-sp2): 67.5 ml LAV(MOD-sp4): 61.3 ml RA A4 area: 16.5 cm2 Time Measurements MV dec time: 0.36 sec Doppler Measurements & Calculations MV E max art: 61.4 cm/sec Lat Peak E' Art: 4.3 cm/sec Med Peak E' Art: 4.5 cm/sec MV A max art: 113.3 cm/sec E/E' lat: 14.2 E/E' med: 13.6 MV E/A: 0.54 MV V2 max: 117.8 cm/sec MV P1/2t max art: 70.5 cm/sec Ao V2 max: 331.3 cm/sec MV max P.5 mmHg MV P1/2t: 116.0 msec Ao max P.9 mmHg MV V2 mean: 57.8 cm/sec MV dec slope: 178.0 cm/sec2 Ao V2 mean: 237.1 cm/sec MV mean P.6 mmHg MVA(P1/2t): 1.9 cm2 Ao mean P.2 mmHg MV V2 VTI: 34.3 cm Ao V2 VTI: 80.7 cm MVA(VTI): 2.1 cm2 LINDSAY(I,D): 0.89 cm2 LINDSAY(V,D): 0.88 cm2 AI max art: 481.5 cm/sec LV V1 max: 87.9 cm/sec SV(LVOT): 71.8 ml AI max P.7 mmHg LV V1 max P.1 mmHg LV V1 mean P.6 mmHg AI dec slope: 255.2 cm/sec2 LV V1 mean: 59.1 cm/sec AI P1/2t: 552.5 msec LV V1 VTI: 21.8 cm PA V2 max: 83.8 cm/sec TR max art: 234.3 cm/sec TR max P.0 mmHg Interpretation Summary Normal LV size. Left ventricular systolic function is normal. The estimated ejection fraction is 60 %. Stage 1 diastolic dysfunction. Mean aortic valve gradient 25 mmHg. Moderate focal aortic valve calcification. Moderate aortic stenosis. Mild (1+) aortic valve insufficiency. The global longitudinal strain = -17.2 % (normal). Ordering Physician: Dru Baugh Referring Physician: Cece Beaulieu Performed By: Noble Hopson RCS
== END ==
PROVIDERS: PCP Family Medicine Geriatric Medicine; Referring Provider Internal Medicine Hematology & Oncology; Visit Provider Internal Medicine Hematology & Oncology
DX: R06.00 Dyspnea, unspecified (principal); C34.90 Malignant neoplasm of unspecified part of unspecified bronchus or lung; C77.9 Secondary and unspecified malignant neoplasm of lymph node, unspecified; K86.9 Disease of pancreas, unspecified
CPT/HCPCS: 71260; 74160; 93306; Q9967

== ENCOUNTER 2020-03-20 11:03 | Emergency (ER) | payer MEDICARE, SELFPAY ==
[2019-01-18 09:58] VITALS: BMI 23.5
[2020-02-23 11:29] VITALS: BMI 24.7
[2020-03-20 11:04] VITALS: BP 179/86; PULSE 72; RESP 22; TEMP 36.5; O2SAT 95; BMI 24.8
--- NOTE | 2020-03-20 11:38 | CT_ITS ---
STUDY: CT CERVICAL SPINE WITHOUT CONTRAST REASON FOR EXAM: Male, 84 years old. FELL AND HIT HEAD ON COUNTER. INCREASE FALLS OVER THIS PAST WEEK. HX OF CVA RADIATION DOSAGE (If Supplied By Facility): CTDIvol = ( 24.92 ) mGy, DLP = ( 502.42 ) mGycm TECHNIQUE: High resolution transaxial imaging was performed without contrast material. Sagittal and coronal images were reconstructed. Individualized dose optimization techniques were used for this CT. COMPARISON: Comparison is made with prior examination dated 01/29/2018. FINDINGS: Normal craniovertebral junction. There are degenerative changes of the anterior atlantoaxial articulation. Normal odontoid process. There is straightening of the normal cervical lordosis. Multilevel spondylosis and subchondral sclerosis. C2-3: Marked degree of disc space narrowing. Spondylosis. Facet joint osteoarthritis and hypertrophy. Uncovertebral arthrosis. Moderate degree of bilateral neural foraminal stenosis. C3-4: Marked degree of disc space narrowing with spondylosis and subchondral sclerosis. Uncovertebral arthrosis and hypertrophy of the facet joints worse on the right side. Marked degree of bilateral neural foraminal stenosis worse on the right side. Mild central canal stenosis. C4-5: Marked degree of disc space narrowing with spondylosis. Subchondral sclerosis. Uncovertebral arthrosis and facet joint hypertrophy. Marked degree of bilateral neural foraminal stenosis. C5-6: Moderate degree of disc space narrowing. Moderate degree of bilateral neural foraminal stenosis secondary to hypertrophy of the facet joints and uncovertebral arthrosis. C6-7: Marked degree of disc space narrowing with spondylosis. Moderate degree of right neural foraminal stenosis and moderate degree of neural foraminal stenosis on the left side. C7-T1: Normal endplates. Normal disc height and morphology. Normal central canal and intervertebral neuroforamina. Atherosclerotic calcification of the carotid bifurcations bilaterally. Stable 2.7 cm x 1.6 cm pleural-based mass in the right lung apex most likely representing scarring. CT/Spine Cervical without Contras IMPRESSION: Neural foraminal and central canal stenosis. Multilevel degenerative changes, as described above. Electronically Signed: Rk Salmeron, at 12:10 EDT , Service support ,
--- NOTE | 2020-03-20 11:39 | ED.VIS.GEN ---
History of Present Illness Chief Complaint: Fall Informant: Patient, Family Narrative: Reportedly the patient went to get a haircut and was attempting to get into the chair when he sustained a fall and struck the back of his head on a counter. There was reportedly a loss of consciousness. states that he has been asking the same question as to where he is at. He was nauseated but denies he is nauseated now. He denies any other injuries. states she was told he had a lump on the back of his head but has been unable to find one. He does not take any blood thinners per the . Patient denies any arm or leg symptoms. No visual changes. Patient remembers going into the [employer] but does not remember the fall. - Past Medical History (1) Atherosclerotic heart disease of [place] coronary artery with other forms of angina pectoris Status: Chronic (2) Essential (primary) hypertension Status: Chronic (3) History of CVA (cerebrovascular accident) Status: Chronic (4) Hyperlipidemia Status: Chronic (5) Lesion of pancreas Status: Chronic (6) Non-small cell carcinoma of lung Status: Chronic (7) Nonrheumatic aortic (valve) stenosis Status: Chronic (8) Peripheral arterial occlusive disease Status: Chronic Comment: Right SFA stents x 2 2014 (9) Sick sinus syndrome Status: Chronic (10) History of non-ST elevation myocardial infarction (NSTEMI) Status: Resolved (11) IVH (intraventricular hemorrhage) Status: Resolved Past Medical History - Allergies and Home Meds Allergies/Adverse Reactions: Allergies No Known Allergies Allergy (Verified 03/20/20 11:07) Primary Care Physician: Ricardo Martínez Chi, MD [Primary Care Provider] - Prior records reviewed: Yes Surgical History: herniorrhaphy, pacemaker implantation, - - Lumbar spine fusion, stent placement in the legs Smoking Status: Former smoker - Family History Maternal Family History: Family History (Last Reviewed 03/14/20 @ 13:14 by Landy Mitchell) Father Heart disease Sister Heart disease CAD (coronary artery disease) Myocardial infarction Mother Hyperlipidemia Family History: Reports: Dementia, Hypertension Paternal Family History: Family History (Last Reviewed 03/14/20 @ 13:14 by Landy Mitchell) Father Heart disease Sister Heart disease CAD (coronary artery disease) Myocardial infarction Mother Hyperlipidemia Family History: Reports: Heart Disease Review of Systems General: Denies: Chills, Fever, Sweats Eyes: Denies: Visual changes - bilaterally, Diplopia ENT: Denies: Rhinorrhea, Sore throat Cardiovascular: Denies: Chest pain, Palpitations Respiratory: Denies: Dyspnea, Cough, Dyspnea on exertion Gastrointestinal: Reports: Nausea. Denies: Abdominal pain, Vomiting, Diarrhea, Melena, Hematochezia Genitourinary: Denies: Dysuria, Hematuria, Frequency Musculoskeletal: Denies: Back pain, Extremity Pain Skin: Denies: Rash, Wounds Neurological: Reports: Headache. Denies: Weakness, Numbness Physical Exam Vital Signs/Narrative: Vital Signs Temp Pulse Resp BP Pulse Ox 03/20/20 11:04 97.7 F L 72 22 H 179/86 H 95 Inital Vital Signs reviewed: Yes General: Well nourished, Well developed, No Acute Distress Head: Normocephalic, Atraumatic Eyes: Perrl, EOMI ENT: Moist mucous membranes, No rhinorrhea Neck: Supple, Nontender Cardiovascular: Regular rate, Regular rhythm, No murmurs Respiratory: No distress, CTA bilaterally, Chest nontender Abdomen: Soft, Nontender, Nondistended, Normal bowel sounds Back: Nontender, Normal Inspection Extremities: Nontender, No edema Skin: Normal color, No rash Neurological: Alert, Oriented x3, Cranial nerves II-XII grossly intact, Normal Strength, Normal Sensation, - - Patient has retrograde amnesia to events. Psychological: Normal affect, Normal Mood Diagnostic/Tx/Re-eval Clinical Impression(s) from Imaging Studies Cervical Spine CT 03/20/20 11:38 IMPRESSION: Neural foraminal and central canal stenosis. Multilevel degenerative changes, as described above. Electronically Signed: Rk Salmeron, at 12:10 EDT , Service support , Brain CT 03/20/20 11:45 IMPRESSION: Chronic involutional changes of the brain. Electronically Signed: Rk Salmeron, at 12:12 EDT , Service support , - Medical Decision Making CT of the head and cervical spine were negative for hemorrhage or fracture. Patient obviously has a concussion. I recommend brain rest. I can write for some nausea medication in case that comes back. Otherwise I do recommend Tylenol and early follow-up with primary care. We talked about if his symptoms continue that he may need referral to TBI clinic. ED Disposition - Plan for ED Patient: Disposition: Home or Assisted Living Diagnosis: Concussion with loss of consciousness Instructions: ED Concussion Prescriptions: Ondansetron [Zofran Odt] 4 mg PO Q8H PRN PRN #10 tab PRN Reason: Nausea Prescription Printed Referrals: Ricardo Martínez Chi, MD [Primary Care Provider] - 3-5 Days
--- NOTE | 2020-03-20 11:45 | CT_ITS ---
STUDY: CT BRAIN WITHOUT CONTRAST REASON FOR EXAM: Male, 84 years old. FELL AND HIT HEAD ON COUNTER. INCREASE FALLS OVER THIS PAST WEEK. HX OF CVA RADIATION DOSAGE (If Supplied By Facility): CTDIvol = ( 44.99 ) mGy, DLP = ( 829.85 ) mGycm TECHNIQUE: Transaxial CT imaging of the brain was performed without administration of intravenous contrast material. Individualized dose optimization techniques were used for this CT. COMPARISON: Comparison is made with prior study dated 11/01/2019. FINDINGS: Normal soft tissue structures. Normal calvarium. There is mild cerebral atrophy with widening of the extra-axial spaces and ventricular dilatation. There are areas of decreased attenuation within the white matter tracts of the supratentorial brain, consistent with microvascular disease changes. Stable small lacunar infarct in the left basal ganglion. Normal brainstem. There is mild cerebellar atrophy. There is no intracranial hemorrhage. There are no findings of an acute ischemic infarction. Atherosclerotic calcification of the bifurcation of the carotid arteries bilaterally. Normal visualized paranasal sinuses. CT/Brain/Head without Contrast IMPRESSION: Chronic involutional changes of the brain. Electronically Signed: Rk Salmeron, at 12:12 EDT , Service support ,
[2020-03-20 12:41] VITALS: BP 172/78; BP 174/80; PULSE 72; PULSE 74; RESP 18; O2SAT 96; O2SAT 97
== END 2020-03-20 12:58 | disposition home or self-care (01) ==
PROVIDERS: Emergency Provider Emergency Medicine; PCP Family Medicine Geriatric Medicine
DX: S06.0X9A Concussion with loss of consciousness of unspecified duration, initial encounter (principal); W07.XXXA Fall from chair, initial encounter; Y93.89 Activity, other specified; Y92.9 Unspecified place or not applicable; Y99.9 Unspecified external cause status; I25.118 Atherosclerotic heart disease of native coronary artery with other forms of angina pectoris; I35.0 Nonrheumatic aortic (valve) stenosis; I10 Essential (primary) hypertension; E78.5 Hyperlipidemia, unspecified; I77.9 Disorder of arteries and arterioles, unspecified; Z79.82 Long term (current) use of aspirin; Z79.899 Other long term (current) drug therapy; I25.2 Old myocardial infarction; Z86.73 Personal history of transient ischemic attack (TIA), and cerebral infarction without residual deficits; Z87.891 Personal history of nicotine dependence
CPT/HCPCS: 70450; 72125; 99284

== ENCOUNTER → 2020-04-24 10:20 | Outpatient (CLI) | payer MEDICARE, SELFPAY ==
[2019-01-18 09:58] VITALS: BMI 23.5
[2020-04-24 10:52] LABS: Absolute Lymphocyte Count 0.74 X10^3/uL (0.83-4.51); Absolute Neutrophil Count 4.6 X10^3/uL (2.0-7.7); Basophil# 0.04 X10^3/uL; Basophil% 0.6 % (0-1); Eosinophil# 0.17 X10^3/uL; Eosinophils% 2.7 % (0-5); Hematocrit 40.5 % (40-54); Hemoglobin 13.1 g/dL (13.0-16.5); Lymphocyte # 0.74 X10^3/ul (4.0); Lymphocyte % 11.9 % (19-41); Mean Corp Hgb Conc 32.3 g/dL (32-36); Mean Corpuscular Hgb 30.2 pg (27.0-32.0); Mean Corpuscular Volume 93.3 fL (80-94); Mean Platelet Vol. 9.7 fl (6.2-12.0); Monocyte# 0.63 X10^3/uL; Monocyte% 10.1 % (0-10); NRBC Flagged by Analyzer 0 % (0-5); Neutrophil % 74.2 % (47-70); Platelet Count 198 K/mm3 (150-450); RBC Distribution Width CV 13.1 % (11.6-14.6); RBC Distribution Width SD 44.8 fl (35.1-43.9); Red Blood Count 4.34 M/mm3 (4.6-6.2); White Blood Count 6.2 K/mm3 (4.4-11.0)
[2020-04-24 11:49] LABS: ALB/GLOB Ratio 0.9 RATIO (0.9-2.4); AST(SGOT) 23 U/L (15-37); Alanine Aminotransfer ALT/SGPT 17 U/L (16-61); Albumin, Serum 3.4 g/dL (3.2-5.0); Alkaline Phosphatase 82 U/L (45-117); Anion Gap 8 (5-15); BUN 13 mg/dL (7-18); BUN/Creat Ratio 10.2 RATIO (10-20); Calcium,Total 9.4 mg/dL (8.5-10.1); Chloride 107 mmol/L (98-107); Creatinine, Serum 1.28 mg/dL (0.70-1.30); EST Glomerular Filtration Rate 57 mL/min (>60); Est Glom Filt Rate - Afr Amer 69 mL/min (>60); Globulin 3.7 g/dL (2.2-4.2); Glucose 182 mg/dL (74-106); Potassium 3.8 mmol/L (3.5-5.1); Protein, Total 7.1 g/dL (6.4-8.2); Sodium Level 141 mmol/L (136-145); Thyroid Stim Hormone (TSH) 2.01 uIU/mL (0.358-3.74)
== END ==
PROVIDERS: PCP Family Medicine Geriatric Medicine; Visit Provider Family Medicine Geriatric Medicine
DX: I10 Essential (primary) hypertension (principal); E55.9 Vitamin D deficiency, unspecified
CPT/HCPCS: 36415; 80053; 82306; 84443; 85025